=== PATIENT | female | born 1950 | race Caucasian/White ===

== ENCOUNTER 2017-11-09 08:58 | Outpatient (CLI) ==
[2014-05-07 21:16] VITALS: BMI 20.9
== END 2017-11-09 08:59 | disposition home or self-care (01) ==
LOC: LAB 08:58
PROVIDERS: ATTEND Internal Medicine
DX: J44.9 Chronic obstructive pulmonary disease, unspecified (principal); R63.4 Abnormal weight loss; C34.90 Malignant neoplasm of unspecified part of unspecified bronchus or lung
CPT/HCPCS: 36415; 80053; 80061; 82306; 82607; 83036; 84439; 84443; 85025

== ENCOUNTER 2017-11-30 06:44 | Outpatient (CLI) ==
[2014-05-07 21:16] VITALS: BMI 20.9
[2017-11-30] MEDS ORDERED: ATROPINE SULFATE PFS ONE (07:19)
[2017-11-30] MEDS ORDERED: DOBUTAMINE 250 ML IV ONE (07:19)
--- NOTE | 2017-11-30 09:50 | NM ---
Cardiac Stress Test HISTORY: Shortness of breath. Coronary artery disease. Elevated cholesterol. COMPARISON: None of this type. TECHNIQUE: Resting: The patient was injected with 3.9 mCi of thallium 201 chloride intravenously after which a "resting" SPECT study of the heart was performed. Stress: The patient was stressed using a Too protocol and at the appropriate time injected with 27 mCi of 99m technetium Sestamibi (Cardiolite) after which a "stress" SPECT study of the heart was per formed. Gated images of the heart were also obtained to assess wall motion and calculate ejection fra ction. For details of the stress protocol employed, reference is made to the separate report of the performing physician. FINDINGS: The stress perfusion images demonstrate decreased activity in the left ventricular apex wh ich improves at rest suggesting ischemia. The resting perfusion images demonstrate no evidence of si gnificant redistribution/ischemia elsewhere. The left ventricular ejection fraction (LVEF) is 80 %. IMPRESSION: 1. Left ventricular myocardial perfusion demonstrates findings suggesting ischemia the left ventricu lar apex. 2. The left ventricular ejection fraction (LVEF) is 80 %.
--- NOTE | 2017-12-03 09:50 | ECHOSTRESS ---
Date of Exam: 11/30/17 Ordering Physician: DR. SIMONE TEIXEIRA Reason for Echo: SOB, COPD, DOBUTAMINE STRESS --NO ISCHEMIA M-Mode Normal Adult Results LV Dimensions Normal Adult Results AoV Opening excursions >1.6 LVEDD-base- 3.5-5.8 Ao root dimensions 2.0-3.7 LVESD-base- 3.1-4.6 L. Atrium dimensions 1.9-3.8 Post. Wall thickness 0.8-1.1 IV septum (thickness) 0.7-1.2 Post. Wall excursion 0.72-1.3 Septal motion Systolic motion R. Ventricular cavity 1.5-2.0 LVEF 60% Paradoxical septal wall motion 2-D: NORMAL LEFT VENTRICULAR CONTRACTILITY--RESTING AND WITH DOBUTAMINE INFUSION M-MODE: MV: AV: TV: PV: CHAMBER SIZE: WALL MOTION: NORMAL LEFT VENTRICULAR CONTRACTILITY--RESTING AND WITH DOBUTAMINE INFUSION PERICARDIUM: INTERPRETATION: 1. NORMAL LEFT VENTRICULAR CONTRACTILITY--RESTING AND WITH DOBUTAMINE INFUSION MTDD
--- NOTE | 2017-12-03 10:16 | DOBSTECHST ---
Ordering Physician: DR. SIMONE TEIXEIRA Date of Test: 11/30/17 Reason for Examination: SOB, CAD, COPD Smoking History: Height: 59" Weight: 102 LBS Current Medications: CEPHALEXIN, LIPITOR, PREDNISONE, SYMBICORT Target Heart Rate: 128/151 S-T Segment Stage Time HR BPM BP mmhg Rhythm +/- Elevation Depression Comments/ Symptoms Control Sitting 85 130/92 SR X NONE Dobutamine 250mg/D5W 5cmg/KG/mn 10cmg/KG/mn 3:00 116 170/100 SR X NONE 15cmg/KG/mn 1:42 139 172/86 SR X NONE 20cmg/KG/mn 25cmg/KG/mn 30cmg/KG/mn 35cmg/KG/mn 40cmg/KG/mn Time: 3:00 HR B/P Time: 7:00 HR B/P Time: HR B/P Recovery 120 168/90 Recovery 92 158/96 Recovery Total Time: 4:42 98% OXYGEN SATURATION WITH DOBUTAMINE INFUSION Interpretation: 1. NO EVIDENCE OF ISCHEMIA BY ST-T WAVE 2. NO CHEST PAIN OR DISCOMFORT 3. NORMAL LEFT VENTRICULAR CONTRACTILITY--RESTING AND WITH DOBUTAMINE INFUSION SESTAMIBI TO FOLLOW \\ MTDD
== END 2017-11-30 06:45 | disposition home or self-care (01) ==
LOC: CAR 06:44
PROVIDERS: ATTEND Internal Medicine
DX: R06.02 Shortness of breath (principal); I25.10 Atherosclerotic heart disease of native coronary artery without angina pectoris

== ENCOUNTER 2017-12-04 09:11 | Outpatient (CLI) ==
[2014-05-07 21:16] VITALS: BMI 20.9
--- NOTE | 2017-12-04 10:02 | US ---
EXAM: Ultrasound of the soft tissue neck. History: Neck swelling and tenderness. Technique: Multiple sonographic images through the soft tissue neck were obtained. Color duplex Dop pler was used to interrogate vascular flow. Findings: No masses, cysts or fluid collections identified. Impression: No sonographic abnormalities
== END 2017-12-04 09:12 | disposition home or self-care (01) ==
LOC: RAD 09:11
PROVIDERS: ATTEND Internal Medicine
DX: S10.90XA Unspecified superficial injury of unspecified part of neck, initial encounter (principal)

== ENCOUNTER 2017-12-07 06:11 | Outpatient (CLI) ==
[2014-05-07 21:16] VITALS: BMI 20.9
--- NOTE | 2017-12-09 09:08 | ECHO2D ---
Date of Exam: 12/07/17 Ordering Physician: DR. SIMONE TEIXEIRA Room #: OP Reason for Echo: SOB, CAD, COPD M-Mode Normal Adult Results LV Dimensions Normal Adult Results AoV Opening excursions >1.6 >1.6 LVEDD-base- 3.5-5.8 3.6 Ao root dimensions 2.0-3.7 3.2 LVESD-base- 3.1-4.6 L. Atrium dimensions 1.9-3.8 3.5 Post. Wall thickness 0.8-1.1 1.0 IV septum (thickness) 0.7-1.2 0.9 Post. Wall excursion 0.72-1.3 NORMAL Septal motion NORMAL Systolic motion R. Ventricular cavity 1.5-2.0 NORMAL LVEF 60% 64% Paradoxical septal wall motion NORMAL 2-D : 2-D M Mode Echocardiogram was performed using apical four chamber and left parasternal long and short axis views. Mitral, tricuspid and aortic valves appear to be normal. Contractility of the left ventricle seems to be normal, so is the cavity size. Left atrial cavity size and aortic root appear to be normal. There is no pericardial effusion. There is no thrombus noted in the left ventricular or left aortic cavity. No mitral valve prolapse noted. M-MODE: MV: NORMAL AV: NORMAL TV: NORMAL PV: CHAMBER SIZE: NORMAL WALL MOTION: NORMAL PERICARDIUM: NORMAL INTERPRETATION: 1. NORMAL 2 "D" "M" MODE ECHO MTDD
== END 2017-12-07 06:12 | disposition home or self-care (01) ==
LOC: CAR 06:11
PROVIDERS: ATTEND Internal Medicine
DX: R06.02 Shortness of breath (principal); I25.10 Atherosclerotic heart disease of native coronary artery without angina pectoris
CPT/HCPCS: 93005; 93010

== ENCOUNTER 2018-01-02 12:12 | Outpatient (CLI) ==
[2014-05-07 21:16] VITALS: BMI 20.9
== END 2018-01-02 12:13 | disposition home or self-care (01) ==
LOC: LAB 12:12
PROVIDERS: ATTEND Internal Medicine Cardiovascular Disease
DX: R06.02 Shortness of breath (principal); Z01.812 Encounter for preprocedural laboratory examination
CPT/HCPCS: 36415; 80048; 85025

== ENCOUNTER 2018-02-02 22:40 | Observation (INO) ==
[2018-02-02] MEDS ORDERED: ZOSYN 3.375 GM 3.375 GM in SODIUM CHLORIDE 50 ML IV STA (23:16)
--- NOTE | 2018-02-02 23:29 | ED.PDOC ---
General ED Provider: Dr. JAKOB MANCILLA Chief Complaint: Bite Stated Complaint: Patient states she noticed a redness, pain and swelling on the right upper chest. Thinks she may have been bit by a spider but not sure. Rates the pain as moderate to severe and worse with even light touching. Time Seen by Physician: 23:00 Mode of Arrival: Walk-In Information Source: Patient Exam Limitations: No limitations Primary Care Provider: SIMONE TEIXEIRA Nursing and Triage Documentation Reviewed and Agree: Yes Does patient meet sepsis criteria?: No System Inflammatory Response Syndrome: Not Applicable Sepsis Protocol: For patient's 13 years and over: Temp is 96.8 and below OR 101 and greater Pulse >90 BPM Resp >20/minute Acutely Altered Mental Status Are patient's symptoms suggestive of a new infection, such as: -Pneumonia -Skin, Soft Tissue -Endocarditis -UTI -Bone, Joint Infection -Implantable Device -Acute Abdominal Infection -Wound Infection -Meningitis -Blood Stream Catheter Infection -Unknown Skin Complaint Exam - Skin/Soft Tissue Complaint/Exam Onset/Duration: 1 day Symptoms Are: Still present Timing: Constant Initial Severity: Moderate Current Severity: Severe Location: Right upepr chest Character: Reports: Redness, Swelling, Raised, Painful Aggravating: Reports: Touch Alleviating: Reports: None Associated Signs and Symptoms: Reports: Tenderness, Red streaks Related History: Reports: Similar episode, Insect bite/sting. Denies: Recent trauma Recent Exposure to Others w/Similar Symptoms: No Skin Findings: Present: Erythema (Measuring 9 x 5 cm with a small dark blister area at the center measuring 1 x 0.5 cm), Lymphangitic streaking Joint Tenderness Present: No Differential Diagnoses: Abscess, Cellulitis, Infection, Lymphangitis, MRSA Review of Systems - Review Of Systems Constitutional: Denies: Sweats Eyes: Reports: No symptoms Respiratory: Reports: No symptoms Cardiac: Reports: No symptoms GI: Reports: No symptoms : Reports: No symptoms Musculoskeletal: Reports: Muscle pain (right pectoralis muscle ) Skin: Reports: Lesions, Rash Neurological: Reports: Anxiety Endocrine: Reports: No symptoms Hematologic/Lymphatic: Reports: No symptoms All Other Systems: Reviewed and Negative Past Medical History - Past Medical History Previously Healthy: Yes Endocrine: Reports: Dyslipidemia Cardiovascular: Reports: None Respiratory: Reports: COPD Hematological: Reports: None Gastrointestinal: Reports: None Genitourinary: Reports: None Neuro/Psych: Reports: None Musculoskeletal: Reports: Arthritis Cancer: Reports: Colon Last Menstrual Period: hyst - Surgical History General Surgical History: Reports: Hysterectomy, Tonsillectomy, Other (Right lung resection parital for cancer. ) - Family History Family History: Reports: Unknown - Social History Smoking Status: Current every day smoker Hx Substance Use: No Alcohol Screening: Occasionally - Immunizations Tetanus Shot up to Date: No (unsure) Physical Exam - Physical Exam Appearance: Ill-appearing, Thin Ill-appearing: Moderate Pain Distress: Severe Neck: Supple Respiratory: Airway patent, Breath sounds clear, Breath sounds equal, Respirations nonlabored Cardiovascular: RRR, Pulses normal, No rub, No murmur GI/: Soft, Nontender Musculoskeletal: Normal strength, ROM intact, No edema, No calf tenderness Skin: Warm, Dry Neurological: Sensation intact, Alert, Oriented Psychiatric: Anxious Re-Evaluation - Re-Evaluation Time of Re-Evaluation: 01:10 Status: Improved (pain better after Morphine and Toradol. ) Physician Notification - Case Discussed Physician Notified: Dr Teixeira Time of Notification: 00:30 (Ok to admit. Have Dr Barahona called in the morning for a consult. Place on Zosyn and vancomycin ) Critical Care Note - Critical Care Note Total Time (mins): 35 Course - Course Hematology/Chemistry: 02/02/18 23:32 02/02/18 23:32 Orders, Labs, Meds: Lab Review 02/02/18 02/02/18 02/02/18 23:32 23:32 23:32 WBC 5.50 RBC 4.51 Hgb 13.0 Hct 39.6 MCV 87.8 MCH 28.8 MCHC 32.8 RDW Coeff of Felipe 13.6 Plt Count 169 Immature Gran % (Auto) 0.2 Neut % (Auto) 58.4 Lymph % (Auto) 31.1 [place] % (Auto) 9.3 Eos % (Auto) 0.5 Baso % (Auto) 0.5 Immature Gran # (Auto) 0.0 Neut # (Auto) 3.2 Lymph # (Auto) 1.7 [place] # (Auto) 0.5 Eos # (Auto) 0.0 Baso # (Auto) 0.0 PT 9.9 INR 0.99 Sodium 139.6 Potassium 3.79 Chloride 107.5 H Carbon Dioxide 25.1 Anion Gap 10.79 BUN 12.8 Creatinine 1.09 Estimated GFR (MDRD) 50.00 BUN/Creatinine Ratio 11.74 Glucose 107.9 H Lactic Acid Calcium 9.33 Total Bilirubin 0.60 AST 24.4 ALT 15.0 Alkaline Phosphatase 94.5 Total Protein 7.13 Albumin 4.10 Globulin 3.03 Albumin/Globulin Ratio 1.35 Procalcitonin 02/02/18 02/02/18 23:32 23:32 WBC RBC Hgb Hct MCV MCH MCHC RDW Coeff of Felipe Plt Count Immature Gran % (Auto) Neut % (Auto) Lymph % (Auto) [place] % (Auto) Eos % (Auto) Baso % (Auto) Immature Gran # (Auto) Neut # (Auto) Lymph # (Auto) [place] # (Auto) Eos # (Auto) Baso # (Auto) PT INR Sodium Potassium Chloride Carbon Dioxide Anion Gap BUN Creatinine Estimated GFR (MDRD) BUN/Creatinine Ratio Glucose Lactic Acid 0.92 Calcium Total Bilirubin AST ALT Alkaline Phosphatase Total Protein Albumin Globulin Albumin/Globulin Ratio Procalcitonin < 0.05 Orders Category Date Time Status ED APPLY O2 .ONCE EMERGENCY 02/02/18 23:15 Active ED LEGISLATIVE AIDE APPLIED .ONCE EMERGENCY 02/02/18 23:15 Active ED VITAL SIGNS Q1HR EMERGENCY 02/02/18 23:15 Active BLOOD CULTURE (ED ONLY) Stat LAB 02/02/18 23:32 Received CBC W/ AUTO DIFF Stat LAB 02/02/18 23:32 Completed COMPREHENSIVE METABOLIC PANEL Stat LAB 02/02/18 23:32 Completed LACTIC ACID Stat LAB 02/02/18 23:32 Completed PROCALCITONIN Stat LAB 02/02/18 23:32 Completed PT WITH INR Stat LAB 02/02/18 23:32 Completed Ketorolac Tromethamine [Toradol] MEDS 02/03/18 00:06 Discontinued 30 mg IVP ONCE STA Morphine Sulfate [Morphine 4 mg/ml Syringe] MEDS 02/02/18 23:41 Discontinued 4 mg .ROUTE .STK-MED ONE Morphine Sulfate [Morphine 4 mg/ml Vial] MEDS 02/02/18 23:37 Discontinued 4 mg IVP ONCE STA Ondansetron HCl/Pf [Zofran 4 mg/2 ml] MEDS 02/02/18 23:37 Discontinued 4 mg IVP ONCE STA Piperacillin Sodium/Tazobactam [Zosyn 3.375 gm] 3.375 MEDS 02/02/18 23:16 Discontinued gm 0.9 % Sodium Chloride [Sodium Chloride] 50 ml IV ONCE Medications Generic Name Dose Route Start Last Admin Trade Name Sophia PRN Reason Stop Dose Admin Acetaminophen 650 mg 02/03/18 01:08 Tylenol PO Q4H PRN Fever > 102 Albuterol Sulfate 1 vial 02/03/18 09:00 Albuterol 0.083% Neb NEB QID [facility] Aspirin 81 mg 02/03/18 09:00 Aspirin Ec PO DAILY [facility] Atorvastatin Calcium 10 mg 02/03/18 09:00 Lipitor PO DAILY [facility] Budesonide/Formoterol Fumarate 2 puff 02/03/18 09:00 Symbicort 160-4.5 Mcg Inhaler IH BID [facility] Enoxaparin Sodium 40 mg 02/03/18 09:00 Lovenox SUBCUT DAILY [facility] Sodium Chloride 1,000 mls @ 75 mls/hr 02/03/18 01:30 Sodium Chloride IV .[id number] [facility] Vancomycin HCl 1 gm/ Sodium 250 mls @ 125 mls/hr 02/03/18 01:30 Chloride IV Q12HR [facility] Piperacillin Sod/Tazobactam 50 mls @ 50 mls/hr 02/03/18 06:00 Sod 3.375 gm/ Sodium Chloride IV Q6HR [facility] Methylprednisolone Sodium Succinate 125 mg 02/03/18 09:00 Solu-Medrol 125 Mg IVP Q12HR [facility] Ondansetron HCl 4 mg 02/03/18 01:03 Zofran 4 Mg/2 Ml IVP Q6H PRN Nausea / Vomiting Sodium Chloride 1 syr 02/03/18 01:02 Saline Flush IVF PRN PRN To flush IV Discontinued Medications Generic Name Dose Route Start Last Admin Trade Name Sophia PRN Reason Stop Dose Admin Piperacillin Sod/Tazobactam 50 mls @ 50 mls/hr 02/02/18 23:16 02/02/18 23:29 Sod 3.375 gm/ Sodium Chloride IV 02/03/18 00:15 50 mls/hr ONCE STA Administration Ketorolac Tromethamine 30 mg 02/03/18 00:06 02/03/18 00:12 Toradol IVP 02/03/18 00:07 30 mg ONCE STA Administration Morphine Sulfate 4 mg 02/02/18 23:37 02/02/18 23:47 Morphine 4 Mg/Ml Vial IVP 02/02/18 23:38 4 mg ONCE STA Administration Ondansetron HCl 4 mg 02/02/18 23:37 02/02/18 23:43 Zofran 4 Mg/2 Ml IVP 02/02/18 23:38 4 mg ONCE STA Administration Vital Signs: Temp Pulse Resp BP Pulse Ox 02/02/18 23:51 99 F 80 18 138/80 97 02/02/18 22:43 99 F 82 20 147/84 H 96 Departure - Departure Time of Disposition: 01:11 Disposition: ADMITTED INPATIENT Discharge Problem: Abscess or cellulitis of chest wall Condition: Fair Pt referred to PMD for follow-up: No (admited ) IPMP verified?: No Allergies/Adverse Reactions: Allergies No Known Allergies Allergy (Verified 02/02/18 22:52) Home Medications: Ambulatory Orders Albuterol Sulfate 0.083% Neb [Albuterol 0.083% Neb] 1 vial NEB QID 05/08/14 Aspirin [Aspirin EC] 81 mg PO DAILY 02/02/18 Atorvastatin Calcium [Lipitor] 10 mg PO DAILY 02/02/18
[2018-02-02] MEDS ORDERED: ZOFRAN 4 MG/2 ML IVP STA (23:37)
[2018-02-02] MEDS ORDERED: MORPHINE 4 MG/ML VIAL IVP STA (23:37)
[2018-02-02] MEDS ORDERED: MORPHINE 4 MG/ML SYRINGE ONE (23:41)
[2018-02-03] MEDS ORDERED: TORADOL IVP STA (00:06)
[2018-02-03] MEDS ORDERED: ZOFRAN 4 MG/2 ML IVP PRN (01:03)
[2018-02-03] MEDS ORDERED: TYLENOL PO PRN (01:08)
[2018-02-03] MEDS ORDERED: MORPHINE 2 MG/ML SYRINGE IVP PRN (01:08)
[2018-02-03] MEDS ORDERED: PERCOCET 5-325 PO PRN (01:08)
[2018-02-03 01:30] VITALS: BMI 21.3
[2018-02-03] MEDS ORDERED: VANCOMYCIN 1 GM in SODIUM CHLORIDE 250 ML IV SCH (01:30)
[2018-02-03] MEDS: SODIUM CHLORIDE 1,000 ML IV SCH ×2 (02:00→18:06)
[2018-02-03] MEDS ORDERED: ZOSYN 3.375 GM 3.375 GM in SODIUM CHLORIDE 50 ML IV SCH (06:00)
[2018-02-03] MEDS ORDERED: DIFLUCAN PO STA (08:15)
[2018-02-03] MEDS: SYMBICORT 160-4.5 MCG INHALER IH SCH ×2 (08:58→20:34)
[2018-02-03] MEDS: LIPITOR PO SCH (08:59)
[2018-02-03] MEDS: LOTRISONE 45 GM TP SCH ×2 (09:00→20:35)
[2018-02-03] MEDS: ASPIRIN EC PO SCH (09:00)
[2018-02-03] MEDS: LOVENOX SUBCUT SCH (09:01)
[2018-02-03] MEDS: SOLU-MEDROL 125 MG IVP SCH ×2 (10:58→21:05)
[2018-02-03] MEDS ORDERED: ZOSYN 2.25 GM 2.25 GM in SODIUM CHLORIDE 50 ML IV SCH (12:00)
[2018-02-03] MEDS: ALBUTEROL 0.083% NEB NEB SCH ×2 (16:26→20:05)
[2018-02-03] MEDS ORDERED: MAXIPIME 2 GM in SODIUM CHLORIDE 100 ML IV SCH (21:00)
[2018-02-03] MEDS ORDERED: VANCOMYCIN 750 MG in SODIUM CHLORIDE 250 ML IV SCH (21:00)
[2018-02-03] MEDS ORDERED: MAXIPIME IV ONE (23:38)
[2018-02-04] MEDS: ALBUTEROL 0.083% NEB NEB SCH ×2 (04:58→10:16)
[2018-02-04] MEDS: LIPITOR PO SCH (08:55)
[2018-02-04] MEDS: ASPIRIN EC PO SCH (08:55)
[2018-02-04] MEDS: LOVENOX SUBCUT SCH (08:56)
[2018-02-04] MEDS: SOLU-MEDROL 125 MG IVP SCH (08:58)
[2018-02-04] MEDS: SYMBICORT 160-4.5 MCG INHALER IH SCH (08:59)
[2018-02-04] MEDS: LOTRISONE 45 GM TP SCH (09:03)
--- NOTE | 2018-02-04 10:16 | CM.DICTOOL ---
ADMISSION: 02/03/18 00:40 DISCHARGE: 02/04/18 DATE OF SERVICE: 02/04/18 FINAL DIAGNOSIS CELLULITIS, RIGHT UPPER CHEST BRONCHOGENIC CARCINOMA RIGHT UPPER LUNG COPD (CURRENT HEAVY SMOKER) CKD, STAGE 3 HYPERTENSION DYSLIPIDEMIA ARTHRITIS PARTIAL RIGHT PNEUMONECTOMY R/T LUNG CANCER TONSILLECTOMY TOTAL ABDOMINAL HYSTERECTOMY LAST ECHO AT [facility], 12/07 17 LVEF 64% NORMAL FINDINGS DOBUTAMIN STRESS/SESTAMIBI, 12/07/17 AT [facility] ISCHEMIC AT THE LEFT VENTRICULAR APEX LVEF 80% LAST PFT AT [facility], 12/04/13 MILD COPD UPPER AIRWAY OBSTRUCTIVE DISEASE LAST VITALS Temp Pulse Resp BP Pulse Ox 97.5 F L 83 16 179/92 H 98 02/04/18 06:00 02/04/18 06:00 02/04/18 06:00 02/04/18 06:00 02/04/18 06:00 TAKE THESE MEDICATIONS AT HOME Albuterol Sulfate (Albuterol 0.083% Neb) 1 vial NEB RTQID [facility] Last Admin: 02/04/18 04:58 Dose: 1 vial Aspirin (Aspirin Ec) 81 mg PO DAILYWM [facility] Last Admin: 02/04/18 08:55 Dose: 81 mg Atorvastatin Calcium (Lipitor) 10 mg PO DAILY [facility] Last Admin: 02/04/18 08:55 Dose: 10 mg Budesonide/Formoterol Fumarate (Symbicort 160-4.5 Mcg Inhaler) 2 puff IH BID [facility] Last Admin: 02/04/18 08:59 Dose: 2 puff Clindamycin 150 mg PO TID x 7 DAYS Clotrimazole (Lotrisone 45 Gm) 1 applic TP BID [facility] Last Admin: 02/04/18 09:03 Dose: 1 applic Doxycycline Hyclate 100 mg PO BID x 7 DAYS Prednisone 10 mg, PO BID with food x 3 DAYS ALLERGIES No Known Allergies Allergy (Verified 02/02/18 22:52) NEW PRESCRIPTIONS: Clindamycin HCl 150 mg PO TID #21 capsule 02/04/18 Clotrimazole/Betamethasone Dip [Lotrisone 45 gm] 1 applic TP BID #1 applic 02/04 Doxycycline Hyclate 100 mg PO BID #14 capsule 02/04/18 Prednisone 10 mg PO BIDWM #6 tablet 02/04/18 SMOKING: EXTENSIVE SMOKING CESSATION EDUCATION/INFORMATION HAS BEEN PROVIDED FOR THIS PATIENT. SHE HAS A GOOD UNDERSTANDING OF THE ADDED RISK TO HER CARDIOPULMONARY HEALTH AND IS ALSO MADE AWARE OF THE BENEFITS OF COMPLETE CESSTION. DESPITE THIS INFORMATION PROVIDED, THE PATIENT IS ADAMANT THAT SHE WILL CONTINUE TO SMOKE. WE WILL CONTINUE TO PROVIDE ENCOURAGEMENT FOR COMPLETE SMOKING CESSATION. DISEASE SPECIFIC EDUCATION: CELLULITIS HOME MEDICATIONS NEW PRESCRIPTIONS FIELD ASSESSOR USE OF STEROIDS AND POSSIBLE ADVERSE EFFECTS FOLLOW UP LAB REVIEW: 02/04/18 04:33 02/04/18 04:33 02/04/18 04:53: Hemoglobin A1c 5.46 02/04/18 04:33: Sodium 140.2, Potassium 3.84, Chloride 111.7 H, Carbon Dioxide 25.2, Anion Gap 7.14, BUN 16.6, Creatinine 1.05, Estimated GFR (MDRD) 52.00, BUN /Creatinine Ratio 15.80, Glucose 219.1 H D, Calcium 8.87, Total Bilirubin 0.24, AST 16.9, ALT 15.5, Alkaline Phosphatase 63.3, Total Protein 6.21 L, Albumin 3.43 L, Globulin 2.78, Albumin/Globulin Ratio 1.23 02/04/18 04:33: WBC 5.70, RBC 3.84 L, Hgb 11.2 L, Hct 33.8 L, MCV 88.0, MCH 29.2 , MCHC 33.1, RDW Coeff of Felipe 13.4, Plt Count 139 L, Immature Gran % (Auto) 0.7 , Neut % (Auto) 77.0, Lymph % (Auto) 18.6, [place] % (Auto) 3.5, Eos % (Auto) 0.0, Baso % (Auto) 0.2, Immature Gran # (Auto) 0.0, Neut # (Auto) 4.4, Lymph # (Auto ) 1.1, [place] # (Auto) 0.2 L, Eos # (Auto) 0.0, Baso # (Auto) 0.0 PLAN: DISCHARGE HOME TODAY, 02/04/[address] TEIXEIRA ON 02/07/18 AT 11 A.M. RESUME YOUR HOME MEDICATIONS PER LIST PROVIDED BY THE NURSING STAFF NEW PRESCRIPTIONS DOXYCYCLINE 100 MG, TAKE ONE TABLET BY MOUTH TWICE DAILY FOR 7 DAYS CLINDAMYCIN 150 MG, TAKE ONE TABLET BY MOUTH THREE TIMES DAILY FOR 7 DAYS PREDNISONE 10 MG, TAKE ONE TABLET BY MOUTH TWICE DAILY WITH FOOD FOR THREE DAYS LOTRISONE CREAM, APPLY BENEATH BREASTS TWICE DAILY ACTIVITY GET PLENTY OF REST. GRADUALLY INCREASE YOUR ACTIVITY LEVEL ACCORDING TO YOUR TOLERATION DIET HEALTHY HEART SUMMARY THE PATIENT IS ALERT AND ORIENTED X3. SHE CURRENTLY RESIDES AT HOME WITH HER SPOUSE. SHE HAS BEEN INDEPENDENT WITH [employer] AND HAS NOT REQUIRED ANY DME, HOME HEALTH OR HOMEMAKING SERVICES. SHE DESIRES TO RETURN HOME AT DISCHARGE. MS. DURBIN HAS AN AREA OF REDNESS APPROXIMATELY 10 CM X 10 CM TO HER RIGHT CLAVICLE. IN THE CENTER IS A VERY SMALL ROUND AREA WITH A DARK SCABBING. THERE IS NO DRAINAGE OR SWELLING, JUST THE REDNESS. THE AREA IS NOT MALODOROUS. OTHERWISE, SHE HAS NO DECUBITUS ULCERS OR OTHER OPEN AREAS NOTED. CURRENT CODE STATUS FULL CODE NAKUL COLBY APRN SIMONE TEIXEIRA M.D.
[2018-02-04 10:31] VITALS: BP 154/85; TEMP 97.2
--- NOTE | 2018-02-04 15:40 | PN ---
DATE OF SERVICE: 02/04/18 SUBJECTIVE: Ms. Arreola was hospitalized with a spider bite on the right upper chest. The redness is a lot better. She denies of any pain or soreness. She complained of inframammary rash. REVIEW OF SYSTEMS: CONSTITUTIONAL: No night sweats. No fatigue, malaise, lethargy. No fever or chills. HEENT: Eyes: No visual changes. No eye pain. No eye discharge. ENT: No runny nose. No epistaxis. No sinus pain. No sore throat. No odynophagia. No congestion. RESPIRATORY: No cough, no congestion. No hemoptysis. No shortness of breath. CARDIOVASCULAR: No angina symptoms. No CHF symptoms. No atypical chest pain for CAD. No palpitations. No orthopnea. GASTROINTESTINAL: No abdominal pain. No nausea or vomiting. No diarrhea or constipation. No hematemesis. No hematochezia. GENITOURINARY: No urgency. No frequency. No dysuria. No hematuria. No obstructive symptoms. No discharge. No pain. No significant abnormal bleeding. MUSCULOSKELETAL: No musculoskeletal pain; no joint swelling. NEUROLOGICAL: No headache. No neck pain. No syncope. No seizures. No dizziness. PSYCHIATRIC: Not anxious. No depression. No suicidal thoughts. No homicidal thoughts. SKIN: The patient has right upper chest area mild soreness, superficial. ENDOCRINE: No unexplained weight loss. No weight gain. HEMATOLOGIC/LYMPHATIC: No anemia. No purpura. No petechiae. No prolonged or excessive bleeding. No palpable lymph nodes. PHYSICAL EXAMINATION: GENERAL: The patient is in bed in no distress. HEENT: Head normocephalic, atraumatic. Eyes: Extraocular muscles are intact. Pupils are equal, round and reactive to light and accommodation. Ears: No lesions. Nose appeared normal. Throat: No exudate or erythema. NECK: Supple. No JVD, no carotid bruit. No lymphadenopathy or thyromegaly. LUNGS: Clear to auscultation. Percussion note normal. Chest symmetrical. HEART: S1, S2, no S3. No murmurs. No cyanosis or clubbing. No ascites. Pulses: Dorsalis pedis and posterior tibial pulses +1 to +2 both sides. ABDOMEN: Soft. Nontender. Bowel sounds active. No CVA tenderness. No mass felt. EXTREMITIES: No edema. Full range of motion of all extremities, equal. NEUROLOGIC: No focal deficit. Cranial nerves II through XII are grossly intact. No headache, no double vision or headache. SKIN: Insect bite seen on the right upper chest area. The redness has practically faded. Inframammary rash likely from fungal infection. LYMPHATIC: No palpable lymph nodes/no lymphedema. MUSCULOSKELETAL: Normal joints with no swelling. Muscle tone is normal. ASSESSMENT: 1. CELLULITIS. PLAN: 1. Will continue Zosyn, Vancomycin. 2. Will use Lotrisone cream and Diflucan for inframammary fungal infection. CONDITION: Stable. TIME SPENT: More than 30 minutes. Plan and coordination of the patient's care discussed in the presence of nurse. GERSON
[2018-02-04] MEDS ORDERED: MAXIPIME 2 GM in SODIUM CHLORIDE 100 ML IV SCH (21:00)
--- NOTE | 2018-02-05 13:17 | SSS ---
DATE OF SERVICE: 02/04/18 (ADMITTED 02/03/18) REASON FOR HOSPITALIZATION: Insect bite. HISTORY OF PRESENT ILLNESS: 67-year-old white female was brought early in the morning with possibility of spider bite on right upper chest. The patient had pain, moderate to severe, even light touching. The area was red and inflamed. Duration of bite unknown but maybe 24 hours according to the daughter. Dr. Roya Chahal's note reviewed. The patient did not have any coronary angiogram done. He has decided to follow her and not to do coronary angiogram.She was referred for angiogram. REVIEW OF SYSTEMS: CONSTITUTIONAL: No night sweats. No fatigue, weakness, malaise, lethargy. No fever or chills. HEENT: Eyes: No visual changes. No eye pain. No eye discharge. ENT: No runny nose. No epistaxis. No sinus pain. No sore throat. No odynophagia. No ear pain. No congestion. RESPIRATORY: No cough, no congestion. No hemoptysis. No shortness of breath other than usual shortness of breath that she has from her chronic lung disease. CARDIOVASCULAR: No angina symptoms. No CHF symptoms. No atypical chest pain for CAD. No palpitations. No orthopnea. No PND. GASTROINTESTINAL: No abdominal pain. No nausea or vomiting. No diarrhea or constipation. No hematemesis. No hematochezia. GENITOURINARY: No dysuria. No hematuria. No obstructive symptoms. No discharge. No pain. No significant abnormal bleeding. MUSCULOSKELETAL: No musculoskeletal pain. No joint swelling. NEUROLOGICAL: Awake, alert, oriented to time, place and person. No headache. No neck pain. No syncope. No seizures. No dizziness. PSYCHIATRIC: Not anxious. No depression. No suicidal thoughts. No homicidal thoughts. SKIN: Rash with red inflamed area which is tender to touch, right upper chest. No lesions. No wounds. ENDOCRINE: No unexplained weight loss. No weight gain. HEMATOLOGIC/LYMPHATIC: No anemia. No purpura. No petechiae. No prolonged or excessive bleeding. No palpable lymph nodes. PAST MEDICAL/SURGICAL HISTORY: Dyslipidemia B12 deficiency Left lung nodule followed by pulmonary physician in [place] Right lung cancer status post lobectomy 2016 COPD with heavy smoker Chronic bronchitis Dyslipidemia Hypertension PERSONAL/FAMILY HISTORY/SOCIAL HISTORY: The patient is , lives by herself. She is a heavy smoker. She drinks occasionally. PHYSICAL EXAMINATION: GENERAL: The patient is oriented to time, place and person. VITAL SIGNS: Temperature 97.5, pulse 80, respiratory rate 16, BP 180/90, pulse ox 98%. HEENT: Head normocephalic, atraumatic. Eyes: Extraocular muscles are intact. Pupils are equal, round and reactive to light and accommodation. Ears: No lesions. Nose appeared normal. Throat: No exudate or erythema. NECK: Supple. No JVD, no carotid bruit. No lymphadenopathy or thyromegaly. LUNGS: Decreased breath sounds but clear to auscultation. Percussion note normal. Chest symmetrical. HEART: S1, S2, no S3. No murmurs. No cyanosis or clubbing. No ascites. Pulses: Dorsalis pedis and posterior tibial pulses +1 to +2 both sides. ABDOMEN: Soft. Nontender. Bowel sounds active. No CVA tenderness. No mass felt. EXTREMITIES: No pedal edema. Full range of motion of all extremities, equal. NEUROLOGIC: No focal deficit. Cranial nerves II through XII are grossly intact. No headache, no double vision or headache. SKIN: Warm and dry. Intact. Turgor - normal. Left-sided upper chest has a right jean pierre with redness approximately 2.5" surrounding central area. She has inframammary rash from fungal infection. LYMPHATIC: No palpable lymph nodes/no lymphedema. MUSCULOSKELETAL: Normal joints with no swelling. Muscle tone is normal. Old/present records reviewed Office records reviewed. ALLERGIES: NKDA MEDICATIONS: Symbicort Tramadol Lipitor Coreg Nitroglycerin p.r.n. Cozaar LABS/EKG'S/X-RAY/ECHO/ABG: Hemoglobin 11.2, hematocrit 38, WBC 5,000, normal differential. Creatinine 1, BUN 16, potassium 3.8 PROGRESS NOTES: See EMR. DIAGNOSES: 1. INSECT BITE LIKELY SPIDER BITE WITH CELLULITIS 2. INFRAMAMMARY SKIN CONDITION FROM FUNGAL INFECTION 3. HYPERTENSION 4. DYSLIPIDEMIA 5. HEAVY SMOKING 6. HISTORY OF CA OF THE LUNG WITH LOBECTOMY, RIGHT LUNG FOLLOWED BY PULMONARY PHYSICIAN 7. NORMAL STRESS TEST FOLLOWED BY DRAPERY SEAMSTRESS, DOMINGO LYNN 8. CHRONIC BRONCHITIS FROM SMOKING, COUNSELING FOR SMOKING DONE PLAN: 1. Advised to continue her medication as prescribed before discharge. I manually took the blood pressure which was 150/82. 2. Advised DASH diet and keep the blood pressure between 135/85. 3. Continue the rest of the medication as before. Added Doxycycline 100 p.o. b.i.d. for 7 days, Clindamycin 150 mg t.i.d. for 5 days, Lotrisone cream for inframammary area. 4. Instructed to come back on for followup. 5. A1C to be done before discharge. 6. Prednisone also given 10 mg twice a day for three days. HOSPITAL COURSE: 67-year-old hospitalized with insect bite likely spider, treated with steroids, antibiotics. Initially Zosyn with Vancomycin later on switched to third generation Cephalosporin IV. The patient's condition improved remarkably within 24 hours. Her redness had practically subsided. She had central jean pierre that was very superficial, no drainage. Her inframammary rash also better. She is up and about, normal appetite. She has continued to smoke. Her sugar was 219, A1C to be done, likely was for hyperglycemia, steroid therapy. Condition at time of discharge: Stable. TIME SPENT: More than 70 minutes. MTDD
--- NOTE | 2018-02-05 13:20 | PN ---
CODING FOR BILLING 02/03/18 LEVEL 5 02/04/18 DISCHARGE MTDD
== END 2018-02-04 10:55 | disposition home or self-care (01) ==
LOC: ED 22:40 → MEDSURG B 02-03 00:40 → INTOOBSV 02-03 00:40
PROVIDERS: ADMIT Internal Medicine; ATTEND Internal Medicine
DX: L53.9 Erythematous condition, unspecified (principal); L03.313 Cellulitis of chest wall; B49 Unspecified mycosis; F41.9 Anxiety disorder, unspecified; I10 Essential (primary) hypertension; E78.5 Hyperlipidemia, unspecified
CPT/HCPCS: 36415; 80053; 83036; 83605; 84145; 85025; 85610; 87040; 94640; 96365; 96375; 99284; 99285

== ENCOUNTER 2018-03-23 15:46 | Inpatient (IN) ==
[2018-03-23] MEDS ORDERED: DUONEB NEB STA (16:11)
[2018-03-23] MEDS ORDERED: SOLU-MEDROL 125 MG IVP STA (16:29)
--- NOTE | 2018-03-23 17:00 | ED.PDOC ---
General ED Provider: Dr. JAKOB MANCILLA Chief Complaint: Fever Stated Complaint: Body aches, Dizziness feels as thought it is her kidneys. she also has some shortness of breath with some cough. Time Seen by Physician: 16:00 Mode of Arrival: Walk-In Information Source: Patient Exam Limitations: No limitations Primary Care Provider: SIMONE TEIXEIRA Nursing and Triage Documentation Reviewed and Agree: Yes Does patient meet sepsis criteria?: No System Inflammatory Response Syndrome: Not Applicable Sepsis Protocol: For patient's 13 years and over: Temp is 96.8 and below OR 101 and greater Pulse >90 BPM Resp >20/minute Acutely Altered Mental Status Are patient's symptoms suggestive of a new infection, such as: -Pneumonia -Skin, Soft Tissue -Endocarditis -UTI -Bone, Joint Infection -Implantable Device -Acute Abdominal Infection -Wound Infection -Meningitis -Blood Stream Catheter Infection -Unknown Respiratory Complaint Exam - Respiratory Complaint/Exam Onset/Duration: 4 days Symptoms Are: Still present Timing: Constant Initial Severity: Moderate Current Severity: Severe Location: Chest Character: Reports: Non-productive cough Aggravating: Reports: URI, Weather Alleviating: Reports: Bronchodilators Associated Signs and Symptoms: Reports: Dyspnea, Wheezing. Denies: Fever, Chills, Chest pain, Pleuritic chest pain, Hemoptysis, Dizziness, Calf pain, Edema, Vomiting Related Surgical History: Reports: None Cardiac Risk Factors: Reports: Smoking Pseudomonas Risk Factors: Reports: None Tuberculosis Risk Factors: Reports: None Status Asthmaticus Risk Factors: Reports: None Home Oxygen Use: Yes (2 liters ) Recent Stress Test: No Recent Echo/LV Function: No Current Antibiotic Use: No Respiratory Distress: Moderate Inadequate Respiratory Effort: No Dysphagia Present: Yes Stridor Present: No JVD Present: No Accessory Muscle Use: No Diminished Breath Sounds: Yes Prolonged Respiration: Expiratory phase Sinus Tenderness: None Grunting Respirations: No Kussmaul Respirations: No Differential Diagnoses: COPD Exacerbation, Bronchitis Review of Systems - Review Of Systems Constitutional: Reports: Weakness Eyes: Reports: No symptoms Ears, Nose, Mouth, Throat: Reports: No symptoms Respiratory: Reports: Cough, Short of air, Wheezing Cardiac: Reports: Lightheadedness GI: Reports: No symptoms : Reports: Incontinence Musculoskeletal: Reports: No symptoms Skin: Reports: No symptoms Neurological: Reports: No symptoms Endocrine: Reports: No symptoms Hematologic/Lymphatic: Reports: No symptoms All Other Systems: Reviewed and Negative Past Medical History - Past Medical History Previously Healthy: Yes Endocrine: Reports: Dyslipidemia Cardiovascular: Reports: None Respiratory: Reports: COPD Hematological: Reports: None Gastrointestinal: Reports: None Genitourinary: Reports: None Neuro/Psych: Reports: None Musculoskeletal: Reports: Arthritis Cancer: Reports: Lung, Colon Last Menstrual Period: NA - Surgical History General Surgical History: Reports: Hysterectomy, Tonsillectomy, Other (Right lung resection parital for cancer. ) - Family History Family History: Reports: Unknown - Social History Smoking Status: Current every day smoker Hx Substance Use: No Alcohol Screening: None - Immunizations Tetanus Shot up to Date: No Physical Exam - Physical Exam Appearance: Ill-appearing, Thin Ill-appearing: Moderate Eyes: KAREN (on the right, Blind on the left eye ), EOMI, Conjunctiva clear Neck: Supple Respiratory: Airway patent, Breath sounds diminished, Wheezes Cardiovascular: RRR, Pulses normal, No rub, No murmur GI/: Soft, Nontender, No masses, Bowel sounds normal, No Organomegaly Musculoskeletal: Normal strength, ROM intact, No edema, No calf tenderness Skin: Warm, Dry, Normal color Neurological: Sensation intact, Motor intact, Reflexes intact, Cranial nerves intact, Alert, Oriented Psychiatric: Anxious Interpretation - Radiology Interpretation Radiology Interpretation By: ED Physician Radiology Results: Negative Exam Interpreted: CXR (COPD changes ) Critical Care Note - Critical Care Note Total Time (mins): 45 Course - Course Hematology/Chemistry: 03/23/18 16:20 03/23/18 16:20 Orders, Labs, Meds: Lab Review 03/23/18 03/23/18 03/23/18 16:05 16:11 16:20 WBC 10.90 H RBC 3.87 L Hgb 11.2 L Hct 33.6 L MCV 86.8 MCH 28.9 MCHC 33.3 RDW Coeff of Felipe 13.7 Plt Count 182 Immature Gran % (Auto) 0.6 Neut % (Auto) 71.4 Lymph % (Auto) 13.8 Miner % (Auto) 13.9 H Eos % (Auto) 0.1 Baso % (Auto) 0.2 Immature Gran # (Auto) 0.1 Neut # (Auto) 7.8 H Lymph # (Auto) 1.5 Miner # (Auto) 1.5 Eos # (Auto) 0.0 Baso # (Auto) 0.0 Puncture Site Rr O2 Saturation 100.0 ABG pH 7.574 H* ABG pCO2 26.3 L ABG pO2 151.0 H ABG HCO3 24.3 ABG Total CO2 25 ABG Base Excess 2 Mat Test + FiO2 % 21.0 Sodium Potassium Chloride Carbon Dioxide Anion Gap BUN Creatinine Estimated GFR (MDRD) BUN/Creatinine Ratio Glucose Lactic Acid Calcium Total Bilirubin AST ALT Alkaline Phosphatase Total Creatine Kinase Total Protein Albumin Globulin Albumin/Globulin Ratio Procalcitonin Urine Color Urine Clarity Urine pH Ur Specific Tingley Urine Protein Urine Glucose (UA) Urine Ketones Urine Blood Urine Nitrite Urine Bilirubin Urine Urobilinogen Ur Leukocyte Esterase Urine Microscopic RBC Urine Microscopic WBC Ur Squamous Epith Cells Urine Bacteria Urine Mucus Influ A Molecular Assay Negative by naat Influ B Molecular Assay Negative by naat 03/23/18 03/23/18 03/23/18 16:20 16:20 16:20 WBC RBC Hgb Hct MCV MCH MCHC RDW Coeff of Felipe Plt Count Immature Gran % (Auto) Neut % (Auto) Lymph % (Auto) Miner % (Auto) Eos % (Auto) Baso % (Auto) Immature Gran # (Auto) Neut # (Auto) Lymph # (Auto) Miner # (Auto) Eos # (Auto) Baso # (Auto) Puncture Site O2 Saturation ABG pH ABG pCO2 ABG pO2 ABG HCO3 ABG Total CO2 ABG Base Excess Mat Test FiO2 % Sodium 133.7 L Potassium 3.87 Chloride 101.6 Carbon Dioxide 24.8 Anion Gap 11.17 BUN 26.6 H Creatinine 1.44 H Estimated GFR (MDRD) 36.00 BUN/Creatinine Ratio 18.47 Glucose 133.5 H Lactic Acid 1.39 Calcium 8.91 Total Bilirubin 1.06 AST 23.0 ALT 17.8 Alkaline Phosphatase 85.1 Total Creatine Kinase < 20.0 L Total Protein 6.86 Albumin 3.95 Globulin 2.91 Albumin/Globulin Ratio 1.35 Procalcitonin 0.97 Urine Color Urine Clarity Urine pH Ur Specific Tingley Urine Protein Urine Glucose (UA) Urine Ketones Urine Blood Urine Nitrite Urine Bilirubin Urine Urobilinogen Ur Leukocyte Esterase Urine Microscopic RBC Urine Microscopic WBC Ur Squamous Epith Cells Urine Bacteria Urine Mucus Influ A Molecular Assay Influ B Molecular Assay 03/23/18 17:17 WBC RBC Hgb Hct MCV MCH MCHC RDW Coeff of Felipe Plt Count Immature Gran % (Auto) Neut % (Auto) Lymph % (Auto) Miner % (Auto) Eos % (Auto) Baso % (Auto) Immature Gran # (Auto) Neut # (Auto) Lymph # (Auto) Miner # (Auto) Eos # (Auto) Baso # (Auto) Puncture Site O2 Saturation ABG pH ABG pCO2 ABG pO2 ABG HCO3 ABG Total CO2 ABG Base Excess Mat Test FiO2 % Sodium Potassium Chloride Carbon Dioxide Anion Gap BUN Creatinine Estimated GFR (MDRD) BUN/Creatinine Ratio Glucose Lactic Acid Calcium Total Bilirubin AST ALT Alkaline Phosphatase Total Creatine Kinase Total Protein Albumin Globulin Albumin/Globulin Ratio Procalcitonin Urine Color Yellow Urine Clarity Cloudy Urine pH 5.5 Ur Specific Tingley 1.015 Urine Protein 2+ Urine Glucose (UA) Negative Urine Ketones Negative Urine Blood 2+ Urine Nitrite Negative Urine Bilirubin Negative Urine Urobilinogen 0.2 Ur Leukocyte Esterase 1+ Urine Microscopic RBC 10-20 Urine Microscopic WBC 50-100 Ur Squamous Epith Cells Not present Urine Bacteria 4+ Urine Mucus 3+ Influ A Molecular Assay Influ B Molecular Assay Orders Category Date Time Status ABG DRAW REQUEST Stat CARDIO 03/23/18 16:11 Completed EKG-(ED ONLY) Stat CARDIO 03/23/18 16:11 Completed NEBULIZER TREATMENT Routine CARDIO 03/23/18 17:41 Active NEBULIZER TREATMENT Stat CARDIO 03/23/18 16:11 Completed ACTIVITY .Early Mobilization for VTE Prevention CARE 03/23/18 17:37 Active INTAKE & OUTPUT Q8HR CARE 03/23/18 17:36 Active VITAL SIGNS Q4HR CARE 03/23/18 17:36 Active REGULAR DIET DIETARY 03/23/18 Dinner Ordered ED IV/MEDIPORT/POWERPORT .ONCE EMERGENCY 03/23/18 16:00 Active ABG Stat LAB 03/23/18 16:11 Completed BASIC METABOLIC PANEL DAILY@0600 LAB 03/24/18 06:00 Ordered BASIC METABOLIC PANEL DAILY@0600 LAB 03/25/18 06:00 Ordered BLOOD CULTURE (ED ONLY) Stat LAB 03/23/18 16:20 Received CBC W/ AUTO DIFF DAILY@0600 LAB 03/24/18 06:00 Ordered CBC W/ AUTO DIFF DAILY@0600 LAB 03/25/18 06:00 Ordered CBC W/ AUTO DIFF Stat LAB 03/23/18 16:20 Completed COMPREHENSIVE METABOLIC PANEL Stat LAB 03/23/18 16:20 Completed CREATINE KINASE Stat LAB 03/23/18 16:20 Completed FLU A/B MOLECULAR Stat LAB 03/23/18 16:05 Completed LACTIC ACID Stat LAB 03/23/18 16:20 Completed PROCALCITONIN Stat LAB 03/23/18 16:20 Completed RAPID STREP SCREEN [MOLECULAR GROUP A STREP] Stat LAB 03/23/18 16:05 Completed URINALYSIS C & S IF INDICATED Stat LAB 03/23/18 17:17 Completed URINE CULTURE Stat LAB 03/23/18 17:17 Received 0.9 % Sodium Chloride [Saline Flush] MEDS 03/23/18 16:01 Ordered 1 syr IVF PRN PRN Acetaminophen [Tylenol] MEDS 03/23/18 17:36 Ordered 650 mg PO Q4H PRN Aspirin [Aspirin EC] MEDS 03/24/18 09:00 Ordered 81 mg PO DAILY Atorvastatin Calcium [Lipitor] MEDS 03/24/18 09:00 Ordered 20 mg PO DAILY Azithromycin [Zithromax] MEDS 03/24/18 17:40 Ordered 250 mg PO DAILY Azithromycin [Zithromax] MEDS 03/23/18 17:35 Discontinued 500 mg PO ONCE STA Budesonide/Formoterol Fumarate [Symbicort 160-4.5 Mcg MEDS 03/23/18 21:00 Ordered Inhaler] 2 puff IH BID Carvedilol [Coreg] MEDS 03/23/18 21:00 Ordered 6.25 mg PO BID Ceftriaxone Sodium [Rocephin] 1 gm MEDS 03/24/18 09:00 Ordered 0.9 % Sodium Chloride [Sodium Chloride] 50 ml IV DAILY Ceftriaxone Sodium [Rocephin] 1 gm MEDS 03/23/18 17:35 Discontinued 0.9 % Sodium Chloride [Sodium Chloride] 50 ml IV ONCE Enoxaparin Sodium [Lovenox] MEDS 03/24/18 09:00 Ordered 30 mg SUBCUT DAILY Ipratropium/Albuterol Neb [Duoneb] MEDS 03/23/18 16:11 Discontinued 1 vial NEB ONCE STA Ipratropium/Albuterol Neb [Duoneb] MEDS 03/23/18 20:00 Ordered 1 vial NEB RTQID Losartan Potassium [Cozaar] MEDS 03/24/18 09:00 Ordered 100 mg PO DAILY Methylprednisolone Sod Succ/Pf [Solu-Medrol 125 mg] MEDS 03/23/18 16:29 Discontinued 125 mg IVP ONCE STA Methylprednisolone Sod Succ/Pf [Solu-Medrol 125 mg] MEDS 03/23/18 21:00 Ordered 125 mg IVP Q8HR Ondansetron HCl/Pf [Zofran 4 mg/2 ml] MEDS 03/23/18 17:36 Ordered 4 mg IVP Q6H PRN Ringers Lactated Solution [Lactated Ringers] 1,000 ml MEDS 03/23/18 17:03 Discontinued IV BOLUS RESUSCITATION STATUS Routine OTHERS 03/23/18 17:36 Ordered CHEST, 2 VIEWS PA & LAT Stat RADS 03/23/18 17:03 Taken Medications Generic Name Dose Route Start Last Admin Trade Name Freq PRN Reason Stop Dose Admin Acetaminophen 650 mg 03/23/18 17:36 03/23/18 21:00 Tylenol PO 650 mg Q4H PRN Administration Fever > 102 Albuterol/Ipratropium 1 vial 03/23/18 20:00 03/23/18 21:16 Duoneb NEB 1 vial RTQID ANDREAS Administration Aspirin 81 mg 03/24/18 09:00 Aspirin Ec PO DAILY [facility] Atorvastatin Calcium 20 mg 03/24/18 09:00 Lipitor PO DAILY [facility] Azithromycin 250 mg 03/24/18 17:40 Zithromax PO 03/27/18 09:01 DAILY [facility] Budesonide/Formoterol Fumarate 2 puff 03/23/18 21:00 03/23/18 20:33 Symbicort 160-4.5 Mcg Inhaler IH 2 puff BID ANDREAS Administration Carvedilol 6.25 mg 03/23/18 21:00 03/23/18 20:32 Coreg PO 6.25 mg BID ANDRAES Administration Enoxaparin Sodium 30 mg 03/24/18 09:00 Lovenox SUBCUT DAILY [facility] Ceftriaxone Sodium 1 gm/ 50 mls @ 75 mls/hr 03/24/18 09:00 Sodium Chloride IV DAILY ANDREAS Dextrose/Sodium Chloride 1,000 mls @ 83 mls/hr 03/23/18 21:00 03/23/18 20:33 Dextrose 5%-1/2ns Iv Solution IV 83 mls/hr .Q12H3M ANDREAS Administration Losartan Potassium 100 mg 03/24/18 09:00 Cozaar PO DAILY ANDREAS Methylprednisolone Sodium Succinate 125 mg 03/23/18 21:00 03/23/18 20:32 Solu-Medrol 125 Mg IVP 125 mg Q8HR ANDREAS Administration Ondansetron HCl 4 mg 03/23/18 17:36 Zofran 4 Mg/2 Ml IVP Q6H PRN Nausea / Vomiting Sodium Chloride 1 syr 03/23/18 16:01 Saline Flush IVF PRN PRN To flush IV Discontinued Medications Generic Name Dose Route Start Last Admin Trade Name Freq PRN Reason Stop Dose Admin Albuterol/Ipratropium 1 vial 03/23/18 16:11 03/23/18 16:42 Duoneb NEB 03/23/18 16:12 1 vial ONCE STA Administration Azithromycin 500 mg 03/23/18 17:35 03/23/18 17:51 Zithromax PO 03/23/18 17:36 500 mg ONCE STA Administration Lactated Ringer's 1,000 mls @ 1,000 mls/hr 03/23/18 17:03 03/23/18 17:24 Lactated Ringers IV 03/23/18 18:02 1,000 mls/hr BOLUS STA Administration Ceftriaxone Sodium 1 gm/ 50 mls @ 75 mls/hr 03/23/18 17:35 03/23/18 17:49 Sodium Chloride IV 03/23/18 18:14 75 mls/hr ONCE STA Administration Methylprednisolone Sodium Succinate 125 mg 03/23/18 16:29 03/23/18 16:41 Solu-Medrol 125 Mg IVP 03/23/18 16:30 125 mg ONCE STA Administration Vital Signs: Temp Pulse Resp BP Pulse Ox 03/23/18 15:47 98.8 F 96 H 22 116/65 96 Departure - Departure Time of Disposition: 17:47 Disposition: ADMITTED INPATIENT Discharge Problem: MAITE (acute kidney injury), COPD exacerbation Urinary tract infection Qualifiers: Urinary tract infection type: acute cystitis Hematuria presence: with hematuria Qualified Code(s): N30.01 - Acute cystitis with hematuria Condition: Stable Pt referred to PMD for follow-up: Yes IPMP verified?: No Allergies/Adverse Reactions: Allergies No Known Allergies Allergy (Verified 02/02/18 22:52) Home Medications: Ambulatory Orders Albuterol Sulfate 0.083% Neb [Albuterol 0.083% Neb] 1 vial NEB QID 05/08/14 Aspirin [Aspirin EC] 81 mg PO DAILY 02/02/18 Atorvastatin Calcium [Lipitor] 20 mg PO BEDTIME 02/02/18 Carvedilol 6.25 mg PO BID 03/23/18 Losartan Potassium [Cozaar] 100 mg PO DAILY 03/23/18
[2018-03-23] MEDS ORDERED: LACTATED RINGERS 1,000 ML IV STA (17:03)
[2018-03-23] MEDS ORDERED: ROCEPHIN 1 GM in SODIUM CHLORIDE 50 ML IV STA (17:35)
[2018-03-23] MEDS ORDERED: ZITHROMAX PO STA (17:35)
[2018-03-23] MEDS ORDERED: TYLENOL PO PRN (17:36)
[2018-03-23] MEDS ORDERED: ZOFRAN 4 MG/2 ML IVP PRN (17:36)
[2018-03-23] MEDS ORDERED: ROCEPHIN ONE (17:44)
[2018-03-23] MEDS ORDERED: SODIUM CHLORIDE 1,000 ML IV SCH (18:00)
[2018-03-23 18:16] VITALS: BMI 22.6
[2018-03-23] MEDS: SOLU-MEDROL 125 MG IVP SCH (20:32)
[2018-03-23] MEDS: SYMBICORT 160-4.5 MCG INHALER IH SCH (20:33)
[2018-03-23] MEDS: DEXTROSE 5%-1/2NS IV SOLUTION 1,000 ML IV SCH (20:33)
[2018-03-23] MEDS ORDERED: COREG PO SCH (21:00)
[2018-03-23] MEDS: DUONEB NEB SCH (21:16)
[2018-03-24] MEDS: DUONEB NEB SCH ×4 (05:00→19:45)
[2018-03-24] MEDS: SOLU-MEDROL 125 MG IVP SCH ×3 (05:04→20:43)
--- NOTE | 2018-03-24 07:32 | DI ---
EXAM: Chest two views HISTORY: Cough, shortness of breath COMPARISON: 06/21/2017 TECHNIQUE: Two views of the chest were performed FINDINGS: The lungs are clear. Lungs are hyperinflated. Surgical changes in the right hilar region. There is no pleural effusion or pneumothorax. The heart is normal in size. The mediastinal contour is normal. There are no acute abnormalities of the bones. IMPRESSION: 1. No acute cardiopulmonary process. 2. Chronic obstructive pulmonary disease.
[2018-03-24] MEDS: SYMBICORT 160-4.5 MCG INHALER IH SCH ×2 (08:18→20:43)
[2018-03-24] MEDS: COREG PO SCH ×2 (08:18→17:01)
[2018-03-24] MEDS: ROCEPHIN 1 GM in SODIUM CHLORIDE 50 ML IV SCH (08:19)
[2018-03-24] MEDS: COZAAR PO SCH (08:19)
[2018-03-24] MEDS: LIPITOR PO SCH (08:19)
[2018-03-24] MEDS: ASPIRIN EC PO SCH (08:19)
[2018-03-24] MEDS: LOVENOX SUBCUT SCH (08:20)
[2018-03-24] MEDS: DEXTROSE 5%-1/2NS IV SOLUTION 1,000 ML IV SCH ×2 (08:30→22:03)
[2018-03-24] MEDS ORDERED: LIPITOR PO SCH (09:00)
[2018-03-24] MEDS: HUMULIN R SUBCUT PRN ×2 (12:55→17:01)
[2018-03-24] MEDS: ZITHROMAX PO SCH (17:01)
[2018-03-25] MEDS: DUONEB NEB SCH ×4 (04:46→19:55)
[2018-03-25] MEDS: SOLU-MEDROL 125 MG IVP SCH ×3 (05:26→20:57)
[2018-03-25] MEDS: HUMULIN R SUBCUT PRN ×3 (06:03→20:57)
[2018-03-25] MEDS: ROCEPHIN 1 GM in SODIUM CHLORIDE 50 ML IV SCH (08:47)
[2018-03-25] MEDS: LOVENOX SUBCUT SCH (08:48)
[2018-03-25] MEDS: SYMBICORT 160-4.5 MCG INHALER IH SCH ×2 (08:48→20:57)
[2018-03-25] MEDS: LIPITOR PO SCH (08:50)
[2018-03-25] MEDS: ZITHROMAX PO SCH (08:50)
[2018-03-25] MEDS: ASPIRIN EC PO SCH (08:50)
[2018-03-25] MEDS: COZAAR PO SCH (08:51)
[2018-03-25] MEDS: COREG PO SCH ×2 (08:51→17:33)
[2018-03-25] MEDS: K-DUR PO SCH ×2 (08:51→17:33)
--- NOTE | 2018-03-25 09:21 | PCM.PROG ---
Attending Provider: ATTENDING PROVIDER: Dr. SIMONE TEIXEIRA This patient is seen with Brandi Nolasco, Nurse Practitioner. DATE OF SERVICE: 03/25/18 SUBJECTIVE: This 67 year old WHITE/ F was hospitalized 03/23/18. The patient is lying in bed, resting comfortably. She is coughing. She has some dysuria. REVIEW OF SYSTEMS: CONSTITUTIONAL: No night sweats. No fatigue, malaise, lethargy. No fever or chills. HEENT: Eyes: No visual changes. No eye pain. No eye discharge. ENT: No runny nose. No epistaxis. No sinus pain. No odynophagia. No congestion. RESPIRATORY: No cough, no congestion. No hemoptysis. No shortness of breath. CARDIOVASCULAR: No angina symptoms. No CHF symptoms. No atypical chest pain for CAD. No palpitations. No orthopnea.. GASTROINTESTINAL: Positive for nausea. No abdominal pain. No vomiting. No diarrhea or constipation. No hematemesis. No hematochezia. GENITOURINARY: No urgency. No frequency. No dysuria. No hematuria. No obstructive symptoms. No discharge. No pain. No significant abnormal bleeding. MUSCULOSKELETAL: No musculoskeletal pain; no joint swelling. NEUROLOGICAL: Awake, alert, oriented to time, place and person. No headache. No neck pain. No syncope. No seizures. No dizziness. PSYCHIATRIC: Not anxious. No depression. No suicidal thoughts. No homicidal thoughts. SKIN: No rash. No lesions. No wounds. ENDOCRINE: No unexplained weight loss. No weight gain. HEMATOLOGIC/LYMPHATIC: No anemia. No purpura. No petechiae. No prolonged or excessive bleeding. No palpable lymph nodes. PHYSICAL EXAMINATION: GENERAL: The patient is awake, alert and oriented, lying in bed in no distress. VITAL SIGNS: Temperature 98.5 F, Pulse 78, Respiratory Rate 16, BP 145/81, Pulse Ox 98% HEENT: Head normocephalic, atraumatic. Eyes: Extraocular muscles are intact. Pupils are equal, round and reactive to light and accommodation. Ears: No lesions. Nose appeared normal. Throat: No exudate or erythema. NECK: Supple. No JVD, no carotid bruit. No lymphadenopathy or thyromegaly. LUNGS: Diminished breath sounds with bilateral rhonchi. Clear to auscultation. Percussion note normal. Chest symmetrical. HEART: S1, S2, no S3. No murmurs. No cyanosis or clubbing. No ascites. Pulses: Dorsalis pedis and posterior tibial pulses +1 to +2 both sides. ABDOMEN: Soft. Non-tender. Bowel sounds active. No CVA tenderness. No mass felt. EXTREMITIES: No edema. Full range of motion of all extremities, equal. NEUROLOGIC: No focal deficit. Cranial nerves II through XII are grossly intact. No headache, no double vision or headache. SKIN: Not dry. Intact. Turgor-normal. LYMPHATIC: No palpable lymph nodes/no lymphedema. MUSCULOSKELETAL: Normal joints with no swelling. Muscle tone is normal. LAB REVIEW: 03/25/18 04:35 03/25/18 04:35 03/25/18 04:35: Sodium 138.6, Potassium 3.03 L, Chloride 108.6 H, Carbon Dioxide 23.1, Anion Gap 9.93, BUN 20.0 H, Creatinine 1.14, Estimated GFR (MDRD) 47.00, BUN/Creatinine Ratio 17.54, Glucose 196.1 H D, Calcium 8.98, Total Bilirubin 0.15 L, AST 25.3, ALT 23.9, Alkaline Phosphatase 68.9, Total Protein 6.05 L, Albumin 3.32 L, Globulin 2.73, Albumin/Globulin Ratio 1.21 03/25/18 04:35: Hemoglobin A1c 5.74 03/25/18 04:35: WBC 13.01 H D, RBC 3.59 L, Hgb 10.4 L, Hct 31.0 L, MCV 86.4, MCH 29.0, MCHC 33.5, RDW Coeff of Felipe 13.2, Plt Count 211, Neutrophils % (Manual ) 88.0 H, Lymphocytes % (Manual) 11.0, Monocytes % (Manual) 1.0, Anisocytosis Not present ASSESSMENT: 1. UTI culture gram negative rods, culture pending. 2. Acute COPD exacerbation. 3. Dehydration improving. 4. Heavy smoker. 5. Coronary artery disease. 6. Hypokalemia. PLAN: 1. Potassium 40 mEq b.i.d. 2. Continue nebs and IV antibiotics. Plan and coordination of the patient's care discussed in the presence of Research Scientist and nurse. CONDITION: Stable SCRIBED BY: PRADEEP MCDONALD Superintendent Recreation scribed while in presence of service performed by Dr. Teixeira/Brandi Nolasco APRN on 03/25/18 ([id number])
[2018-03-25] MEDS: DEXTROSE 5%-1/2NS IV SOLUTION 1,000 ML IV SCH (10:40)
[2018-03-25] MEDS: XANAX PO SCH (20:57)
[2018-03-26] MEDS: SOLU-MEDROL 125 MG IVP SCH (04:31)
[2018-03-26] MEDS: DUONEB NEB SCH ×4 (05:00→20:05)
[2018-03-26] MEDS: HUMULIN R SUBCUT PRN ×3 (05:57→20:34)
[2018-03-26] MEDS ORDERED: PREDNISONE PO SCH (08:30)
[2018-03-26] MEDS: COREG PO SCH ×3 (08:47→16:54)
[2018-03-26] MEDS ORDERED: COREG PO SCH ×2 (09:00→17:30)
[2018-03-26] MEDS: K-DUR PO SCH ×2 (09:02→16:54)
[2018-03-26] MEDS: COZAAR PO SCH (09:02)
[2018-03-26] MEDS: LIPITOR PO SCH (09:02)
[2018-03-26] MEDS: XANAX PO SCH ×3 (09:03→20:33)
[2018-03-26] MEDS: ZITHROMAX PO SCH (09:03)
[2018-03-26] MEDS: ASPIRIN EC PO SCH (09:03)
[2018-03-26] MEDS: HYDROCHLOROTHIAZIDE PO SCH (09:03)
[2018-03-26] MEDS: LOVENOX SUBCUT SCH (09:05)
[2018-03-26] MEDS: SYMBICORT 160-4.5 MCG INHALER IH SCH (09:07)
[2018-03-26] MEDS: ROCEPHIN 1 GM in SODIUM CHLORIDE 50 ML IV SCH (09:08)
--- NOTE | 2018-03-26 09:39 | PN ---
DATE OF SERVICE: 03/23/18 SUBJECTIVE: The patient was seen and examined today in the room 117. The patient is a white female hospitalized with dehydration, cough, congestion, flu-type of symptoms. The patient's rapid Flu A and B were negative. The patient is a heavy smoker. She continues to smoke. PHYSICAL EXAMINATION: GENERAL: The patient is oriented to time, place and person. HEENT: Head normocephalic, atraumatic. Eyes: Extraocular muscles are intact. Pupils are equal, round and reactive to light and accommodation. Ears: No lesions. Nose appeared normal. Throat: No exudate or erythema. NECK: Supple. No JVD, no carotid bruit. No lymphadenopathy or thyromegaly. LUNGS: Decreased breath sounds but clear to auscultation. Percussion note normal. Chest symmetrical. HEART: S1, S2, no S3. No murmurs. No cyanosis or clubbing. No ascites. Pulses: Dorsalis pedis and posterior tibial pulses +1 to +2 both sides. ABDOMEN: Soft. Nontender. Bowel sounds active. No CVA tenderness. No mass felt. EXTREMITIES: No edema. Full range of motion of all extremities, equal. NEUROLOGIC: No focal deficit. Cranial nerves II through XII are grossly intact. No headache, no double vision or headache. SKIN: Warm and dry. Intact. Turgor - normal. LYMPHATIC: No palpable lymph nodes/no lymphedema. MUSCULOSKELETAL: Normal joints with no swelling. Muscle tone is normal. LABS: ABGs acceptable. Hyperventilation, borderline oxygen saturation. ASSESSMENT: 1. ACUTE BRONCHITIS 2. EXACERBATION OF COPD 3. DEHYDRATION WITH EARLY RENAL AZOTEMIA PLAN: 1. Give IV fluids 2. IV antibiotics 3. Steroids 4. Nebs treatment 5. Counseling for smoking done The patient's daughter is in the room. Explained all the medical conditions. CONDITION: Stable. TIME SPENT: More than 30 minutes. Plan and coordination of the patient's care discussed in the presence of nurse. GERSON
--- NOTE | 2018-03-26 09:44 | PN ---
DATE OF SERVICE: 03/24/18 SUBJECTIVE: 67-year-old white female hospitalized with acute bronchitis, severe dehydration with renal azotemia. The patient's condition has improved. Skin turgor is a lot better. She is feeling a lot better. Appetite is improving, coughing much less. REVIEW OF SYSTEMS: CONSTITUTIONAL: No night sweats. No fatigue, malaise, lethargy. No fever or chills. HEENT: Eyes: No visual changes. No eye pain. No eye discharge. ENT: No runny nose. No epistaxis. No sinus pain. No sore throat. No odynophagia. No congestion. RESPIRATORY: Less cough and congestion. No hemoptysis. No shortness of breath. CARDIOVASCULAR: No angina symptoms. No CHF symptoms. No atypical chest pain for CAD. No palpitations. No orthopnea. GASTROINTESTINAL: Appetite improving. No abdominal pain. No nausea or vomiting. No diarrhea or constipation. No hematemesis. No hematochezia. GENITOURINARY: No urgency. No frequency. No dysuria. No hematuria. No obstructive symptoms. No discharge. No pain. No significant abnormal bleeding. MUSCULOSKELETAL: No musculoskeletal pain; no joint swelling. NEUROLOGICAL: No headache. No neck pain. No syncope. No seizures. No dizziness. PSYCHIATRIC: Not anxious. No depression. No suicidal thoughts. No homicidal thoughts. SKIN: No rash. No lesions. No wounds. ENDOCRINE: No unexplained weight loss. No weight gain. HEMATOLOGIC/LYMPHATIC: No anemia. No purpura. No petechiae. No prolonged or excessive bleeding. No palpable lymph nodes. PHYSICAL EXAMINATION: VITAL SIGNS: Temperature 97.4, pulse 65, respiratory rate 16, BP 160/86. Pulse ox 96% HEENT: Head normocephalic, atraumatic. Eyes: Extraocular muscles are intact. Pupils are equal, round and reactive to light and accommodation. Ears: No lesions. Nose appeared normal. Throat: No exudate or erythema. NECK: Supple. No JVD, no carotid bruit. No lymphadenopathy or thyromegaly. LUNGS: Decreased breath sounds but clear to auscultation. Percussion note normal. Chest symmetrical. HEART: S1, S2, no S3. No murmurs. No cyanosis or clubbing. No ascites. Pulses: Dorsalis pedis and posterior tibial pulses +1 to +2 both sides. ABDOMEN: Soft. Nontender. Bowel sounds active. No CVA tenderness. No mass felt. EXTREMITIES: No edema. Full range of motion of all extremities, equal. NEUROLOGIC: No focal deficit. Cranial nerves II through XII are grossly intact. No headache, no double vision or headache. SKIN: Warm and dry. Intact. Turgor - better. LYMPHATIC: No palpable lymph nodes/no lymphedema. MUSCULOSKELETAL: Normal joints with no swelling. Muscle tone is normal. ASSESSMENT: 1. ACUTE BRONCHITIS RESOLVING 2. RENAL AZOTEMIA RESOLVING 3. HYPERGLYCEMIA LIKELY FROM STEROID USE PLAN: 1. Give sliding scale. 2. Continue IV antibiotics. 3. Continue neb treatments. 4. Counseling for smoking done. TIME SPENT: More than 30 minutes. Plan and coordination of the patient's care discussed in the presence of nurse. GERSON
--- NOTE | 2018-03-26 11:21 | HP ---
DATE OF SERVICE: 03/23/18 HISTORY OF PRESENT ILLNESS: This 67-year-old white female who presented to the emergency room with fever, bodyaches and dizziness. She has had some coughing although she is a heavy smoker and complains of dysuria. PAST MEDICAL HISTORY: Severe COPD Right lung cancer with partial resection Dyslipidemia Generalized osteoarthritis Hypoxemia at night Hypertension Chronic bronchitis History of pleuritic pain B12 deficiency PAST SURGICAL HISTORY: Status post right lobectomy in 2016 for cancer Hysterectomy Tonsillectomy She refuses repeat colonoscopy REVIEW OF SYSTEMS: CONSTITUTIONAL: Fever at home. Weakness. No night sweats. No malaise, lethargy. HEENT: Eyes: No visual changes. No eye pain. No eye discharge. ENT: No runny nose. No epistaxis. No sinus pain. No sore throat. No odynophagia. No ear pain. No congestion. RESPIRATORY: Cough, shortness of breath. No hemoptysis. CARDIOVASCULAR: No angina symptoms. No CHF symptoms. No atypical chest pain for CAD. No palpitations. No PND. No orthopnea. GASTROINTESTINAL: No abdominal pain. No nausea or vomiting. No diarrhea or constipation. No hematemesis. No hematochezia. GENITOURINARY: Positive for dysuria. No urgency. No frequency. No hematuria. No obstructive symptoms. No discharge. No pain. No significant abnormal bleeding. MUSCULOSKELETAL: No musculoskeletal pain. No joint swelling. No arthritis. NEUROLOGICAL: No headache. No neck pain. No syncope. No seizures. No dizziness. PSYCHIATRIC: Not anxious. No depression. No suicidal thoughts. No homicidal thoughts. SKIN: No rash. No lesions. No wounds. ENDOCRINE: No unexplained weight loss. No weight gain. HEMATOLOGIC/LYMPHATIC: No anemia. No purpura. No petechiae. No prolonged or excessive bleeding. No palpable lymph nodes. PERSONAL/FAMILY/SOCIAL HISTORY: The patient is a current heavy smoker, denies any alcohol or ilicit drug use. MEDICATIONS: (HOME) Albuterol neb q.i.d. Atorvastatin 20 mg p.o. bedtime Aspirin 81 mg p.o. daily Losartan 100 mg p.o. daily Carvedilol 6.25 mg p.o. b.i.d. ALLERGIES: NKDA PHYSICAL EXAMINATION: VITAL SIGNS: Temperature 98.8, heart rate 96, respiratory rate 22, BP 116/65, pulse ox 96% on room air. HEENT: Head normocephalic, atraumatic. Eyes: Extraocular muscles are intact. Pupils are equal, round and reactive to light and accommodation. Ears: No lesions. Nose appeared normal. Throat: No exudate or erythema. NECK: Supple. No JVD, no carotid bruit. No lymphadenopathy or thyromegaly. LUNGS: Severely diminished with bilateral inspiratory and expiratory wheezing and rhonchi. Percussion note normal. Chest symmetrical. HEART: S1, S2, no S3. No murmurs. No cyanosis or clubbing. No ascites. Pulses: Dorsalis pedis and posterior tibial pulses +1 to +2 bilaterally. ABDOMEN: Soft. Nontender. Bowel sounds active. No CVA tenderness. No mass felt. EXTREMITIES: No edema. Full range of motion of all extremities, equal. NEUROLOGIC: Alert and oriented times three. No focal deficit. Cranial nerves II through XII are grossly intact. No headache, no double vision or headache. SKIN: Not dry. Intact. Turgor - normal. LYMPHATIC: No palpable lymph nodes/no lymphedema. MUSCULOSKELETAL: Normal joints with no swelling. Muscle tone is normal. LABS/X-RAYS/RELEVANT DATA: Chest x-ray shows no acute cardiopulmonary process. COPD. Urine shows 2+ protein, 2+ blood, 1+ leuks, 4+ bacteria and is cloudy. ABGs on room air: pH 7.574, pc02 26.3, p02 151, base excess of 2, bicarb 24.3, TC02 25, 02 sat 100. Sodium 133, potassium 3.8, BUN 26.6, creatinine 1.44. Glucose 133, AST 23, ALT 17, total protein 6.86, alkaline phosphatase 85, white count 10.9, red blood cells 3.87, hemoglobin 11.2, hematocrit 33.6, platelets 182. Rapid flu A and B are both negative. Strep is negative. ASSESSMENT: 1. Urinary tract infection 2. Acute COPD exacerbation 3. Heavy smoker 4. Dehydration with elevated kidney function 5. Acute kidney injury 6. History of right lung cancer 7. Hypertension 8. Dyslipidemia 9. Heavy smoker 10. B12 deficiency PLAN: 1. We will admit her. 2. Routine telemetry orders. 3. CBC, CMP daily. 4. Rocephin 1 gm IV daily. 5. Zithromax 500 mg p.o. daily times three days. 6. 02 at 1 to 2L as needed. 7. Regular diet. 8. Continue on home medications. 9. Xopenex neb treatments q.6hr scheduled. 10. Solu-Cortef 125 mg IV q.8hr. 11. Continue Symbicort inhaler. 12. IV fluids at 83 cc/hr. 13. D5 1/2 NS. 14. Will follow closely. TIME SPENT: More than 70 minutes. MTDD
[2018-03-26] MEDS: PREDNISONE PO SCH (12:32)
--- NOTE | 2018-03-26 13:29 | PCM.PROG ---
Attending Provider: ATTENDING PROVIDER: Dr. SIMONE TEIXEIRA DATE OF SERVICE: 03/26/18 SUBJECTIVE: This 67 year old WHITE/ F was hospitalized 03/23/18 with acute bronchitis. The patient's condition is improved. She is still coughing and goes outside to smoke. Counseling for smoking done. REVIEW OF SYSTEMS: CONSTITUTIONAL: No night sweats. No fatigue, malaise, lethargy. No fever or chills. HEENT: Eyes: No visual changes. No eye pain. No eye discharge. ENT: No runny nose. No epistaxis. No sinus pain. No odynophagia. No congestion. RESPIRATORY: Cough and congestion. No hemoptysis. No shortness of breath. CARDIOVASCULAR: No angina symptoms. No CHF symptoms. No atypical chest pain for CAD. No palpitations. No orthopnea.. GASTROINTESTINAL: No abdominal pain. No nausea or vomiting. No diarrhea or constipation. No hematemesis. No hematochezia. GENITOURINARY: No urgency. No frequency. No dysuria. No hematuria. No obstructive symptoms. No discharge. No pain. No significant abnormal bleeding. MUSCULOSKELETAL: No musculoskeletal pain; no joint swelling. NEUROLOGICAL: Awake, alert, oriented to time, place and person. No headache. No neck pain. No syncope. No seizures. No dizziness. PSYCHIATRIC: Not anxious. No depression. No suicidal thoughts. No homicidal thoughts. SKIN: No rash. No lesions. No wounds. ENDOCRINE: No unexplained weight loss. No weight gain. HEMATOLOGIC/LYMPHATIC: No anemia. No purpura. No petechiae. No prolonged or excessive bleeding. No palpable lymph nodes. PHYSICAL EXAMINATION: GENERAL: The patient is awake, alert and oriented, lying in bed in no distress. VITAL SIGNS: Temperature 97.8 F, Pulse 81, Respiratory Rate 20, BP 150/94, Pulse Ox 97% HEENT: Head normocephalic, atraumatic. Eyes: Extraocular muscles are intact. Pupils are equal, round and reactive to light and accommodation. Ears: No lesions. Nose appeared normal. Throat: No exudate or erythema. NECK: Supple. No JVD, no carotid bruit. No lymphadenopathy or thyromegaly. LUNGS: Decreased breath sounds. Clear to auscultation. Percussion note normal. Chest symmetrical. HEART: S1, S2, no S3. No murmurs. No cyanosis or clubbing. No ascites. Pulses: Dorsalis pedis and posterior tibial pulses +1 to +2 both sides. ABDOMEN: Soft. Non-tender. Bowel sounds active. No CVA tenderness. No mass felt. EXTREMITIES: No edema. Full range of motion of all extremities, equal. NEUROLOGIC: No focal deficit. Cranial nerves II through XII are grossly intact. No headache, no double vision or headache. SKIN: Warm and dry. Intact. Turgor-normal. LYMPHATIC: No palpable lymph nodes/no lymphedema. MUSCULOSKELETAL: Normal joints with no swelling. Muscle tone is normal. LAB REVIEW: 03/26/18 04:30 03/26/18 04:30 03/26/18 04:30: Sodium 139.4, Potassium 4.39, Chloride 112.3 H, Carbon Dioxide 23.9, Anion Gap 7.59, BUN 20.5 H, Creatinine 1.14, Estimated GFR (MDRD) 47.00, BUN/Creatinine Ratio 17.98, Glucose 172.4 H, Calcium 8.96, Total Bilirubin 0.13 L, AST 28.2, ALT 30.1, Alkaline Phosphatase 66.9, Total Protein 5.76 L, Albumin 3.07 L, Globulin 2.69, Albumin/Globulin Ratio 1.14 03/26/18 04:30: WBC 9.59, RBC 3.46 L, Hgb 9.9 L, Hct 30.3 L, MCV 87.6, MCH 28.6 , MCHC 32.7, RDW Coeff of Felipe 13.6, Plt Count 237, Neutrophils % (Manual) 89.0 H , Lymphocytes % (Manual) 9.0 L, Monocytes % (Manual) 1.0, Reactive Lymphocytes 1.0, Anisocytosis Not present ASSESSMENT: 1. ACUTE BRONCHITIS 2. SEVERE CHRONIC LUNG DISEASE WITH SMOKING 3. HYPERTENSION 4. DYSLIPIDEMIA 5. HISTORY OF CANCER OF THE LUNG, STRONGLY ADVISED TO QUIT SMOKING 6. GENERALIZED ANXIETY DISORDER, XANAX STARTED PLAN: 1. Nebs treatment. 2. Increase Coreg to 12.5 mg p.o. b.i.d. 3. Discontinue Solu-Medrol. 4. Prednisone 20 mg p.o. daily. 5. Continue Xanax. 6. D/C telemetry. 7. PFT. 8. BNP. 9. Losartan/Hydrochlorothiazide 12.5 mg. Plan and coordination of the patient's care discussed in the presence of Spinning Machine Operator and nurse. EDUCATION: Counseling for smoking done. Side effects of Xanax discussed with the patient. CONDITION: Stable SCRIBED BY: PRADEEP MCDONALD Vp Compliance scribed while in presence of service performed by Dr. SIMONE TEIXEIRA on 03/26/18 ([id number])
[2018-03-27] MEDS: SYMBICORT 160-4.5 MCG INHALER IH SCH ×2 (02:31→09:22)
[2018-03-27] MEDS: DUONEB NEB SCH (04:55)
[2018-03-27] MEDS ORDERED: COREG PO SCH (08:30)
[2018-03-27] MEDS: ROCEPHIN 1 GM in SODIUM CHLORIDE 50 ML IV SCH (09:17)
[2018-03-27] MEDS: LIPITOR PO SCH (09:19)
[2018-03-27] MEDS: PREDNISONE PO SCH (09:19)
[2018-03-27] MEDS: XANAX PO SCH (09:19)
[2018-03-27] MEDS: ASPIRIN EC PO SCH (09:19)
[2018-03-27] MEDS: K-DUR PO SCH (09:20)
[2018-03-27] MEDS: COZAAR PO SCH (09:21)
[2018-03-27] MEDS: ZITHROMAX PO SCH (09:21)
[2018-03-27] MEDS: HYDROCHLOROTHIAZIDE PO SCH (09:21)
[2018-03-27] MEDS: LOVENOX SUBCUT SCH (09:23)
--- NOTE | 2018-03-27 09:53 | PCM.PROG ---
Attending Provider: ATTENDING PROVIDER: Dr. SIMONE TEIXEIRA This patient is seen with Brandi Nolasco, Nurse Practitioner. DATE OF SERVICE: 03/27/18 SUBJECTIVE: This 67 year old WHITE/ F was hospitalized 03/23/18. The patient is lying in bed resting comfortably. She has been up, walking outside to smoke. No fever this morning. REVIEW OF SYSTEMS: CONSTITUTIONAL: No night sweats. No fatigue, malaise, lethargy. No fever or chills. HEENT: Eyes: No visual changes. No eye pain. No eye discharge. ENT: No runny nose. No epistaxis. No sinus pain. No odynophagia. No congestion. RESPIRATORY: Cough. No congestion. No hemoptysis. No shortness of breath. CARDIOVASCULAR: No angina symptoms. No CHF symptoms. No atypical chest pain for CAD. No palpitations. No orthopnea.. GASTROINTESTINAL: No abdominal pain. No nausea or vomiting. No diarrhea or constipation. No hematemesis. No hematochezia. GENITOURINARY: No urgency. No frequency. No dysuria. No hematuria. No obstructive symptoms. No discharge. No pain. No significant abnormal bleeding. MUSCULOSKELETAL: No musculoskeletal pain; no joint swelling. NEUROLOGICAL: Awake, alert, oriented to time, place and person. No headache. No neck pain. No syncope. No seizures. No dizziness. PSYCHIATRIC: Not anxious. No depression. No suicidal thoughts. No homicidal thoughts. SKIN: No rash. No lesions. No wounds. ENDOCRINE: No unexplained weight loss. No weight gain. HEMATOLOGIC/LYMPHATIC: No anemia. No purpura. No petechiae. No prolonged or excessive bleeding. No palpable lymph nodes. PHYSICAL EXAMINATION: GENERAL: The patient is awake, alert and oriented, lying in bed in no distress. VITAL SIGNS: Temperature 97.5 F, Pulse 78, Respiratory Rate 16, BP 163/94, Pulse Ox 98% HEENT: Head normocephalic, atraumatic. Eyes: Extraocular muscles are intact. Pupils are equal, round and reactive to light and accommodation. Ears: No lesions. Nose appeared normal. Throat: No exudate or erythema. NECK: Supple. No JVD, no carotid bruit. No lymphadenopathy or thyromegaly. LUNGS: Diminished breath sounds. Clear to auscultation. Percussion note normal. Chest symmetrical. HEART: S1, S2, no S3. No murmurs. No cyanosis or clubbing. No ascites. Pulses: Dorsalis pedis and posterior tibial pulses +1 to +2 both sides. ABDOMEN: Soft. Non-tender. Bowel sounds active. No CVA tenderness. No mass felt. EXTREMITIES: No edema. Full range of motion of all extremities, equal. NEUROLOGIC: No focal deficit. Cranial nerves II through XII are grossly intact. No headache, no double vision or headache. SKIN: Not dry. Intact. Turgor-normal. LYMPHATIC: No palpable lymph nodes/no lymphedema. MUSCULOSKELETAL: Normal joints with no swelling. Muscle tone is normal. LAB REVIEW: 03/27/18 04:30 03/27/18 04:30 03/27/18 04:30: Sodium 138.1, Potassium 4.55, Chloride 109.0 H, Carbon Dioxide 24.4, Anion Gap 9.25, BUN 31.3 H, Creatinine 1.29, Estimated GFR (MDRD) 41.00, BUN/Creatinine Ratio 24.26, Glucose 127.0 H, Calcium 9.22, Total Bilirubin 0.18 L, AST 50.8 H, ALT 49.3 H, Alkaline Phosphatase 74.0, Total Protein 5.87 L, Albumin 3.24 L, Globulin 2.63, Albumin/Globulin Ratio 1.23 03/27/18 04:30: WBC 10.71 H, RBC 3.53 L, Hgb 10.2 L, Hct 31.0 L, MCV 87.8, MCH 28.9, MCHC 32.9, RDW Coeff of Felipe 13.7, Plt Count 263, Immature Gran % (Auto) 3.7, Neut % (Auto) 70.7, Lymph % (Auto) 17.9, [place] % (Auto) 7.5, Eos % (Auto) 0.0, Baso % (Auto) 0.2, Immature Gran # (Auto) 0.4, Neut # (Auto) 7.6 H, Lymph # (Auto) 1.9, Ritchie # (Auto) 0.8, Eos # (Auto) 0.0, Baso # (Auto) 0.0 03/26/18 04:30: NT-Pro-B Natriuret Pep 4310.000 H ASSESSMENT: 1. ACUTE BRONCHITIS 2. SEVERE CHRONIC LUNG DISEASE WITH SMOKING 3. HYPERTENSION 4. DYSLIPIDEMIA 5. HISTORY OF CANCER OF THE LUNG, STRONGLY ADVISED TO QUIT SMOKING 6. GENERALIZED ANXIETY DISORDER, XANAX IS HELPING PLAN: 1. Increase Coreg to 25 mg b.i.d. 2. Information given to patient regarding smoking cessation. 3. Will continue Xanax 0.25 mg t.i.d. p.r.n. 4. Prednisone 20 mg daily times 5 days. 5. Levaquin 250 mg daily times 7 days[address] Teixeira/Brandi Nolasco APRN next week. 7. Will discharge home today. Plan and coordination of the patient's care discussed in the presence of First Officer and nurse. CONDITION: Stable SCRIBED BY: PRADEEP MCDONALD, Farmworker Dairy scribed while in presence of service performed by Dr. Teixeira/Brandi Nolasco APRN on 03/27/18 ([id number])
[2018-03-27] MEDS: COREG PO SCH (10:22)
--- NOTE | 2018-03-27 11:29 | CM.DICTOOL ---
ADMISSION: 03/23/18 17:40 DISCHARGE: 03/27/18 DATE OF SERVICE: 03/27/18 FINAL DIAGNOSIS SEVERE COPD WITH EXACERBATION (CONTINUED SMOKING AGAINST MEDICAL ADVICE) ACUTE BRONCHITIS, IMPROVED DEHYDRATION, RESOLVED UTI, KLEBSIELLA PNEUMONIAE ORGANISM, TREATED HYPOKALEMIA, RESOLVED HYPERTENSION GENERALIZED ANXIETY BRONCHOGENIC CARCINOMA RIGHT UPPER LUNG CKD, STAGE 3 DYSLIPIDEMIA ARTHRITIS PARTIAL RIGHT PNEUMONECTOMY R/T LUNG CANCER TONSILLECTOMY TOTAL ABDOMINAL HYSTERECTOMY CURRENT HEAVY EVERYDAY SMOKER LAST ECHO AT [facility], 12/07/17 LVEF 64% NORMAL FINDINGS DOBUTAMINE STRESS/SESTAMIBI, 12/07/17 AT [facility] ISCHEMIC AT THE LEFT VENTRICULAR APEX LVEF 80% LAST PFT AT [facility], 03/26/18 MILD COPD LAST VITALS Temp Pulse Resp BP Pulse Ox 97.5 F L 78 16 163/94 H 98 03/27/18 05:58 03/27/18 05:58 03/27/18 05:58 03/27/18 05:58 03/27/18 05:58 TAKE THESE MEDICATIONS AT HOME Albuterol Sulfate 0.083% 1 vial NEB RTQID Last Admin: 03/27/18 04:55 Dose: 1 vial Alprazolam (Xanax) 0.25 mg PO TID PRN Last Admin: 03/27/18 09:19 Dose: 0.25 mg Aspirin (Aspirin Ec) 81 mg PO DAILYWM [facility] Last Admin: 03/27/18 09:19 Dose: 81 mg Atorvastatin Calcium (Lipitor) 20 mg PO DAILY [facility] Last Admin: 03/27/18 09:19 Dose: 20 mg Budesonide/Formoterol Fumarate (Symbicort 160-4.5 Mcg Inhaler) 2 puff IH BID [facility] Last Admin: 03/27/18 09:22 Dose: 2 puff Carvedilol (Coreg) 25 mg PO BIDWM [facility] Last Admin: 03/27/18 09:20 Dose: 25 mg Levaquin 250 mg PO DAILY for 7 days only Losartan/Hydrochlorothiazide (Hyzaar) 100-12.5 mg PO DAILY [facility] Last Admin: 03/27/18 09:21 Dose: 100-12.5mg Prednisone (Prednisone) 20 mg PO DAILYWM [facility] FOR 5 DAYS Last Admin: 03/27/18 09:19 Dose: 20 mg ALLERGIES No Known Allergies Allergy (Verified 02/02/18 22:52) NEW PRESCRIPTIONS: Alprazolam [Xanax] 0.25 mg PO TID PRN #30 tablet 03/27/18 Carvedilol [Coreg] 25 mg PO BIDWM #60 tablet 03/27/18 Levofloxacin [Levaquin] 250 mg PO DAILY #7 tablet 03/27/18 Losartan/Hydrochlorothiazide [Hyzaar 100-12.5 Tablet] 1 each PO DAILY #30 tablet 03/27/18 Prednisone 20 mg PO DAILYWM 5 Days #5 tablet 03/27/18 SMOKING: THE PATIENT IS A CURRENT EVERYDAY HEAVY SMOKER. SHE HAS RECEIVED SMOKING CESSATION INFORMATION/TEACHING AND ENCOURAGEMENT FOR COMPLETE CESSATION. HOWEVER, SHE HAS NOT VERBALIZED ANY PLANS FOR SMOKING CESSATION OR EVEN CUTTING DOWN THE FREQUENCY OF TOBACCO USE. WE WILL CONTINUE TO PROVIDE REINFORCEMENT TEACHING AND REMIND HER OF THE ADDED RISK SMOKING POSES TO HER CARDIOPULMONARY HEALTH THROUGH HER OFFICE VISITS. DISEASE SPECIFIC EDUCATION: COPD DEHYDRATION UTI, KELBSIELLA PNEUMONIAE HOME MEDICATION CHANGES NEW PRESCRIPTIONS FOLLOW UP LAB REVIEW: 03/27/18 04:30 03/27/18 04:30 03/27/18 06:00: NT-Pro-B Natriuret Pep 3600.000 H 03/27/18 04:30: Sodium 138.1, Potassium 4.55, Chloride 109.0 H, Carbon Dioxide 24.4, Anion Gap 9.25, BUN 31.3 H, Creatinine 1.29, Estimated GFR (MDRD) 41.00, BUN/Creatinine Ratio 24.26, Glucose 127.0 H, Calcium 9.22, Total Bilirubin 0.18 L, AST 50.8 H, ALT 49.3 H, Alkaline Phosphatase 74.0, Total Protein 5.87 L, Albumin 3.24 L, Globulin 2.63, Albumin/Globulin Ratio 1.23 03/27/18 04:30: WBC 10.71 H, RBC 3.53 L, Hgb 10.2 L, Hct 31.0 L, MCV 87.8, MCH 28.9, MCHC 32.9, RDW Coeff of Felipe 13.7, Plt Count 263, Immature Gran % (Auto) 3.7, Neut % (Auto) 70.7, Lymph % (Auto) 17.9, [place] % (Auto) 7.5, Eos % (Auto) 0.0, Baso % (Auto) 0.2, Immature Gran # (Auto) 0.4, Neut # (Auto) 7.6 H, Lymph # (Auto) 1.9, [place] # (Auto) 0.8, Eos # (Auto) 0.0, Baso # (Auto) 0.0 PLAN: DISCHARGE HOME TODAY, 03/27/[address] TEIXEIRA IN HIS OFFICE ON 04/04/18 AT 12 P.M. RESUME YOUR HOME MEDICATIONS PER LIST PROVIDED BY THE NURSING STAFF DO NOT RESUME YOUR LOSARTAN POTASSIUM (COZAAR) PLEASE NOTE THE INCREASE IN YOUR CARVEDILOL (COREG) DOSING TO 25 MG TWICE DAILY NEW PRESCRIPTIONS LOSARTAN/HCTZ (HYZAAR) 100-12.5 MG, TAKE ONE TABLET BY MOUTH DAILY XANAX 0.25 MG, TAKE ONE TABLET BY MOUTH THREE TIMES DAILY NEEDED (PRN) FOR ANXIETY COREG 25 MG, TAKE ONE TABLET BY MOUTH TWICE DAILY (THIS IS AN INCREASE IN YOUR USUAL DOSE) LEVAQUIN 250 MG, TAKE ONE TABLET BY MOUTH DAILY FOR 7 DAYS PREDNSIONE 20 MG, TAKE ONE TABLET BY MOUTH WITH FOOD DAILY FOR 5 DAYS ACTIVITY GET PLENTY OF REST AT HOME. GRADUALLY INCREASE YOUR ACTIVITY LEVEL ACCORDING TO YOUR TOLERATION STOP SMOKING DIET HEALTHY HEART SUMMARY THE PATIENT IS ALERT AND ORIENTED X3. SHE CURRENTLY RESIDES AT HOME WITH HER EX -. HE IS SUPPORTIVE OF HER NEEDS NECESSARY AND PROVIDES TRANSPORTATION FOR HER. SHE HAS OTHERWISE BEEN INDEPENDENT WITH [facility] AT HOME. SHE HAS A NEBULIZER AND A C-PAP FOR USE AT HOME. SHE HAS GIVEN CONSENT FOR REFERRAL TO [facility] TO OBTAIN HOMEMAKING ASSISTANCE. SHE DESIRES TO RETURN HOME AT DISCHARGE. MS. DURBIN IS CLINICALLY IMPROVED AT DISCHARGE. SHE HAS BEEN ABLE TO BE UP AND ABOUT IN THE HALLWAYS WITHOUT SIGNIFICANT SHORTNESS OF BREATH OR FATIGUE. HER HYDRATION AND NUTRITIONAL STATUS HAVE IMPROVED EVIDENCED BY LAB VALUES. SHE IS AWARE AND AGREEABLE FOR TODAY'S DISCHARGE. WE WILL FOLLOW HER THROUGH THE OFFICE SCHEDULED. CURRENT CODE STATUS FULL CODE NAKUL COLBY APRN SIMONE TEIXEIRA M.D.
[2018-03-27 12:00] VITALS: BP 162/93; TEMP 97.8
[2018-03-27] MEDS: HUMULIN R SUBCUT PRN (12:14)
--- NOTE | 2018-03-29 13:36 | DS ---
DATE OF SERVICE: 03/27/18 FINAL DIAGNOSIS: 1. SEVERE COPD WITH EXACERBATION (CONTINUED SMOKING AGAINST MEDICAL ADVICE) 2. ACUTE BRONCHITIS, IMPROVED 3. DEHYDRATION, RESOLVED 4. UTI, KLEBSIELLA PNEUMONIAE ORGANISM, TREATED 5. HYPOKALEMIA, RESOLVED 6. HYPERTENSION 7. GENERALIZED ANXIETY 8. BRONCHOGENIC CARCINOMA RIGHT UPPER LUNG 9. CKD, STAGE 3 10. DYSLIPIDEMIA 11. ARTHRITIS 12. PARTIAL RIGHT PNEUMONECTOMY R/T LUNG CANCER 13. TONSILLECTOMY 14. TOTAL ABDOMINAL HYSTERECTOMY 15. CURRENT HEAVY EVERYDAY SMOKER DISCHARGE INSTRUCTIONS: Followup appointment with Dr. Wade in his office 04/04/18 at 12 p.m. MEDICATIONS AT DISCHARGE: Albuterol Sulfate 0.083% 1 vial NEB RTQID Last Admin: 03/27/18 04:55 Dose: 1 vial Alprazolam (Xanax) 0.25 mg PO TID PRN Last Admin: 03/27/18 09:19 Dose: 0.25 mg Aspirin (Aspirin Ec) 81 mg PO DAILYWM [facility] Last Admin: 03/27/18 09:19 Dose: 81 mg Atorvastatin Calcium (Lipitor) 20 mg PO DAILY [facility] Last Admin: 03/27/18 09:19 Dose: 20 mg Budesonide/Formoterol Fumarate (Symbicort 160-4.5 Mcg Inhaler) 2 puff IH BID [facility] Last Admin: 03/27/18 09:22 Dose: 2 puff Carvedilol (Coreg) 25 mg PO BIDWM [facility] Last Admin: 03/27/18 09:20 Dose: 25 mg Levaquin 250 mg PO DAILY for 7 days only Losartan/Hydrochlorothiazide (Hyzaar) 100-12.5 mg PO DAILY [facility] Last Admin: 03/27/18 09:21 Dose: 100-12.5mg Prednisone (Prednisone) 20 mg PO DAILYWM [facility] FOR 5 DAYS Last Admin: 03/27/18 09:19 Dose: 20 mg NEW PRESCRIPTIONS: Alprazolam 0.25 mg PO TID PRN #30 tablet 03/27/18 Carvedilol 25 mg PO BIDWM #60 tablet 03/27/18 Levofloxacin 250 mg PO DAILY #7 tablet 03/27/18 Losartan/Hydrochlorothiazide 1 each PO DAILY #30 tablet 03/27/18 Prednisone 20 mg PO DAILYWM 5 Days #5 tablet 03/27/18 DO NOT RESUME YOUR LOSARTAN POTASSIUM (COZAAR) PLEASE NOTE THE INCREASE IN YOUR CARVEDILOL (COREG) DOSING TO 25 MG TWICE DAILY DIET INSTRUCTIONS: HEALTHY HEART ACTIVITY: GET PLENTY OF REST AT HOME. GRADUALLY INCREASE YOUR ACTIVITY LEVEL ACCORDING TO YOUR TOLERATION. SMOKING: THE PATIENT IS A CURRENT EVERYDAY HEAVY SMOKER. SHE HAS RECEIVED SMOKING CESSATION INFORMATION/TEACHING AND ENCOURAGEMENT FOR COMPLETE CESSATION. HOWEVER, SHE HAS NOT VERBALIZED ANY PLANS FOR SMOKING CESSATION OR EVEN CUTTING DOWN THE FREQUENCY OF TOBACCO USE. WE WILL CONTINUE TO PROVIDE REINFORCEMENT TEACHING AND REMIND HER OF THE ADDED RISK SMOKING POSES TO HER CARDIOPULMONARY HEALTH THROUGH HER OFFICE VISITS. DISEASE SPECIFIC EDUCATION: COPD DEHYDRATION UTI, KLEBSIELLA PNEUMONIAE HOME MEDICATION CHANGES NEW PRESCRIPTIONS FOLLOW UP HOSPITAL COURSE: This 67-year-old white female who is a heavy smoker with history of lung cancer who is admitted with acute COPD exacerbation, dehydration and urinary tract infection. Initial UA showed 4+ bacteria. Culture grew Klebsiella. She initially had hypokalemia which has resolved. She was admitted. Kidney function was elevated due to dehydration, placed on IV fluids 75 cc/hr NS. Initially started on Rocephin 1 gm IV daily along with Zithromax 500 mg p.o. daily for three days. Initially she had low grade fever on admission and after 36 hours this resolved. Her blood pressure did become elevated once her dehydration had resolved and she started going outside to smoke against medical advice. We increased Coreg to 12.5 mg b.i.d. yesterday then this morning was increased to 25 mg b.i.d. Her BNP was elevated on admission although this was improved and had decreased today when we checked it. There is not believed to be any cardiac component. Dysuria had resolved. She had a stress Sestamibi in November with stent placement this past summer and stable. According to the urine culture, will send her home on Levaquin 250 mg p.o. daily for the next 7 days along with Prednisone 10 mg daily for the next 5 days. Again she will be on Coreg 25 mg b.i.d. Information has been given regarding smoking cessation. She is advised strongly to quit smoking. She has a nebulizer at home which she is instructed to use at least three times a day. She has been eating well for the past 36 hours, up and about walking. Again, she has been going out on her own to smoke. She is instructed to continue following up with Dr. Larson which is her lung doctor and we will continue to followup with her. We will see her next week with repeat CBC and CMP in the office. TIME SPENT: More than 60 minutes. GERSON
--- NOTE | 2018-04-01 11:20 | PN ---
DATE OF SERVICE: 03/27/18 SUBJECTIVE: The patient was seen and examined with the nurse practitioner. She is up and about going out to smoke. Counseling for smoking done. PHYSICAL EXAMINATION: HEENT: Head normocephalic, atraumatic. Eyes: Extraocular muscles are intact. Pupils are equal, round and reactive to light and accommodation. Ears: No lesions. Nose appeared normal. Throat: No exudate or erythema. NECK: Supple. No JVD, no carotid bruit. No lymphadenopathy or thyromegaly. LUNGS: Clear to auscultation. Percussion note normal. Chest symmetrical. HEART: S1, S2, no S3. No murmurs. No cyanosis or clubbing. No ascites. Pulses: Dorsalis pedis and posterior tibial pulses +1 to +2 both sides. ABDOMEN: Soft. Nontender. Bowel sounds active. No CVA tenderness. No mass felt. EXTREMITIES: No edema. Full range of motion of all extremities, equal. NEUROLOGIC: No focal deficit. Cranial nerves II through XII are grossly intact. No headache, no double vision or headache. SKIN: Not dry. Intact. Turgor - normal. LYMPHATIC: No palpable lymph nodes/no lymphedema. MUSCULOSKELETAL: Normal joints with no swelling. Muscle tone is normal. The patient's BNP likely up because from kidney failure and respiratory failure on admission. The patient had negative cardiac workup. He is on Lipitor and hypertension is still not well controlled. Will increase the Coreg to 25 mg b.i.d. Advised to cut down on salt intake. Advised to quit smoking. Counseling for smoking done. CONDITION: Stable. The patient will be discharged home. TIME SPENT: More than 30 minutes. Plan and coordination of the patient's care discussed in the presence of nurse. GERSON
--- NOTE | 2018-04-01 11:22 | PN ---
CODING FOR BILLIN03/23/18 ADMISSION DAY - LEVEL 5 03/24/18 INTERMEDIATE 03/25/18 INTERMEDIATE 03/26/18 INTERMEDIATE 03/27/18 DISCHARGE MTDD
== END 2018-03-27 13:45 | disposition home or self-care (01) | DRG 191 ==
LOC: ED 15:46 → MEDSURG B 17:40
PROVIDERS: ADMIT Internal Medicine; ATTEND Internal Medicine
DX: J44.1 Chronic obstructive pulmonary disease with (acute) exacerbation (principal); N30.01 Acute cystitis with hematuria; N39.0 Urinary tract infection, site not specified; N18.3 Chronic kidney disease, stage 3 (moderate); R79.89 Other specified abnormal findings of blood chemistry; R73.9 Hyperglycemia, unspecified; R52 Pain, unspecified; R42 Dizziness and giddiness; R06.02 Shortness of breath; R06.00 Dyspnea, unspecified; R06.2 Wheezing; R53.1 Weakness; J20.9 Acute bronchitis, unspecified; E86.0 Dehydration; E87.6 Hypokalemia; E53.8 Deficiency of other specified B group vitamins; E78.5 Hyperlipidemia, unspecified; I10 Essential (primary) hypertension; B96.1 Klebsiella pneumoniae [K. pneumoniae] as the cause of diseases classified elsewhere; F41.1 Generalized anxiety disorder; M19.90 Unspecified osteoarthritis, unspecified site
CPT/HCPCS: 36415; 80048; 80053; 81001; 82550; 82803; 82962; 83036; 83605; 83880; 84145; 85007; 85025; 87040; 87086; 87186; 87502; 87651; 93005; 93010; 94640; 99284; 99285

== ENCOUNTER 2018-08-05 13:56 | Outpatient (CLI) | END 2018-08-05 13:57 | disposition home or self-care (01) | LOC: LAB 13:56 | PROVIDERS: ATTEND Internal Medicine | DX: E78.5 Hyperlipidemia, unspecified (principal); I10 Essential (primary) hypertension; R94.5 Abnormal results of liver function studies; J44.9 Chronic obstructive pulmonary disease, unspecified; F17.210 Nicotine dependence, cigarettes, uncomplicated | CPT/HCPCS: 36415; 80053; 80061; 83036; 84443; 85025 ==

== ENCOUNTER 2019-05-22 17:48 | Inpatient (IN) ==
[2019-05-22] MEDS ORDERED: SODIUM CHLORIDE 1,000 ML IV STA (18:17)
[2019-05-22] MEDS ORDERED: ZOFRAN 4 MG/2 ML IVP STA (18:17)
--- NOTE | 2019-05-22 18:17 | ED.PDOC ---
General ED Provider: Dr. ALBERTO GAITAN Chief Complaint: Nausea/Vomiting Stated Complaint: Cough, congestion, for past several days. Experiencing nausea &vomiting with associated loose diarrhea stools. States last BM prior to coming to ER Time Seen by Physician: 18:15 Mode of Arrival: Walk-In Information Source: Patient Exam Limitations: No limitations Primary Care Provider: SIMONE BLACKWOOD Referred to ED by: Other Nursing and Triage Documentation Reviewed and Agree: Yes Does patient meet sepsis criteria?: No If yes, has appropriate treatment been initiated?: No System Inflammatory Response Syndrome: Pulse >90 BPM Sepsis Protocol: For patient's 13 years and over: Temp is 96.8 and below OR 101 and greater Pulse >90 BPM Resp >20/minute Acutely Altered Mental Status Are patient's symptoms suggestive of a new infection, such as: -Pneumonia -Skin, Soft Tissue -Endocarditis -UTI -Bone, Joint Infection -Implantable Device -Acute Abdominal Infection -Wound Infection -Meningitis -Blood Stream Catheter Infection -Unknown Respiratory Complaint Exam Respiratory Complaint/Exam Onset/Duration: 4-5 days Symptoms Are: Still present Timing: Constant Initial Severity: Moderate Current Severity: Mild Location: Throat and Chest Character: Reports Productive cough Aggravating: Reports Deep breaths Alleviating: Reports Bronchodilators, OTC Meds and Upright position Associated Signs and Symptoms: Reports Dyspnea and Sinus discomfort; Denies Rapid breathing, Fever, Chills, Chest pain, Pleuritic chest pain, Wheezing, Hemoptysis, Dizziness, Calf pain, Calf swelling, Edema, URI, Nasal congestion, Hoarseness, Vomiting, Sore throat, Weight loss, Decreased oral intake, Increased thirst, Increased appetite and Increased urination History of Healthcare-Acquired Pneumonia: No Related Surgical History: Reports Pacemaker Pulmonary Embolism Risk Factors: None Cardiac Risk Factors: Reports None Pseudomonas Risk Factors: Reports None Tuberculosis Risk Factors: Reports None Status Asthmaticus Risk Factors: Reports None Home Oxygen Use: No Home Peak Flow: Recent personal best Recent Stress Test: No Recent Echo/LV Function: No Current Antibiotic Use: No Current Asthma Medication Use: No Respiratory Distress: Mild Inadequate Respiratory Effort: No Dysphagia Present: Yes Stridor Present: No JVD Present: No Accessory Muscle Use: No Retractions: Not Present Diminished Breath Sounds: No Sinus Tenderness: Frontal Grunting Respirations: No Differential Diagnoses: URI and Influenza Review of Systems Review Of Systems Constitutional: Reports No symptoms and Weakness Eyes: Reports No symptoms Ears, Nose, Mouth, Throat: Reports No symptoms, Mouth pain and Throat pain Respiratory: Reports No symptoms, Cough, Short of air and Wheezing Cardiac: Reports No symptoms GI: Reports No symptoms : Reports No symptoms Musculoskeletal: Reports No symptoms Skin: Reports No symptoms Neurological: Reports No symptoms Endocrine: Reports No symptoms Hematologic/Lymphatic: Reports No symptoms All Other Systems: Reviewed and Negative [facility] Medical History (Updated 05/22/19 @ 19:29 by ALBERTO GAITAN DO) Chronic obstructive pulmonary disease Dyslipidemia Gastroesophageal reflux disease Osteoarthritis Family History (Updated 12/10/13 @ 11:07 by TATIANA ROSARIO LPN) Mother No problems noted. Father No problems noted. Other COPD (chronic obstructive pulmonary disease) Cancer Female Reproductive History Menstrual Hx Hysterectomy: Yes Hx Tubal Ligation: No Physical Exam Physical Exam Appearance: Ill-appearing and Thin Ill-appearing: Moderate Pain Distress: Mild Eyes: KAREN, EOMI and Conjunctiva clear ENT: Ears normal, Nose normal and Oropharynx normal Neck: Supple Respiratory: Airway patent, Breath sounds diminished, Respirations nonlabored, Rhonchi and Wheezes Cardiovascular: RRR, Pulses normal, No rub and No murmur GI/: Soft, Nontender, No masses, Bowel sounds normal, No Organomegaly and Tender Musculoskeletal: Normal strength, ROM intact, No edema and No calf tenderness Skin: Warm, Dry and Normal color Neurological: Sensation intact, Motor intact, Reflexes intact, Cranial nerves intact, Alert and Oriented Psychiatric: Affect appropriate and Mood appropriate Interpretation Radiology Interpretation Radiology Interpretation By: Radiologist Exam Interpreted: CXR and CT Scan Xray Comments: Chest-atypical pneumonia; Abdom-cholelithiasis EKG Interpretation Time of EKG #1: 18:56 Rate: Normal Rhythm: Sinus Ectopy: None Interpretation: septal infarct- non acute Physician Notification Case Discussed Physician Notified: dr blackwood -admit Time of Notification: 19:00 Critical Care Note Critical Care Note Total Time (mins): 60 Comments: Evaluated patient , order testing and interpretd data, initiated definitve therapuy, consulted dr blackwood and arranged admission Course Course Hematology/Chemistry: 05/22/19 18:19 05/22/19 18:43 Orders, Labs, Meds: Lab Review 05/22/19 05/22/19 05/22/19 18:19 18:43 18:43 WBC 11.52 H RBC 4.52 Hgb 13.3 Hct 41.0 MCV 90.7 MCH 29.4 MCHC 32.4 RDW Coeff of Felipe 13.5 Plt Count 155 Immature Gran % (Auto) 0.5 Neut % (Auto) 77.6 Lymph % (Auto) 11.5 Wagoner % (Auto) 10.2 H Eos % (Auto) 0.0 Baso % (Auto) 0.2 Immature Gran # (Auto) 0.1 Neut # (Auto) 8.9 H Lymph # (Auto) 1.3 Wagoner # (Auto) 1.2 Eos # (Auto) 0.0 Baso # (Auto) 0.0 Puncture Site O2 Saturation ABG pH ABG pCO2 ABG pO2 ABG HCO3 ABG Total CO2 ABG Base Excess Mat Test FiO2 % Sodium Potassium Chloride Carbon Dioxide Anion Gap BUN Creatinine Estimated GFR (MDRD) BUN/Creatinine Ratio Glucose Lactic Acid 2.58 H Calcium Magnesium Total Bilirubin AST ALT Alkaline Phosphatase Total Protein Albumin Globulin Albumin/Globulin Ratio Amylase Lipase Procalcitonin 0.38 Urine Color Urine Clarity Urine pH Ur Specific Renick Urine Protein Urine Glucose (UA) Urine Ketones Urine Blood Urine Nitrite Urine Bilirubin Urine Urobilinogen Ur Leukocyte Esterase Urine Microscopic RBC Urine Microscopic WBC Ur Squamous Epith Cells Urine Opiates Screen Ur Oxycodone Screen Urine Methadone Screen Ur Propoxyphene Screen Ur Barbiturates Screen U Tricyclic Antidepress Ur Phencyclidine Scrn Ur Amphetamine Screen U Methamphetamines Scrn U Benzodiazepines Scrn Urine Cocaine Screen U Cannabinoids Screen Influ A Molecular Assay Influ B Molecular Assay 05/22/19 05/22/19 05/22/19 18:43 18:43 18:43 WBC RBC Hgb Hct MCV MCH MCHC RDW Coeff of Felipe Plt Count Immature Gran % (Auto) Neut % (Auto) Lymph % (Auto) Wagoner % (Auto) Eos % (Auto) Baso % (Auto) Immature Gran # (Auto) Neut # (Auto) Lymph # (Auto) Wagoner # (Auto) Eos # (Auto) Baso # (Auto) Puncture Site O2 Saturation ABG pH ABG pCO2 ABG pO2 ABG HCO3 ABG Total CO2 ABG Base Excess Mat Test FiO2 % Sodium 136.1 Potassium 4.23 Chloride 102.5 Carbon Dioxide 20.5 L Anion Gap 17.33 BUN 30.3 H Creatinine 1.11 Estimated GFR (MDRD) 49.00 BUN/Creatinine Ratio 27.29 Glucose 102.5 Lactic Acid Calcium 9.06 Magnesium 2.26 Total Bilirubin 0.53 AST 28.6 ALT 17.1 Alkaline Phosphatase 66.6 Total Protein 7.49 Albumin 4.53 Globulin 2.96 Albumin/Globulin Ratio 1.53 Amylase 68.1 Lipase 56.9 Procalcitonin Urine Color Yellow Urine Clarity Clear Urine pH 5.5 Ur Specific Renick >=1.030 Urine Protein Trace Urine Glucose (UA) Negative Urine Ketones 2+ Urine Blood 2+ Urine Nitrite Negative Urine Bilirubin 1+ Urine Urobilinogen 0.2 Ur Leukocyte Esterase Negative Urine Microscopic RBC 0-2 Urine Microscopic WBC 2-5 Ur Squamous Epith Cells 0-2 Urine Opiates Screen Negative Ur Oxycodone Screen Negative Urine Methadone Screen Negative Ur Propoxyphene Screen Negative Ur Barbiturates Screen Negative U Tricyclic Antidepress Negative Ur Phencyclidine Scrn Negative Ur Amphetamine Screen Negative U Methamphetamines Scrn Negative U Benzodiazepines Scrn Negative Urine Cocaine Screen Negative U Cannabinoids Screen Negative Influ A Molecular Assay Negative by naat Influ B Molecular Assay Negative by naat 05/22/19 19:09 WBC RBC Hgb Hct MCV MCH MCHC RDW Coeff of Felipe Plt Count Immature Gran % (Auto) Neut % (Auto) Lymph % (Auto) Wagoner % (Auto) Eos % (Auto) Baso % (Auto) Immature Gran # (Auto) Neut # (Auto) Lymph # (Auto) Wagoner # (Auto) Eos # (Auto) Baso # (Auto) Puncture Site Rr O2 Saturation 95.0 ABG pH 7.372 ABG pCO2 30.2 L ABG pO2 76.0 L ABG HCO3 17.5 L ABG Total CO2 18 L ABG Base Excess -8 L Mat Test + FiO2 % 21.0 Sodium Potassium Chloride Carbon Dioxide Anion Gap BUN Creatinine Estimated GFR (MDRD) BUN/Creatinine Ratio Glucose Lactic Acid Calcium Magnesium Total Bilirubin AST ALT Alkaline Phosphatase Total Protein Albumin Globulin Albumin/Globulin Ratio Amylase Lipase Procalcitonin Urine Color Urine Clarity Urine pH Ur Specific Renick Urine Protein Urine Glucose (UA) Urine Ketones Urine Blood Urine Nitrite Urine Bilirubin Urine Urobilinogen Ur Leukocyte Esterase Urine Microscopic RBC Urine Microscopic WBC Ur Squamous Epith Cells Urine Opiates Screen Ur Oxycodone Screen Urine Methadone Screen Ur Propoxyphene Screen Ur Barbiturates Screen U Tricyclic Antidepress Ur Phencyclidine Scrn Ur Amphetamine Screen U Methamphetamines Scrn U Benzodiazepines Scrn Urine Cocaine Screen U Cannabinoids Screen Influ A Molecular Assay Influ B Molecular Assay Orders Category Date Time Status ABG DRAW REQUEST Stat CARDIO 05/22/19 18:52 Completed EKG-(ED ONLY) Stat CARDIO 05/22/19 18:47 Completed NEBULIZER TREATMENT Routine CARDIO 05/22/19 19:22 Ordered NEBULIZER TREATMENT Stat CARDIO 05/22/19 18:47 Completed OXYGEN Routine CARDIO 05/22/19 19:21 Ordered ACTIVITY .BR with BRP CARE 05/22/19 19:21 Active BLOOD GLUCOSE MONITORING 0630,1100,1700,2100 CARE 05/22/19 19:22 Active INTAKE & OUTPUT Q8HR CARE 05/22/19 19:21 Active VITAL SIGNS Q8HR CARE 05/22/19 19:21 Active NOTHING BY MOUTH DIETARY 05/22/19 Dinner Ordered ABG Stat LAB 05/22/19 19:09 Completed AMYLASE Stat LAB 05/22/19 18:43 Completed CBC W/ AUTO DIFF DAILY@0600 LAB 05/23/19 06:00 Ordered CBC W/ AUTO DIFF DAILY@0600 LAB 05/24/19 06:00 Ordered CBC W/ AUTO DIFF Stat LAB 05/22/19 18:19 Completed COMPREHENSIVE METABOLIC PANEL DAILY@0600 LAB 05/23/19 06:00 Ordered COMPREHENSIVE METABOLIC PANEL DAILY@0600 LAB 05/24/19 06:00 Ordered COMPREHENSIVE METABOLIC PANEL Stat LAB 05/22/19 18:43 Completed FLU A & B MOLECULAR [FLU A/B MOLECULAR] Stat LAB 05/22/19 18:43 Completed LACTIC ACID Stat LAB 05/22/19 18:43 Completed LIPASE Stat LAB 05/22/19 18:43 Completed MAGNESIUM Stat LAB 05/22/19 18:43 Completed PROCALCITONIN Stat LAB 05/22/19 18:43 Completed PT WITH INR DAILY@0600 LAB 05/23/19 06:00 Ordered PT WITH INR DAILY@0600 LAB 05/24/19 06:00 Ordered RAPID STREP SCREEN [MOLECULAR GROUP A STREP] Stat LAB 05/22/19 18:43 Completed UA [URINALYSIS C & S IF INDICATED] Stat LAB 05/22/19 18:43 Completed URINE DRUG SCREEN (RAPID FOR ED) [DRUG SCREEN, URINE, LAB 05/22/19 18:43 Completed RAPID] Stat Acetaminophen [Tylenol] MEDS 05/22/19 19:21 Ordered 650 mg PO Q4H PRN Azithromycin [Zithromax] MEDS 05/23/19 09:00 Ordered 250 mg PO DAILY Azithromycin [Zithromax] MEDS 05/22/19 19:14 Discontinued 500 mg PO ONCE STA Ceftriaxone/D5w 1 gm Premix [Rocephin 1 gm/50 ml D5w] MEDS 05/22/19 19:30 Orde red 1 gm in 50 ml IV DAILY Ipratropium/Albuterol Neb [Duoneb] MEDS 05/22/19 18:47 Discontinued 3 ml NEB ONCE STA Ipratropium/Albuterol Neb [Duoneb] MEDS 05/22/19 20:00 Ordered 3 ml NEB RTQID Methylprednisolone Sod Succ/Pf [Solu-Medrol 125 mg] MEDS 05/22/19 19:30 Ordered 125 mg IVP Q8HR Ondansetron HCl/Pf [Zofran 4 mg/2 ml] MEDS 05/22/19 18:17 Discontinued 4 mg IVP ONCE STA Sodium Chloride 0.9% [Sodium Chloride] 1,000 ml MEDS 05/22/19 18:17 Discontinued IV BOLUS RESUSCITATION STATUS Routine OTHERS 05/22/19 19:[address] ABDOMEN/PELVIS WO CONTRAST Stat RADS 05/22/19 18:[address] CHEST W/O CONTRAST Stat RADS 05/22/19 18:22 Completed Medications Generic Name Dose Route Start Last Admin Trade Name Freq PRN Reason Stop Dose Admin Acetaminophen 650 mg 05/22/19 19:21 Tylenol PO Q4H PRN Fever >101 Albuterol/Ipratropium 3 ml 05/22/19 20:00 Duoneb NEB RTQID ANDREAS Azithromycin 250 mg 05/23/19 09:00 Zithromax PO 05/26/19 09:01 DAILY ANDREAS CEFTRIAXONE/D5W 1 GM PREMIX 1 gm in 50 mls @ 75 mls/hr 05/22/19 19:30 Rocephin 1 Gm/50 Ml D5w IV 05/25/19 19:29 DAILY ANDREAS Methylprednisolone Sodium Succinate 125 mg 05/22/19 19:30 Solu-Medrol 125 Mg IVP Q8HR ANDREAS Discontinued Medications Generic Name Dose Route Start Last Admin Trade Name Freq PRN Reason Stop Dose Admin Albuterol/Ipratropium 3 ml 05/22/19 18:47 05/22/19 19:15 Duoneb NEB 05/22/19 18:48 3 ml ONCE STA Administration Azithromycin 500 mg 05/22/19 19:14 Zithromax PO 05/22/19 19:15 ONCE STA Sodium Chloride 1,000 mls @ 1,000 mls/hr 05/22/19 18:17 05/22/19 18:50 Sodium Chloride IV 05/22/19 19:16 1,000 mls/hr BOLUS STA Administration Ondansetron HCl 4 mg 05/22/19 18:17 05/22/19 18:50 Zofran 4 Mg/2 Ml IVP 05/22/19 18:18 4 mg ONCE STA Administration Vital Signs: Temp Pulse Resp BP Pulse Ox 05/22/19 17:48 99.6 F 107 H 20 119/71 92 L Discharge Plan Discharge Patient Disposition: ADMITTED INPATIENT Discharge Problem: COPD exacerbation, Dehydration, Nausea, Pneumonia ED Provider: ABLERTO GAITAN
[2019-05-22] MEDS ORDERED: DUONEB NEB STA (18:47)
--- NOTE | 2019-05-22 19:07 | CT ---
EXAM: CT of the abdomen pelvis without contrast History: Abdominal pain and nausea. Comparison: CT abdomen pelvis 11/28/2013 Technique: Multiplanar CT images through the abdomen pelvis were obtained without the administration of IV contrast Findings: Lung bases are free of consolidation. No acute osseous abnormalities. Cholelithiasis. Atherosclerotic vascular calcifications. No focal liver or splenic lesions. No per ipancreatic inflammation. Adrenal glands are unremarkable. Left renal cortical scarring. Bilateral nephrolithiasis measuring up to 4 mm on the right and 6 mm on the left. No hydronephrosis. No harper l obstruction. No free air and no ascites. Bladder is not well distended. Status post hysterectomy . No perirectal inflammation. Impression: 1. No acute intra-abdominal or pelvic process. 2. Cholelithiasis. 3. Nonobstructing bilateral nephrolithiasis. 4. Left renal cortical scarring. 5. Atherosclerotic vascular disease
--- NOTE | 2019-05-22 19:07 | CT ---
Exam: CT of the chest without intravenous contrast. Comparison: 08/22/2018. Reason for exam: Dyspnea with coughing. FINDINGS: No pneumothorax or pleural effusion. There are patchy ground-glass opacities in the right upper and right mid lung with a pleural based ground-glass nodule on axial image number 44 measuring up to 6 mm. Emphysematous disease is seen throughout the lung parenchyma. The heart is not enlarged. The aorta measures within normal limits for size. Image interpretation is limited by the lack of intravenous contrast. Atherosclerotic disease is seen within the aorta and distal arterial vasculature. There are renal cortical and vascular calcifications. Stones are seen in the dependent portion the gallbladder. Mild degenerative disease in the thoracic spine. Impression: 1. Imaging findings are most consistent with viral etiology/atypical infection. Follow-up imaging i s recommended. 2. Cholelithiasis without evidence of cholecystitis
[2019-05-22] MEDS ORDERED: ZITHROMAX PO STA (19:14)
[2019-05-22] MEDS: DUONEB NEB SCH (21:06)
[2019-05-22] MEDS ORDERED: ZOFRAN 4 MG/2 ML IVP PRN (21:24)
[2019-05-22] MEDS: ROCEPHIN 1 GM/50 ML D5W 1 GM/50 ML BAG IV SCH (21:32)
[2019-05-22] MEDS: TYLENOL PO PRN (21:41)
[2019-05-22] MEDS: SOLU-MEDROL 125 MG IVP SCH (21:41)
[2019-05-23] MEDS: DUONEB NEB SCH ×4 (04:33→20:17)
[2019-05-23] MEDS: SOLU-MEDROL 125 MG IVP SCH ×3 (06:05→21:46)
[2019-05-23 06:23] LABS: HEMATOCRIT 38.6 % (37.0-47.0)
[2019-05-23] MEDS: DEXTROSE 5%-1/2NS IV SOLUTION 1,000 ML IV SCH (08:25)
[2019-05-23] MEDS: SYMBICORT 160-4.5 MCG INHALER IH SCH ×2 (08:32→21:47)
[2019-05-23] MEDS: ZITHROMAX PO SCH (08:33)
[2019-05-23] MEDS: LIPITOR PO SCH (08:33)
[2019-05-23] MEDS: COZAAR PO SCH (08:33)
[2019-05-23] MEDS: ROCEPHIN 1 GM/50 ML D5W 1 GM/50 ML BAG IV SCH (21:47)
[2019-05-24] MEDS: DEXTROSE 5%-1/2NS IV SOLUTION 1,000 ML IV SCH (02:51)
[2019-05-24] MEDS: DUONEB NEB SCH ×4 (04:25→19:33)
[2019-05-24] MEDS: SOLU-MEDROL 125 MG IVP SCH ×3 (04:48→20:38)
[2019-05-24 07:25] LABS: HEMATOCRIT 33.2 % (37.0-47.0)
[2019-05-24] MEDS: COZAAR PO SCH (08:46)
[2019-05-24] MEDS: ZITHROMAX PO SCH (08:46)
[2019-05-24] MEDS: LIPITOR PO SCH (08:46)
[2019-05-24] MEDS: SYMBICORT 160-4.5 MCG INHALER IH SCH ×2 (08:46→20:39)
[2019-05-24] MEDS ORDERED: D5%-1/2NS-KCL 40 MEQ/L IV SOL 1,000 ML IV SCH (09:00)
[2019-05-24] MEDS: K-DUR PO SCH ×5 (10:17→20:39)
[2019-05-24] MEDS: XANAX PO PRN ×2 (11:57→20:50)
[2019-05-24] MEDS: PHENERGAN WITH CODEINE 6.25/10 MG/5 ML PO PRN ×2 (11:57→20:50)
[2019-05-24] MEDS: NICODERM 21 MG TD SCH (11:58)
[2019-05-24] MEDS: ROCEPHIN 1 GM/50 ML D5W 1 GM/50 ML BAG IV SCH (20:38)
[2019-05-25] MEDS: SOLU-MEDROL 125 MG IVP SCH ×3 (04:27→20:10)
[2019-05-25] MEDS: DUONEB NEB SCH ×4 (04:43→19:45)
[2019-05-25] MEDS: TYLENOL PO PRN (04:46)
[2019-05-25 05:20] LABS: HEMATOCRIT 37.1 % (37.0-47.0)
[2019-05-25] MEDS: SYMBICORT 160-4.5 MCG INHALER IH SCH ×3 (08:15→20:16)
[2019-05-25] MEDS: ZITHROMAX PO SCH (08:16)
[2019-05-25] MEDS: COZAAR PO SCH (08:16)
[2019-05-25] MEDS: LIPITOR PO SCH (08:16)
[2019-05-25] MEDS: K-DUR PO SCH ×4 (08:16→20:10)
[2019-05-25] MEDS: NICODERM 21 MG TD SCH (08:17)
[2019-05-25] MEDS ORDERED: TORADOL IVP STA (10:13)
[2019-05-25] MEDS: XANAX PO PRN (20:09)
[2019-05-25] MEDS: ROCEPHIN 1 GM/50 ML D5W 1 GM/50 ML BAG IV SCH (20:11)
[2019-05-25] MEDS: PHENERGAN WITH CODEINE 6.25/10 MG/5 ML PO PRN (20:21)
[2019-05-26] MEDS: DUONEB NEB SCH ×4 (04:28→19:40)
[2019-05-26 04:41] LABS: HEMATOCRIT 34.3 % (37.0-47.0)
[2019-05-26] MEDS: SOLU-MEDROL 125 MG IVP SCH ×2 (04:57→14:02)
--- NOTE | 2019-05-26 07:57 | HP ---
DATE OF SERVICE: 05/22/19 HISTORY OF PRESENT ILLNESS: 68-year-old white female who presented to the Emergency Room with nausea and vomiting. She has had cough and congestion for the past several days. 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 Haro Chronic Kidney Disease, Stage 3 Dyslipidemia Polyarthritis Noncompliant with medications, lifestyle, followup PAST SURGICAL HISTORY: Partial right pneumonectomy related to lung cancer Tonsillectomy Complete hysterectomy REVIEW OF SYSTEMS: CONSTITUTIONAL: No night sweats. No fatigue, malaise, lethargy. No fever or chills. HEENT: Eyes: No visual changes. No eye pain. No eye discharge. ENT: No runny nose. No epistaxis. No sinus pain. No sore throat. No odynophagia. No ear pain. No congestion. RESPIRATORY: Positive for cough, congestion and shortness of breath. No hemoptysis. CARDIOVASCULAR: No angina symptoms. No CHF symptoms. No atypical chest pain for CAD. No palpitations. No PND. No orthopnea. GASTROINTESTINAL: Positive for nausea. No abdominal pain. No vomiting. No diarrhea or constipation. No hematemesis. No hematochezia. GENITOURINARY: No urgency. No frequency. No dysuria. No hematuria. No obstructive symptoms. No discharge. No pain. No significant abnormal bleeding. MUSCULOSKELETAL: No musculoskeletal pain. No joint swelling. No arthritis. NEUROLOGICAL: No headache. No neck pain. No syncope. No seizures. No dizziness. PSYCHIATRIC: Not anxious. No depression. No suicidal thoughts. No homicidal thoughts. SKIN: No rash. No lesions. No wounds. ENDOCRINE: No unexplained weight loss. No weight gain. HEMATOLOGIC/LYMPHATIC: No anemia. No purpura. No petechiae. No prolonged or excessive bleeding. No palpable lymph nodes. PERSONAL/FAMILY/SOCIAL HISTORY: She lives with the boyfriend. She is a current heavy everyday smoker. Denies any alcohol or ilicit drug use. Again, very noncompliant with medication, lifestyle and followup. MEDICATIONS: (HOME) Albuterol Sulfate one vial neb q.i.d. Budesonide-Formoterol (Symbicort) two puff INH b.i.d. Losartan 50 mg p.o. daily ALLERGIES: NKDA PHYSICAL EXAMINATION: VITAL SIGNS: Temperature 99.6, heart rate 107, respirations 20, BP 119/71, pulse ox 92%. HEENT: Head normocephalic, atraumatic. Eyes: Extraocular muscles are intact. Pupils are equal, round and reactive to light and accommodation. Ears: No lesions. Nose appeared normal. Throat: No exudate or erythema. NECK: Supple. No JVD, no carotid bruit. No lymphadenopathy or thyromegaly. LUNGS: Diminished breath sounds bilaterally with inspiratory and expiratory faint wheezing. Percussion note normal. Chest symmetrical. HEART: S1, S2, no S3. No murmur. No cyanosis or clubbing. No ascites. Pulses: Dorsalis pedis and posterior tibial pulses +1 to +2 bilaterally. ABDOMEN: Soft. Nontender. Bowel sounds active. No CVA tenderness. No mass felt. EXTREMITIES: No leg edema. Full range of motion of all extremities, equal. NEUROLOGIC: Alert and oriented. No focal deficit. Cranial nerves II through XII are grossly intact. No headache, no double vision or headache. SKIN: Not dry. Intact. Turgor - normal. LYMPHATIC: No palpable lymph nodes/no lymphedema. MUSCULOSKELETAL: Normal joints with no swelling. Muscle tone is normal. LABS/IMAGING: White count 11.52, hemoglobin 13.3, hematocrit 41, platelets 155. Sodium 136, potassium 4.2, BUN 30, creatinine 1.1, glucose 102. Lactic acid 2.58. BUN 30, creatinine 1.11, amylase 68, lipase 56, urine 2+ blood, 2+ ketones, 1+ bili. Urine drug screen is normal. Influenza A and B are normal. ABG on room air 02 sat 95, pH 7.372, pc02 30, p02 76, bicarb 17.5, total c02 18. CT of the abdomen is normal. CT of the chest shows atypical infection. ASSESSMENT: 1. ATYPICAL PNEUMONIA 2. UNDERLYING SEVERE COPD 3. HEAVY SMOKER 4. HISTORY OF LUNG CANCER 5. DEHYDRATION 6. HISTORY OF CORONARY ARTERY DISEASE 7. THE PATIENT HAS SEVERE ATHEROSCLEROTIC DISEASE SEEN PER CT WITHIN THE [place] AND VASCULATURE PLAN: 1. We will admit. 2. Routine telemetry orders. 3. CBC, CMP daily. 4. Rocephin 1 gm IV daily. 5. Zithromax 500 mg p.o. daily times three days. 6. Start Duonebs q.6hr ANDREAS. 7. Solu-Cortef 125 mg IV q.8hr. 8. Normal Saline IV at 75 cc/hr. 9. Oxygen at 1 to 2L via nasal cannula p.r.n. 10. Regular diet. 11. Tylenol for fever greater than 100.4. 12. Nicotine patch if needed. 13. Will monitor Accu-Cheks due to steroid use. 14. Will follow closely. TIME SPENT: More than 70 minutes. MTDD
--- NOTE | 2019-05-26 08:02 | PN ---
DATE OF SERVICE: 05/23/19 SUBJECTIVE: The patient was seen and examined with the nurse practitioner. The patient's condition was stable. She was hospitalized with acute gastroenteritis, cough and congestion. She is being treated with IV fluids, IV antibiotics, steroids. The patient is noncompliant. She has been sick for 7 days. She doesn't come even for regular followups. She has history of CA of the lung. PHYSICAL EXAMINATION: HEENT: Head normocephalic, atraumatic. Eyes: Extraocular muscles are intact. Pupils are equal, round and reactive to light and accommodation. Ears: No lesions. Nose appeared normal. Throat: No exudate or erythema. NECK: Supple. No JVD, no carotid bruit. No lymphadenopathy or thyromegaly. LUNGS: Decreased breath sounds with good air entry. Clear to auscultation. Percussion note normal. Chest symmetrical. HEART: S1, S2, no S3. No murmurs. No cyanosis or clubbing. No ascites. Pulses: Dorsalis pedis and posterior tibial pulses +1 to +2 bilaterally. ABDOMEN: Soft. Nontender. Bowel sounds active. No CVA tenderness. No mass felt. EXTREMITIES: No pedal edema. Full range of motion of all extremities, equal. NEUROLOGIC: No focal deficit. Cranial nerves II through XII are grossly intact. No headache, no double vision or headache. SKIN: Not dry. Intact. Turgor - Poor. LYMPHATIC: No palpable lymph nodes/no lymphedema. MUSCULOSKELETAL: Normal joints with no swelling. Muscle tone is normal. ASSESSMENT: 1. Acute gastroenteritis. 2. Acute bronchitis. 3. Severe chronic lung disease. 4. CA of the lung. 5. Hypertension. 6. Dyslipidemia. PLAN: 1. Continue IV antibiotics, steroids, nebs. TIME SPENT: More than 30 minutes. Plan and coordination of the patient's care discussed in the presence of nurse. GERSON
--- NOTE | 2019-05-26 08:47 | DI ---
EXAM: Thoracic spine three views HISTORY: Back pain FINDINGS: Bones appear demineralized. There is diffuse mild degenerative disc/endplate disease. No fracture, spondylolisthesis or significant loss of vertebral body height. IMPRESSION: 1. Diffuse mild degenerative disc disease. No fracture or acute radiographic finding.
--- NOTE | 2019-05-26 08:49 | DI ---
EXAM: Lumbar spine five view, including oblique view HISTORY: Low back pain COMPARISON: None TECHNIQUE: Five views lumbar spine were performed, including oblique views FINDINGS: Vertebral bodies normal height. No fracture. No subluxation. Mild multilevel interverte bral disc space narrowing. Multilevel marginal osteophyte formation. Multilevel facet arthrosis. A therosclerotic vascular calcification. IMPRESSION: 1. No fracture or subluxation. 2. Chronic discogenic degenerative disease and facet arthrosis.
[2019-05-26] MEDS: COZAAR PO SCH (09:27)
[2019-05-26] MEDS: K-DUR PO SCH ×3 (09:27→17:29)
[2019-05-26] MEDS: LIPITOR PO SCH (09:27)
[2019-05-26] MEDS: SYMBICORT 160-4.5 MCG INHALER IH SCH ×2 (09:27→20:36)
[2019-05-26] MEDS: XANAX PO PRN ×2 (09:27→14:02)
[2019-05-26] MEDS: ZITHROMAX PO SCH (09:27)
[2019-05-26] MEDS: NICODERM 21 MG TD SCH (09:41)
--- NOTE | 2019-05-26 12:01 | ECHO2D ---
Date of Exam: 05/25/19 Ordering Physician: DR. SIMONE TEIXEIRA Room #: [id number] Reason for Echo: SOB, CAD, COPD M-Mode Normal Adult Results LV Dimensions Normal Adult Results AoV Opening excursions >1.6 >1.6 LVEDD-base- 3.5-5.8 3.1 Ao root dimensions 2.0-3.7 3.1 LVESD-base- 3.1-4.6 L. Atrium dimensions 1.9-3.8 3.0 Post. Wall thickness 0.8-1.1 0.9 IV septum (thickness) 0.7-1.2 0.9 Post. Wall excursion 0.72-1.3 NORMAL Septal motion NORMAL Systolic motion R. Ventricular cavity 1.5-2.0 3.5 LVEF 60% 62% Paradoxical septal wall motion NORMAL 2-D : 2-D M Mode Echocardiogram was performed using apical four chamber and left parasternal long and short axis views. Mitral, tricuspid and aortic valves appear to be normal. Contractility of the left ventricle seems to be normal, so is the cavity size. Left atrial cavity size and aortic root appear to be normal. There is no pericardial effusion. There is no thrombus noted in the left ventricle or left atrial cavity. No mitral valve prolapse noted. ENLARGED RIGHT VENTRICLE CAVITY M-MODE: MV: NORMAL AV: NORMAL TV: NORMAL PV: CHAMBER SIZE: ENLARGED RIGHT VENTRICLE CAVITY WALL MOTION: NORMAL PERICARDIUM: NORMAL INTERPRETATION: 1. ENLARGED RIGHT VENTRICLE CAVITY 2. NORMAL VALVES 3. NORMAL LEFT VENTRICLE CAVITY MTDD
--- NOTE | 2019-05-26 12:36 | US ---
EXAM: ULTRASOUND CAROTID DUPLEX, BILATERAL HISTORY: Shortness of breath, weakness FINDINGS: Howe-scale ultrasound, color Doppler and spectral analysis was performed. Velocities are in meters per second. By howe scale and color Doppler imaging, there were regions of heterogeneous plaque formation identi fied within the carotid bulbs and internal carotid arteries. These regions of plaque appeared to rem ain less than 50% vessel diameter. RIGHT: External carotid artery peak systolic velocity: 2.0/0.3 Common carotid artery peak systolic velocity/end diastolic velocity: 0.85/0.27 Internal carotid artery peak systolic velocity: 0.84 ICA/CCA peak systolic velocity ratio: 1.0 ICA end diastolic velocity: 0.23 LEFT: External carotid artery peak systolic velocity: 1.0/0.21 Common carotid artery peak systolic velocity/end diastolic velocity: 0.77/0.22 Internal carotid artery peak systolic velocity: 0.78 ICA/CCA peak systolic velocity ratio: 1.0 ICA end diastolic velocity: 0.3 The right and left vertebral arteries were antegrade. IMPRESSION: 1. By howe scale and color Doppler imaging, there were regions of heterogeneous plaque formation nisha ntified within the carotid bulbs and internal carotid arteries. These regions of plaque appeared to remain less than 50% vessel diameter. 2. Internal carotid artery peak systolic velocities and ICA/CCA peak systolic velocity ratios indica te no hemodynamically significant stenosis bilaterally. There was increased velocity within the righ t external carotid artery suggesting degree of stenosis. 3. Both vertebral arteries were antegrade.
[2019-05-26] MEDS: PHENERGAN WITH CODEINE 6.25/10 MG/5 ML PO PRN (14:02)
--- NOTE | 2019-05-26 14:22 | DI ---
EXAM: Chest two views HISTORY: Shortness of air, cough COMPARISON: CT chest 05/22/2019 TECHNIQUE: Two views of the chest were performed FINDINGS: Minimal right basilar haziness. Lungs are hyperinflated. Postsurgical changes in the rig ht perihilar region. There is no pleural effusion or pneumothorax. The heart is normal in size. Th e mediastinal contour is normal. There are no acute abnormalities of the bones. IMPRESSION: 1. Minimal right basilar haziness may correlate with the ground-glass opacities seen on CT chest may be infectious/inflammatory. 2. Hyperinflated lungs may suggest chronic obstructive pulmonary disease
[2019-05-26] MEDS: ROCEPHIN 1 GM/50 ML D5W 1 GM/50 ML BAG IV SCH (20:35)
[2019-05-26] MEDS ORDERED: CARDIZEM PO SCH (21:00)
[2019-05-26] MEDS: TYLENOL PO PRN (22:09)
[2019-05-27] MEDS: DUONEB NEB SCH ×3 (04:28→14:14)
[2019-05-27 05:20] LABS: HEMATOCRIT 34.3 % (37.0-47.0)
[2019-05-27] MEDS ORDERED: XANAX PO PRN (07:17)
[2019-05-27] MEDS ORDERED: CITRATE OF MAGNESIA PO STA (07:48)
[2019-05-27] MEDS ORDERED: PREDNISONE PO SCH (08:00)
[2019-05-27] MEDS ORDERED: CARDIZEM PO SCH ×3 (09:00)
--- NOTE | 2019-05-27 09:07 | PN ---
DATE OF SERVICE: 05/24/19 SUBJECTIVE: The patient was hospitalized with pneumonia. She clinically has improved. She is coughing much less. Hydration status has improved. PHYSICAL EXAMINATION: HEENT: Head normocephalic, atraumatic. Eyes: Extraocular muscles are intact. Pupils are equal, round and reactive to light and accommodation. Ears: No lesions. Nose appeared normal. Throat: No exudate or erythema. NECK: Supple. No JVD, no carotid bruit. No lymphadenopathy or thyromegaly. LUNGS: Decreased breath sounds but clear to auscultation. Percussion note normal. Chest symmetrical. HEART: S1, S2, no S3. No murmurs. No cyanosis or clubbing. No ascites. Pulses: Dorsalis pedis and posterior tibial pulses +1 to +2 bilaterally. ABDOMEN: Soft. Nontender. Bowel sounds active. No CVA tenderness. No mass felt. EXTREMITIES: No edema. Full range of motion of all extremities, equal. NEUROLOGIC: No focal deficit. Cranial nerves II through XII are grossly intact. No headache, no double vision or headache. SKIN: Not dry. Intact. Turgor - normal. LYMPHATIC: No palpable lymph nodes/no lymphedema. MUSCULOSKELETAL: Normal joints with no swelling. Muscle tone is normal. ASSESSMENT/PLAN: 1. Pneumonia clinically resolving. Oral intake is a lot better. Will discontinue IV fluids. 2. The patient did not have any cardiac arrhythmias. Cardiovascular status stable with no evidence of CHF. 3. The patient had a lot of problems with nursing staff and hospital administration because the patient wants to go out and smoke. She wants to sign out for a half an hour. The daughter also wants the patient not to go out and smoke but the patient is using foul language and said she would sign out eventually. She was about to but then changed her mind. She doesn't want a nicotine patch. She wants something for her nerves. Will give her Xanax 0.5 t.i.d. 4. Will discontinue telemetry. 5. Discontinue IV fluids. 6. The patient is noncompliant of followup. 7. The patient declined all the medications in the morning and was extremely unhappy as she couldn't go out to smoke. She will take it now but overall the patient is noncompliant of medications, followup and recommendations. 8. Counseling for smoking was also done. PROGNOSIS: Poor considering her underlying other problems. TOTAL TIME SPENT TODAY: 60 minutes. Plan and coordination of the patient's care discussed in the presence of nurse. GERSON
[2019-05-27] MEDS: SYMBICORT 160-4.5 MCG INHALER IH SCH (09:36)
[2019-05-27] MEDS: LIPITOR PO SCH (09:36)
[2019-05-27] MEDS: COZAAR PO SCH (09:37)
[2019-05-27] MEDS: NICODERM 21 MG TD SCH (09:44)
--- NOTE | 2019-05-27 10:38 | PN ---
DATE OF SERVICE: 05/25/19 SUBJECTIVE: The patient was seen and examined today. Her pneumonia clinically seems to be resolving. She is doing well. She wants to stay. She is calm. She is on Xanax 0.5mg and we will reduce it to 0.25mg. REVIEW OF SYSTEMS: CONSTITUTIONAL: No night sweats. No fatigue, malaise, lethargy. No fever or chills. HEENT: Eyes: No visual changes. No eye pain. No eye discharge. ENT: No runny nose. No epistaxis. No sinus pain. No sore throat. No odynophagia. No congestion. RESPIRATORY: No cough, no congestion. No hemoptysis. No shortness of breath. CARDIOVASCULAR: No angina symptoms. No CHF symptoms. No atypical chest pain for CAD. No palpitations. No PND. No orthopnea. GASTROINTESTINAL: No abdominal pain. No nausea or vomiting. No diarrhea or constipation. No hematemesis. No hematochezia. GENITOURINARY: No urgency. No frequency. No dysuria. No hematuria. No obstructive symptoms. No discharge. No pain. No significant abnormal bleeding. MUSCULOSKELETAL: No musculoskeletal pain; no joint swelling. NEUROLOGICAL: No headache. No neck pain. No syncope. No seizures. No dizziness. PSYCHIATRIC: Not anxious. No depression. No suicidal thoughts. No homicidal thoughts. SKIN: No rash. No lesions. No wounds. ENDOCRINE: No unexplained weight loss. No weight gain. HEMATOLOGIC/LYMPHATIC: No anemia. No purpura. No petechiae. No prolonged or excessive bleeding. No palpable lymph nodes. PHYSICAL EXAMINATION: VITAL SIGNS: Temperature 98.4, pulse 90, respiratory rate 20, blood pressure 116/97 and pulse ox 94%. HEENT: Head normocephalic, atraumatic. Eyes: Extraocular muscles are intact. Pupils are equal, round and reactive to light and accommodation. Ears: No lesions. Nose appeared normal. Throat: No exudate or erythema. NECK: Supple. No JVD, no carotid bruit. No lymphadenopathy or thyromegaly. LUNGS: Decreased breath sounds but clear to auscultation. Percussion note normal. Chest symmetrical. HEART: S1, S2, no S3. No murmurs. No cyanosis or clubbing. No ascites. Pulses: Dorsalis pedis and posterior tibial pulses +1 to +2 bilaterally. ABDOMEN: Soft. Nontender. Bowel sounds active. No CVA tenderness. No mass felt. EXTREMITIES: No edema. Full range of motion of all extremities, equal. NEUROLOGIC: No focal deficit. Cranial nerves II through XII are grossly intact. No headache, no double vision or headache. SKIN: Not dry. Intact. Turgor - normal. LYMPHATIC: No palpable lymph nodes/no lymphedema. MUSCULOSKELETAL: Normal joints with no swelling. Muscle tone is normal. LABS: Hemoglobin 11.9, hematocrit 37, WBC 20,000, normal differential. Creatinine 0.9, BUN 18, potassium 4.4. The patient's echo showed RV cavity enlargement otherwise normal valves, normal LV contractility. ASSESSMENT: 1. Acute pneumonitis/bronchitis seems to be resolving. PLAN: 1. Counseling for smoking done. 2. Xanax to be decreased to 0.5 t.i.d. 3. Echo showed normal LV contractility. 4. PFT done today, report is pending. 5. We will put her on Cardizem 60mg BID to control her heart rate and blood pressure. TIME SPENT: More than 30 minutes. Plan and coordination of the patient's care discussed in the presence of nurse. GERSON
--- NOTE | 2019-05-27 11:34 | PN ---
DATE OF SERVICE: 05/26/2019 SUBJECTIVE: 68 year old white female hospitalized with pneumonia. The patient's condition is improving. The patient is cooperative and now she wants to stay as long as she has to. We will do chest x-ray, Carotid scan today. REVIEW OF SYSTEMS: CONSTITUTIONAL: No night sweats. No fatigue, malaise, lethargy. No fever or chills. HEENT: Eyes: No visual changes. No eye pain. No eye discharge. ENT: No runny nose. No epistaxis. No sinus pain. No sore throat. No odynophagia. No congestion. RESPIRATORY: Mild cough, no congestion. No hemoptysis. No shortness of breath. CARDIOVASCULAR: No angina symptoms. No CHF symptoms. No atypical chest pain for CAD. No palpitations. No PND. No orthopnea. GASTROINTESTINAL: No abdominal pain. No nausea or vomiting. No diarrhea or constipation. No hematemesis. No hematochezia. GENITOURINARY: No urgency. No frequency. No dysuria. No hematuria. No obstructive symptoms. No discharge. No pain. No significant abnormal bleeding. MUSCULOSKELETAL: No musculoskeletal pain; no joint swelling. NEUROLOGICAL: No headache. No neck pain. No syncope. No seizures. No dizziness. PSYCHIATRIC: Not anxious. No depression. No suicidal thoughts. No homicidal thoughts. SKIN: No rash. No lesions. No wounds. ENDOCRINE: No unexplained weight loss. No weight gain. HEMATOLOGIC/LYMPHATIC: No anemia. No purpura. No petechiae. No prolonged or excessive bleeding. No palpable lymph nodes. PHYSICAL EXAMINATION: VITAL SIGNS: Temperature 98, pulse 80, respiratory rate 14, blood pressure 135/75 and pulse ox 94% on room air. HEENT: Head normocephalic, atraumatic. Eyes: Extraocular muscles are intact. Pupils are equal, round and reactive to light and accommodation. Ears: No lesions. Nose appeared normal. Throat: No exudate or erythema. NECK: Supple. No JVD, no carotid bruit. No lymphadenopathy or thyromegaly. LUNGS: Decreased breath sounds but clear to auscultation. Percussion note normal. Chest symmetrical. HEART: S1, S2, no S3. No murmurs. No cyanosis or clubbing. No ascites. Pulses: Dorsalis pedis and posterior tibial pulses +1 to +2 bilaterally. ABDOMEN: Soft. Nontender. Bowel sounds active. No CVA tenderness. No mass felt. EXTREMITIES: No edema. Full range of motion of all extremities, equal. NEUROLOGIC: No focal deficit. Cranial nerves II through XII are grossly intact. No headache, no double vision or headache. SKIN: Not dry. Intact. Turgor - normal. LYMPHATIC: No palpable lymph nodes/no lymphedema. MUSCULOSKELETAL: Normal joints with no swelling. Muscle tone is normal. ASSESSMENT: 1. Pneumonia clinically seems to be resolving 2. The patient's blood pressure is under control PLAN: 1. Continue the same treatment 2. Counseling for smoking done 3. The patient very likely will be discharged tomorrow. 4. Pulmonary rehab advised. 5. The patient strongly [place] the [place] and chronic lung disease. TIME SPENT: More than 30 minutes. ADDENDUM: PFT was done on her today and showed FEV1 60% of predicted which is 1L, FVC is 85% of predicted which is 1.9L. The patient's potassium has been discontinued as of now. She has been started on Cardizem 60 mg twice a day because of hypertension and because the patient's pulse rate is faster. Will continue on Xanax. Potassium supplements will be discontinued. She had hypokalemia on admission which seems to have resolved. Counseling for smoking is done. Plan and coordination of the patient's care discussed in the presence of nurse. GERSON
--- NOTE | 2019-05-27 13:57 | CM.DICTOOL ---
ADMISSION: 05/22/19 19:35 DISCHARGE: MAY 27, 2019 DATE OF SERVICE: 05/27/19 FINAL DIAGNOSIS PNEUMONIA ( CLINICALLY SEEMS TO BE RESOLVING) HTN DEHYDRATION, RESOLVED SMOKING HYPOKALEMIA HX: SEVERE COPD WITH EXACERBATION (CONTINUED SMOKING AGAINST MEDICAL ADVICE) CHRONIC BRONCHITIS DEHYDRATION UTI, KLEBSIELLA PNEUMONIAE ORGANISM, TREATED HYPERTENSION GENERALIZED ANXIETY BRONCHOGENIC CARCINOMA RIGHT UPPER LUNG CKD, STAGE 3 DYSLIPIDEMIA GENERALIZED OSTEOARTHRITIS PYELONEPHRITIS, LEFT SIDE WITH BLOOD CULTURE POSITIVE FOR E. COLI. HISTORY PNEUMONIA. CONTINUED NICOTINE USE,HEAVY SMOKER OSTEOARTHRITIS. GERD PAST MEDICAL HISTORY: SEVERE COPD HYPOXEMIA AT NIGHT PLEURITIC PAIN B 12 DEFICIENCY SURGICAL HX: PARTIAL RIGHT PNEUMONECTOMY R/T LUNG CANCER TONSILLECTOMY TOTAL ABDOMINAL HYSTERECTOMY LAST VITALS Temp Pulse Resp BP Pulse Ox 97.7 F 100 H 20 142/85 H 94 L 05/27/19 04:56 05/27/19 04:56 05/27/19 04:56 05/27/19 04:56 05/27/19 10:00 TAKE THESE MEDICATIONS AT HOME Atorvastatin Calcium (Lipitor) 20 mg PO DAILY [facility] Last Admin: 05/27/19 09:36 Dose: 20 mg Documented by: Budesonide/Formoterol Fumarate (Symbicort 160-4.5 Mcg Inhaler) 2 puff IH BID [facility] Last Admin: 05/27/19 09:36 Dose: 2 puff Documented by: Diltiazem HCl (Cardizem) 60 mg PO Q12HR [facility] ( NEW) Last Admin: 05/27/19 09:44 Dose: 60 mg Documented by: Losartan Potassium (Cozaar) 50 mg PO DAILY [facility] Last Admin: 05/27/19 09:37 Dose: 50 mg Documented by: Promethazine HCl/Codeine (Phenergan With Codeine 6.25/10 Mg/5 Ml) 10 ml PO T.I.D. PRN X 5 DAYS ( NEW ) PRN Reason: Cough Last Admin: 05/26/19 14:02 Dose: 10 ml PREDNISONE 10 MG PO DAILY X 5 DAYS ( NEW) ATIVAN 0.5 MG PO BID PRN FOR ANXIETY ( NEW) KEFLEX 500 MG PO T.I.D. X 5 DAYS (NEW) ALBUTERAL SULFATE NEBS I VIAL QID ( HOME MED WAS NOT GIVEN DURING HOSPITAL STAY) ALLERGIES No Known Allergies Allergy (Uncoded 04/29/13 11:15) INHALER Adverse Reaction (Uncoded 05/22/19 17:52) DISCONTINUED MEDICATIONS NONE NEW PRESCRIPTIONS: 1). PROMETHAZINE HCL/ CODIENE 6.25MG- 10MG / 5 ML, TAKE 10 ML PO T.I.D. PRN FOR COUGH X 5 DAYS 2). PREDNISONE 10 MG PO DAILY X 5 DAYS 3). ATIVAN 0.5 MG PO BID PRN FOR ANXIETY 4). KEFLEX 500 MG PO T.I.D. X 5 DAYS 5). CARDIZEM 60 MG BID PO SMOKING: SMOKING CESSATION DISEASE SPECIFIC EDUCATION: PNEUMONIA HYPERTENSION SMOKING CESSATION LAB REVIEW: 05/27/19 04:53 05/27/19 04:53 05/27/19 04:53: Hemoglobin A1c 5.77 05/27/19 04:53: Sodium 137.2, Potassium 4.67, Chloride 104.8, Carbon Dioxide 25.7, Anion Gap 11.37, BUN 20.3 H, Creatinine 0.94, Estimated GFR (MDRD) 59.00, BUN/Creatinine Ratio 21.59, Glucose 161.6 H, Calcium 9.11, Total Bilirubin 0.31, AST 34.7, ALT 24.9, Alkaline Phosphatase 70.0, Total Protein 6.24 L, Albumin 3.36 L, Globulin 2.88, Albumin/Globulin Ratio 1.16 05/27/19 04:53: WBC 10.77 H, RBC 3.83 L, Hgb 11.2 L, Hct 34.3 L, MCV 89.6, MCH 29.2, MCHC 32.7, RDW Coeff of Felipe 14.3, Plt Count 156, Neutrophils % (Manual) 77.0 H, Lymphocytes % (Manual) 10.0, Monocytes % (Manual) 5.0, Myelocytes % 4.0 H, Reactive Lymphocytes 4.0, Anisocytosis Not present PLAN: DISCHARGE HOME TODAY ACTIVITY : FREQUENT REST PERIODS. NO STRENIOUS ACTIVITY STOP SMOKING DIET: REGULAR DIET F/U WITH LUNG SPECIALIST SCHEDULED F/U WITH DR. TEIXEIRA/ NAKUL COLBY APRN IN THE OFFICE ON JUNE 02, 2019 @ 100 PM CODE STATUS : FULL CODE MRS. DURBIN REMAINS ALERT AND ORIENTED X 4. SLIGHTLY FORGETFUL AT TIMES. SHE IS FATIGUED AND TIRES EVEN MORE WHEN UP FOR LONG. NON-PRODUCTIVE COUGH WITH DIMINISHED BREATH SOUNDS. SLIGHT EXERTIONAL DYSPNEA, HOWEVER IS MCC. MRS. DURBIN HAS REFUSED OFFER OF NICOTINE PATCH THEN AGREED TO USE AFTER STAFF MEMBERS REINFORCED SMOKING POLICY. INITIALLY WAS TAKING SELF OUTSIDE TO SMOKE WITH ASSISTANCE WITH FAMILY, AFTER INFORMED ABOUT SMOKING POLICY. MRS DURBIN IS REFUSING THE NICOTINE PATCHONCE AGAIN SO SHE CAN SMOKE WHEN SHE IS DISCHARGED, SHE STATED. SHE STATES [employer] AND HAS VERBALIZED HOW MUCH SHE DOES NOT LIKE THE HOSPITAL FOOD. FAMILY BRINGS FOOD ITEMS IN AND AT TIMES SHE WILL NOT EAT THAT EITHER. NO REPORTS OF CHEST PAIN AFTER A 2.79 POTASSIUM LEVEL ON 05/24/[address] TEIXEIRA THEN STARTED ON 20 MEQ QID AND ALSO IN IV FLUIDS. IV FLUIDS WHERE DISCONTINUED. POTASSIUM 4.95 THE FOLLOWING DAY. THIS AM WAS 4.67. A1C PERFORMED TODAY 5.77. HAD REPORTED DIFFICULTY SWALLOWING. AWARE AND PERFORMED A CAROTID. NO FURTHER REPORTS OF DIFFICULTY SWALLOWING. MRS. DURBIN STATED SHE WAS READY TO GO HOME. SHE STATED SHE DID NOT NEED ANY EQUIPMENT. NO BM SINCE 05/22/2019, NO ABD PAIN. SHE REFUSED MAG CITRATE AND DID NOT WANT ANYTHIN G ELSE. MRS. DURBIN STATES SHE IS GOING HOME WITH HER , SHE POINTS TO THE MAN SITTING IN THE CHAIR NEXT TO HER BED. MD NAKUL DELCID APRN
[2019-05-27 15:25] VITALS: BP 113/69; TEMP 98.1
--- NOTE | 2019-05-29 09:46 | PN ---
DATE OF SERVICE: 05/27/2019 DISCHARGE NOTE SUBJECTIVE: The patient is up and about feeling well, less anxiety. She has not smoked for a couple days. She is wearing the patch. She will buy the patch when she goes home over the counter. Explained about Prednisone and it's side effects including avascular necrosis of the femoral bone. REVIEW OF SYSTEMS: CONSTITUTIONAL: No night sweats. No fatigue, malaise, lethargy. No fever or chills. HEENT: Eyes: No visual changes. No eye pain. No eye discharge. ENT: No runny nose. No epistaxis. No sinus pain. No sore throat. No odynophagia. No congestion. RESPIRATORY: No cough, no congestion. No hemoptysis. No shortness of breath. CARDIOVASCULAR: No angina symptoms. No CHF symptoms. No atypical chest pain for CAD. No palpitations. No PND. No orthopnea. GASTROINTESTINAL: No abdominal pain. No nausea or vomiting. No diarrhea or constipation. No hematemesis. No hematochezia. Appetite has improved. Oral intake has improved. GENITOURINARY: No urgency. No frequency. No dysuria. No hematuria. No obstructive symptoms. No discharge. No pain. No significant abnormal bleeding. MUSCULOSKELETAL: No musculoskeletal pain; no joint swelling. NEUROLOGICAL: No headache. No neck pain. No syncope. No seizures. No dizziness. PSYCHIATRIC: Not anxious. No depression. No suicidal thoughts. No homicidal thoughts. SKIN: No rash. No lesions. No wounds. ENDOCRINE: No unexplained weight loss. No weight gain. HEMATOLOGIC/LYMPHATIC: No anemia. No purpura. No petechiae. No prolonged or excessive bleeding. No palpable lymph nodes. PHYSICAL EXAMINATION: HEENT: Head normocephalic, atraumatic. Eyes: Extraocular muscles are intact. Pupils are equal, round and reactive to light and accommodation. Ears: No lesions. Nose appeared normal. Throat: No exudate or erythema. NECK: Supple. No JVD, no carotid bruit. No lymphadenopathy or thyromegaly. LUNGS:Decreased breath sounds with good air entry with mild expiratory wheeze. Percussion note normal. Chest symmetrical. HEART: S1, S2, no S3. No murmurs. No cyanosis or clubbing. No ascites. Pulses: Dorsalis pedis and posterior tibial pulses +1 to +2 bilaterally. ABDOMEN: Soft. Nontender. Bowel sounds active. No CVA tenderness. No mass felt. EXTREMITIES: No edema. Full range of motion of all extremities, equal. NEUROLOGIC: No focal deficit. Cranial nerves II through XII are grossly intact. No headache, no double vision or headache. SKIN: Not dry. Intact. Turgor - normal. LYMPHATIC: No palpable lymph nodes/no lymphedema. MUSCULOSKELETAL: Normal joints with no swelling. Muscle tone is normal. PLAN: 1. She is going to be discharge on Keflex and steroids along with Cardizem 60mg BID and Ativan 0.5mg BID. 2. The patient has along of family problems. She has been taking care of three or four people at home and unable to keep up with her poor health. She has declined all capacities PROGNOSIS: Poor unless she changes her lifestyle and condition at home. TIME SPENT: More than 30 minutes. Plan and coordination of the patient's care discussed in the presence of nurse. GERSON
--- NOTE | 2019-05-29 10:55 | DS ---
DATE OF SERVICE: 05/27/2019 FINAL DIAGNOSIS: 1. PNEUMONIA ( CLINICALLY SEEMS TO BE RESOLVING) 2. HYPERTENSION 3. DEHYDRATION, RESOLVED 4. SMOKING 5. HYPOKALEMIA 6. HISTORY OF SEVERE COPD WITH EXACERBATION (CONTINUED SMOKING AGAINST MEDICAL ADVICE) 7. CHRONIC BRONCHITIS 8. DEHYDRATION 9. UTI, KLEBSIELLA PNEUMONIAE ORGANISM, TREATED 10.HYPERTENSION 11.GENERALIZED ANXIETY 12.BRONCHOGENIC CARCINOMA RIGHT UPPER LUNG 13.CHRONIC KIDNEY DISEASE, STAGE 3 14.DYSLIPIDEMIA 15.GENERALIZED OSTEOARTHRITIS 16.PYELONEPHRITIS, LEFT SIDE WITH BLOOD CULTURE POSITIVE FOR E. COLI. 17.HISTORY PNEUMONIA. 18.CONTINUED NICOTINE USE,HEAVY SMOKER 19.OSTEOARTHRITIS. 20.GERD 21.PAST MEDICAL HISTORY: 22.SEVERE COPD 23.HYPOXEMIA AT NIGHT 24.PLEURITIC PAIN 25.B 12 DEFICIENCY 26.PARTIAL RIGHT PNEUMONECTOMY R/T LUNG CANCER 27.TONSILLECTOMY 28.TOTAL ABDOMINAL HYSTERECTOMY LAST VITALS: Temp Pulse Resp BP Pulse Ox 97.7 F 100 H 20 142/85 H 94 L 05/27/19 04:56 05/27/19 04:56 05/27/19 04:56 05/27/19 04:56 05/27/19 10:00 DISCHARGE INSTRUCTIONS: DISCHARGE HOME TODAY. FOLLOWUP WITH LUNG SPECIALIST SCHEDULED. FOLLOWUP WITH DR. TEIXEIRA/ NAKUL COLBY APRN IN THE OFFICE ON JUNE 02, 2019 @ 100 PM. CODE STATUS : FULL CODE. TAKE THESE MEDICATIONS AT HOME: Atorvastatin Calcium (Lipitor) 20 mg PO DAILY [facility] Last Admin: 05/27/19 09:36 Dose: 20 mg Documented by: Budesonide/Formoterol Fumarate (Symbicort 160-4.5 Mcg Inhaler) 2 puff IH BID [facility] Last Admin: 05/27/19 09:36 Dose: 2 puff Documented by: Diltiazem HCl (Cardizem) 60 mg PO Q12HR [facility] ( NEW) Last Admin: 05/27/19 09:44 Dose: 60 mg Documented by: Losartan Potassium (Cozaar) 50 mg PO DAILY [facility] Last Admin: 05/27/19 09:37 Dose: 50 mg Documented by: Promethazine HCl/Codeine (Phenergan With Codeine 6.25/10 Mg/5 Ml) 10 ml PO T.I.D. PRN X 5 DAYS ( NEW ) PRN Reason: Cough Last Admin: 05/26/19 14:02 Dose: 10 ml PREDNISONE 10 MG PO DAILY X 5 DAYS ( NEW) ATIVAN 0.5 MG PO BID PRN FOR ANXIETY ( NEW) KEFLEX 500 MG PO T.I.D. X 5 DAYS (NEW) ALBUTEROL SULFATE NEBS I VIAL QID ( HOME MED WAS NOT GIVEN DURING HOSPITAL STAY) ALLERGIES: No Known Allergies Allergy (Uncoded 04/29/13 11:15) INHALER Adverse Reaction (Uncoded 05/22/19 17:52) DISCONTINUED MEDICATIONS: NONE NEW PRESCRIPTIONS: 1). PROMETHAZINE HCL/ CODEINE 6.25MG- 10MG / 5 ML, TAKE 10 ML PO T.I.D. PRN FOR COUGH X 5 DAYS 2). PREDNISONE 10 MG PO DAILY X 5 DAYS 3). ATIVAN 0.5 MG PO BID PRN FOR ANXIETY 4). KEFLEX 500 MG PO T.I.D. X 5 DAYS 5). CARDIZEM 60 MG BID PO SMOKING: SMOKING CESSATION DISEASE SPECIFIC EDUCATION: PNEUMONIA HYPERTENSION SMOKING CESSATION LAB REVIEW: 05/27/19 04:53 05/27/19 04:53 05/27/19 04:53: Hemoglobin A1c 5.77 05/27/19 04:53: Sodium 137.2, Potassium 4.67, Chloride 104.8, Carbon Dioxide 25.7, Anion Gap 11.37, BUN 20.3 H, Creatinine 0.94, Estimated GFR (MDRD) 59.00, BUN/Creatinine Ratio 21.59, Glucose 161.6 H, Calcium 9.11, Total Bilirubin 0.31, AST 34.7, ALT 24.9, Alkaline Phosphatase 70.0, Total Protein 6.24 L, Albumin 3.36 L, Globulin 2.88, Albumin/Globulin Ratio 1.16 05/27/19 04:53: WBC 10.77 H, RBC 3.83 L, Hgb 11.2 L, Hct 34.3 L, MCV 89.6, MCH 29.2, MCHC 32.7, RDW Coeff of Felipe 14.3, Plt Count 156, Neutrophils % (Manual) 77.0 H, Lymphocytes % (Manual) 10.0, Monocytes % (Manual) 5.0, Myelocytes % 4.0 H, Reactive Lymphocytes 4.0, Anisocytosis Not present ACTIVITY : FREQUENT REST PERIODS. NO STRENUOUS ACTIVITY STOP SMOKING DIET: REGULAR DIET HOSPITAL COURSE: The patient was hospitalized with cough and congestion and shortness of breath. The patient is a smoker is C of the lung. The patient was treated with IV antibiotics Rocephin and Zithromax. The patient also gave NEB treatments, IV steroids and was somewhat tachycardic from her lung problems and hypertensive so she was put on Cardizem 60mg twice a day along with her Cozaar. The patient at the time of discharge was up and about feeling better. The patient in the middle of the hospital stay was wild and wanted to sign out, using fowl language. She continued to sneak out and smoke. The patient later on for the past 2 days had calmed down. The Xanax seems to be working. She is going to be on Ativan 0.5mg twice a day for anxiety. She was advised to continue NEBS. She was put on Cardizem 60mg BID. The dose maybe increased as an outpatient. The patient is going to be on Keflex and Prednisone. She is advised to continue followup with Pulmonary MD. Advised to quit smoking. Her prognosis is extremely poor considering her lifestyle and stress of her nutrition. She is underweight BMI is less than 20. PROGNOSIS: Poor TIME SPENT: More than 60 minutes. MTDD
--- NOTE | 2019-05-29 10:56 | PN ---
05/22/2019: Level 5 05/23/2019: Intermediate 05/24/2019: Intermediate 05/25/2019: Intermediate 05/26/2019: Intermediate 05/27/2019: D as in discharge MTDD
== END 2019-05-27 15:20 | disposition home or self-care (01) | DRG 204 ==
LOC: ED 17:48 → MEDSURG B 19:35
PROVIDERS: ADMIT Internal Medicine; ATTEND Internal Medicine
DX: K21.9 Gastro-esophageal reflux disease without esophagitis; E78.5 Hyperlipidemia, unspecified; J44.1 Chronic obstructive pulmonary disease with (acute) exacerbation; E87.6 Hypokalemia; B96.1 Klebsiella pneumoniae [K. pneumoniae] as the cause of diseases classified elsewhere; N39.0 Urinary tract infection, site not specified; I10 Essential (primary) hypertension; I25.10 Atherosclerotic heart disease of native coronary artery without angina pectoris; E86.0 Dehydration; E53.8 Deficiency of other specified B group vitamins; N18.3 Chronic kidney disease, stage 3 (moderate); R05 Cough; J18.9 Pneumonia, unspecified organism; F41.1 Generalized anxiety disorder; K52.9 Noninfective gastroenteritis and colitis, unspecified; M19.90 Unspecified osteoarthritis, unspecified site; R19.7 Diarrhea, unspecified

== ENCOUNTER 2019-06-02 11:56 | Inpatient (IN) ==
[2019-06-02] MEDS ORDERED: SODIUM CHLORIDE 1,000 ML IV STA (12:13)
[2019-06-02 12:31] LABS: HEMATOCRIT 33.7 % (37.0-47.0)
[2019-06-02] MEDS ORDERED: DUONEB NEB STA ×2 (12:42→13:01)
[2019-06-02] MEDS ORDERED: DUONEB NEB ONE (12:49)
--- NOTE | 2019-06-02 13:40 | CT ---
EXAM: CT BRAIN HISTORY: Diffuse hand pain TECHNIQUE: CT brain without intravenous contrast. 5-mm axial sections with Reformations. COMPARISON: 12/19/2012 FINDINGS: Brain was unremarkable without evidence of hemorrhage or large vessel distribution recent ischemic i nfarction. There is no suggestion of acute hydrocephalus or subdural fluid collection. No mass or m ass effect. Cranium has no acute finding. Mastoid processes are aerated. The visualized paranasal sinuses are clear. IMPRESSION: No acute intracranial process.
--- NOTE | 2019-06-02 13:49 | CT ---
EXAM: CT chest without contrast HISTORY: Cough, shortness of breath COMPARISON: 05/22/2019 TECHNIQUE: Multiple axial images of the chest were obtained without contrast. Images were reformatte d in the sagittal and coronal planes. FINDINGS: Normal thyroid and thoracic inlet. Normal heart size. Trace pericardial effusion/thickening. Gwendolyn l diameter aorta. Coronary artery and aortic atherosclerotic calcifications. No enlarged axillary l ymph nodes. Within limits of noncontrast exam. No enlarged mediastinal or hilar lymph nodes. Calci fied right hilar/mediastinal lymph node. Increased right upper lobe peribronchial thickening with mi ld peribronchial ground-glass. Patchy consolidative and ground-glass opacities throughout the right lower lobe. Superimposed interstitial prominence. New nodular consolidation in the right middle lob e base measuring 1.4 x 0.6 cm (axial 38). Stable pleural-based 0.6 cm nodule (axial 46) in the right middle lobe base. Stable 0.4 cm pleural-based left lower lobe nodule (axial 50). No pneumothorax o r pleural effusion. Stable emphysema. No acute findings within the visualized upper abdomen. Small calcified gallstones. Nonobstructive bi lateral nephrolithiasis. No acute osseous abnormality. IMPRESSION: 1. Patchy right lower lobe pneumonia. Findings may represent atypical process. Patchy ground-glass and nodular consolidation in the peripheral right lung middle lobe is is felt to be related. 2. Increased peribronchial thickening in the right upper lobe with mild ground-glass opacities, sugg estive of bronchopneumonia. 3. Stable pulmonary micronodules as above. 6-month follow-up CT recommended. 4. Cholelithiasis. 5. Nonobstructive bilateral nephrolithiasis. 6. Atherosclerosis.
[2019-06-02] MEDS ORDERED: ATIVAN PO PRN (17:42)
[2019-06-02] MEDS ORDERED: DUONEB NEB PRN (17:43)
[2019-06-02] MEDS ORDERED: ROCEPHIN 1 GM/50 ML D5W 1 GM/50 ML BAG IV STA (17:49)
--- NOTE | 2019-06-02 17:57 | ED.PDOC ---
General ED Provider: Dr. MAUREEN WINSLOW Chief Complaint: Weakness Stated Complaint: weakness cough Time Seen by Physician: 12:00 Mode of Arrival: Walk-In Information Source: Patient and Family Exam Limitations: No limitations Primary Care Provider: SIMONE TEIXEIRA Nursing and Triage Documentation Reviewed and Agree: Yes Does patient meet sepsis criteria?: No If yes, has appropriate treatment been initiated?: No System Inflammatory Response Syndrome: Not Applicable Sepsis Protocol: For patient's 13 years and over: Temp is 96.8 and below OR 101 and greater Pulse >90 BPM Resp >20/minute Acutely Altered Mental Status Are patient's symptoms suggestive of a new infection, such as: -Pneumonia -Skin, Soft Tissue -Endocarditis -UTI -Bone, Joint Infection -Implantable Device -Acute Abdominal Infection -Wound Infection -Meningitis -Blood Stream Catheter Infection -Unknown Respiratory Complaint Exam Respiratory Complaint/Exam Symptoms Are: Still present Timing: Intermittent Initial Severity: Mild Current Severity: Mild Location: Nose, Throat and Chest Character: Reports Non-productive cough Aggravating: Reports None and URI Associated Signs and Symptoms: Reports Chills and URI; Denies Rapid breathing, Dyspnea, Fever, Chest pain, Pleuritic chest pain, Wheezing, Hemoptysis, Dizziness, Calf pain, Calf swelling, Edema, Nasal congestion, Hoarseness, Sinus discomfort, Vomiting, Sore throat, Weight loss, Decreased oral intake, Increased thirst, Increased appetite and Increased urination Related History: Reports Similar episode Related Surgical History: Reports None Pulmonary Embolism Risk Factors: Bedrest Cardiac Risk Factors: Reports Elevated lipids and Hypertension Pseudomonas Risk Factors: Reports None Tuberculosis Risk Factors: Reports None Status Asthmaticus Risk Factors: Reports None Home Oxygen Use: No Recent Stress Test: No Recent Echo/LV Function: No Current Antibiotic Use: No Current Asthma Medication Use: Yes Respiratory Distress: None Inadequate Respiratory Effort: No Dysphagia Present: No Stridor Present: No JVD Present: No Accessory Muscle Use: No Retractions: Not Present Diminished Breath Sounds: Yes Sinus Tenderness: None Grunting Respirations: No Kussmaul Respirations: No Differential Diagnoses: CHF, Pulmonary Edema, COPD Exacerbation, Pneumonia, URI, Influenza and Lower Resp. Infection Review of Systems Review Of Systems Constitutional: Reports Chills, Malaise and Weakness Eyes: Reports No symptoms Ears, Nose, Mouth, Throat: Reports No symptoms Respiratory: Reports Cough Cardiac: Reports No symptoms GI: Reports No symptoms : Reports No symptoms Musculoskeletal: Reports No symptoms Skin: Reports No symptoms Neurological: Reports No symptoms Endocrine: Reports No symptoms Hematologic/Lymphatic: Reports No symptoms All Other Systems: Reviewed and Negative [facility] Social History Smoking and tobacco status: Current every day smoker Tobacco type: cigarettes Tobacco: How many years used: 60 Quit status: not considering quitting Alcohol intake: never Female Reproductive History Menstrual Hx Hysterectomy: No Hx Tubal Ligation: No Physical Exam Physical Exam Appearance: Well-appearing, No pain distress and Well-nourished Ill-appearing: Mild Pain Distress: Mild Eyes: KAREN, EOMI and Conjunctiva clear ENT: Ears normal, Nose normal and Oropharynx normal Neck: Supple Respiratory: Rhonchi and Wheezes Cardiovascular: RRR, Pulses normal, No rub and No murmur GI/: Soft, Nontender, No masses, Bowel sounds normal and No Organomegaly Musculoskeletal: Normal strength, ROM intact, No edema and No calf tenderness Skin: Warm, Dry and Normal color Neurological: Sensation intact, Motor intact, Reflexes intact, Cranial nerves intact, Alert and Oriented Psychiatric: Affect appropriate and Mood appropriate Interpretation Radiology Interpretation Radiology Interpretation By: Radiologist Radiology Results: Positive (pneumonia) 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 Rhythm: Sinus Ectopy: None EKG Interpretation Rate: Normal Rhythm: Sinus Interpretation: [id number] Re-Evaluation Re-Evaluation Time of Re-Evaluation: 15:00 Status: Improved Vital Signs Stable: Yes Pain Level: 0 Appearance: NAD Lungs: Clear Skin: Warm and Dry Neuro: Alert and Oriented X3 CV: RRR Re-Evaluation Time of Re-Evaluation: 17:56 Status: Improved Vital Signs Stable: Yes Pain Level: 0 Appearance: NAD Skin: Warm and Dry Neuro: Alert and Oriented X3 CV: RRR Critical Care Note Critical Care Note Total Time (mins): 0 Course Course Hematology/Chemistry: 06/02/19 12:25 06/02/19 12:25 Orders, Labs, Meds: Lab Review 06/02/19 06/02/19 06/02/19 12:25 12:25 12:25 WBC 9.83 RBC 3.76 L Hgb 10.9 L Hct 33.7 L MCV 89.6 MCH 29.0 MCHC 32.3 RDW Coeff of Felipe 14.0 Plt Count 222 Immature Gran % (Auto) 0.9 Neut % (Auto) 77.4 H Lymph % (Auto) 13.4 [place] % (Auto) 8.1 Eos % (Auto) 0.1 Baso % (Auto) 0.1 Immature Gran # (Auto) 0.1 Neut # (Auto) 7.6 H Lymph # (Auto) 1.3 [place] # (Auto) 0.8 Eos # (Auto) 0.0 Baso # (Auto) 0.0 PT 10.0 INR 1.02 APTT 21.8 L Puncture Site O2 Saturation ABG pH ABG pCO2 ABG pO2 ABG HCO3 ABG Total CO2 ABG Base Excess Mat Test O2 Delivery Device FiO2 % Sodium 137.9 Potassium 3.15 L Chloride 103.5 Carbon Dioxide 28.2 Anion Gap 9.35 BUN 16.8 Creatinine 0.85 Estimated GFR (MDRD) 66.00 BUN/Creatinine Ratio 19.76 Glucose 104.3 Lactic Acid Calcium 8.67 Total Bilirubin 0.70 AST 30.8 ALT 29.5 Alkaline Phosphatase 81.3 Total Creatine Kinase 36.0 Troponin I < 0.012 Total Protein 6.61 Albumin 3.45 L Globulin 3.16 Albumin/Globulin Ratio 1.09 Procalcitonin TSH 1.280 Free T4 Influ A Molecular Assay Influ B Molecular Assay 06/02/19 06/02/19 06/02/19 12:25 12:25 12:25 WBC RBC Hgb Hct MCV MCH MCHC RDW Coeff of Felipe Plt Count Immature Gran % (Auto) Neut % (Auto) Lymph % (Auto) [place] % (Auto) Eos % (Auto) Baso % (Auto) Immature Gran # (Auto) Neut # (Auto) Lymph # (Auto) [place] # (Auto) Eos # (Auto) Baso # (Auto) PT INR APTT Puncture Site O2 Saturation ABG pH ABG pCO2 ABG pO2 ABG HCO3 ABG Total CO2 ABG Base Excess Mat Test O2 Delivery Device FiO2 % Sodium Potassium Chloride Carbon Dioxide Anion Gap BUN Creatinine Estimated GFR (MDRD) BUN/Creatinine Ratio Glucose Lactic Acid 1.38 Calcium Total Bilirubin AST ALT Alkaline Phosphatase Total Creatine Kinase Troponin I Total Protein Albumin Globulin Albumin/Globulin Ratio Procalcitonin < 0.05 TSH Free T4 1.98 Influ A Molecular Assay Influ B Molecular Assay 06/02/19 06/02/19 12:25 12:38 WBC RBC Hgb Hct MCV MCH MCHC RDW Coeff of Felipe Plt Count Immature Gran % (Auto) Neut % (Auto) Lymph % (Auto) [place] % (Auto) Eos % (Auto) Baso % (Auto) Immature Gran # (Auto) Neut # (Auto) Lymph # (Auto) [place] # (Auto) Eos # (Auto) Baso # (Auto) PT INR APTT Puncture Site R rad O2 Saturation 98.0 ABG pH 7.517 H* ABG pCO2 28.7 L ABG pO2 85.0 ABG HCO3 23.3 ABG Total CO2 24 ABG Base Excess 0 Mat Test + O2 Delivery Device Ra FiO2 % 21.0 Sodium Potassium Chloride Carbon Dioxide Anion Gap BUN Creatinine Estimated GFR (MDRD) BUN/Creatinine Ratio Glucose Lactic Acid Calcium Total Bilirubin AST ALT Alkaline Phosphatase Total Creatine Kinase Troponin I Total Protein Albumin Globulin Albumin/Globulin Ratio Procalcitonin TSH Free T4 Influ A Molecular Assay Negative by naat Influ B Molecular Assay Negative by naat Orders Category Date Time Status ABG DRAW REQUEST Routine CARDIO 06/02/19 12:37 Completed ABG DRAW REQUEST Stat CARDIO 06/02/19 12:11 Completed EKG-(ED ONLY) Stat CARDIO 06/02/19 12:12 Completed NEBULIZER TREATMENT Stat CARDIO 06/02/19 13:01 Completed ED IV/MEDIPORT/POWERPORT .ONCE EMERGENCY 06/02/19 12:13 Active ABG Routine LAB 06/02/19 12:38 Completed CBC W/ AUTO DIFF Stat LAB 06/02/19 12:25 Completed COMPREHENSIVE METABOLIC PANEL Stat LAB 06/02/19 12:25 Completed CREATINE KINASE Stat LAB 06/02/19 12:25 Completed FLU A/B MOLECULAR Stat LAB 06/02/19 12:25 Completed FREE T4 (FREE THYROXINE) Stat LAB 06/02/19 12:25 Completed LACTIC ACID Stat LAB 06/02/19 12:25 Completed PARTIAL THROMBOPLASTIN TIME Stat LAB 06/02/19 12:25 Completed PROCALCITONIN Stat LAB 06/02/19 12:25 Completed PT WITH INR Stat LAB 06/02/19 12:25 Completed THYROID STIMULATING HORMONE Stat LAB 06/02/19 12:25 Completed TROPONIN I Stat LAB 06/02/19 12:25 Completed URINALYSIS C & S IF INDICATED Stat LAB 06/02/19 12:12 Uncollected 0.9 % Sodium Chloride [Saline Flush] MEDS 06/02/19 12:13 Active 1 syr IVF PRN PRN Ipratropium/Albuterol Neb [Duoneb] MEDS 06/02/19 12:49 Discontinued 3 ml NEB .STK-MED ONE Ipratropium/Albuterol Neb [Duoneb] MEDS 06/02/19 13:01 Discontinued 3 ml NEB ONCE STA Sodium Chloride 0.9% [Sodium Chloride] 1,000 ml MEDS 06/02/19 12:13 Active IV 125 mls/hr CT CHEST W/O CONTRAST Stat RADS 06/02/19 12:[address] HEAD W/O CONTRAST Stat RADS 06/02/19 12:12 Completed Medications Generic Name Dose Route Start Last Admin Trade Name Freq PRN Reason Stop Dose Admin Sodium Chloride 1,000 mls @ 125 mls/hr 06/02/19 12:13 06/02/19 12:57 Sodium Chloride IV 06/02/19 20:12 125 mls/hr .Q8H STA Administration Sodium Chloride 1 syr 06/02/19 12:13 06/02/19 12:57 Saline Flush IVF 1 syr PRN PRN Administration To flush IV Discontinued Medications Generic Name Dose Route Start Last Admin Trade Name Freq PRN Reason Stop Dose Admin Albuterol/Ipratropium 3 ml 06/02/19 13:01 06/02/19 13:03 Duoneb NEB 06/02/19 13:02 3 ml ONCE STA Administration Vital Signs: Temp Pulse Resp BP Pulse Ox 06/02/19 11:57 98.4 F 87 22 108/64 95 Discharge Plan Discharge Patient Disposition: ADMITTED INPATIENT Discharge Problem: Pneumonia ED Provider: MAUREEN WINSLOW Condition: Good
--- NOTE | 2019-06-02 18:26 | DI ---
EXAM: Two views of the chest. History: Cough. Comparison: Chest radiograph 05/26/2019, chest CT 06/02/2019 Findings: Heart size is normal. Chronic obstructive pulmonary disease. No change in the right lowe r lobe consolidation and small right pleural effusion. No pneumothorax. No acute osseous abnormalit ies. Impression: No change in the right lower lobe pneumonia and small right pleural effusion. Chronic o bstructive pulmonary disease. Follow-up is recommended to assure resolution.
[2019-06-02 19:29] VITALS: BMI 20.1
[2019-06-02] MEDS: CARDIZEM PO SCH (20:38)
[2019-06-02] MEDS: LIPITOR PO SCH (20:38)
[2019-06-02] MEDS: SOLU-MEDROL 40 MG IVP SCH (20:38)
[2019-06-02] MEDS ORDERED: ZITHROMAX 500 MG in SODIUM CHLORIDE 250 ML IV SCH (21:00)
[2019-06-02] MEDS: DUONEB NEB SCH (23:15)
[2019-06-03] MEDS: SODIUM CHLORIDE 1,000 ML IV SCH ×2 (01:26→17:58)
[2019-06-03] MEDS: DUONEB NEB SCH ×4 (04:50→22:58)
[2019-06-03 05:55] LABS: HEMATOCRIT 30.9 % (37.0-47.0)
[2019-06-03] MEDS: SOLU-MEDROL 40 MG IVP SCH (05:57)
[2019-06-03] MEDS: COZAAR PO SCH (08:28)
[2019-06-03] MEDS: ROCEPHIN 1 GM/50 ML D5W 1 GM/50 ML BAG IV SCH (08:28)
[2019-06-03] MEDS: CARDIZEM PO SCH ×2 (08:29→20:26)
--- NOTE | 2019-06-03 08:58 | PCM.PROG ---
Attending Provider: ATTENDING PROVIDER: Dr. SIMONE TEIXEIRA This patient is seen with Brandi Nolasco, Nurse Practitioner. DATE OF SERVICE: 06/03/19 SUBJECTIVE: This 68 year old /WHITE F was hospitalized 06/02/19. The patient is sitting in bed resting comfortably. Shortness of breath improved. CT scan of chest shows persistent pneumonia. REVIEW OF SYSTEMS: CONSTITUTIONAL: No night sweats. No fatigue, malaise, lethargy. No fever or chills. HEENT: Eyes: No visual changes. No eye pain. No eye discharge. ENT: No runny nose. No epistaxis. No sinus pain. No odynophagia. No congestion. RESPIRATORY: Cough and congestion. No hemoptysis. No shortness of breath. CARDIOVASCULAR: No angina symptoms. No CHF symptoms. No atypical chest pain for CAD. No palpitations. No orthopnea.. GASTROINTESTINAL: No abdominal pain. No nausea or vomiting. No diarrhea or constipation. No hematemesis. No hematochezia. GENITOURINARY: No urgency. No frequency. No dysuria. No hematuria. No obs tructive symptoms. No discharge. No pain. No significant abnormal bleeding. MUSCULOSKELETAL: No musculoskeletal pain; no joint swelling. NEUROLOGICAL: Awake, alert, oriented to time, place and person. No headache. No neck pain. No syncope. No seizures. No dizziness. PSYCHIATRIC: Not anxious. No depression. No suicidal thoughts. No homicidal thoughts. SKIN: No rash. No lesions. No wounds. ENDOCRINE: No unexplained weight loss. No weight gain. HEMATOLOGIC/LYMPHATIC: No anemia. No purpura. No petechiae. No prolonged or excessive bleeding. No palpable lymph nodes. PHYSICAL EXAMINATION: GENERAL: The patient is awake, alert and oriented, lying/sitting in bed in no distress. VITAL SIGNS: Temperature 97.5 F, Pulse 98, Respiratory Rate 20, BP 144/79, Pulse Ox 98% HEENT: Head normocephalic, atraumatic. Eyes: Extraocular muscles are intact. Pupils are equal, round and reactive to light and accommodation. Ears: No lesions. Nose appeared normal. Throat: No exudate or erythema. NECK: Supple. No JVD, no carotid bruit. No lymphadenopathy or thyromegaly. LUNGS: Diminished breath sounds with expiratory wheezing. Percussion note normal. Chest symmetrical. HEART: S1, S2, no S3. No murmurs. No cyanosis or clubbing. No ascites. Pulses: Dorsalis pedis and posterior tibial pulses +1 to +2 both sides. ABDOMEN: Soft. Non-tender. Bowel sounds active. No CVA tenderness. No mass felt. EXTREMITIES: No edema. Full range of motion of all extremities, equal. NEUROLOGIC: No focal deficit. Cranial nerves II through XII are grossly intact. No headache, no double vision or headache. SKIN: Not dry. Intact. Turgor-normal. LYMPHATIC: No palpable lymph nodes/no lymphedema. MUSCULOSKELETAL: Normal joints with no swelling. Muscle tone is normal. LAB REVIEW: 06/03/19 05:24 06/03/19 05:24 06/03/19 05:24: Sodium 140.7, Potassium 3.64, Chloride 110.6 H, Carbon Dioxide 23.3, Anion Gap 10.44, BUN 18.0 H, Creatinine 0.81, Estimated GFR (MDRD) 70.00, BUN/Creatinine Ratio 22.22, Glucose 190.6 H D, Calcium 8.18 L, Total Bilirubin 0.35, AST 20.7, ALT 24.5, Alkaline Phosphatase 66.2, Total Protein 5.73 L, [place] min 2.98 L, Globulin 2.75, Albumin/Globulin Ratio 1.08 06/03/19 05:24: WBC 6.05, RBC 3.45 L, Hgb 10.0 L, Hct 30.9 L, MCV 89.6, MCH 29.0, MCHC 32.4, RDW Coeff of Felipe 13.9, Plt Count 211, Neutrophils % (Manual) 97.0 H, Lymphocytes % (Manual) 3.0 L, Anisocytosis Not present 06/03/19 00:10: Urine Color Yellow, Urine Clarity Clear, Urine pH 7.0, Ur Specific [place] 1.020, Urine Protein Negative, Urine Glucose (UA) Negative, Urine Ketones Negative, Urine Blood Negative, Urine Nitrite Negative, Urine Bilirubin Negative, Urine Urobilinogen 1.0, Ur Leukocyte Esterase Negative 06/03/19 00:00: Total Creatine Kinase 27.6 L, Troponin I < 0.012 06/02/19 12:38: Puncture Site R rad, O2 Saturation 98.0, ABG pH 7.517 H*, ABG pCO2 28.7 L, ABG pO2 85.0, ABG HCO3 23.3, ABG Total CO2 24, ABG Base Excess 0, Mat Test +, O2 Delivery Device Ra, FiO2 % 21.0 06/02/19 12:25: Influ A Molecular Assay Negative by naat, Influ B Molecular Assay Negative by naat 06/02/19 12:25: Free T4 1.98 06/02/19 12:25: Lactic Acid 1.38 06/02/19 12:25: Procalcitonin < 0.05 06/02/19 12:25: Sodium 137.9, Potassium 3.15 L, Chloride 103.5, Carbon Dioxide 28.2, Anion Gap 9.35, BUN 16.8, Creatinine 0.85, Estimated GFR (MDRD) 66.00, BUN/Creatinine Ratio 19.76, Glucose 104.3, Calcium 8.67, Total Bilirubin 0.70, AST 30.8, ALT 29.5, Alkaline Phosphatase 81.3, Total Creatine Kinase 36.0, Troponin I < 0.012, Total Protein 6.61, Albumin 3.45 L, Globulin 3.16, Albumin/Globulin Ratio 1.09, TSH 1.280 06/02/19 12:25: PT 10.0, INR 1.02, APTT 21.8 L 06/02/19 12:25: WBC 9.83, RBC 3.76 L, Hgb 10.9 L, Hct 33.7 L, MCV 89.6, MCH 29.0, MCHC 32.3, RDW Coeff of Felipe 14.0, Plt Count 222, Immature Gran % (Auto) 0.9, Neut % (Auto) 77.4 H, Lymph % (Auto) 13.4, [place] % (Auto) 8.1, Eos % (Auto) 0.1, Baso % (Auto) 0.1, Immature Gran # (Auto) 0.1, Neut # (Auto) 7.6 H, Lymph # (Auto) 1.3, [place] # (Auto) 0.8, Eos # (Auto) 0.0, Baso # (Auto) 0.0 ASSESSMENT: Please see below. 1. Right lower lobe pneumonia. 2. Severe COPD. 3. Noncompliance with medications, lifestyle and followup. 4. Smoker. 5. History of lung CA. PLAN: 1. Continue IV steroids and antibiotics. 2. Add Pulmicort nebulizer 0.5 mg b.i.d. 3. Stop fluids after this bag. Plan and coordination of the patient's care discussed in the presence of Ragman and nurse. CONDITION: Stable SCRIBED BY: PRADEEP MCDONALD [employer] Software Developer scribed while in presence of service performed by Dr. Teixeira/Brandi Nolasco APRN on 06/03/19 ([id number])
[2019-06-03] MEDS: PREDNISONE PO SCH ×2 (13:14→17:10)
--- NOTE | 2019-06-03 13:46 | PN ---
DATE OF SERVICE: 06/02/19 SUBJECTIVE: The patient was hospitalized through the emergency room. CT scan of the chest showed bilateral pneumonia, patchy infiltrate. Atypical pneumonia and possibility of bronchopneumonia. The patient was seen and examined in the office. At that time she looked pale, sleepy, extremely weak. The patient with atypical pneumonia, recurrent, was not able to transfer the patient because [facility] and [facility] [place] are full. The patient has history of CA of the lung. She wasn't in any distress. Her blood gases looked excellent with p02 of more than 80 with oxygen saturation of 97% on room air. Respiratory rate 15 with normal blood pressure. Pulse was 78/min. The patient was mostly sleepy because she had taken Ativan this morning. According to the daughter, the patient hasn't been taking her medication as prescribed after she was discharged. At home the patient's condition is very difficult because of 4 to 5 people she has to take care of. With all that she has continued to smoke heavy. PHYSICAL EXAMINATION: HEENT: Head normocephalic, atraumatic. Eyes: Extraocular muscles are intact. Pupils are equal, round and reactive to light and accommodation. Ears: No lesions. Nose appeared normal. Throat: No exudate or erythema. NECK: Supple. No JVD, no carotid bruit. No lymphadenopathy or thyromegaly. LUNGS: Decreased breath sounds, good air entry. Clear to auscultation. Percussion note normal. Chest symmetrical. HEART: S1, S2, no S3. No murmurs. No cyanosis or clubbing. No ascites. Pulses: Dorsalis pedis and posterior tibial pulses +1 to +2 bilaterally. ABDOMEN: Soft. Nontender. Bowel sounds active. No CVA tenderness. No mass felt. EXTREMITIES: No edema. Full range of motion of all extremities, equal. NEUROLOGIC: No focal deficit. Cranial nerves II through XII are grossly intact. No headache, no double vision or headache. SKIN: Looks dry. Intact. Turgor - normal. LYMPHATIC: No palpable lymph nodes/no lymphedema. MUSCULOSKELETAL: Normal joints with no swelling. Muscle tone is normal. ASSESSMENT: 1. Bilateral pneumonia. 2. Severe chronic lung disease. 3. CA of the lung. 4. Hypertension. 5. Blood pressure was on the lower side likely from dehydration. Systolic was close to 110 in the office. She was afebrile. PLAN: 1. Continue all the medications. 2. Give double antibiotics, steroids, nebs. 3. Again encourage the patient not to smoke, counseling done. CONDITION: Stable. PROGNOSIS: Guarded. TIME SPENT: More than 30 minutes. Plan and coordination of the patient's care discussed in the presence of nurse. GERSON
--- NOTE | 2019-06-03 14:39 | HP ---
DATE OF SERVICE: 06/02/19 HISTORY OF PRESENT ILLNESS: 68-year-old female who was recently hospitalized with pneumonia presents to the Emergency Room with weakness, drowsiness, worsening cough and fatigue. PAST MEDICAL HISTORY: COPD Heavy smoker Dyslipidemia B12 deficiency Left lung nodule followed by Dr. Barton History of right lung cancer status post lobectomy Chronic bronchitis Hypertension Noncompliance with diet, medications, followup Most recently had bronchopneumonia UTI positive for Klebsiella PAST SURGICAL HISTORY: Partial right pneumonectomy 2016 Tonsillectomy Total hysterectomy REVIEW OF SYSTEMS: CONSTITUTIONAL: Positive for weakness. No night sweats. No fatigue, malaise, lethargy. No fever or chills. HEENT: Eyes: No visual changes. No eye pain. No eye discharge. ENT: No runny nose. No epistaxis. No sinus pain. No sore throat. No odynophagia. No ear pain. No congestion. RESPIRATORY: Positive for cough. No hemoptysis. No shortness of breath. CARDIOVASCULAR: No angina symptoms. No CHF symptoms. No atypical chest pain for CAD. No palpitations. No PND. No orthopnea. GASTROINTESTINAL: No abdominal pain. No nausea or vomiting. No diarrhea or constipation. No hematemesis. No hematochezia. GENITOURINARY: No urgency. No frequency. No dysuria. No hematuria. No obstructive symptoms. No discharge. No pain. No significant abnormal bleeding. MUSCULOSKELETAL: No musculoskeletal pain. No joint swelling. No arthritis. NEUROLOGICAL: Positive for drowsiness. No headache. No neck pain. No syncope. No seizures. No dizziness. PSYCHIATRIC: Not anxious. No depression. No suicidal thoughts. No homicidal thoughts. SKIN: No rash. No lesions. No wounds. ENDOCRINE: No unexplained weight loss. No weight gain. HEMATOLOGIC/LYMPHATIC: No anemia. No purpura. No petechiae. No prolonged or excessive bleeding. No palpable lymph nodes. PERSONAL/FAMILY/SOCIAL HISTORY: She is a heavy smoker. She is not . Denies any alcohol or ilicit drug use. MEDICATIONS: (HOME) Albuterol Sulfate 2.5 mg /3 mL one vial neb q.i.d. Budesonide-Formoterol (Symbicort) two puff INH b.i.d. Atorvastatin 20 mg p.o. daily Losartan 50 mg p.o. daily Diltiazem 60 mg p.o. b.i.d. Lorazepam 0.5 mg p.o. b.i.d. p.r.n. ALLERGIES: INHALER PHYSICAL EXAMINATION: GENERAL: She is drowsy but alert. Oriented to person, place and time. VITAL SIGNS: Temperature 98.4, heart rate 87, respirations 22, blood pressure 108/64, pulse ox 95%. HEENT: Head normocephalic, atraumatic. Eyes: Extraocular muscles are intact. Pupils are equal, round and reactive to light and accommodation. Ears: No lesions. Nose appeared normal. Throat: No exudate or erythema. NECK: Supple. No JVD, no carotid bruit. No lymphadenopathy or thyromegaly. LUNGS: Diminished breath sounds bilaterally. Significantly diminished more so on the right than the left. Percussion note normal. Chest symmetrical. HEART: S1, S2, no S3. No murmur. No cyanosis or clubbing. No ascites. Pulses: Dorsalis pedis and posterior tibial pulses +1 to +2 bilaterally. ABDOMEN: Soft. Nontender. Bowel sounds active. No CVA tenderness. No mass felt. EXTREMITIES: No leg edema. Full range of motion of all extremities, equal. NEUROLOGIC: No focal deficit. Cranial nerves II through XII are grossly intact. No headache, no double vision or headache. SKIN: Not dry. Intact. Turgor - normal. LYMPHATIC: No palpable lymph nodes/no lymphedema. MUSCULOSKELETAL: Normal joints with no swelling. Muscle tone is normal. LABS/ABG/IMAGING: White count 9.8, hemoglobin 10.9, hematocrit 33.7, platelets 222. Sodium 137, potassium 3.1, BUN 16, creatinine 0.85, glucose 104. ABG on room air 02 sat 98, pH 7.517, pc02 28.7, p02 85, bicarb 23.3, total c02 24. CT of the chest shows patchy right lower lobe pneumonia consistent with atypical process, patchy ground glass and nodular consolidation in the right lung, middle lobe, increased peribronchial thickening suggestive of bronchopneumonia. ASSESSMENT: 1. RIGHT LOBAR PNEUMONIA 2. BRONCHOPNEUMONIA 3. UNDERLYING COPD 4. HEAVY SMOKER 5. HYPOKALEMIA 6. HISTORY OF LUNG CANCER STATUS POST LOBECTOMY 7. GENERALIZED WEAKNESS 8. NONCOMPLIANCE DIET, LIFESTYLE, MEDICATIONS, FOLLOWUP PLAN: 1. We will admit. 2. Routine telemetry orders. 3. CBC, CMP daily. 4. Start Rocephin 1 gm IV daily along with Doxycycline 100 mg IV q.12hr. 5. Duonebs q.6hr germaine. 6. Pulmicort nebs 0.5 mg b.i.d. germaine. 7. Normal Saline at 75 cc/hr IV. 8. Regular diet. 9. Oxygen at 1 to 2L as needed. 10. Nicotine patch should patient wish. 11. Information provided regarding smoking cessation. 12. Will follow closely. TIME SPENT: More than 70 minutes. MTDD
[2019-06-03] MEDS: PULMICORT 0.5 MG/2 ML NEB SCH (16:55)
[2019-06-03] MEDS: LIPITOR PO SCH (17:10)
[2019-06-03] MEDS: DOXY-100 100 MG in SODIUM CHLORIDE 100 ML IV SCH (20:26)
[2019-06-04] MEDS: DUONEB NEB SCH ×4 (04:39→23:48)
[2019-06-04] MEDS: PULMICORT 0.5 MG/2 ML NEB SCH ×2 (04:39→17:07)
[2019-06-04 05:11] LABS: HEMATOCRIT 29.1 % (37.0-47.0)
--- NOTE | 2019-06-04 08:47 | PCM.PROG ---
Attending Provider: ATTENDING PROVIDER: Dr. SIMONE TEIXEIRA DATE OF SERVICE: 06/04/19 SUBJECTIVE: This 68 year old /WHITE F was hospitalized 06/02/19. The patient is hospitalized with pneumonia. The patient's condition has improved remarkably. Her albumin and protein are improved. Appetite has improved. The patient looks better. REVIEW OF SYSTEMS: CONSTITUTIONAL: No night sweats. No fatigue, malaise, lethargy. No fever or chills. HEENT: Eyes: No visual changes. No eye pain. No eye discharge. ENT: No runny nose. No epistaxis. No sinus pain. No odynophagia. No congestion. RESPIRATORY: No cough, no congestion. No hemoptysis. No shortness of breath. CARDIOVASCULAR: No angina symptoms. No CHF symptoms. No atypical chest pain for CAD. No palpitations. No orthopnea.. GASTROINTESTINAL: No abdominal pain. No nausea or vomiting. No diarrhea or constipation. No hematemesis. No hematochezia. GENITOURINARY: No urgency. No frequency. No dysuria. No hematuria. No obstruc tive symptoms. No discharge. No pain. No significant abnormal bleeding. MUSCULOSKELETAL: No musculoskeletal pain; no joint swelling. NEUROLOGICAL: Awake, alert, oriented to time, place and person. No headache. No neck pain. No syncope. No seizures. No dizziness. PSYCHIATRIC: Not anxious. No depression. No suicidal thoughts. No homicidal thoughts. SKIN: No rash. No lesions. No wounds. ENDOCRINE: No unexplained weight loss. No weight gain. HEMATOLOGIC/LYMPHATIC: No anemia. No purpura. No petechiae. No prolonged or excessive bleeding. No palpable lymph nodes. PHYSICAL EXAMINATION: GENERAL: The patient is awake, alert and oriented, lying/sitting in bed in no distress. VITAL SIGNS: Temperature 97.7 F, Pulse 93, Respiratory Rate 18, BP 135/75, Pulse Ox 96% HEENT: Head normocephalic, atraumatic. Eyes: Extraocular muscles are intact. Pupils are equal, round and reactive to light and accommodation. Ears: No lesions. Nose appeared normal. Throat: No exudate or erythema. NECK: Supple. No JVD, no carotid bruit. No lymphadenopathy or thyromegaly. LUNGS: Decreased breath sounds with good air entry. Clear to auscultation. Percussion note normal. Chest symmetrical. HEART: S1, S2, no S3. No murmurs. No cyanosis or clubbing. No ascites. Pulses: Dorsalis pedis and posterior tibial pulses +1 to +2 both sides. ABDOMEN: Soft. Non-tender. Bowel sounds active. No CVA tenderness. No mass felt. EXTREMITIES: No edema. Full range of motion of all extremities, equal. NEUROLOGIC: No focal deficit. Cranial nerves II through XII are grossly intact. No headache, no double vision or headache. SKIN: Warm and dry. Intact. Turgor-better. LYMPHATIC: No palpable lymph nodes/no lymphedema. MUSCULOSKELETAL: Normal joints with no swelling. Muscle tone is normal. LAB REVIEW: 06/04/19 04:38 06/04/19 04:38 06/04/19 04:38: Sodium 142.1, Potassium 3.05 L, Chloride 112.6 H, Carbon Dioxide 23.6, Anion Gap 8.95, BUN 24.8 H, Creatinine 0.85, Estimated GFR (MDRD) 66.00, B UN/Creatinine Ratio 29.17, Glucose 207.4 H, Calcium 9.20, Total Bilirubin 0.28, AST 20.2, ALT 26.3, Alkaline Phosphatase 69.4, Total Protein 5.81 L, Albumin 3.09 L, Globulin 2.72, Albumin/Globulin Ratio 1.13 06/04/19 04:38: WBC 10.14, RBC 3.25 L, Hgb 9.4 L, Hct 29.1 L, MCV 89.5, MCH 28.9, MCHC 32.3, RDW Coeff of Felipe 14.0, Plt Count 234, Neutrophils % (Manual) 89.0 H, Lymphocytes % (Manual) 5.0 L, Monocytes % (Manual) 6.0, Anisocytosis Not present 06/03/19 12:10: Urine Opiates Screen Positive, Ur Oxycodone Screen Negative, Urine Methadone Screen Negative, Ur Propoxyphene Screen Negative, Ur Barbiturates Screen Negative, U Tricyclic Antidepress Negative, Ur Phencyclidine Scrn Negative, Ur Amphetamine Screen Negative, U Methamphetamines Scrn Negative, U Benzodiazepines Scrn Positive, Urine Cocaine Screen Negative, U Cannabinoids Screen Negative 06/03/19 07:45: Total Creatine Kinase < 20.0 L, Troponin I < 0.012 ASSESSMENT: Please see below. 1. Pneumonia clinically seems to be under control. 2. Dehydration resolved. 3. Chronic anemia. 4. Hyperglycemia from steroids. 5. Hypokalemia noted. PLAN: 1. Give K-Dur 20 mEq four times a day. 2. Continue antibiotics, steroids and nebs. 3. Counseling for smoking done. Plan and coordination of the patient's care discussed in the presence of Sieve Maker and nurse. CONDITION: Stable SCRIBED BY: PRADEEP MCDONALD Pediatrics Physician scribed while in presence of service performed by Dr. SIMONE TEIXEIRA on 06/04/19 (1902)
[2019-06-04] MEDS: ROCEPHIN 1 GM/50 ML D5W 1 GM/50 ML BAG IV SCH (09:04)
[2019-06-04] MEDS: CARDIZEM PO SCH ×2 (09:06→20:03)
[2019-06-04] MEDS: COZAAR PO SCH (09:06)
[2019-06-04] MEDS: K-DUR PO SCH ×4 (09:07→20:03)
[2019-06-04] MEDS: PREDNISONE PO SCH ×2 (09:07→17:18)
[2019-06-04] MEDS: DOXY-100 100 MG in SODIUM CHLORIDE 100 ML IV SCH ×2 (10:07→20:03)
--- NOTE | 2019-06-04 12:55 | PN ---
DATE OF SERVICE: 06/03/2019 SUBJECTIVE: The patient is remarkably better. She is alert. Hydration status is improved. She is talkative. REVIEW OF SYSTEMS: CONSTITUTIONAL: No night sweats. No fatigue, malaise, lethargy. No fever or chills. HEENT: Eyes: No visual changes. No eye pain. No eye discharge. ENT: No runny nose. No epistaxis. No sinus pain. No sore throat. No odynophagia. No congestion. RESPIRATORY: No cough, no congestion. No hemoptysis. No shortness of breath. CARDIOVASCULAR: No angina symptoms. No CHF symptoms. No atypical chest pain for CAD. No palpitations. No PND. No orthopnea. GASTROINTESTINAL: No abdominal pain. No nausea or vomiting. No diarrhea or constipation. No hematemesis. No hematochezia. GENITOURINARY: No urgency. No frequency. No dysuria. No hematuria. No obstructive symptoms. No discharge. No pain. No significant abnormal bleeding. MUSCULOSKELETAL: No musculoskeletal pain; no joint swelling. NEUROLOGICAL: No headache. No neck pain. No syncope. No seizures. No dizziness. PSYCHIATRIC: Not anxious. No depression. No suicidal thoughts. No homicidal thoughts. SKIN: No rash. No lesions. No wounds. ENDOCRINE: No unexplained weight loss. No weight gain. HEMATOLOGIC/LYMPHATIC: No anemia. No purpura. No petechiae. No prolonged or excessive bleeding. No palpable lymph nodes. PHYSICAL EXAMINATION: HEENT: Head normocephalic, atraumatic. Eyes: Extraocular muscles are intact. Pupils are equal, round and reactive to light and accommodation. Ears: No lesions. Nose appeared normal. Throat: No exudate or erythema. NECK: Supple. No JVD, no carotid bruit. No lymphadenopathy or thyromegaly. LUNGS: Clear to auscultation. Percussion note normal. Chest symmetrical. HEART: S1, S2, no S3. No murmurs. No cyanosis or clubbing. No ascites. Pulses: Dorsalis pedis and posterior tibial pulses +1 to +2 bilaterally. ABDOMEN: Soft. Nontender. Bowel sounds active. No CVA tenderness. No mass felt. EXTREMITIES: No edema. Full range of motion of all extremities, equal. NEUROLOGIC: No focal deficit. Cranial nerves II through XII are grossly intact. No headache, no double vision or headache. SKIN: Not dry. Intact. Turgor - normal. LYMPHATIC: No palpable lymph nodes/no lymphedema. MUSCULOSKELETAL: Normal joints with no swelling. Muscle tone is normal. ASSESSMENT: 1. Pneumonia bilateral with bronchial pneumonia seems to have improved remarkably with hydration status is a lot better. 3. TIME SPENT: More than 30 minutes. Plan and coordination of the patient's care discussed in the presence of nurse. GERSON
[2019-06-04] MEDS: LIPITOR PO SCH (17:18)
[2019-06-05] MEDS: DUONEB NEB SCH ×2 (04:38→11:06)
[2019-06-05] MEDS: PULMICORT 0.5 MG/2 ML NEB SCH (04:38)
[2019-06-05 05:28] LABS: HEMATOCRIT 34.1 % (37.0-47.0)
[2019-06-05 05:43] VITALS: BP 153/86; TEMP 97.8
--- NOTE | 2019-06-05 08:33 | DI ---
EXAM: Two views of the chest. HISTORY: Pneumonia COMPARISON: 06/02/2019 TECHNIQUE: PA and lateral views of the chest. FINDINGS/IMPRESSION: No significant interval change. Stable cardiomediastinal silhouette. Minimally improved right lower lobe consolidation with probable small pleural effusion. Remaining lungs are clear. No pneumothorax . Emphysema/chronic obstructive pulmonary disease changes. There are no acute abnormalities of the bones.
--- NOTE | 2019-06-05 08:51 | PCM.PROG ---
Attending Provider: ATTENDING PROVIDER: Dr. SIMONE TEIXEIRA This patient is seen with Brandi Nolasco, Nurse Practitioner. DATE OF SERVICE: 06/05/19 SUBJECTIVE: This 68 year old /WHITE F was hospitalized 06/02/19. The patient is resting comfortably in bed. Cough is improved. The patient is much more alert, is up and about. She is afebrile. She has been eating well. REVIEW OF SYSTEMS: CONSTITUTIONAL: No night sweats. No fatigue, malaise, lethargy. No fever or chills. HEENT: Eyes: No visual changes. No eye pain. No eye discharge. ENT: No runny nose. No epistaxis. No sinus pain. No odynophagia. No congestion. RESPIRATORY: Positive for cough. No hemoptysis. No shortness of breath. CARDIOVASCULAR: No angina symptoms. No CHF symptoms. No atypical chest pain for CAD. No palpitations. No orthopnea.. GASTROINTESTINAL: No abdominal pain. No nausea or vomiting. No diarrhea or constipation. No hematemesis. No hematochezia. GENITOURINARY: No urgency. No frequency. No dysuria. No hematuria. No obstructive symptoms. No discharge. No pain. No significant abnormal bleeding. MUSCULOSKELETAL: No musculoskeletal pain; no joint swelling. NEUROLOGICAL: Awake, alert, oriented to time, place and person. No headache. No neck pain. No syncope. No seizures. No dizziness. PSYCHIATRIC: Not anxious. No depression. No suicidal thoughts. No homicidal thoughts. SKIN: No rash. No lesions. No wounds. ENDOCRINE: No unexplained weight loss. No weight gain. HEMATOLOGIC/LYMPHATIC: No anemia. No purpura. No petechiae. No prolonged or excessive bleeding. No palpable lymph nodes. PHYSICAL EXAMINATION: GENERAL: The patient is awake, alert and oriented, lying/sitting in bed in no distress. VITAL SIGNS: Temperature 97.8 F, Pulse 101, Respiratory Rate 16, BP 153/86, Pulse Ox 98% HEENT: Head normocephalic, atraumatic. Eyes: Extraocular muscles are intact. Pupils are equal, round and reactive to light and accommodation. Ears: No lesions. Nose appeared normal. Throat: No exudate or erythema. NECK: Supple. No JVD, no carotid bruit. No lymphadenopathy or thyromegaly. LUNGS: Diminished breath sounds. Clear to auscultation. Percussion note normal. Chest symmetrical. HEART: S1, S2, no S3. No murmurs. No cyanosis or clubbing. No ascites. Pulses: Dorsalis pedis and posterior tibial pulses +1 to +2 both sides. ABDOMEN: Soft. Non-tender. Bowel sounds active. No CVA tenderness. No mass felt. EXTREMITIES: No edema. Full range of motion of all extremities, equal. NEUROLOGIC: No focal deficit. Cranial nerves II through XII are grossly intact. No headache, no double vision or headache. SKIN: Not dry. Intact. Turgor-normal. LYMPHATIC: No palpable lymph nodes/no lymphedema. MUSCULOSKELETAL: Normal joints with no swelling. Muscle tone is normal. LAB REVIEW: 06/05/19 04:55 06/05/19 04:55 06/05/19 04:55: Sodium 142.9, Potassium 3.73, Chloride 111.7 H, Carbon Dioxide 25.2, Anion Gap 9.73, BUN 25.9 H, Creatinine 0.76, Estimated GFR (MDRD) 75.00, BUN/Creatinine Ratio 34.07, Glucose 141.0 H, Calcium 9.33, Total Bilirubin 0.35, AST 26.6, ALT 28.0, Alkaline Phosphatase 72.5, Total Protein 6.40, Albumin 3.44 L, Globulin 2.96, Albumin/Globulin Ratio 1.16 06/05/19 04:55: WBC 10.71 H, RBC 3.72 L, Hgb 10.6 L, Hct 34.1 L, MCV 91.7, MCH 28.5, MCHC 31.1 L, RDW Coeff of Felipe 14.5, Plt Count 289, Immature Gran % (Auto) 1.0, Neut % (Auto) 80.3 H, Lymph % (Auto) 12.6, [place] % (Auto) 5.9, Eos % (Auto) 0.0, Baso % (Auto) 0.2, Immature Gran # (Auto) 0.1, Neut # (Auto) 8.6 H, Lymph # (Auto) 1.4, [place] # (Auto) 0.6, Eos # (Auto) 0.0, Baso # (Auto) 0.0 ASSESSMENT: Please see below. 1. Pneumonia clinically seems to be under control. 2. Dehydration resolved. 3. Chronic anemia. 4. Hyperglycemia from steroids. 5. Hypokalemia noted. PLAN: 1. Anticipate discharge home. 2. Repeat chest x-ray this morning. 3. Duoneb treatment t.i.d. 4. Will likely be discharged on Doxycycline 100 mg b.i.d. for 7 days depending on chest x-ray. Plan and coordination of the patient's care discussed in the presence of Data Technical Lead and nurse. CONDITION: Stable SCRIBED BY: Candy LOZANO scribed while in presence of service performed by Dr. Teixeira/Brandi Nolasco APRN on 06/05/19 (0800)
[2019-06-05] MEDS: DOXY-100 100 MG in SODIUM CHLORIDE 100 ML IV SCH (08:58)
[2019-06-05] MEDS: CARDIZEM PO SCH (09:01)
[2019-06-05] MEDS: PREDNISONE PO SCH (09:01)
[2019-06-05] MEDS: COZAAR PO SCH (09:01)
[2019-06-05] MEDS: K-DUR PO SCH ×2 (09:02→12:03)
[2019-06-05] MEDS: ROCEPHIN 1 GM/50 ML D5W 1 GM/50 ML BAG IV SCH (10:55)
--- NOTE | 2019-06-05 12:22 | CM.DICTOOL ---
ADMISSION: 06/02/19 17:20 DISCHARGE: JUNE 05, 2019 DATE OF SERVICE: 06/05/19 FINAL DIAGNOSIS RIGHT LOWER LOBE PNEUMONIA - UNDER CONTROL DEHYDRATION- RESOLVED CHRONIC ANEMIA HYPERGLYCEMIA FROM STERIODS HYPOKALEMIA - NOTED SEVERE COPD - IMPROVED NON-COMPLIANCE WITH MEDICATIONS,LIFESTYLE AND FOLLOW-UP SMOKER HX: SEVERE COPD WITH EXACERBATION (CONTINUED SMOKING AGAINST MEDICAL ADVICE) CHRONIC BRONCHITIS PNEUMONIA DEHYDRATION UTI, KLEBSIELLA PNEUMONIAE ORGANISM, TREATED HYPOKALEMIA HYPERTENSION GENERALIZED ANXIETY BRONCHOGENIC CARCINOMA RIGHT UPPER LUNG CKD, STAGE 3 DYSLIPIDEMIA GENERALIZED OSTEOARTHRITIS PYELONEPHRITIS, LEFT SIDE WITH BLOOD CULTURE POSITIVE FOR E. COLI. CONTINUED NICOTINE USE,HEAVY SMOKER GERD HYPOXEMIA AT NIGHT PLEURITIC PAIN B 12 DEFICIENCY SURGICAL HX: PARTIAL RIGHT PNEUMONECTOMY R/T LUNG CANCER TONSILLECTOMY TOTAL ABDOMINAL HYSTERECTOMY LAST VITALS Temp Pulse Resp BP Pulse Ox 97.8 F 101 H 16 153/86 H 98 06/05/19 05:29 06/05/19 05:29 06/05/19 05:29 06/05/19 05:29 06/05/19 05:29 TAKE THESE MEDICATIONS AT HOME Albuterol/Ipratropium (Duoneb) 3 ml NEB T.I.D. [facility] ( NEW) Last Admin: 06/05/19 04:38 Dose: 3 ml Documented by: Atorvastatin Calcium (Lipitor) 20 mg PO QPM [facility] Last Admin: 06/04/19 17:18 Dose: 20 mg Documented by: Budesonide (Pulmicort 0.5 Mg/2 Ml) 0.5 mg NEB @ BEDTIME [facility] (NEW) Last Admin: 06/05/19 04:38 Dose: 0.5 mg Documented by: Diltiazem HCl (Cardizem) 60 mg PO BID [facility] Last Admin: 06/05/19 09:01 Dose: 60 mg Documented by: Losartan Potassium (Cozaar) 50 mg PO DAILY [facility] Last Admin: 06/05/19 09:01 Dose: 50 mg Documented by: Potassium Chloride (K-Dur) 20 meq PO QID [facility] ( REFUSED) Last Admin: 06/05/19 09:02 Dose: Not Given Prednisone (Prednisone) 10 mg PO DAILY [facility] X 5 MORE DAYS (NEW) Last Admin: 06/05/19 09:01 Dose: 10 mg Documented by: DOXYCYCLINE 100 MG PO BID X 10 DAYS (NEW) ALLERGIES INHALER Adverse Reaction (Uncoded 06/02/19 12:30) DISCONTINUED MEDICATIONS: 1). ALBUTEROL NEBULIZERS 2). ATIVAN 3). SYMBICORT METERED DOSE INHALER NEW PRESCRIPTIONS: 1). DOXYCYCLINE 100 MG PO BID X 10 DAYS 2). PREDNISONE 10 MG PO DAILY X 5 DAYS 3). DUONEB NEBULIZER 1 VIAL T.I.D. 4). PULMICORT NEBULIZER 0.5 MG INHALATION @ BEDTIME 5). POTASSIUM 20 MEQ PO Q.I.D. ( REFUSED) SMOKING: SMOKING CESSATION INSTRUCTED DISEASE SPECIFIC EDUCATION: PNEUMONIA COPD HYPOKALEMIA SMOKING CESSATION DEHYDRATION ANEMIA LAB REVIEW: 06/05/19 04:55 06/05/19 04:55 06/05/19 04:55: Sodium 142.9, Potassium 3.73, Chloride 111.7 H, Carbon Dioxide 25.2, Anion Gap 9.73, BUN 25.9 H, Creatinine 0.76, Estimated GFR (MDRD) 75.00, BUN/Creatinine Ratio 34.07, Glucose 141.0 H, Calcium 9.33, Total Bilirubin 0.35, AST 26.6, ALT 28.0, Alkaline Phosphatase 72.5, Total Protein 6.40, Albumin 3.44 L, Globulin 2.96, Albumin/Globulin Ratio 1.16 06/05/19 04:55: WBC 10.71 H, RBC 3.72 L, Hgb 10.6 L, Hct 34.1 L, MCV 91.7, MCH 28.5, MCHC 31.1 L, RDW Coeff of Felipe 14.5, Plt Count 289, Immature Gran % (Auto) 1.0, Neut % (Auto) 80.3 H, Lymph % (Auto) 12.6, [place] % (Auto) 5.9, Eos % (Auto) 0.0, Baso % (Auto) 0.2, Immature Gran # (Auto) 0.1, Neut # (Auto) 8.6 H, Lymph # (Auto) 1.4, [place] # (Auto) 0.6, Eos # (Auto) 0.0, Baso # (Auto) 0.0 PLAN: DISCHARGE HOME TODAY ACTIVITY: UP TOLERATED, NO STRENUOUS ACTIVITY, FREQUENT REST PERIODS, CHANGE POSITIONS SLOWLY PRESENT SELF TO EMERGENCY ROOM IF ANY PROBLEMS BREATHING OR CONCERNS DIET: REGULAR WITH BOOST SUPPLIMENT THREE TIMES DAILY FOLLOW UP WITH DR. TEIXEIRA/ NAKUL COLBY APRN IN THE OFFICE ON MONDAY JUNE 10, 2019 @ 1015 AM FOLLOW UP, DR. VALENTIN MARTIN, FLOOR REFINISHER IN [place], CALL WITH AN APPOINTMENT IF THEY DO NOT CONTACT YOU @ [phone] CODE STATUS: FULL CODE MRS DURBIN IS ALERT AND ORIENTED X 4 AND TALKATIVE. UP TO BR WITH NO DISTRESS AND NO REPORTS OF DYSPNEA. COUGH IS NOT PERSISTENT AND HAS OCCASIONAL CLEAR SPUTUM. LUNGS ARE DIMINISHED WITH FAINT CRACKLES TO RT LOWER LOBE. CONTINUES TO REFUSE THE NICOTINE PATCH. REFUSES TO TAKE K DUR, STATES HARD TO SWALLOW THE PILLS. NO OTHER REPORTS OF DIFFICULTY SWALLOWING. DID GO OUT AND SMOKE X 1 THIS AM AND WAS INSTRUCTED ON HOSPITAL NO SMOKING POLICY. STATES SHE IS GOING TO SMOKE AND IS NOT GOING TO QUIT, DON'T WANT TO. INSTRUCTED ON THE HEALTH AND SAFETY RISK OF SMOKING. ATTEMPTED TO TEACH ON MEASURES TO QUIT SMOKING AND SHE DID NOT WANT ANY INFORMATION. REFUSED ANY TYPE OF HOMEHEALTH OR ASSISTANCE WITH HOME STRUCTURE REPAIRS. INSTRUCTED ON ROM TO LOWER EXTREMITIES SHE CAN DO IN BED TO IMPROVE HER STRENGTH, SHE VERBALIZED UNDERSTANDING. SHE IS UP INDEPENDENTLY AND WHAT SHE CAN'T DO AT HOME, FAMILY ASSIST. SKIN WARM AND DRY AND NO PRESSURE ULCERS OR LESIONS. HAS SLIGHT FUNGAL BUILDUP TO TOES AND TOENAILS. DOES NOT REQUIRE OXYGEN .PULSE OX SATURATIONS TRENDED 95 - 98 % ON ROOM AIR. [facility] HAS SUPPLIED HER WITH TUBING AND SUPPLIES FOR HER HOME NEBULIZER. NO OTHER DME REQUIRED. SHE IS CONTINENT OF BOWEL AND BLADDER. LAST BM 06/03/2019. MD NAKUL DELCID APRN
--- NOTE | 2019-06-06 10:03 | DS ---
DATE OF SERVICE: 06/05/2019 FINAL DIAGNOSIS: 1. RIGHT LOWER LOBE PNEUMONIA - UNDER CONTROL 2. DEHYDRATION- RESOLVED 3. CHRONIC ANEMIA 4. HYPERGLYCEMIA FROM STEROIDS 5. HYPOKALEMIA - NOTED 6. SEVERE COPD - IMPROVED 7. NON-COMPLIANCE WITH MEDICATIONS,LIFESTYLE AND FOLLOW-UP 8. SMOKER 9. HISTORY OF SEVERE COPD WITH EXACERBATION (CONTINUED SMOKING AGAINST MEDICAL ADVICE) 10.CHRONIC BRONCHITIS 11.PNEUMONIA 12.DEHYDRATION 13.UTI, KLEBSIELLA PNEUMONIAE ORGANISM, TREATED 14.HYPOKALEMIA 15.HYPERTENSION 16.GENERALIZED ANXIETY 17.BRONCHOGENIC CARCINOMA RIGHT UPPER LUNG 18.CHRONIC KIDNEY DISEASE, STAGE 3 19.DYSLIPIDEMIA 20.GENERALIZED OSTEOARTHRITIS 21.PYELONEPHRITIS, LEFT SIDE WITH BLOOD CULTURE POSITIVE FOR E. COLI. 22.CONTINUED NICOTINE USE,HEAVY SMOKER 23.GERD 24.HYPOXEMIA AT NIGHT 25.PLEURITIC PAIN 26.B 12 DEFICIENCY 27.PARTIAL RIGHT PNEUMONECTOMY R/T LUNG CANCER 28.TONSILLECTOMY 29.TOTAL ABDOMINAL HYSTERECTOMY LAST VITALS: Temp Pulse Resp BP Pulse Ox 97.8 F 101 H 16 153/86 H 98 06/05/19 05:29 06/05/19 05:29 06/05/19 05:29 06/05/19 05:29 06/05/19 05:29 DISCHARGE INSTRUCTION: DISCHARGE HOME TODAY. FOLLOW UP WITH DR. TEIXEIRA/ NAKUL COLBY APRN IN THE OFFICE ON MONDAY JUNE 10, 2019 @ 1015 AM. FOLLOW UP, DR. VALENTIN MARTIN, FINANCIAL AID COORDINATOR IN [place], CALL WITH AN APPOINTMENT IF THEY DO NOT CONTACT YOU @ [phone]. CODE STATUS: FULL CODE. TAKE THESE MEDICATIONS AT HOME: Albuterol/Ipratropium (Duoneb) 3 ml NEB T.I.D. [facility] ( NEW) Last Admin: 06/05/19 04:38 Dose: 3 ml Documented by: Atorvastatin Calcium (Lipitor) 20 mg PO QPM [facility] Last Admin: 06/04/19 17:18 Dose: 20 mg Documented by: Budesonide (Pulmicort 0.5 Mg/2 Ml) 0.5 mg NEB @ BEDTIME [facility] (NEW) Last Admin: 06/05/19 04:38 Dose: 0.5 mg Documented by: Diltiazem HCl (Cardizem) 60 mg PO BID [facility] Last Admin: 06/05/19 09:01 Dose: 60 mg Documented by: Losartan Potassium (Cozaar) 50 mg PO DAILY [facility] Last Admin: 06/05/19 09:01 Dose: 50 mg Documented by: Potassium Chloride (K-Dur) 20 meq PO QID [facility] ( REFUSED) Last Admin: 06/05/19 09:02 Dose: Not Given Prednisone (Prednisone) 10 mg PO DAILY [facility] X 5 MORE DAYS (NEW) Last Admin: 06/05/19 09:01 Dose: 10 mg Documented by: DOXYCYCLINE 100 MG PO BID X 10 DAYS (NEW) ALLERGIES: INHALER Adverse Reaction (Uncoded 06/02/19 12:30) DISCONTINUED MEDICATIONS: 1). ALBUTEROL NEBULIZERS 2). ATIVAN 3). SYMBICORT METERED DOSE INHALER NEW PRESCRIPTIONS: 1). DOXYCYCLINE 100 MG PO BID X 10 DAYS 2). PREDNISONE 10 MG PO DAILY X 5 DAYS 3). DUONEB NEBULIZER 1 VIAL T.I.D. 4). PULMICORT NEBULIZER 0.5 MG INHALATION @ BEDTIME 5). POTASSIUM 20 MEQ PO Q.I.D. ( REFUSED) SMOKING: SMOKING CESSATION INSTRUCTED DISEASE SPECIFIC EDUCATION: PNEUMONIA COPD HYPOKALEMIA SMOKING CESSATION DEHYDRATION ANEMIA LAB REVIEW: 06/05/19 04:55 06/05/19 04:55 06/05/19 04:55: Sodium 142.9, Potassium 3.73, Chloride 111.7 H, Carbon Dioxide 25.2, Anion Gap 9.73, BUN 25.9 H, Creatinine 0.76, Estimated GFR (MDRD) 75.00, BUN/Creatinine Ratio 34.07, Glucose 141.0 H, Calcium 9.33, Total Bilirubin 0.35, AST 26.6, ALT 28.0, Alkaline Phosphatase 72.5, Total Protein 6.40, Albumin 3.44 L, Globulin 2.96, Albumin/Globulin Ratio 1.16 06/05/19 04:55: WBC 10.71 H, RBC 3.72 L, Hgb 10.6 L, Hct 34.1 L, MCV 91.7, MCH 28.5, MCHC 31.1 L, RDW Coeff of Felipe 14.5, Plt Count 289, Immature Gran % (Auto) 1.0, Neut % (Auto) 80.3 H, Lymph % (Auto) 12.6, [place] % (Auto) 5.9, Eos % (Auto) 0.0, Baso % (Auto) 0.2, Immature Gran # (Auto) 0.1, Neut # (Auto) 8.6 H, Lymph # (Auto) 1.4, [place] # (Auto) 0.6, Eos # (Auto) 0.0, Baso # (Auto) 0.0 ACTIVITY: UP TOLERATED, NO STRENUOUS ACTIVITY, FREQUENT REST PERIODS, CHANGE POSITIONS SLOWLY PRESENT SELF TO EMERGENCY ROOM IF ANY PROBLEMS BREATHING OR CONCERNS DIET: REGULAR WITH BOOST SUPPLEMENT THREE TIMES DAILY HOSPITAL COURSE: This is a white female who was recently hospitalized with right lobular pneumonia as well as bronchial pneumonia. She presented back to the emergency room with increasing cough, worsening fatigue and shortness of breath. CT of the chest showed persistent right lobular pneumonia along with bronchial pneumonia. She has a long history of noncompliance with medications, diet, lifestyle and followup. She was drowsy and short of breath. She was admitted and placed on Rocephin IV along with Doxycycline IV, low dose of steroids. She has severe underlining COPD, she continues to be a heavy smoker and also with a history of lung cancer and partial pneumonectomy. Again continues to smoke. We placed her on DUO NEBS Q 6 hours scheduled along with Pulmicort 0.5mg NEB BID. She was on oxygen at 1-2 liters initially. After the first 24 hours her fatigue and drowsiness improved. Urine drug screen was positive for benzodiazepines for which she has a prescription, it is unclear whether she was taking her medication correctly. This was discontinued on admission. She has a nebulizer machine at home. She was given a prescription for DUO NEBS to do TID scheduled at home along with Pulmicort 0.5 nebulizer treatment to do in the evening. She is going to be sent home on Doxycycline 100mg PO BID for the next 7 days. She is instructed to quit smoking. The past 36 hours she has been going outside to smoke here. She refused a nicotine patch. We discontinue IV steroids two days prior to discharge. She tolerated this well. We put her on oral Prednisone. She has done well. She has been eating good, not short of breath. She has not been requiring oxygen. She has been instructed to followup with her indian nanny in [place]. Again advised to quit smoking. Eat well. We will discharge her in stable condition with Doxycycline, Prednisone and nebulizers. We will followup with her in the office next week. TIME SPENT: More than 60 minutes. GERSON
--- NOTE | 2019-06-09 10:21 | PN ---
DATE OF SERVICE: 06/05/2019 SUBJECTIVE: The patient was seen and examined with the Nurse Practitioner. The patient has been remarkably better. She is up and about. REVIEW OF SYSTEMS: CONSTITUTIONAL: No night sweats. No fatigue, malaise, lethargy. No fever or chills. HEENT: Eyes: No visual changes. No eye pain. No eye discharge. ENT: No runny nose. No epistaxis. No sinus pain. No sore throat. No odynophagia. No congestion. RESPIRATORY: No cough, no congestion. No hemoptysis. No shortness of breath. CARDIOVASCULAR: No angina symptoms. No CHF symptoms. No atypical chest pain for CAD. No palpitations. No PND. No orthopnea. GASTROINTESTINAL: No abdominal pain. No nausea or vomiting. No diarrhea or constipation. No hematemesis. No hematochezia. GENITOURINARY: No urgency. No frequency. No dysuria. No hematuria. No obstructive symptoms. No discharge. No pain. No significant abnormal bleeding. MUSCULOSKELETAL: No musculoskeletal pain; no joint swelling. NEUROLOGICAL: No headache. No neck pain. No syncope. No seizures. No dizziness. PSYCHIATRIC: Not anxious. No depression. No suicidal thoughts. No homicidal thoughts. SKIN: No rash. No lesions. No wounds. ENDOCRINE: No unexplained weight loss. No weight gain. HEMATOLOGIC/LYMPHATIC: No anemia. No purpura. No petechiae. No prolonged or excessive bleeding. No palpable lymph nodes. PHYSICAL EXAMINATION: HEENT: Head normocephalic, atraumatic. Eyes: Extraocular muscles are intact. Pupils are equal, round and reactive to light and accommodation. Ears: No lesions. Nose appeared normal. Throat: No exudate or erythema. NECK: Supple. No JVD, no carotid bruit. No lymphadenopathy or thyromegaly. LUNGS:Decreased breath sounds but good air entry. Clear to auscultation. Percussion note normal. Chest symmetrical. HEART: S1, S2, no S3. No murmurs. No cyanosis or clubbing. No ascites. Pulses: Dorsalis pedis and posterior tibial pulses +1 to +2 bilaterally. ABDOMEN: Soft. Nontender. Bowel sounds active. No CVA tenderness. No mass felt. EXTREMITIES: No edema. Full range of motion of all extremities, equal. NEUROLOGIC: No focal deficit. Cranial nerves II through XII are grossly intact. No headache, no double vision or headache. SKIN: Not dry. Intact. Turgor - normal. LYMPHATIC: No palpable lymph nodes/no lymphedema. MUSCULOSKELETAL: Normal joints with no swelling. Muscle tone is normal. PLAN: 1. The patient is going to be discharged home 2. The patient's counseling done to quit smoking. 3. Advised to eat regularly. 4. Take NEBS treatment 5. Followup with pulmonary MD, Dr. Haro in [place] TIME SPENT: More than 30 minutes. Plan and coordination of the patient's care discussed in the presence of nurse. GERSON
--- NOTE | 2019-06-09 10:23 | PN ---
06/02/2019: Level 5 06/03/2019: Intermediate 06/04/2019: Intermediate 06/05/2019: D as in discharge MTDD
== END 2019-06-05 13:31 | disposition home or self-care (01) | DRG 948 ==
LOC: ED 11:56 → MEDSURG B 17:20
PROVIDERS: ADMIT Internal Medicine; ATTEND Internal Medicine
DX: J44.9 Chronic obstructive pulmonary disease, unspecified; D64.9 Anemia, unspecified; M19.91 Primary osteoarthritis, unspecified site; I10 Essential (primary) hypertension; K21.9 Gastro-esophageal reflux disease without esophagitis; B96.1 Klebsiella pneumoniae [K. pneumoniae] as the cause of diseases classified elsewhere; Z91.19 Patient's noncompliance with other medical treatment and regimen; E87.6 Hypokalemia; J42 Unspecified chronic bronchitis; N18.3 Chronic kidney disease, stage 3 (moderate); E86.0 Dehydration; F41.1 Generalized anxiety disorder; J06.9 Acute upper respiratory infection, unspecified; Z72.0 Tobacco use; E78.5 Hyperlipidemia, unspecified; R05 Cough; R73.9 Hyperglycemia, unspecified; N39.0 Urinary tract infection, site not specified; R53.1 Weakness

== ENCOUNTER 2021-09-13 11:24 | Observation (INO) ==
[2021-09-13 11:41] LABS: BORDETELLA PARAPERTUSSIS (PCR) NOT DETECTED (NOT DETECT); BORDETELLA PERTUSSIS (PCR) NOT DETECTED (NOT DETECT); CHLAMYDIA PNEUMONIAE (PCR) NOT DETECTED (NOT DETECT); CORONAVIRUS 229E (PCR) NOT DETECTED (NOT DETECT); CORONAVIRUS HKU1 (PCR) NOT DETECTED (NOT DETECT); CORONAVIRUS NL63 (PCR) NOT DETECTED (NOT DETECT); HUMAN METAPNEUMOVIRUS (PCR) NOT DETECTED (NOT DETECT); HUMAN RHINOVIRUS/ENTEROV (PCR) NOT DETECTED (NOT DETECT); INFLUENZA B (PCR) NOT DETECTED (NOT DETECT); MYCOPLASMA PNEUMONIAE (PCR) NOT DETECTED (NOT DETECT); PARAINFLUENZA VIRUS 1 (PCR) NOT DETECTED (NOT DETECT); PARAINFLUENZA VIRUS 2 (PCR) NOT DETECTED (NOT DETECT); PARAINFLUENZA VIRUS 3 (PCR) NOT DETECTED (NOT DETECT); PARAINFLUENZA VIRUS 4 (PCR) NOT DETECTED (NOT DETECT); RESPIRATORY SYNCYTIAL V (PCR) NOT DETECTED (NOT DETECT); SARS_COV_2 (PCR) NOT DETECTED (NOT DETECT)
[2021-09-13 12:33] LABS: ADENOVIRUS (PCR) NOT DETECTED (NOT DETECT); CORONAVIRUS OC43 (PCR) DETECTED (NOT DETECT)
[2021-09-13] MEDS ORDERED: TYLENOL PO PRN (14:52)
[2021-09-13] MEDS ORDERED: NITROSTAT SL PRN (14:52)
[2021-09-13] MEDS ORDERED: ATROPINE SULFATE PFS IVP PRN (14:52)
[2021-09-13] MEDS ORDERED: DECADRON IM ONE (14:59)
[2021-09-13] MEDS ORDERED: SODIUM CHLORIDE 1,000 ML IV SCH (15:00)
[2021-09-13 15:15] LABS: ABG O2 HGB 91.7 % (95-100); ABG PH 7.44 (7.35-7.45); BEecf -0.4 (-2.0-3.0); COHb 4.1 (0.5-1.5); HCO3 23.8 (21-28); MetHb 1.4 (0-1.5); TCO2 24.9 (19-24); sO2 94.4 % (94-98); tHb 11.5 g/dl (11.7-17.4)
[2021-09-13 15:20] LABS: BASOPHILS % (AUTO) 0.2 % (0.0-3.0); EOSINOPHILS % (AUTO) 0.1 % (0.0-7.0); HEMATOCRIT 35.8 % (37.0-47.0); HEMOGLOBIN 11.6 g/dl (12.0-16.0); IMMATURE GRANULOCYTE # (AUTO) 0.1 (0.0-1.0); IMMATURE GRANULOCYTE % (AUTO) 0.7 % (0.0-5.0); LYMPHOCYTES # (AUTO) 1.5 K/uL (0.60-3.4); LYMPHOCYTES % (AUTO) 14.8 (10.0-50.0); MEAN CORPUSCULAR HEMOGLOBIN 28.4 pg (27.0-31.0); MEAN CORPUSCULAR HGB CONC 32.4 (31.8-35.4); MEAN CORPUSCULAR VOLUME 87.7 fl (81.0-99.0); MONOCYTES % (AUTO) 9.6 (0-10); NEUTROPHILS # (AUTO) 7.4 K/ul (2.0-6.9); NEUTROPHILS % (AUTO) 74.6 % (42.2-75.2); PLATELET COUNT 223 10^3/uL (140-440); RDW COEFFICIENT OF VARIATION 13.8 % (11.6-14.8); RED BLOOD COUNT 4.08 10^6/ul (4.20-5.40); WHITE BLOOD COUNT 9.91 K/ul (4.6-10.2)
[2021-09-13 15:35] LABS: ALBUMIN 3.96 g/dL (3.5-5.0); ALKALINE PHOSPHATASE 133.8 U/L (53-141); ASPARTATE AMINO TRANSFERASE 33.9 U/L (14-36); BILIRUBIN,TOTAL 0.59 mg/dL (0.2-1.3); BLOOD UREA NITROGEN 23.1 mg/dL (7-17); CALCIUM 9.07 mg/dL (8.4-10.2); CARBON DIOXIDE 23.5 mmol/L (22-30.0); CHLORIDE 103.7 mmol/L (98-107); CHOLESTEROL 125.3 mg/dL (0-200); CREATINE KINASE 38.3 U/L (30-135); CREATININE 0.94 mg/dL (0.60-1.30); GLUCOSE 191.9 mg/dL (74-106); HDL CHOLESTEROL 39.9 mg/dL (35-80); LDL CHOLESTEROL,CALCULATED 60 mmol/L; POTASSIUM 3.29 mmol/L (3.5-5.1); SODIUM 137.9 mmol/L (134.5-145); TOTAL PROTEIN 7.03 g/dL (6.3-8.2); TRIGLYCERIDES 128.5 mg/dL (0-150); VLDL CHOLESTEROL 26 mg/dL (2-30)
[2021-09-13 15:39] VITALS: BMI 17.6
[2021-09-13 15:59] LABS: ALANINE AMINOTRANSFERASE 23.6 U/L (0-35); TROPONIN I < 0.012 ng/ml (0.0000-0.120)
[2021-09-13] MEDS: COZAAR PO SCH (16:08)
[2021-09-13] MEDS: CARDIZEM PO SCH ×2 (16:08→21:07)
--- NOTE | 2021-09-13 16:46 | DI ---
EXAM: Chest one view, frontal view only. HISTORY: Shortness of breath. COMPARISON: 04/05/2020, 10/13/2020. FINDINGS: Heart size normal. Postsurgical changes of the right lung noted. There is new consolidat ion in the right lung base. Left lung clear. No pneumothorax. No acute osseous abnormality. IMPRESSION: Right basilar pneumonia. Follow-up recommended to confirm resolution.
[2021-09-13 16:54] LABS: BILIRUBIN,URINE 1+ (NEGATIVE); CLARITY,URINE Slightly (CLEAR); COLOR,URINE Dark (YELLOW); GLUCOSE, URINE (UA) Negative (NEGATIVE); KETONES,URINE 1+ (NEGATIVE); LEUKOCYTE ESTERASE ,URINE Trace (NEGATIVE); NITRITE,URINE Negative (NEGATIVE); PH,URINE 5.5 (5-9); PROTEIN,URINE 1+ (NEGATIVE); URINE, BLOOD 2+ (NEGATIVE)
[2021-09-13 16:58] LABS: BACTERIA,URINE 2+ (NOT PRESENT); URINE WBC, MICROSCOPIC 20-30 (0-2); YEAST,URINE TRACE (NOT PRESENT)
--- NOTE | 2021-09-13 17:06 | CT ---
EXAM: CT abdomen pelvis with and without contrast HISTORY: Weight loss and shortness of breath COMPARISON: CT abdomen pelvis 05/22/2019 TECHNIQUE: Serial axial images of the abdomen pelvis were performed before and after 100 mL is of Om nipaque IV contrast was administered. These were obtained from the lung bases through the inferior p rama. FINDINGS: The lung bases demonstrate small airways thickening in the lower lobes with consolidation in the right lower lobe and right middle lobe. The liver is unremarkable. The gallbladder is contracted. Adrenal glands are normal. The right kid tasneem is unremarkable. The left kidney demonstrates mild atrophy and cortical defects unchanged from p rior examination suggestive of prior infection or infarct. The spleen is unremarkable. Pancreas is unremarkable. The stomach is mildly distended. Small bowel in the abdomen pelvis is unremarkable. Urinary bladder is distended. Pelvic soft tissue s are unremarkable. There is severe calcific atherosclerotic disease. There is degenerative disease of the spine. IMPRESSION: 1. No acute intra-abdominal or pelvic process. 2. Consolidation in the right lung base suggestive of pneumonia. 3. No significant interval change. All CT scans are performed using dose optimization techniques as appropriate to the performed exam an d include at least one of the following: Automated exposure control, adjustment of the mA and/or kV according t o size, and the use of iterative reconstruction technique.
[2021-09-13] MEDS ORDERED: ZITHROMAX PO SCH (17:30)
[2021-09-13] MEDS ORDERED: ROCEPHIN 1 GM/50 ML D5W 1 GM/50 ML BAG IV SCH (17:30)
[2021-09-13] MEDS: K-DUR PO SCH (18:17)
[2021-09-13] MEDS: DUONEB NEB SCH (20:02)
[2021-09-13] MEDS ORDERED: DUONEB NEB SCH (22:00)
[2021-09-13] MEDS: PHENERGAN WITH CODEINE 6.25/10 MG/5 ML PO PRN (22:08)
[2021-09-13 22:55] LABS: CREATINE KINASE 58.6 U/L (30-135)
[2021-09-13 23:09] LABS: TROPONIN I < 0.012 ng/ml (0.0000-0.120)
[2021-09-14] MEDS: DUONEB NEB SCH ×3 (04:35→20:05)
[2021-09-14] MEDS: PHENERGAN WITH CODEINE 6.25/10 MG/5 ML PO PRN ×2 (04:57→20:42)
[2021-09-14 05:21] LABS: HEMATOCRIT 33.6 % (37.0-47.0); HEMOGLOBIN 10.7 g/dl (12.0-16.0); MEAN CORPUSCULAR HEMOGLOBIN 28.5 pg (27.0-31.0); MEAN CORPUSCULAR HGB CONC 31.8 (31.8-35.4); MEAN CORPUSCULAR VOLUME 89.6 fl (81.0-99.0); PLATELET COUNT 208 10^3/uL (140-440); RDW COEFFICIENT OF VARIATION 13.8 % (11.6-14.8); RED BLOOD COUNT 3.75 10^6/ul (4.20-5.40); WHITE BLOOD COUNT 4.94 K/ul (4.6-10.2)
[2021-09-14 05:32] LABS: ALANINE AMINOTRANSFERASE 19.3 U/L (0-35); ALBUMIN 3.72 g/dL (3.5-5.0); ASPARTATE AMINO TRANSFERASE 35.4 U/L (14-36); BILIRUBIN,TOTAL 0.33 mg/dL (0.2-1.3); BLOOD UREA NITROGEN 24.2 mg/dL (7-17); CALCIUM 9.17 mg/dL (8.4-10.2); CARBON DIOXIDE 25.1 mmol/L (22-30.0); CHLORIDE 107.4 mmol/L (98-107); CREATININE 0.88 mg/dL (0.60-1.30); GLUCOSE 209.7 mg/dL (74-106); POTASSIUM 4.32 mmol/L (3.5-5.1); TOTAL PROTEIN 6.79 g/dL (6.3-8.2)
[2021-09-14 05:37] LABS: ANISOCYTOSIS NOT PRESENT (NOT PRESENT)
[2021-09-14] MEDS: DECADRON IM SCH (08:52)
[2021-09-14] MEDS: SYMBICORT 160-4.5 MCG INHALER IH SCH ×2 (08:52→20:43)
[2021-09-14] MEDS: LIPITOR PO SCH (08:52)
[2021-09-14] MEDS: CARDIZEM PO SCH ×2 (08:52→20:41)
[2021-09-14] MEDS: COZAAR PO SCH (08:52)
[2021-09-14] MEDS: K-DUR PO SCH (08:52)
--- NOTE | 2021-09-14 14:37 | HP ---
DATE OF SERVICE: 09/13/21 REASON FOR HOSPITALIZATION/HISTORY OF PRESENT ILLNESS: The patient has lost 4 pounds since last week. Losing weight not eating or drinking much. She has lost 8 pounds since last visit. PAST MEDICAL HISTORY: Lung cancer PAST SURGICAL HISTORY: Hysterectomy Tonsils Lung surgery REVIEW OF SYSTEMS: CONSTITUTIONAL: No fever, Fatigue. HEENT: No sinus drainage, no sore throat. RESPIRATORY: Cough, no congestion. CARDIOVASCULAR: No atypical chest pain for coronary artery disease. No angina, CHF symptoms, palpitations or shortness of breath. GASTROINTESTINAL: No melena or abdominal pain. No GERD. GENITOURINARY: No hematuria, no prostatism, no polyuria. 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 MUSCULOSKELETAL: No osteoarthritis pain, no joint swelling. ENDOCRINE: No weight loss, no weight gain. SKIN: Not dry, no rash. PSYCHIATRIC: Not anxious, no depression, no suicidal thoughts, no homicidal thoughts. SOCIAL HISTORY: Marital Status: Alcohol Usage: Occasional. Tobacco Usage: No. FAMILY HISTORY: Father age 70 Mother age 70 Brother 1 MEDICATIONS: Lipitor 20mg Albuterol inhaler PRN NEB treatment PRN Cozaar 50mg daily Diltiazem 60mg BID Ativan 0.5mg BID Symbicort 160/4.5mg BID Ultram 50mg PO daily ALLERGIES: No known allergies PHYSICAL EXAMINATION: V/S: Pulse 122, blood pressure 138/84, temperature 98.8, oxygen saturation 95%., BMI 16.9, height 4'9 and weight 78.2. GENERAL APPEARANCE: Oriented times three. HEENT: pale. Dry mucus membranes NECK: No JVP, no bruits. RESPIRATORY: Severely decreased breath sounds. Rhonchi bilateral upper lobe CARDIOVASCULAR: S1, S2, no S3, no murmur. Tachy. No cyanosis, clubbing. No ascites. GI/ABDOMEN: No tenderness. Bowel sounds are active. EXTREMITIES: edema, pulses +1, equal. 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 RECTAL: Colonoscopy refused. /PELVIC: Mammogram refused. ASSESSMENT: 1. Weight loss 2. Sinus tachycardia 3. Shortness of breath 4. Acute bronchitis 5. Chronic anemia 6. History of recurrent pneumonia 7. Carpal tunnel syndrome bilateral 8. Insomnia 9. Dyslipidemia 10.Right cancer of lung -Dr. Haro, status post lobectomy 2016, right 11.End stage COPD 12.Smoker 13.Hypertension 14.History of pleurisy 15.Chronic bronchitis 16.Left lung nodule. PLAN: 1. The patient to be tested in drive thru 2. Routine telemetry orders 3. CBC and CMP now and daily 4. Normal saline IV at 75 cc times [address] abdomen and pevlis with and without 6. ABG on room air 7. U/A with culture 8. Lipids, T4, TSH and A1c 9. Restart Cardizem 60mg PO BID 10.Continue home medications 11.Chest x-ray 12. Regular diet 13.Oxygen 1-2 liters nasal canula 14.1cc Decadron IM times one. TIME SPENT: More than 70 minutes. MTDD
--- NOTE | 2021-09-14 14:48 | US ---
EXAM: Ultrasound bilateral carotid duplex HISTORY: Weakness and dizziness COMPARISON: Carotid Doppler 05/26/2019 TECHNIQUE: Sonographic and color Doppler evaluation of the carotids were performed. FINDINGS: The right carotid is patent in appearance with scattered atherosclerotic plaque visualized. The right ICA peak systolic velocity measures 114 cm/sec which is normal. The ICA / CCA peak systolic velocity ratio is 1.9 and ICA end-diastolic velocity is 20 cm/sec. The left carotid is patent in appearance with mild scattered atherosclerotic plaque visualized. The left ICA peak systolic velocity measures 92 cm/sec which is normal. The left ICA / CCA peak systolic velocity ratio is 0.9 and ICA end-diastolic velocity is 26 cm/sec. Vertebral arteries demonstrate antegrade flow bilaterally. Color Doppler and wave spectral evaluation are unremarkable. IMPRESSION: Bilateral calcific atherosclerotic disease with velocities within normal limits. There is no evidenc e of stenosis.
[2021-09-14] MEDS ORDERED: ROCEPHIN 1 GM/50 ML D5W 1 GM/50 ML BAG IV SCH (21:00)
[2021-09-14] MEDS ORDERED: ZITHROMAX PO SCH (21:00)
[2021-09-15] MEDS: DUONEB NEB SCH (04:50)
[2021-09-15 05:06] VITALS: BP 130/72; TEMP 97.8
[2021-09-15 05:27] LABS: HEMATOCRIT 32.5 % (37.0-47.0); HEMOGLOBIN 10.4 g/dl (12.0-16.0); MEAN CORPUSCULAR HEMOGLOBIN 28.6 pg (27.0-31.0); MEAN CORPUSCULAR VOLUME 89.3 fl (81.0-99.0); PLATELET COUNT 276 10^3/uL (140-440); RDW COEFFICIENT OF VARIATION 14.1 % (11.6-14.8); RED BLOOD COUNT 3.64 10^6/ul (4.20-5.40); WHITE BLOOD COUNT 12.65 K/ul (4.6-10.2)
[2021-09-15 05:43] LABS: ANISOCYTOSIS NOT PRESENT (NOT PRESENT)
[2021-09-15 05:48] LABS: ALANINE AMINOTRANSFERASE 26.6 U/L (0-35); ALBUMIN 3.37 g/dL (3.5-5.0); ASPARTATE AMINO TRANSFERASE 50.4 U/L (14-36); BILIRUBIN,TOTAL 0.23 mg/dL (0.2-1.3); BLOOD UREA NITROGEN 28.9 mg/dL (7-17); CALCIUM 9.64 mg/dL (8.4-10.2); CARBON DIOXIDE 25.3 mmol/L (22-30.0); CHLORIDE 109.1 mmol/L (98-107); CREATININE 0.91 mg/dL (0.60-1.30); GLUCOSE 172.3 mg/dL (74-106); POTASSIUM 4.28 mmol/L (3.5-5.1); SODIUM 142.3 mmol/L (134.5-145); TOTAL PROTEIN 6.2 g/dL (6.3-8.2)
[2021-09-15 08:23] LABS: CHOLESTEROL 109.9 mg/dL (0-200); HDL CHOLESTEROL 41.6 mg/dL (35-80); TRIGLYCERIDES 82.2 mg/dL (0-150)
--- NOTE | 2021-09-15 09:09 | PCM.PROG ---
Attending Provider: ATTENDING PROVIDER: Dr. SIMONE TEIXEIRA This patient is seen with Brandi Nolasco, Nurse Practitioner. DATE OF SERVICE: 09/15/21 SUBJECTIVE: This 70 year old /WHITE F was hospitalized 09/13/21. The patient states she wants to go home today, feeling much better. Eating well. Cough and wheezing is better. Heart rate improved once restarted on medications. She has a long history of noncompliance and heavy smoker. 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 CT of abdomen was normal. REVIEW OF SYSTEMS: CONSTITUTIONAL: No night sweats. No fatigue, malaise, lethargy. No fever or chills. HEENT: Eyes: No visual changes. No eye pain. No eye discharge. ENT: No runny nose. No epistaxis. No sinus pain. No odynophagia. No congestion. RESPIRATORY: Cough, no congestion. No hemoptysis. Shortness of breath. CARDIOVASCULAR: No angina symptoms. No CHF symptoms. No atypical chest pain for CAD. No palpitations. No orthopnea.. GASTROINTESTINAL: No abdominal pain. No nausea or vomiting. No diarrhea or constipation. No hematemesis. No hematochezia. GENITOURINARY: No urgency. No frequency. No dysuria. No hematuria. No obstructive symptoms. No discharge. No pain. No significant abnormal bleeding. MUSCULOSKELETAL: No musculoskeletal pain; no joint swelling. NEUROLOGICAL: Awake, alert, oriented to time, place and person. No headache. No neck pain. No syncope. No seizures. No dizziness. PSYCHIATRIC: Not anxious. No depression. No suicidal thoughts. No homicidal thoughts. SKIN: No rash. No lesions. No wounds. ENDOCRINE: No unexplained weight loss. No weight gain. HEMATOLOGIC/LYMPHATIC: No anemia. No purpura. No petechiae. No prolonged or excessive bleeding. No palpable lymph nodes. PHYSICAL EXAMINATION: GENERAL: The patient is awake, alert and oriented, sitting in bed in no distress. VITAL SIGNS: Temperature 97.8 F, Pulse 92, Respiratory Rate 18, BP 130/72, Pulse Ox 94% HEENT: Head normocephalic, atraumatic. Eyes: Extraocular muscles are intact. Pupils are equal, round and reactive to light and accommodation. Ears: No lesions. Nose appeared normal. Throat: No exudate or erythema. NECK: Supple. No JVD, no carotid bruit. No lymphadenopathy or thyromegaly. LUNGS: Diminished breath sounds. Clear to auscultation. Percussion note normal. Chest symmetrical. HEART: S1, S2, no S3. No murmurs. No cyanosis or clubbing. No ascites. Pulses: Dorsalis pedis and posterior tibial pulses +1 to +2 both sides. ABDOMEN: Soft. Non-tender. Bowel sounds active. No CVA tenderness. No mass felt. EXTREMITIES: No edema. Full range of motion of all extremities, equal. NEUROLOGIC: No focal deficit. Cranial nerves II through XII are grossly intact. No headache. No double vision. SKIN: Not dry. Intact. Turgor-normal. LYMPHATIC: No palpable lymph nodes/no lymphedema. MUSCULOSKELETAL: Normal joints with no swelling. Muscle tone is normal. LAB REVIEW: 09/15/21 05:03 09/15/21 05:03 09/15/21 05:03: Sodium 142.3, Potassium 4.28, Chloride 109.1 H, Carbon Dioxide 25.3, Anion Gap 12.18, BUN 28.9 H, Creatinine 0.91, Estimated GFR (MDRD) 61.00, BUN/Creatinine Ratio 31.75, Glucose 172.3 H, Calcium 9.64, Total Bilirubin 0.23, AST 50.4 H, ALT 26.6, Alkaline Phosphatase 125.0, Total Protein 6.20 L, Albumin 3.37 L, Globulin 2.83, Albumin/Globulin Ratio 1.19 09/15/21 05:03: WBC 12.65 H D, RBC 3.64 L, Hgb 10.4 L, Hct 32.5 L, MCV 89.3, MCH 28.6, MCHC 32.0, RDW Coeff of Felipe 14.1, Plt Count 276 D, Neutrophils % (Manual) 80.0 H, Lymphocytes % (Manual) 11.0, Monocytes % (Manual) 9.0, Anisocytosis Not present ASSESSMENT: Please see below. 1. Acute right pneumonia 2. Severe end stage COPD 3. History of lung cancer 4. Sinus tachycardia 5. Hypertension 6. Weight loss 7. Noncompliance with medication, followup and recommendations. PLAN: 1. Lipid panel 2. T4 TSH 3. Discharge home this afternoon 4. Last dose of Zithromax before discharge 5. Omnicef 300mg BID for 10 days 6. Prednisone 10mg BID for 5 days 7. Continue Cardizem and Losartan 8. Codeine Cough syrup one tsp Q 6 hours 9. 2D echo 10.Followup in the office next week. Plan and coordination of the patient's care discussed in the presence of Patient Registration Representative and nurse. SCRIBED BY: TAMEKA JOHNSON Asphalt Mixer scribed while in presence of service performed by Dr. Teixeira/Brandi Nolasco APRN on 09/15/21 ([id number])
[2021-09-15] MEDS: SYMBICORT 160-4.5 MCG INHALER IH SCH (09:19)
[2021-09-15] MEDS: LIPITOR PO SCH (09:20)
[2021-09-15] MEDS: K-DUR PO SCH (09:20)
[2021-09-15] MEDS: DECADRON IM SCH (09:20)
[2021-09-15] MEDS: COZAAR PO SCH (09:20)
[2021-09-15] MEDS: CARDIZEM PO SCH (09:20)
[2021-09-15] MEDS ORDERED: ZITHROMAX PO SCH (12:00)
--- NOTE | 2021-09-19 10:21 | ECHO2D ---
Date of Exam: 09/15/2021 Ordering Physician: DR. SIMONE TEIXEIRA Room #: [id number] Reason for Echo: COPD, CAD, SOB, TACHYCARDIA M-Mode Normal Adult Results LV Dimensions Normal Adult Results AoV Opening excursions >1.6 >1.6 LVEDD-base- 3.5-5.8 3.8 Ao root dimensions 2.0-3.7 3.1 LVESD-base- 3.1-4.6 L. Atrium dimensions 1.9-3.8 3.3 Post. Wall thickness 0.8-1.1 1.0 IV septum (thickness) 0.7-1.2 0.9 Post. Wall excursion 0.72-1.3 NORMAL Septal motion NORMAL Systolic motion R. Ventricular cavity 1.5-2.0 3.5 LVEF 60% 67% Paradoxical septal wall motion NORMAL 2-D : 2-D M Mode Echocardiogram was performed using apical four chamber and left parasternal long and short axis views. Mitral, tricuspid and aortic valves appear to be normal. Contractility of the left ventricle seems to be normal, so is the cavity size. Left atrial cavity size and aortic root appear to be normal. There is no pericardial effusion. There is no thrombus noted in the left ventricle or left atrial cavity. ENLARGED RIGHT VENTRICLE CAVITY M-MODE: MV: NORMAL AV: NORMAL TV: NORMAL PV: CHAMBER SIZE: ENLARGED RIGHT VENTRICLE CAVITY WALL MOTION: NORMAL PERICARDIUM: NORMAL INTERPRETATION: 1. ENLARGED RIGHT VENTRICLE CAVITY 2. NORMAL VALVES 3. NORMAL LEFT VENTRICLE CONTRACTILITY MTDD
--- NOTE | 2021-09-21 13:44 | PN ---
DATE OF SERVICE: 09/13/21 SUBJECTIVE: 70 year old white female hospitalized with weight loss. The daughter called me on 09/12/21 reporting weight loss and what pulmonary physician at [facility] had recommended that the patient needs to have a workup for weight loss. Advised the daughter to bring the patient in the morning at 10:30 in the office. After being examined by Nurse Practitioner the patient has been hospitalized. She has continued to smoke. Counseling for smoking done. The patient's chest x-ray was reported as unchanged with possibility of atelectasis or pneumonia. Considering the patient's symptoms and not having any cough, fever or chills the patient likely has Atelectasis. She will undergo CT scan of the abdomen and pelvis. In the evening when I checked the patient. The patient was feeling already better. The patient is going to be treated for bronchitis and chronic lung disease. She will be worked up for malignancy. Discussed the case with the daughter. TIME SPENT: More than 30 minutes. Plan and coordination of the patient's care discussed in the presence of nurse. GERSON
--- NOTE | 2021-10-06 10:16 | PN ---
DATE OF SERVICE: 09/14/21 SUBJECTIVE: 70 year old white female hospitalized with weight loss and sinus tachycardia and shortness of breath. The patient's condition seems to have improved. She says that she is feeling a lot better. Coughing much less, no hemoptysis. REVIEW OF SYSTEMS: CONSTITUTIONAL: No night sweats. No fatigue, malaise, lethargy. No fever or chills. HEENT: Eyes: No visual changes. No eye pain. No eye discharge. ENT: No runny nose. No epistaxis. No sinus pain. No sore throat. No odynophagia. No congestion. RESPIRATORY: No cough, no congestion. No hemoptysis. No shortness of breath. CARDIOVASCULAR: No angina symptoms. No CHF symptoms. No atypical chest pain for CAD. No palpitations. No PND. No orthopnea. GASTROINTESTINAL: No abdominal pain. No nausea or vomiting. No diarrhea or constipation. No hematemesis. No hematochezia. Appetite has improved. GENITOURINARY: No urgency. No frequency. No dysuria. No hematuria. No obstructive symptoms. No discharge. No pain. No significant abnormal bleeding. MUSCULOSKELETAL: No musculoskeletal pain; no joint swelling. NEUROLOGICAL: No headache. No neck pain. No syncope. No seizures. No dizziness. PSYCHIATRIC: Not anxious. No depression. No suicidal thoughts. No homicidal thoughts. SKIN: No rash. No lesions. No wounds. ENDOCRINE: No unexplained weight loss. No weight gain. HEMATOLOGIC/LYMPHATIC: No anemia. No purpura. No petechiae. No prolonged or excessive bleeding. No palpable lymph nodes. PHYSICAL EXAMINATION: VITAL SIGNS:Temperature 97.7, pulse 80, respiratory rate 20, blood pressure 120/50 and pulse ox 94% on room air. HEENT: Head normocephalic, atraumatic. Eyes: Extraocular muscles are intact. Pupils are equal, round and reactive to light and accommodation. Ears: No lesions. Nose appeared normal. Throat: No exudate or erythema. NECK: Supple. No JVD, no carotid bruit. No lymphadenopathy or thyromegaly. LUNGS: Decreased breath sounds but clear to auscultation. Percussion note normal. Chest symmetrical. HEART: S1, S2, no S3. No murmurs. No cyanosis or clubbing. No ascites. Pulses: Dorsalis pedis and posterior tibial pulses +1 to +2 bilaterally. ABDOMEN: Soft. Nontender. Bowel sounds active. No CVA tenderness. No mass felt. EXTREMITIES: No edema. Full range of motion of all extremities, equal. NEUROLOGIC: No focal deficit. Cranial nerves II through XII are grossly intact. No headache. No double vision. SKIN: Not dry. Intact. Turgor - normal. LYMPHATIC: No palpable lymph nodes/no lymphedema. MUSCULOSKELETAL: Normal joints with no swelling. Muscle tone is normal. LABS: Hgb 10.7, hct 33, WBC 4,900 normal differential, creatinine 0.8, BUN 24, potassium 4.3. CT scan of the abdomen was unremarkable. Chest x-ray was unchanged from 2019. ASSESSMENT: 1. Acute bronchitis/COPD exacerbation 2. Severe chronic lung disease 3. Weight loss likely from heavy smoking, poor lifestyle PLAN: 1. Advised to continue steroids, NEBS and antibiotics. 2. Advised the patient to quit smoking 3. May do an echocardiogram to evaluate LV function. 4. Blood gasses on room air were acceptable with pO2 70, pCO2 35, pH 7.44 with 94% saturation on room on 09/13/21. TIME SPENT: More than 30 minutes. Plan and coordination of the patient's care discussed in the presence of nurse. GERSON
--- NOTE | 2021-10-06 11:16 | PN ---
DATE OF SERVICE: 09/15/21 SUBJECTIVE: The patient was seen and examined with the Nurse Practitioner. The patient's condition is stable. She is up and about and appetite has improved. She looks a lot better. Echocardiogram revealed normal LV contractility and enlarged RV cavity unchanged from the one that done 2-3 years ago. The patient's problems is she is just heavy smoker and ignored to eat. BMI is 17 strongly advised to build up her body weight. Counseling for smoking done. The patient is discharged home in stable condition. TIME SPENT: More than 30 minutes. Plan and coordination of the patient's care discussed in the presence of nurse. GERSON
--- NOTE | 2021-10-06 11:27 | DS ---
DATE OF SERVICE: 09/15/21 FINAL DIAGNOSIS: 1. Weight loss 2. Malnutrition 3. Dehydration etiology likely gastritis from multiple factors like smoking, non-steroidal inflammatory 4. Acute bronchitis with pneumonitis 5. Severe chronic lung disease with chronic bronchitis 6. Chronic anemia 7. History of C of the lung 8. Hypertension DISCHARGE INSTRUCTIONS: Discharge home. Advised to continue pain medications. Strongly advised to quit smoking. Followup with Dr. Carr pulmonary physician at [place]. Will follow her glucose through her records was given steroids. Hyperglycemia could be secondary to that. Instruction to come back in 5-7 days. MEDICATIONS AT DISCHARGE: Atorvastatin Symbicort ProAir HFA NEW PRESCRIPTIONS: Prednisone 20mg daily for 5 days Losartan 50mg PO daily Cardizem 60mg PO twice a day ACTIVITY: Increase activity as tolerated with frequent rest periods as needed. SMOKING: Counseling for smoking done. LABS: Hgb 10.4, hct 32, WBC 12,000 normal differential, creatinine 0.9, BUN 28, potassium 4.2, SARS negative. Troponin negative. GFR more than 60cc per minute. ABG pO2 70, pCO2 35, PH 7.44, 94% saturation on room air. Glucose 191. HOSPITAL COURSE: 70 year old white female was hospitalized with acute bronchitis, COPD and shortness of breath, sinus tachycardia and hypertension, weight loss of 20 pounds in past 2-3 months. The patient's main problem is heavy smoking and just ignoring to eat with more like gastritis type of symptoms. The patient was treated with IV antibiotics, steroids and NEBS treatments. The patient's condition improved. Her dehydration status improved. She was counseled for smoking. Chest x-ray is more or less negative except for severe emphysema. The patient is being followed by pulmonary physician. She was discharged to be followed as an outpatient. CONDITION: Stable TIME SPENT: More than 60 minutes. MTDD
--- NOTE | 2021-10-06 11:28 | PN ---
09/13/21: Level 5 09/14/21: Intermediate 09/15/21: D as in discharge. MTDD
== END 2021-09-15 13:30 | disposition home or self-care (01) ==
LOC: LAB 11:24 → MEDSURG A 14:28 → INTOOBSV 14:28
PROVIDERS: ADMIT Internal Medicine; ATTEND Internal Medicine
DX: I10 Essential (primary) hypertension; R63.4 Abnormal weight loss; J68.0 Bronchitis and pneumonitis due to chemicals, gases, fumes and vapors; J20.9 Acute bronchitis, unspecified; Z20.822 Contact with and (suspected) exposure to COVID-19; Z79.899 Other long term (current) drug therapy; E86.0 Dehydration; D63.8 Anemia in other chronic diseases classified elsewhere; Z91.19 Patient's noncompliance with other medical treatment and regimen; Z85.118 Personal history of other malignant neoplasm of bronchus and lung; Z51.81 Encounter for therapeutic drug level monitoring; R06.02 Shortness of breath; R00.0 Tachycardia, unspecified; E46 Unspecified protein-calorie malnutrition; Z91.14 Patient's other noncompliance with medication regimen

== ENCOUNTER 2022-11-09 09:12 | Inpatient (IN) ==
[2022-11-09 09:22] VITALS: BMI 15.1
[2022-11-09] MEDS ORDERED: DUONEB NEB ONE (09:50)
[2022-11-09] MEDS: SODIUM CHLORIDE 1,000 ML IV STA ×2 (10:05→12:33)
--- NOTE | 2022-11-09 10:06 | ED.PDOC ---
General ED Provider: Dr. KATY SU MD Chief Complaint: Shortness of Air Stated Complaint: This is a 72 y.o. wf with h/o lung CA s/p right lobectomy and radiation and continues to smoke 1 ppd (x >60 years) with increased SOB, cough, weakness x 1 week. Time Seen by Provider: 11/09/22 09:30 Mode of Arrival: Walk-In Information Source: Patient and Family Exam Limitations: Other (the pt. is a poor historian and the family also do not provide very accurate / detailed information on her past lung cancer or cardiac workup.) Primary Care Provider: SIMONE WADE MD Nursing and Triage Documentation Reviewed and Agree: Yes Does patient meet sepsis criteria?: Yes If yes, has appropriate treatment been initiated?: Yes System Inflammatory Response Syndrome: Pulse >90 BPM and Resp >20/Minute Sepsis Protocol: For patient's 13 years and over: Temp is 96.8 and below OR 101 and greater Pulse >90 BPM Resp >20/minute Acutely Altered Mental Status Are patient's symptoms suggestive of a new infection, such as: -Pneumonia (YES) -Skin, Soft Tissue -Endocarditis -UTI -Bone, Joint Infection -Implantable Device -Acute Abdominal Infection -Wound Infection -Meningitis -Blood Stream Catheter Infection -Unknown Respiratory Complaint Exam Shortness of Air Complaint/Exam Symptoms Are: Still present Timing: Constant Initial Severity: Moderate Current Severity: Moderate Character: Reports Dyspnea at rest Aggravating: Reports None Alleviating: Reports None Associated Signs and Symptoms: Reports Cough; Denies Chest pain with cough, Fever, Chills, Diaphoresis, Nasal congestion, Dizziness, Calf pain, Calf swelling, Edema or Decreased intake Related History: Denies Allergic reaction, Recent trauma or Obesity History of Healthcare-Acquired Pneumonia: No Pulmonary Embolism Risk Factors: Reports Malignancy and Smoking Cardiac Risk Factors: Reports CAD, Smoking and Elevated lipids Pseudomonas Risk Factors: Reports Chronic Lung Disease Tuberculosis Risk Factors: Reports Smoking Home Oxygen Use: No Recent Stress Test: No Recent Echo/LV Function: No Respiratory Distress: None Stridor Present: No Tracheal Deviation: No Subcutaneous Emphysema: No Accessory Muscle Use: No Retractions: Not Present Diminished Breath Sounds: No Prolonged Expiratory Phase: No Unable to Speak Full Sentences: No Fatigue: Yes Leg Swelling: No Lisa's Sign Present: No Grunting Respirations: No Kussmaul Respirations: No Differential Diagnoses: Asthma, CHF, Pulmonary Edema, COPD Exacerbation, PA, Pneumonia, Pneumothorax, Pulmonary Embolism, SARS, Bronchitis, Bronchiolitis, RSV, Bronchospasm, GERD, Laryngospasm, Mycoplasma, Pertussis, URI and Other Quality Indicators for AMI: EKG in 10min. Quality Indicators for Cardiac Chest Pain: EKG in 10min. Quality Indicator For Non-Traumatic Chest Pain/Syncope: EKG Performed Quality Indicators For Pneumonia/CAP: Blood Cultures-SCU admit, SpO2 assessed, Vital signs and Mental status assessed Related Surgical History: Denies CABG, Valve Replacement, Pacemaker, Defibrillator, Dialysis, Renal Failure, Thoracotomy, Pneumothorax or Tracheos jack Review of Systems Review Of Systems Constitutional: Reports Weakness; Denies Chills, Diaphoresis, Fever, Sweats or Loss of appetite Eyes: Reports No symptoms Ears, Nose, Mouth, Throat: Reports No symptoms Respiratory: Reports Cough and Shortness of Breath; Denies Stridor or Wheezing Cardiac: Reports No symptoms GI: Reports No symptoms : Reports No symptoms Musculoskeletal: Reports No symptoms Skin: Reports No symptoms Neurological: Reports No symptoms Endocrine: Reports Unexplained weight loss (family reports that the pt. has an approximate 5 lbs weight loss in the past one week.) Hematologic/Lymphatic: Reports No symptoms All Other Systems: Reviewed and Negative [facility] Medical History Chronic bronchitis J42 - Unspecified chronic bronchitis (ICD-10) History of pleurisy Z87.09 - Personal history of other diseases of the respiratory system (ICD- 10) Recurrent pneumonia J18.9 - Pneumonia, unspecified organism (ICD-10) Family History Mother No problems noted. FATHER No problems noted. Other COPD (chronic obstructive pulmonary disease) Cancer Social History Smoking and tobacco status: Current every day smoker Tobacco type: cigarettes Tobacco: How many years used: 60 Quit status: not considering quitting Alcohol intake: never Substance use type: does not use Special miquel needs: No Agree to transfusion: Yes Adopted: No Caregiver/support person: No Foster care: No Household members: other Housing: house Marital status: D Lives independently: Yes Number of children: 7 service: No senior living: No Current occupational status: retired Do you think of yourself as: straight/heterosexual Current gender identity: female Seatbelt use: always Drives intoxicated or rides with intoxicated otr flatbed driver: No Water heater temperature set < 120 degrees: Yes Working smoke detector in home: Yes Fire extinguisher in home: Yes Carbon monoxide detector in home: Yes Surgical History (Updated 07/11/22 @ 14:00 by DANNIE ROSADO APRN) History of lung surgery Z98.890 - Other specified postprocedural states (ICD-10) S/p bilateral carpal tunnel release Z98.890 - Other specified postprocedural states (ICD-10) Status post hysterectomy Z90.710 - Acquired absence of both cervix and uterus (ICD-10) Status post tonsillectomy Z90.89 - Acquired absence of other organs (ICD-10) Status post tonsillectomy and adenoidectomy Z90.89 - Acquired absence of other organs (ICD-10) Female Reproductive History Menstrual Hx Hysterectomy: No Hx Tubal Ligation: No Physical Exam Physical Exam Appearance: Reports Ill-appearing and Cachectic Ill-appearing: Mild Pain Distress: None Eyes: Reports KAREN, EOMI and Conjunctiva clear ENT: Reports Not Examined Neck: Supple Respiratory: Reports Airway patent, Breath sounds clear, Breath sounds equal and Respirations nonlabored; Denies Crackles, Rhonchi, Wheezes or Retractions Cardiovascular: Reports Pulses normal, No murmur and Tachycardia; Denies Ir regular rhythm GI/: Reports Soft, Nontender and Bowel sounds normal Musculoskeletal: Reports Not Examined Skin: Reports Warm, Dry and Normal color; Denies Pale, Diaphoretic or Cyanotic Neurological: Reports Sensation intact, Motor intact, Alert and Oriented; Denies Focal Deficit Psychiatric: Reports Affect appropriate Physician Notification Case Discussed Physician Notified: Dr. Wade Time of Notification: 13:40 Comments: discussed pt. with Dr. Wade. He wants an ABG and clarify her DNR status, then call back. Physician Notified: Dr. Wade Time of Notification: 14:05 Comments: discussed with pt. he prefers to have hospitalist admit. Endorsed To/Discussed With: Dhruv SANTOYO) Time of Discussion: 14:30 Admit/Transition Orders Entered by ED Provider: Yes Critical Care Note Critical Care Note Total Critical Care Time (mins): 0 Course Course 11/09/22 10:10 11/09/22 10:10 Orders, Labs, Meds: Lab Review 11/09/22 11/09/22 11/09/22 09:52 10:10 10:27 WBC 19.95 H RBC 4.26 Hgb 12.3 Hct 39.4 MCV 92.5 MCH 28.9 MCHC 31.2 L RDW Coeff of Felipe 14.6 Plt Count 380 Immature Gran % (Auto) 0.9 Neut % (Auto) 90.0 H Lymph % (Auto) 3.7 L [place] % (Auto) 5.2 Eos % (Auto) 0.0 Baso % (Auto) 0.2 Neut # (Auto) 18.0 H Lymph # (Auto) 0.7 [place] # (Auto) 1.0 Eos # (Auto) 0.0 Baso # (Auto) 0.0 Immature Gran # (Auto) 0.2 Puncture Site Base Excess O2 Saturation ABG pH ABG pCO2 ABG pO2 ABG HCO3 ABG Total CO2 Mat Test Hemoglobin Oxyhemoglobin Carboxyhemoglobin Total Hemoglobin O2 Delivery Device FiO2 % Sodium 140.3 Potassium 3.47 L Chloride 107.1 H Carbon Dioxide 28.7 Anion Gap 7.97 BUN 14.0 Creatinine 0.78 Estimated GFR (MDRD) 72.00 BUN/Creatinine Ratio 17.94 Glucose 128.7 H Lactic Acid 1.60 Calcium 8.47 Total Bilirubin 0.51 AST 26.2 ALT 21.2 Alkaline Phosphatase 110.9 Troponin I < 0.012 NT-Pro-B Natriuret Pep 1070 H Total Protein 6.67 Albumin 3.59 Globulin 3.08 Albumin/Globulin Ratio 1.16 Procalcitonin 0.08 D-Dimer 3288.07 H Urine Color Urine Clarity Urine pH Ur Specific [place] Urine Protein Urine Glucose (UA) Urine Ketones Urine Blood Urine Nitrite Urine Bilirubin Urine Urobilinogen Ur Leukocyte Esterase Urine Microscopic RBC Urine Microscopic WBC Ur Squamous Epith Cells Calcium Oxalate Crystal Urine Bacteria Urine Mucus Influ A Molecular Assay Negative by naat Influ B Molecular Assay Negative by naat SARS CoV-2 RNA Rapid PAT Negative 11/09/22 11/09/22 11:18 13:46 WBC RBC Hgb Hct MCV MCH MCHC RDW Coeff of Felipe Plt Count Immature Gran % (Auto) Neut % (Auto) Lymph % (Auto) [place] % (Auto) Eos % (Auto) Baso % (Auto) Neut # (Auto) Lymph # (Auto) [place] # (Auto) Eos # (Auto) Baso # (Auto) Immature Gran # (Auto) Puncture Site Rbrch Base Excess -0.7 O2 Saturation 93.1 L ABG pH 7.51 H* ABG pCO2 28.0 L ABG pO2 60.0 L ABG HCO3 22.3 ABG Total CO2 23.2 Mat Test + Hemoglobin 1.1 Oxyhemoglobin 91.9 L Carboxyhemoglobin 2.2 H Total Hemoglobin 11.6 L O2 Delivery Device Ra FiO2 % 21.0 Sodium Potassium Chloride Carbon Dioxide Anion Gap BUN Creatinine Estimated GFR (MDRD) BUN/Creatinine Ratio Glucose Lactic Acid Calcium Total Bilirubin AST ALT Alkaline Phosphatase Troponin I NT-Pro-B Natriuret Pep Total Protein Albumin Globulin Albumin/Globulin Ratio Procalcitonin D-Dimer Urine Color Yellow Urine Clarity Clear Urine pH 7.0 Ur Specific [place] 1.015 Urine Protein Trace H Urine Glucose (UA) Negative Urine Ketones Negative Urine Blood Negative Urine Nitrite Negative Urine Bilirubin Negative Urine Urobilinogen 1.0 H Ur Leukocyte Esterase Trace H Urine Microscopic RBC 0-2 Urine Microscopic WBC 2-5 Ur Squamous Epith Cells 30-50 Calcium Oxalate Crystal 1+ Urine Bacteria Trace Urine Mucus Trace Influ A Molecular Assay Influ B Molecular Assay SARS CoV-2 RNA Rapid PAT Orders Category Date Time Status PLACE PATIENT OBSERVATION .TO MEDSURG (MONITORED BED ADMISSION 11/09/22 14:30 Active ) ABG DRAW REQUEST Stat CARDIO 11/09/22 13:32 Ordered EKG-(ED ONLY) Stat CARDIO 11/09/22 09:50 Completed ACTIVITY .Early Mobilization for VTE Prevention CARE 11/09/22 14:30 Active INTAKE & OUTPUT Q8HR CARE 11/09/22 14:30 Active NPO REMINDER: IMAGING ONCE CARE 11/09/22 11:44 Completed TELEMETRY MONITORING TELE CARE 11/09/22 14:30 Active VITAL SIGNS Q8HR CARE 11/09/22 14:30 Active REGULAR DIET DIETARY 11/09/22 Dinner Ordered REGULAR DIET DIETARY 11/09/22 Dinner Ordered ABG COOX Stat LAB 11/09/22 13:46 Completed BLOOD CULTURE Stat LAB 11/09/22 09:51 Ordered CBC W/ AUTO DIFF DAILY@0600 LAB 11/10/22 06:00 Ordered CBC W/ AUTO DIFF DAILY@0600 LAB 11/11/22 06:00 Ordered CBC W/ AUTO DIFF Stat LAB 11/09/22 10:10 Completed CMP [COMPREHENSIVE METABOLIC PANEL] Stat LAB 11/09/22 10:10 Completed COMPREHENSIVE METABOLIC PANEL DAILY@0600 LAB 11/10/22 06:00 Ordered COMPREHENSIVE METABOLIC PANEL DAILY@0600 LAB 11/11/22 06:00 Ordered COVID [SARS COV-2 RNA RAPID PAT] Stat LAB 11/09/22 10:27 Completed D-DIMER Stat LAB 11/09/22 10:10 Completed FLU A & B MOLECULAR [FLU A/B MOLECULAR] Stat LAB 11/09/22 10:27 Completed LACTIC ACID Stat LAB 11/09/22 09:52 Completed NT-PROBNP Stat LAB 11/09/22 10:10 Completed PROCALCITONIN Stat LAB 11/09/22 10:10 Completed SPUTUM CULTURE Stat LAB 11/09/22 11:46 Uncollected TROPONIN I Stat LAB 11/09/22 10:10 Completed URINALYSIS C & S IF INDICATED Stat LAB 11/09/22 11:18 Completed Acetaminophen [Tylenol] Meds 11/09/22 14:30 Ordered 650 mg PO Q4H PRN Azithromycin Inj [Zithromax] 500 mg Meds 11/09/22 11:44 Discontinued 0.9 % Sodium Chloride [Sodium Chloride] 250 ml IV ONCE Ceftriaxone/D5w 1 gm Premix [Rocephin 1 gm/50 ml D5w] Meds 11/09/22 11:44 Discontinued 1 gm in 50 ml IV ONCE Enoxaparin Sodium [Lovenox] Meds 11/09/22 13:24 Discontinued 40 mg SUBCUT ONCE ONE Ipratropium/Albuterol Neb [Duoneb] Meds 11/09/22 09:50 Discontinued 3 ml NEB ONCE ONE Potassium Chloride [K-Dur] Meds 11/09/22 10:59 Discontinued 40 meq PO ONCE ONE Sodium Chloride 0.9% [Sodium Chloride] 1,000 ml Meds 11/09/22 09:50 Discontinued IV BOLUS CHEST, 2 VIEWS PA & LAT Stat RADS 11/09/22 09:50 Completed CTA CHEST PE PROTOCOL Stat RADS 11/09/22 11:44 Ordered Medications Generic Name Dose Route Start Last Admin Trade Name Freq PRN Reason Stop Dose Admin Acetaminophen 650 mg 11/09/22 14:30 Acetaminophen 325 Mg Tablet PO Q4H PRN Mild Pain Discontinued Medications Generic Name Dose Route Start Last Admin Trade Name Sophia PRN Reason Stop Dose Admin Albuterol/Ipratropium 3 ml 11/09/22 09:50 11/09/22 10:16 Ipratropium/Albuterol Vial.Neb NEB 11/09/22 09:51 3 ml ONCE ONE Administration Enoxaparin Sodium 40 mg 11/09/22 13:24 11/09/22 14:10 Enoxaparin Sodium 40 Mg/0.4 Ml Syr SUBCUT 11/09/22 13:25 40 mg ONCE ONE Administration Sodium Chloride 1,000 mls @ 1,000 mls/hr 11/09/22 09:50 11/09/22 12:33 Sodium Chloride IV 11/09/22 10:49 100 mls/hr BOLUS STA Administration Azithromycin 500 mg/ Sodium 250 mls @ 125 mls/hr 11/09/22 11:44 11/09/22 11:55 Chloride IV 11/09/22 13:43 125 mls/hr ONCE STA Administration CEFTRIAXONE/D5W 1 GM PREMIX 1 gm in 50 mls @ 75 mls/hr 11/09/22 11:44 11/09/22 14:17 Rocephin 1 Gm/50 Ml D5w IV 11/09/22 12:23 75 mls/hr ONCE ONE Administration Potassium Chloride 40 meq 11/09/22 10:59 11/09/22 11:09 Potassium Chloride 20 Meq Tab PO 11/09/22 11:00 40 meq ONCE ONE Administration Vital Signs: Temp Pulse Resp BP Pulse Ox 11/09/22 13:55 98.4 F 108 H 24 H 115/74 94 L 11/09/22 09:16 97.7 F 116 H 24 H 172/80 H 92 L Discharge Plan Discharge Patient Disposition: ADMITTED INPATIENT Discharge Problem: D-dimer, elevated, Pneumonia Prescriptions: No Action atorvastatin 20 mg Tablet 20 mg PO DAILY budesonide-formoterol [Symbicort] 160-4.5 mcg/actuation Hfa Aerosol Inhaler 2 puff INHALATION BID albuterol sulfate 2.5 mg /3 mL (0.083 %) Solution For Nebulization 2.5 mg INHALATION Q4-6H PRN (Reason: wheezing/shortness of air) megestrol 40 mg tablet 40 mg PO BID Qty: 60 5RF acetaminophen-codeine 300-30 mg tablet 1 tab PO BID PRN (Reason: pain) Qty: 45 0RF Did you review [place] [employer] for ALL controlled substances?: Not Applicable ED Provider: KATY SU Condition: Stable Physician Progress Note: This is a 72 y.o. wf that is chronically ill, with a complicated history of lung cancer with likely reoccurance, chronic smoking history (1 ppd x >60 years) currently smoking and a vague h/o CAD. The pt. is further complicated by being a poor historian and lack of historical data. She presents to the ED today with c/o increasing shortness of breath, productive cough, and generalized weakness. I have reviewed her initial vital signs which she meets sepsis criteria based on HR: 116 and RR: 24 I am ordering lab tests, EKG and CXR to explore the possibility of the following DDX (which she is at an elevated risk for almost all of). pneumonia pneumothorax PE CAD COPD exacerbation Dehydration arrhythmia CO poisoning CHF Treatment provided in ED: duoneb breathing treatment IVF NS 1000 ml bolus ordered (IV access was difficult and pt. refused repeated efforts) KCl 40 meq po (K+ level = 3.4). Ceftriaxone 1000 mg IV Azithromycin 500 mg IV WBC: 19.95, cough productive of sputum, c/o shortness of breath and meeting 2 of 4 sepsis criteria - will give IVF NS, duoneb breathing treatment and IV ABX to treat CAP. (Azithromycin 500 mg IV and Ceftriaxone 1000 mg IV). D-dimer: 3,288 (elevated risk for PE: smoker and h/o lung CA). She currently has an insufficient IV to conduct a CTA. I discussed the importance of this and the pt. will consider allowing further attempts to place larger IV later. In the meantime I will order lovenox 1 mg / kg SC and call the hospitalist to admit for treatment of CAP. I discussed all the above with Dr. Wade. He requests we admit through the hospitalist. I spoke with Dhruv SANTOYO) who accepts admissoin.
[2022-11-09 10:17] LABS: BASOPHILS % (AUTO) 0.2 % (0.0-3.0); HEMATOCRIT 39.4 % (37.0-47.0); HEMOGLOBIN 12.3 g/dl (12.0-16.0); IMMATURE GRANULOCYTE # (AUTO) 0.2 (0.0-1.0); IMMATURE GRANULOCYTE % (AUTO) 0.9 % (0.0-5.0); LYMPHOCYTES # (AUTO) 0.7 K/uL (0.60-3.4); LYMPHOCYTES % (AUTO) 3.7 (10.0-50.0); MEAN CORPUSCULAR HEMOGLOBIN 28.9 pg (27.0-31.0); MEAN CORPUSCULAR HGB CONC 31.2 (31.8-35.4); MEAN CORPUSCULAR VOLUME 92.5 fl (81.0-99.0); MONOCYTES % (AUTO) 5.2 (0-10); PLATELET COUNT 380 10^3/uL (140-440); RDW COEFFICIENT OF VARIATION 14.6 % (11.6-14.8); RED BLOOD COUNT 4.26 10^6/ul (4.20-5.40); WHITE BLOOD COUNT 19.95 K/ul (4.6-10.2)
[2022-11-09 10:30] LABS: ALANINE AMINOTRANSFERASE 21.2 U/L (0-35); ALBUMIN 3.59 g/dL (3.5-5.0); ALKALINE PHOSPHATASE 110.9 U/L (53-141); ASPARTATE AMINO TRANSFERASE 26.2 U/L (14-36); BILIRUBIN,TOTAL 0.51 mg/dL (0.2-1.3); CALCIUM 8.47 mg/dL (8.4-10.2); CARBON DIOXIDE 28.7 mmol/L (22-30.0); CHLORIDE 107.1 mmol/L (98-107); CREATININE 0.78 mg/dL (0.60-1.30); GLUCOSE 128.7 mg/dL (74-106); POTASSIUM 3.47 mmol/L (3.5-5.1); SODIUM 140.3 mmol/L (134.5-145); TOTAL PROTEIN 6.67 g/dL (6.3-8.2)
[2022-11-09 10:42] LABS: TROPONIN I < 0.012 ng/ml (0.0000-0.120)
--- NOTE | 2022-11-09 10:56 | DI ---
EXAM: CHEST RADIOGRAPH (2 VIEW) TECHNIQUE: AP and Lateral Chest Radiographs. HISTORY: Shortness of breath COMPARISON: 03/01/[address] chest from 09/11/2022 FINDINGS: Lines, Tubes, Devices: None. Lungs and Pleura: Extensive ground-glass densities and consolidation in the right mid and lower lung . Prominent emphysematous changes in both lungs. Scattered pulmonary nodules are better demonstrated on the previous CT chest examination. Cardiac silhouette: Stable. Bones: No acute abnormality. IMPRESSION: Extensive ground-glass densities and consolidation in the right mid and lower lung concerning for pne umonia / pneumonitis. Previously noted pulmonary nodules are better demonstrated on the previous CT examination. Recommend follow-up CT chest for further characterization of right lung opacities and follow-up for k nown pulmonary nodules.
[2022-11-09] MEDS ORDERED: K-DUR PO ONE (10:59)
[2022-11-09 11:07] LABS: SARS COV-2 RNA RAPID NAAT NEGATIVE (NEGATIVE)
[2022-11-09 11:11] LABS: MOLECULAR FLU A NEGATIVE BY NAAT (NEGATIVE); MOLECULAR FLU B NEGATIVE BY NAAT (NEGATIVE)
[2022-11-09 11:25] LABS: BILIRUBIN,URINE Negative (NEGATIVE); CLARITY,URINE Clear (CLEAR); COLOR,URINE Yellow (YELLOW); GLUCOSE, URINE (UA) Negative (NEGATIVE); KETONES,URINE Negative (NEGATIVE); LEUKOCYTE ESTERASE ,URINE Trace (NEGATIVE); NITRITE,URINE Negative (NEGATIVE); PROTEIN,URINE Trace (NEGATIVE); URINE, BLOOD Negative (NEGATIVE)
[2022-11-09] MEDS ORDERED: ROCEPHIN 1 GM/50 ML D5W 1 GM/50 ML BAG IV ONE (11:44)
[2022-11-09] MEDS ORDERED: ZITHROMAX 500 MG in SODIUM CHLORIDE 250 ML IV STA (11:44)
[2022-11-09 11:57] LABS: URINE RBC, MICROSCOPIC 0-2 (0-2)
[2022-11-09 11:58] LABS: BACTERIA,URINE TRACE (NOT PRESENT); CALCIUM OXALATE CRYSTALS,UR 1+ (NOT PRESENT); MUCUS,URINE TRACE (NOT PRESENT); SQUAMOUS EPITHELIAL CELL,UR 30-50 (0-5)
[2022-11-09] MEDS ORDERED: LOVENOX SUBCUT ONE (13:24)
[2022-11-09 14:09] LABS: ABG O2 HGB 91.9 % (95-100); BEecf -0.7 (-2.0-3.0); COHb 2.2 (0.5-1.5); HCO3 22.3 (21-28); MetHb 1.1 (0-1.5); TCO2 23.2 (19-24); sO2 93.1 % (94-98); tHb 11.6 g/dl (11.7-17.4)
[2022-11-09 14:12] LABS: ABG PH 7.51 (7.35-7.45)
[2022-11-09] MEDS ORDERED: TYLENOL PO PRN ×2 (14:30→16:59)
[2022-11-09] MEDS ORDERED: ALBUTEROL 0.083% NEB NEB PRN ×2 (14:54→16:10)
[2022-11-09] MEDS ORDERED: SOLU-CORTEF 250 MG IVP SCH (15:10)
[2022-11-09] MEDS ORDERED: SOLU-CORTEF 250 MG ONE (15:26)
[2022-11-09] MEDS ORDERED: XANAX PO PRN (16:37)
[2022-11-09] MEDS ORDERED: NITROSTAT SL PRN (16:59)
[2022-11-09] MEDS ORDERED: ATROPINE SULFATE PFS IVP PRN (16:59)
[2022-11-09 17:39] LABS: CREATINE KINASE 22.1 U/L (30-135)
--- NOTE | 2022-11-09 17:44 | CT ---
EXAM: CHEST CT WITHOUT CONTRAST HISTORY: Shortness of breath. TECHNIQUE: CT acquisition of the chest from the thoracic inlet to the upper abdomen without IV contra st administration.2-D coronal and sagittal reformatted images were obtained from the axial source dominick ges. IV Contrast: None. CT Dose Reduction Techniques Performed: Yes. COMPARISON: CT chest dated 09/11/2022 FINDINGS: Lung Parenchyma and Airways: There has been development of right lower lobe pneumonia. There also is patchy air space disease in the right middle lobe. There is a small right pleural effusion. Some o f the nodules seen previously are obscured by the overlying air space disease. The left lower lobe n odule near the oblique fissure medially is stable. There is diffuse centrilobular emphysema. No pne umothorax. Thoracic Inlet, Mediastinum, and [place]: There are calcified mediastinal lymph nodes. No lymphadenopat hy. Heart, Vessels, and Pericardium: The main pulmonary artery is of normal caliber. The thoracic aorta is not dilated. The heart chambers are not enlarged. There is no pericardial effusion or thickening . There are coronary calcifications. Bones and Soft Tissues: Previous right-sided thoracotomy. Chest wall soft tissues are unremarkable. IMPRESSION: 1. There has been development of multifocal right lung pneumonia with a right pleural effusion. 2. The exam is limited in regards to comparison of pulmonary nodules from the patient's malignant ne oplasm. All CT scans are performed using dose optimization techniques as appropriate to the performed exam an d include at least one of the following: Automated exposure control, adjustment of the mA and/or kV according t o size, and the use of iterative reconstruction technique.
[2022-11-09 17:52] LABS: TROPONIN I < 0.012 ng/ml (0.0000-0.120)
[2022-11-09] MEDS ORDERED: DUONEB NEB SCH (18:00)
[2022-11-09] MEDS: SODIUM CHLORIDE 1,000 ML IV SCH (18:30)
[2022-11-09] MEDS: PULMICORT 0.5 MG/2 ML NEB SCH (18:51)
[2022-11-09] MEDS: DUONEB NEB SCH (18:51)
--- NOTE | 2022-11-09 20:05 | CT ---
EXAM: CT ANGIOGRAPHY CHEST (PE PROTOCOL) HISTORY: Shortness of breath, positive D-dimer. Lung cancer. TECHNIQUE: CTA chest with intravenous contrast. PE protocol. Multiplanar images were provided with MIP images and 3-D reconstructions. COMPARISON: 09/11/2022 FINDINGS: No pulmonary arterial thromboembolism identified. The aorta has moderate atherosclerotic disease. Coronary artery calcifications are present. Normal heart size. No pericardial effusion. There is a tiny right pleural effusion. Pulmonary emphysema and scattered scarring. There is right lung base consolidation. Mass-like consolidation in the right perihilar space. These infiltrates a nd consolidations are new since the prior study. A few spiculated nodules are suggested in the right lower lumbar. Follow-up CT is recommended. There is no pneumothorax. Bones appear appropriate for age. IMPRESSION: 1. No pulmonary arterial thromboembolism identified. 2. There is a tiny right pleural effusion. There is right lung base consolidation. Mass-like conso lidation in the right perihilar space. These infiltrates and consolidations which are consistent wit h pneumonia are new since the prior study. A few spiculated nodules are suggested in the right lower lumbar. Follow-up CT is recommended. 3. Atherosclerotic disease. Pulmonary emphysema. - - - - - All CT scans are performed using dose optimization techniques as appropriate to the performed exam an d include at least one of the following: Automated exposure control, adjustment of the mA and/or kV according t o size, and the use of iterative reconstruction technique.
[2022-11-09] MEDS: SOLU-CORTEF 250 MG IVP SCH (20:24)
[2022-11-09] MEDS: MEGACE PO SCH (20:24)
[2022-11-09] MEDS: DOXY-100 100 MG in SODIUM CHLORIDE 100ML 100 ML IV SCH (20:24)
[2022-11-09] MEDS ORDERED: SOLU-MEDROL 125 MG IVP SCH (21:00)
[2022-11-09] MEDS ORDERED: SYMBICORT 160-4.5 MCG INHALER IH SCH (21:00)
[2022-11-10 01:10] LABS: CREATINE KINASE 20.5 U/L (30-135)
[2022-11-10 01:23] LABS: TROPONIN I < 0.012 ng/ml (0.0000-0.120)
[2022-11-10] MEDS: PULMICORT 0.5 MG/2 ML NEB SCH ×2 (04:50→20:59)
[2022-11-10] MEDS: DUONEB NEB SCH ×4 (04:50→20:52)
[2022-11-10 05:13] LABS: BASOPHILS % (AUTO) 0.1 % (0.0-3.0); HEMATOCRIT 33.7 % (37.0-47.0); HEMOGLOBIN 10.8 g/dl (12.0-16.0); IMMATURE GRANULOCYTE # (AUTO) 0.1 (0.0-1.0); IMMATURE GRANULOCYTE % (AUTO) 0.6 % (0.0-5.0); LYMPHOCYTES # (AUTO) 0.7 K/uL (0.60-3.4); LYMPHOCYTES % (AUTO) 3.6 (10.0-50.0); MEAN CORPUSCULAR VOLUME 90.3 fl (81.0-99.0); MONOCYTES # (AUTO) 0.3 K/uL (0.4-2.0); MONOCYTES % (AUTO) 1.4 (0-10); NEUTROPHILS # (AUTO) 18.9 K/ul (2.0-6.9); NEUTROPHILS % (AUTO) 94.3 % (42.2-75.2); PLATELET COUNT 349 10^3/uL (140-440); RDW COEFFICIENT OF VARIATION 14.6 % (11.6-14.8); RED BLOOD COUNT 3.73 10^6/ul (4.20-5.40); WHITE BLOOD COUNT 20.06 K/ul (4.6-10.2)
[2022-11-10 05:25] LABS: ALANINE AMINOTRANSFERASE 18.1 U/L (0-35); ALBUMIN 2.91 g/dL (3.5-5.0); ALKALINE PHOSPHATASE 93.5 U/L (53-141); ASPARTATE AMINO TRANSFERASE 21.9 U/L (14-36); BILIRUBIN,TOTAL 0.27 mg/dL (0.2-1.3); BLOOD UREA NITROGEN 15.9 mg/dL (7-17); CALCIUM 8.29 mg/dL (8.4-10.2); CARBON DIOXIDE 24.8 mmol/L (22-30.0); CHLORIDE 113.2 mmol/L (98-107); CREATININE 0.76 mg/dL (0.60-1.30); GLUCOSE 147.5 mg/dL (74-106); POTASSIUM 4.04 mmol/L (3.5-5.1); SODIUM 140.2 mmol/L (134.5-145); TOTAL PROTEIN 5.7 g/dL (6.3-8.2)
[2022-11-10] MEDS: SOLU-CORTEF 250 MG IVP SCH (05:44)
[2022-11-10] MEDS: LOVENOX SUBCUT SCH ×2 (08:16→21:23)
[2022-11-10] MEDS: K-DUR PO SCH (08:16)
[2022-11-10] MEDS: MEGACE PO SCH ×2 (08:16→21:23)
[2022-11-10] MEDS: LIPITOR PO SCH (08:16)
[2022-11-10] MEDS: ROCEPHIN 1 GM/50 ML D5W 1 GM/50 ML BAG IV SCH (08:16)
[2022-11-10] MEDS ORDERED: ROCEPHIN 1 GM/50 ML D5W 1 GM/50 ML BAG IV SCH (09:00)
[2022-11-10] MEDS ORDERED: ZITHROMAX 500 MG in SODIUM CHLORIDE 250 ML IV SCH (09:00)
[2022-11-10] MEDS: DOXY-100 100 MG in SODIUM CHLORIDE 100ML 100 ML IV SCH ×2 (09:35→21:23)
[2022-11-10] MEDS: SODIUM CHLORIDE 1,000 ML IV SCH (12:08)
[2022-11-10] MEDS: SOLU-CORTEF 100 MG IVP SCH ×2 (12:08→21:22)
[2022-11-10] MEDS: XANAX PO PRN ×2 (12:08→21:33)
[2022-11-10] MEDS ORDERED: SOLU-CORTEF 100 MG IVP SCH (13:00)
[2022-11-10] MEDS: TUSSIONEX PO PRN (19:24)
[2022-11-11] MEDS: DUONEB NEB SCH ×4 (04:53→20:07)
[2022-11-11] MEDS: PULMICORT 0.5 MG/2 ML NEB SCH ×2 (04:59→20:13)
[2022-11-11 05:04] LABS: BASOPHILS % (AUTO) 0.1 % (0.0-3.0); HEMOGLOBIN 9.8 g/dl (12.0-16.0); IMMATURE GRANULOCYTE # (AUTO) 0.1 (0.0-1.0); IMMATURE GRANULOCYTE % (AUTO) 0.7 % (0.0-5.0); LYMPHOCYTES # (AUTO) 0.6 K/uL (0.60-3.4); LYMPHOCYTES % (AUTO) 3.6 (10.0-50.0); MEAN CORPUSCULAR HEMOGLOBIN 28.9 pg (27.0-31.0); MEAN CORPUSCULAR HGB CONC 31.6 (31.8-35.4); MEAN CORPUSCULAR VOLUME 91.4 fl (81.0-99.0); MONOCYTES # (AUTO) 0.5 K/uL (0.4-2.0); MONOCYTES % (AUTO) 2.8 (0-10); NEUTROPHILS # (AUTO) 15.4 K/ul (2.0-6.9); NEUTROPHILS % (AUTO) 92.8 % (42.2-75.2); PLATELET COUNT 391 10^3/uL (140-440); RDW COEFFICIENT OF VARIATION 14.8 % (11.6-14.8); RED BLOOD COUNT 3.39 10^6/ul (4.20-5.40); WHITE BLOOD COUNT 16.61 K/ul (4.6-10.2)
[2022-11-11 05:13] LABS: ALANINE AMINOTRANSFERASE 27.6 U/L (0-35); ALBUMIN 2.82 g/dL (3.5-5.0); ALKALINE PHOSPHATASE 85.9 U/L (53-141); ASPARTATE AMINO TRANSFERASE 36.6 U/L (14-36); BILIRUBIN,TOTAL 0.11 mg/dL (0.2-1.3); BLOOD UREA NITROGEN 18.7 mg/dL (7-17); CALCIUM 8.74 mg/dL (8.4-10.2); CARBON DIOXIDE 24.2 mmol/L (22-30.0); CHLORIDE 115.5 mmol/L (98-107); CREATININE 0.89 mg/dL (0.60-1.30); GLUCOSE 210.6 mg/dL (74-106); POTASSIUM 3.8 mmol/L (3.5-5.1); SODIUM 143.3 mmol/L (134.5-145); TOTAL PROTEIN 5.47 g/dL (6.3-8.2)
[2022-11-11] MEDS: SOLU-CORTEF 100 MG IVP SCH ×2 (05:32→12:34)
[2022-11-11] MEDS: XANAX PO PRN ×2 (05:44→13:48)
[2022-11-11] MEDS: K-DUR PO SCH (08:18)
[2022-11-11] MEDS: MEGACE PO SCH ×2 (08:18→20:36)
[2022-11-11] MEDS: LIPITOR PO SCH (08:19)
[2022-11-11] MEDS: LOVENOX SUBCUT SCH ×2 (08:19→20:36)
[2022-11-11] MEDS: ROCEPHIN 1 GM/50 ML D5W 1 GM/50 ML BAG IV SCH (08:19)
[2022-11-11] MEDS: DOXY-100 100 MG in SODIUM CHLORIDE 100ML 100 ML IV SCH (09:24)
[2022-11-11] MEDS: TUSSIONEX PO PRN (10:18)
[2022-11-11] MEDS: SODIUM CHLORIDE 1,000 ML IV SCH (18:15)
[2022-11-11] MEDS ORDERED: TYLENOL #3 TAB PO PRN (18:18)
[2022-11-11] MEDS: DOXYCYCLINE HYCLATE PO SCH (20:36)
[2022-11-12] MEDS: DUONEB NEB SCH ×4 (04:23→20:35)
[2022-11-12] MEDS: PULMICORT 0.5 MG/2 ML NEB SCH ×2 (04:29→20:41)
[2022-11-12 04:58] LABS: BASOPHILS % (AUTO) 0.1 % (0.0-3.0); HEMATOCRIT 34.6 % (37.0-47.0); HEMOGLOBIN 10.7 g/dl (12.0-16.0); IMMATURE GRANULOCYTE # (AUTO) 0.2 (0.0-1.0); IMMATURE GRANULOCYTE % (AUTO) 0.8 % (0.0-5.0); LYMPHOCYTES # (AUTO) 1.5 K/uL (0.60-3.4); LYMPHOCYTES % (AUTO) 7.7 (10.0-50.0); MEAN CORPUSCULAR HEMOGLOBIN 28.8 pg (27.0-31.0); MEAN CORPUSCULAR HGB CONC 30.9 (31.8-35.4); MEAN CORPUSCULAR VOLUME 93.3 fl (81.0-99.0); MONOCYTES # (AUTO) 0.9 K/uL (0.4-2.0); MONOCYTES % (AUTO) 4.7 (0-10); NEUTROPHILS # (AUTO) 16.6 K/ul (2.0-6.9); NEUTROPHILS % (AUTO) 86.7 % (42.2-75.2); PLATELET COUNT 498 10^3/uL (140-440); RDW COEFFICIENT OF VARIATION 14.8 % (11.6-14.8); RED BLOOD COUNT 3.71 10^6/ul (4.20-5.40); WHITE BLOOD COUNT 19.14 K/ul (4.6-10.2)
[2022-11-12 05:14] LABS: ALANINE AMINOTRANSFERASE 102.7 U/L (0-35); ALBUMIN 2.94 g/dL (3.5-5.0); ALKALINE PHOSPHATASE 97.5 U/L (53-141); ASPARTATE AMINO TRANSFERASE 131.4 U/L (14-36); BILIRUBIN,TOTAL 0.17 mg/dL (0.2-1.3); BLOOD UREA NITROGEN 19.8 mg/dL (7-17); CALCIUM 8.98 mg/dL (8.4-10.2); CARBON DIOXIDE 25.3 mmol/L (22-30.0); CHLORIDE 114.8 mmol/L (98-107); CREATININE 0.76 mg/dL (0.60-1.30); GLUCOSE 122.8 mg/dL (74-106); POTASSIUM 4.53 mmol/L (3.5-5.1); SODIUM 145.4 mmol/L (134.5-145); TOTAL PROTEIN 5.65 g/dL (6.3-8.2)
[2022-11-12 07:03] LABS: ABG PH 7.44 (7.35-7.45)
[2022-11-12 07:04] LABS: BEecf -1.1 (-2.0-3.0); HCO3 23.1 (21-28)
[2022-11-12 07:05] LABS: MetHb 1.4 (0-1.5); TCO2 24.1 (19-24); tHb 9.9 g/dl (11.7-17.4)
[2022-11-12 07:07] LABS: ABG O2 HGB 92.9 % (95-100); sO2 91.9 % (94-98)
[2022-11-12] MEDS: K-DUR PO SCH (09:17)
[2022-11-12] MEDS: DOXYCYCLINE HYCLATE PO SCH ×2 (09:17→20:11)
[2022-11-12] MEDS: OMNICEF PO SCH ×2 (09:17→20:11)
[2022-11-12] MEDS: MEGACE PO SCH ×2 (09:17→20:10)
[2022-11-12] MEDS: LIPITOR PO SCH (09:17)
[2022-11-12] MEDS: LOVENOX SUBCUT SCH ×2 (09:17→20:11)
[2022-11-12] MEDS: PREDNISONE PO SCH (09:17)
[2022-11-12] MEDS: XANAX PO PRN (09:30)
--- NOTE | 2022-11-12 10:35 | HP ---
DATE OF SERVICE: 11/09/22 REASON FOR HOSPITALIZATION: Shortness of air Wheezing Respiratory distress CT of chest showing focal right lung pneumonia with right pleural effusion HISTORY OF PRESENT ILLNESS: 72 year old white female was brought to the emergency room by the family because of cough and congestion and shortness of breath. The patient had respiratory rate of 24 and pulse of 110, in mild respiratory distress. Patient was wheezing audible with stethoscope. Patient had symptoms 2-3 days. She is a heavy smoker and smokes more than one pack per day for the past 60 years. Patient has a history of Ca of the lung with right lobectomy with radiation; she had biopsy done by primary physician in [place], [place], a couple of weeks ago. REVIEW OF SYSTEMS: CONSTITUTIONAL: Weakness and fatigue. HEENT: Eyes: No visual changes. No eye pain. No eye discharge. ENT: No runny nose. No epistaxis. No sinus pain. No sore throat. No odynophagia. No ear pain. No congestion. RESPIRATORY: Shortness of breath, cough with congestion, yellow sputum. No hemoptysis. CARDIOVASCULAR: Shortness of breath on minimal exertion. Sharp chest pains, cough. No PND. No orthopnea. GASTROINTESTINAL: Poor appetite. Eating very little according to the family for the past couple of days. GENITOURINARY: No urgency. No frequency. No dysuria. No hematuria. No obstructive symptoms. No discharge. No pain. No significant abnormal bleeding. MUSCULOSKELETAL: Generalized aches and pains. NEUROLOGICAL: No headache. No neck pain. No syncope. No seizures. No dizziness. PSYCHIATRIC: Not anxious. No depression. No suicidal thoughts. No homicidal thoughts. SKIN: No rash. No lesions. No wounds. ENDOCRINE: No unexplained weight loss. No weight gain. HEMATOLOGIC/LYMPHATIC: No anemia. No purpura. No petechiae. No prolonged or excessive bleeding. No palpable lymph nodes. PERSONAL/FAMILY/SOCIAL HISTORY: Patient lives by herself, . Smokes more than one pack per day. No alcohol abuse. She does try to do all activity of daily living . MEDICAL HISTORY: Pleuritic pain Ca of the lung Recurrent pneumonia Chronic bronchitis Dyslipidemia SURGICAL HISTORY: Status post hysterectomy Bilateral carpal tunnel syndrome Tonsillectomy Endarterectomy MEDICATIONS: Atorvastatin Budesonide Albuterol Megestrol ALLERGIES: INHALERS PHYSICAL EXAMINATION: GENERAL: The patient is in mild distress. Oriented to time, place and person. VITAL SIGNS: Temperature 98.4, pulse 110 permanent, respiratory rate 24, blood pressure 115/74, pulse ox 92% on room air. HEENT: Somewhat pale, skin is dry. NECK: No JVD, no carotid bruit. LUNGS: Bilateral wheeze. HEART: S1, S2, no S3. Tachycardia. No murmur. ABDOMEN: Soft. Bowel sounds active. EXTREMITIES: No pedal edema. Pulses +2. NEUROLOGIC: No focal deficit. Cranial nerves II through XII are grossly intact. No headache, no double vision or headache. LYMPHATIC: No palpable lymph nodes/no lymphedema. MUSCULOSKELETAL: Normal joints with no swelling. Muscle tone is normal. LABS: ABG showed PO2 of 60, PCO2 of 28, PH 7.5 with 93% saturation on room air. It is to be noted that patient is hyperventilating with a PO2 of 67. Patient is in respiratory failure. Troponin was negative. Liver profile is negative. Hemoglobin 12.3, hematocrit 39, WBC 19,000, normal differential, creatinine 0.7, BUN 14. ASSESSMENT: 1. Acute pneumonitis involving lungs with multifocal pneumonia with right pleural effusion 2. History of Ca of the lung, lobectomy and status post radiation 3. Severe chronic lung disease 4. Smoking 5. Depression 6. BMI of 15 7. Dyslipidemia 8. Respiratory failure with PO2 of 60, PCO2 of 28 PLAN: 1. Telemetry, oximetry, serial EKG's, cardiac markers 2. Will monitor oximetry 3. Nebs 4. Rocephin and Doxycycline IV 5. Potassium supplements 6. Solu-Cortef 100 mg Q 8 7. IV fluids Patient is DNR, I discussed with the family and patient about it. Condition: Stable TIME SPENT: More than 75 minutes. MTDD
--- NOTE | 2022-11-12 10:54 | PN ---
DATE OF SERVICE: 11/10/22 SUBJECTIVE: 72 year old white female hospitalized with acute respiratory failure and community acquired pneumonia. Patient's condition has improved. She is feeling better and her breathing has settled down. No audible wheezing. REVIEW OF SYSTEMS: CONSTITUTIONAL: No night sweats. No fatigue, malaise, lethargy. No fever or chills. HEENT: Eyes: No visual changes. No eye pain. No eye discharge. ENT: No runny nose. No epistaxis. No sinus pain. No sore throat. No odynophagia. No congestion. RESPIRATORY: Shortness of breath as usual. CARDIOVASCULAR: . No chest pain. No PND. No orthopnea. GASTROINTESTINAL: Appetite is improving. GENITOURINARY: No urgency. No frequency. No dysuria. No hematuria. No obstructive symptoms. No discharge. No pain. No significant abnormal bleeding. MUSCULOSKELETAL: No musculoskeletal pain; no joint swelling. NEUROLOGICAL: No headache. No neck pain. No syncope. No seizures. No dizziness. PSYCHIATRIC: Not anxious. No depression. No suicidal thoughts. No homicidal thoughts. SKIN: No rash. No lesions. No wounds. ENDOCRINE: No unexplained weight loss. No weight gain. HEMATOLOGIC/LYMPHATIC: No anemia. No purpura. No petechiae. No prolonged or excessive bleeding. No palpable lymph nodes. PHYSICAL EXAMINATION: VITAL SIGNS: Temperature 97, pulse 100, respiratory rate 18, blood pressure 133/70, pulse ox 96% on room air. HEENT: Head normocephalic, atraumatic. Eyes: Extraocular muscles are intact. Pupils are equal, round and reactive to light and accommodation. Ears: No lesions. Nose appeared normal. Throat: No exudate or erythema. NECK: Supple. LUNGS: Decreased breath sounds. Air entry is acceptable. HEART: S1, S2, no S3. ABDOMEN: Soft. EXTREMITIES: No edema. NEUROLOGIC: No focal deficit. Cranial nerves II through XII are grossly intact. No headache. No double vision. SKIN: Not dry. Intact. Turgor - normal. LYMPHATIC: No palpable lymph nodes/no lymphedema. MUSCULOSKELETAL: Normal joints with no swelling. Muscle tone is normal. LABS: Hemoglobin 10.8, hematocrit 30, WBC 20,000, normal differential, creatinine 0.7, BUN 15, potassium 4. ASSESSMENT: 1. Acute pneumonitis, pneumonia, seems to be clinically 2. Respiratory failure seems to be stable with improvement in oxygen saturation 96% on room air 3. Smoking with COPD PLAN: 1. Patient had Ca of the lung for which she is going to follow up with which she is going to see on Sunday. 2. Continue antibiotics and steroids. 3. Xanax because patient is somewhat anxious, could be from steroids; in any case, she is not getting any smoking done right now. Condition: Stable TIME SPENT: More than 35 minutes. Plan and coordination of the patient's care discussed in the presence of nurse. GERSON
[2022-11-12] MEDS: TUSSIONEX PO PRN (13:38)
[2022-11-12] MEDS: COREG PO SCH (23:36)
[2022-11-13] MEDS: DUONEB NEB SCH ×3 (05:07→14:10)
[2022-11-13 05:17] LABS: BASOPHILS % (AUTO) 0.1 % (0.0-3.0); HEMATOCRIT 32.8 % (37.0-47.0); HEMOGLOBIN 10.3 g/dl (12.0-16.0); IMMATURE GRANULOCYTE # (AUTO) 0.1 (0.0-1.0); IMMATURE GRANULOCYTE % (AUTO) 1.3 % (0.0-5.0); LYMPHOCYTES # (AUTO) 1.7 K/uL (0.60-3.4); MEAN CORPUSCULAR HEMOGLOBIN 28.4 pg (27.0-31.0); MEAN CORPUSCULAR HGB CONC 31.4 (31.8-35.4); MEAN CORPUSCULAR VOLUME 90.4 fl (81.0-99.0); MONOCYTES # (AUTO) 0.7 K/uL (0.4-2.0); MONOCYTES % (AUTO) 7.4 (0-10); NEUTROPHILS # (AUTO) 7.4 K/ul (2.0-6.9); NEUTROPHILS % (AUTO) 74.2 % (42.2-75.2); PLATELET COUNT 430 10^3/uL (140-440); RDW COEFFICIENT OF VARIATION 14.6 % (11.6-14.8); RED BLOOD COUNT 3.63 10^6/ul (4.20-5.40); WHITE BLOOD COUNT 9.99 K/ul (4.6-10.2)
[2022-11-13] MEDS: PULMICORT 0.5 MG/2 ML NEB SCH (05:20)
[2022-11-13 05:41] LABS: ALANINE AMINOTRANSFERASE 132.2 U/L (0-35); ALBUMIN 2.74 g/dL (3.5-5.0); ALKALINE PHOSPHATASE 85.6 U/L (53-141); BILIRUBIN,TOTAL 0.24 mg/dL (0.2-1.3); BLOOD UREA NITROGEN 19.6 mg/dL (7-17); CALCIUM 8.68 mg/dL (8.4-10.2); CARBON DIOXIDE 28.7 mmol/L (22-30.0); CHLORIDE 110.4 mmol/L (98-107); CREATININE 0.76 mg/dL (0.60-1.30); GLUCOSE 92.1 mg/dL (74-106); POTASSIUM 4.73 mmol/L (3.5-5.1); SODIUM 138.5 mmol/L (134.5-145); TOTAL PROTEIN 5.23 g/dL (6.3-8.2)
[2022-11-13] MEDS: OMNICEF PO SCH (09:12)
[2022-11-13] MEDS: COREG PO SCH (09:12)
[2022-11-13] MEDS: MEGACE PO SCH (09:12)
[2022-11-13] MEDS: DOXYCYCLINE HYCLATE PO SCH (09:12)
[2022-11-13] MEDS: PREDNISONE PO SCH (09:12)
[2022-11-13] MEDS: K-DUR PO SCH (09:13)
[2022-11-13] MEDS: TUSSIONEX PO PRN (09:16)
--- NOTE | 2022-11-13 10:51 | PCM.PROG ---
Attending Provider: ATTENDING PROVIDER: Dr. SIMONE TEIXEIRA MD This patient is seen with Brandi Nolasco, Nurse Practitioner. DATE OF SERVICE: 11/13/22 SUBJECTIVE: This 72 year old /WHITE F was hospitalized 11/09/22. ABG is stable yesterday on room air. Labs are stable. Liver function trending down. She is requesting to be discharged today. She has an appointment with her well logging operator mud analysis tomorrow. Discharge will depend on blood pressure and heart rate. This mornings heart rate is 78 however blood pressure is 178/91 blood pressure remains elevated. She is due to get Coreg this morning. Which we only started yesterday. REVIEW OF SYSTEMS: CONSTITUTIONAL: No night sweats. No fatigue, malaise, lethargy. No fever or chills. Weakness. HEENT: Eyes: No visual changes. No eye pain. No eye discharge. ENT: No runny nose. No epistaxis. No sinus pain. No odynophagia. No congestion. RESPIRATORY: Cough, no congestion. No hemoptysis. Shortness of breath. CARDIOVASCULAR: No angina symptoms. No CHF symptoms. No atypical chest pain for CAD. No palpitations. No orthopnea.. GASTROINTESTINAL: No abdominal pain. No nausea or vomiting. No diarrhea or constipation. No hematemesis. No hematochezia. GENITOURINARY: No urgency. No frequency. No dysuria. No hematuria. No o bstructive symptoms. No discharge. No pain. No significant abnormal bleeding. MUSCULOSKELETAL: No musculoskeletal pain; no joint swelling. NEUROLOGICAL: Awake, alert, oriented to time, place and person. No headache. No neck pain. No syncope. No seizures. No dizziness. PSYCHIATRIC:Anxious. No depression. No suicidal thoughts. No homicidal thoughts. SKIN: No rash. No lesions. No wounds. ENDOCRINE: No unexplained weight loss. No weight gain. HEMATOLOGIC/LYMPHATIC: No anemia. No purpura. No petechiae. No prolonged or excessive bleeding. No palpable lymph nodes. PHYSICAL EXAMINATION: GENERAL: The patient is awake, alert and oriented, lying in bed in no distress. VITAL SIGNS: Temperature 97.6 F, Pulse 78, Respiratory Rate 18, BP 178/91, Pulse Ox 95% HEENT: Head normocephalic, atraumatic. Eyes: Extraocular muscles are intact. Pupils are equal, round and reactive to light and accommodation. Ears: No lesions. Nose appeared normal. Throat: No exudate or erythema. NECK: Supple. No JVD, no carotid bruit. No lymphadenopathy or thyromegaly. LUNGS: Severely diminished breath sounds. Clear to auscultation. Percussion note normal. Chest symmetrical. HEART: S1, S2, no S3. No murmurs. No cyanosis or clubbing. No ascites. Pulses: Dorsalis pedis and posterior tibial pulses +1 to +2 both sides. ABDOMEN: Soft. Non-tender. Bowel sounds active. No CVA tenderness. No mass felt. EXTREMITIES: No edema. Full range of motion of all extremities, equal. Cachectic. NEUROLOGIC: No focal deficit. Cranial nerves II through XII are grossly intact. No headache. No double vision. SKIN: Not dry. Intact. Turgor-normal. LYMPHATIC: No palpable lymph nodes/no lymphedema. MUSCULOSKELETAL: Normal joints with no swelling. Muscle tone is normal. LAB REVIEW: 11/13/22 04:55 11/13/22 04:55 11/13/22 04:55: WBC 9.99 D, RBC 3.63 L, Hgb 10.3 L, Hct 32.8 L, MCV 90.4, MCH 28.4, MCHC 31.4 L, RDW Coeff of Felipe 14.6, Plt Count 430, Immature Gran % (Auto) 1.3, Neut % (Auto) 74.2, Lymph % (Auto) 17.0, Emery % (Auto) 7.4, Eos % (Auto) 0.0, Baso % (Auto) 0.1, Neut # (Auto) 7.4 H, Lymph # (Auto) 1.7, Emery # (Auto) 0.7, Eos # (Auto) 0.0, Baso # (Auto) 0.0, Immature Gran # (Auto) 0.1, Sodium 138.5, Potassium 4.73, Chloride 110.4 H, Carbon Dioxide 28.7, Anion Gap 4.13, BUN 19.6 H, Creatinine 0.76, Estimated GFR (MDRD) 74.00, BUN/Creatinine Ratio 25.78, Glucose 92.1, Calcium 8.68, Total Bilirubin 0.24, AST 92.0 H D, ALT 132.2 H, Alkaline Phosphatase 85.6, Total Protein 5.23 L, Albumin 2.74 L, Globulin 2.49, Albumin/Globulin Ratio 1.10 ASSESSMENT: 1. Bilateral pneumonia 2. Sinus tachycardia 3. Recurrent lung cancer 4. Acute respiratory failure 5. Hypertension 6. Severe COPD 7. Elevated Liver enzymes. PLAN: 1. Discontinue Lovenox 2. Coreg 3.125mg this morning. Monitor heart and blood pressure, dose may need to be adjusted 3. Will continue Omnicef and Doxycycline 4. Refusing to wear oxygen 5. ABG stable with saturation 91% on room air 6. Discharge will be dependant on Tachycardia and hypertension 7. Continue DUO NEBS Plan and coordination of the patient's care discussed in the presence of Laundry Attendant and nurse. SCRIBED BY: Candy GRAFF scribed while in presence of service performed by Brandi Nolasco APRN on 11/13/22 ([id number])
[2022-11-13] MEDS ORDERED: COREG PO ONE (11:10)
[2022-11-13 14:22] VITALS: BP 170/96; PULSE 80; RESP 15; TEMP 96.9
--- NOTE | 2022-11-13 14:56 | PN ---
DATE OF SERVICE: 11/11/22 SUBJECTIVE: 72 year old white female hospitalized with community acquired pneumonia. Patient is doing a lot better and feeling better. Appetite is improving. The daughter is present in the room. REVIEW OF SYSTEMS: CONSTITUTIONAL: No night sweats. No fatigue, malaise, lethargy. No fever or chills. HEENT: Eyes: No visual changes. No eye pain. No eye discharge. ENT: No runny nose. No epistaxis. No sinus pain. No sore throat. No odynophagia. No congestion. RESPIRATORY: No cough, no congestion. No hemoptysis. No shortness of breath. CARDIOVASCULAR: No chest pain. No palpitations. No PND. No orthopnea. GASTROINTESTINAL: No abdominal pain. No nausea or vomiting. No diarrhea or constipation. No hematemesis. No hematochezia. GENITOURINARY: No urgency. No frequency. No dysuria. No hematuria. No obstructive symptoms. No discharge. No pain. No significant abnormal bleeding. MUSCULOSKELETAL: No musculoskeletal pain; no joint swelling. NEUROLOGICAL: No headache. No neck pain. No syncope. No seizures. No dizziness. PSYCHIATRIC: Not anxious. No depression. No suicidal thoughts. No homicidal thoughts. SKIN: No rash. No lesions. No wounds. ENDOCRINE: No unexplained weight loss. No weight gain. HEMATOLOGIC/LYMPHATIC: No anemia. No purpura. No petechiae. No prolonged or excessive bleeding. No palpable lymph nodes. PHYSICAL EXAMINATION: GENERAL: The patient is in no distress. VITAL SIGNS: Temperature 97, pulse 110, respiratory rate 20, blood pressure 148/70, pulse ox 97%. HEENT: Head normocephalic, atraumatic. Eyes: Extraocular muscles are intact. Pupils are equal, round and reactive to light and accommodation. Ears: No lesions. Nose appeared normal. Throat: No exudate or erythema. NECK: Supple. LUNGS: Decreased breath sounds but clear. HEART: S1, S2, no S3. No murmurs. No cyanosis or clubbing. No ascites. Pulses: Dorsalis pedis and posterior tibial pulses +1 to +2 bilaterally. ABDOMEN: Soft. Bowel sounds active. EXTREMITIES: No edema. Full range of motion of all extremities, equal. NEUROLOGIC: No focal deficit. Cranial nerves II through XII are grossly intact. No headache. No double vision. SKIN: Not dry. Intact. Turgor - normal. LYMPHATIC: No palpable lymph nodes/no lymphedema. MUSCULOSKELETAL: Normal joints with no swelling. Muscle tone is normal. LABS: Hemoglobin 9.8, hematocrit 31, WBC 16,000, normal differential, creatinine 0.8, BUN 18, potassium 3.8. ASSESSMENT: 1. Pneumonia seems to be resolving clinically. 2. Respiratory failure seems to under control. 3. Chronic lung disease, smoking counseling done 4. Ca of the lung 3. Glucose is high from steroids PLAN: Discontinue Ceftriaxone and Doxycycline and will convert it to Omnicef and Doxycycline PO. Patient has appointment with Dr. Haro on the of this month. Condition: Stable, improving TIME SPENT: More than 35 minutes. Plan and coordination of the patient's care discussed in the presence of nurse. GERSON
--- NOTE | 2022-11-13 15:02 | PN ---
DATE OF SERVICE: 11/12/22 SUBJECTIVE: 72 year old white female hospitalized with community acquired pneumonia. Patient's condition has improved. Her appetite has improved. She wants to go home. REVIEW OF SYSTEMS: CONSTITUTIONAL: No night sweats. No fatigue, malaise, lethargy. No fever or chills. HEENT: Eyes: No visual changes. No eye pain. No eye discharge. ENT: No runny nose. No epistaxis. No sinus pain. No sore throat. No odynophagia. No congestion. RESPIRATORY: Mild cough with congestion but that seems to be improving some. CARDIOVASCULAR: No chest pain. No palpitations. No PND. No orthopnea. GASTROINTESTINAL: No abdominal pain. No nausea or vomiting. No diarrhea or constipation. No hematemesis. No hematochezia. GENITOURINARY: No urgency. No frequency. No dysuria. No hematuria. No obstructive symptoms. No discharge. No pain. No significant abnormal bleeding. MUSCULOSKELETAL: No musculoskeletal pain; no joint swelling. NEUROLOGICAL: No headache. No neck pain. No syncope. No seizures. No dizziness. PSYCHIATRIC: Not anxious. No depression. No suicidal thoughts. No homicidal thoughts. SKIN: No rash. No lesions. No wounds. ENDOCRINE: No unexplained weight loss. No weight gain. HEMATOLOGIC/LYMPHATIC: No anemia. No purpura. No petechiae. No prolonged or excessive bleeding. No palpable lymph nodes. PHYSICAL EXAMINATION: GENERAL: The patient is in no distress. VITAL SIGNS: Temperature 97.1, pulse 110, respiratory rate 18, blood pressure 139/76, pulse ox 94%. HEENT: Head normocephalic, atraumatic. Eyes: Extraocular muscles are intact. Pupils are equal, round and reactive to light and accommodation. Ears: No lesions. Nose appeared normal. Throat: No exudate or erythema. NECK: Supple. LUNGS: Decreased breath sounds but clear. HEART: S1, S2, no S3. No murmurs. No cyanosis or clubbing. No ascites. Pulses: Dorsalis pedis and posterior tibial pulses +1 to +2 bilaterally. ABDOMEN: Soft. Bowel sounds active. EXTREMITIES: No edema. Full range of motion of all extremities, equal. NEUROLOGIC: No focal deficit. Cranial nerves II through XII are grossly intact. No headache. No double vision. SKIN: Not dry. Intact. Turgor - normal. LYMPHATIC: No palpable lymph nodes/no lymphedema. MUSCULOSKELETAL: Normal joints with no swelling. Muscle tone is normal. LABS: Hemoglobin 10.7, hematocrit 34, WBC 19,000, normal differential, creatinine 0.7, BUN 19, potassium 4.5. ASSESSMENT: 1. Community acquired pneumonia seems to be resolving 2. Respiratory failure seems to be resolving 3. Ca of the lung, smoking 4. Sinus tachycardia PLAN: 1. Do echo in the morning. 2. Continue all medicines as before. 3. Continue IV, steroids and will put her on Prednisone 20 PO daily. Condition: Stable TIME SPENT: More than 35 minutes. Plan and coordination of the patient's care discussed in the presence of nurse. GERSON
[2022-11-13] MEDS ORDERED: COREG PO SCH ×2 (17:00)
--- NOTE | 2022-11-14 14:49 | ECHO2D ---
Date of Exam: 11/13/2022 Ordering Physician: DR. SIMONE TEIXEIRA Room #: [id number] Reason for Echo: TACHYCARDIA/ COPD, CAD, LUNG CANCER M-Mode Normal Adult Results LV Dimensions Normal Adult Results AoV Opening excursions >1.6 >1.6 LVEDD-base- 3.5-5.8 3.7 Ao root dimensions 2.0-3.7 3.1 LVESD-base- 3.1-4.6 L. Atrium dimensions 1.9-3.8 3.0 Post. Wall thickness 0.8-1.1 0.9 IV septum (thickness) 0.7-1.2 0.9 Post. Wall excursion 0.72-1.3 NORMAL Septal motion NORMAL Systolic motion R. Ventricular cavity 1.5-2.0 3.5 LVEF 60% 58% Paradoxical septal wall motion NORMAL 2-D : 2-D M Mode Echocardiogram was performed using apical four chamber and left parasternal long and short axis views. Mitral, tricuspid and aortic valves appear to be normal. Contractility of the left ventricle seems to be normal, so is the cavity size. Left atrial cavity size and aortic root appear to be normal. There is no pericardial effusion. There is no thrombus noted in the left ventricle or left atrial cavity. ENLARGED RIGHT VENTRICLE CAVITY M-MODE: MV: MAYBE MITRAL VALVE PROLAPSE AV: NORMAL TV: NORMAL PV: NORMAL CHAMBER SIZE: ENLARGED RIGHT VENTRICLE CAVITY WALL MOTION: NORMAL PERICARDIUM: NORMAL INTERPRETATION: 1. ENLARGED RIGHT VENTRICLE CAVITY 2. NORMAL VALVES 3. NORMAL LEFT VENTRICLE SIZE AND LEFT VENTRICLE CONTRACTILITY 4. NO PERICARDIAL EFFUSION MTDD
== END 2022-11-13 14:40 | disposition home or self-care (01) | DRG 193 ==
LOC: ED 09:12 → MEDSURG B 09:12 → OBSVTOIN 14:45 → MEDSURG B 15:39
PROVIDERS: ADMIT Internal Medicine; ATTEND Internal Medicine
DX: Z90.2 Acquired absence of lung [part of]; Z20.822 Contact with and (suspected) exposure to COVID-19; R79.1 Abnormal coagulation profile; J18.9 Pneumonia, unspecified organism; J44.9 Chronic obstructive pulmonary disease, unspecified; F32.A Depression, unspecified; I25.10 Atherosclerotic heart disease of native coronary artery without angina pectoris; R94.31 Abnormal electrocardiogram [ECG] [EKG]; J96.11 Chronic respiratory failure with hypoxia; R00.0 Tachycardia, unspecified; E78.5 Hyperlipidemia, unspecified; Z68.1 Body mass index [BMI] 19.9 or less, adult; F17.210 Nicotine dependence, cigarettes, uncomplicated; E43 Unspecified severe protein-calorie malnutrition; C34.90 Malignant neoplasm of unspecified part of unspecified bronchus or lung; Z85.118 Personal history of other malignant neoplasm of bronchus and lung

== ENCOUNTER 2023-04-05 11:06 | Observation (INO) ==
[2023-04-05] MEDS ORDERED: DUONEB NEB STA (11:29)
--- NOTE | 2023-04-05 11:29 | ED.PDOC ---
General ED Provider: Dr. ELOISA CONTI MD Chief Complaint: Shortness of Air Stated Complaint: Patient presents to ER from home accompanied by her daughter complaining of worsening shortness of breath and chest pain. Patient's daughter reports patient has a remarkable history for lung cancer status post right lower lobectomy. And also new nodule on the left side. Says patient recently underwent radiation of her left lung and they are monitoring that site currently. Patient and patient's daughter confirm DNR CODE STATUS. Patient's daughter is concerned about possible pneumonia given rapid onset of symptoms starting yesterday. Denies fever chills nausea vomiting diarrhea. No other complaints. Time Seen by Provider: 04/05/23 11:27 Information Source: Patient and Family (daughter) Exam Limitations: No limitations Primary Care Provider: RAGHAV WADE MD Nursing and Triage Documentation Reviewed and Agree: Yes Review of Systems Review Of Systems Constitutional: Reports Malaise All Other Systems: Reviewed and Negative [facility] Medical History Tobacco abuse (12/10/13) Z72.0 - Tobacco use (ICD-10) Shingles (01/20/14) B02.9 - Zoster without complications (ICD-10) Lung cancer (08/27/14) C34.90 - Malignant neoplasm of unspecified part of unspecified bronchus or lung (ICD-10) Lesion of lung (12/10/13) R91.1 - Solitary pulmonary nodule (ICD-10) Chronic bronchitis J42 - Unspecified chronic bronchitis (ICD-10) History of pleurisy Z87.09 - Personal history of other diseases of the respiratory system (ICD- 10) Recurrent pneumonia J18.9 - Pneumonia, unspecified organism (ICD-10) Family History Mother No problems noted. FATHER No problems noted. Other COPD (chronic obstructive pulmonary disease) Cancer Social History Smoking and tobacco status: Current every day smoker Tobacco type: cigarettes Tobacco: How many years used: 60 Quit status: not considering quitting Alcohol intake: never Substance use type: does not use Special miquel needs: No Agree to transfusion: Yes Adopted: No Caregiver/support person: No Foster care: No Household members: other Housing: house Marital status: D Lives independently: Yes Number of children: 7 service: No senior care: No Current occupational status: retired Do you think of yourself as: straight/heterosexual Current gender identity: female Seatbelt use: always Drives intoxicated or rides with intoxicated stud driver: No Water heater temperature set < 120 degrees: Yes Working smoke detector in home: Yes Fire extinguisher in home: Yes Carbon monoxide detector in home: Yes Surgical History S/p bilateral carpal tunnel release Z98.890 - Other specified postprocedural states (ICD-10) History of lung surgery RIGHT LOBEctomy/CANCER 2016 NO CHEMO OR RADIATION Z98.890 - Other specified postprocedural states (ICD-10) Status post tonsillectomy Z90.89 - Acquired absence of other organs (ICD-10) Status post hysterectomy Z90.710 - Acquired absence of both cervix and uterus (ICD-10) Status post tonsillectomy and adenoidectomy Z90.89 - Acquired absence of other organs (ICD-10) Female Reproductive History Menstrual Hx Hysterectomy: Yes Hx Tubal Ligation: No Physical Exam Physical Exam Appearance: Reports Ill-appearing and Cachectic Ill-appearing: Moderate Pain Distress: Moderate Eyes: Reports KAREN and EOMI ENT: Reports Ears normal, Nose normal and Oropharynx normal Neck: Supple Respiratory: Reports Airway patent and Crackles Cardiovascular: Reports RRR, Pulses normal and No murmur GI/: Reports Soft and Nontender Musculoskeletal: Reports Limited ROM, Limited strength and Other (Tenderness to palpation of mid-thoracic area.) Skin: Reports Warm and Dry Neurological: Reports Sensation intact and Motor intact Psychiatric: Reports Affect appropriate and Mood appropriate Interpretation EKG Interpretation EKG Interpretation By: ED Physician Time of EKG #1: 11:59 Rate: Normal Rhythm: Sinus Ectopy: None [place]: NL ST Segment: Normal Interpretation: NSR, possible CARISSA, TWI V1-V2 interpreted by me. EKG Comparison: Other (new TWI V1-V2 compared to 01/09/23 ECG.) Radiology Interpretation Radiology Interpretation By: ED Physician Radiology Results: Negative Exam Interpreted: CXR Xray Comments: No acute cardiopulmonary process interpreted by me. Physician Notification Case Discussed Physician Notified: Dr. Raghav Wade Time of Notification: 02:40 Comments: Updated patient's PCP regarding status and current work-up and management for acute, T6 compression fracture. Agreed with admission to hospitalist for further care. Physician Notified: Jeanne Abbott PA-C Time of Notification: 02:45 Comments: Spoke with on-call hospitalist regarding patient status and current work-up and management. 72-year-old female with acute, T6 compression fracture. Received morphine 2 mg IV x2 as well as 4 mg IV x1 in the emergency department. Still complaining of moderate to severe back pain. Agreed with observation admission for further management of intractable back pain. Will consider ordering outpatient referral for kyphoplasty if warranted. Endorsed To/Discussed With: Jeanne bAbott PA-C Time of Discussion: 02:45 Admit/Transition Orders Entered by ED Provider: No Reviewed With: Hospitalist Admit To: Observation Critical Care Note Critical Care Note Total Critical Care Time (mins): 0 Course Course 04/05/23 11:44 04/05/23 11:44 Orders, Labs, Meds: Lab Review 04/05/23 04/05/23 04/05/23 11:40 11:44 14:40 WBC 8.24 RBC 4.11 L Hgb 11.9 L Hct 37.1 MCV 90.3 MCH 29.0 MCHC 32.1 RDW Coeff of Felipe 12.9 Plt Count 234 Immature Gran % (Auto) 0.6 Neut % (Auto) 64.8 Lymph % (Auto) 22.7 [place] % (Auto) 10.8 H Eos % (Auto) 0.7 Baso % (Auto) 0.4 Neut # (Auto) 5.3 Lymph # (Auto) 1.9 [place] # (Auto) 0.9 Eos # (Auto) 0.1 Baso # (Auto) 0.0 Immature Gran # (Auto) 0.1 Puncture Site Lbrach Base Excess 5.7 H O2 Saturation 98.0 ABG pH 7.52 H* ABG pCO2 35.0 ABG pO2 93.0 ABG HCO3 28.6 H ABG Total CO2 29.7 H Mat Test N/a Hemoglobin 1.5 Oxyhemoglobin 94.5 L Carboxyhemoglobin 2.3 H Total Hemoglobin 12.4 FiO2 % 21.0 Sodium 137.3 Potassium 3.85 Chloride 106.9 Carbon Dioxide 24.3 Anion Gap 9.95 BUN 17.0 Creatinine 0.73 Estimated GFR (MDRD) 78.00 BUN/Creatinine Ratio 23.28 Glucose 107.2 H Lactic Acid 0.97 Calcium 8.89 Total Bilirubin 0.59 AST 21.0 ALT 14.5 Alkaline Phosphatase 76.3 Troponin I < 0.012 Total Protein 7.19 Albumin 3.87 Globulin 3.32 Albumin/Globulin Ratio 1.16 Procalcitonin < 0.05 D-Dimer 1289.06 H SARS CoV-2 RNA Rapid PAT Negative Orders Category Date Time Status PLACE PATIENT OBSERVATION .TO MEDSURG (MONITORED BED ADMISSION 04/05/23 14:46 Active ) 3 STEP PULSE OXIMETRY Routine CARDIO 04/06/23 06:00 Stop Req ABG DRAW REQUEST Stat CARDIO 04/05/23 11:31 Completed EKG-(ED ONLY) Stat CARDIO 04/05/23 11:29 Completed INCENTIVE SPIROMETRY Routine CARDIO 04/05/23 15:12 Ordered NEBULIZER TREATMENT Stat CARDIO 04/05/23 11:29 Completed INTAKE & OUTPUT Q8HR CARE 04/05/23 14:46 Active NPO REMINDER: IMAGING ONCE CARE 04/05/23 12:40 Completed NPO REMINDER: IMAGING ONCE CARE 04/05/23 12:45 Completed TELEMETRY MONITORING TELE CARE 04/05/23 14:46 Active VITAL SIGNS Q8HR CARE 04/05/23 14:46 Active CARDIAC DIET DIETARY 04/05/23 Dinner Ordered Scrap Metal Burner [ED WHEEL INSPECTOR APPLIED] .ONCE EMERGENCY 04/05/23 11:29 Active ABG COOX Stat LAB 04/05/23 11:40 Completed BLOOD CULTURE (ED ONLY) Stat LAB 04/05/23 12:52 Received CBC W/ AUTO DIFF DAILY@0600 LAB 04/06/23 06:00 Ordered CBC W/ AUTO DIFF DAILY@0600 LAB 04/07/23 06:00 Ordered CBC W/ AUTO DIFF Stat LAB 04/05/23 11:44 Completed CMP [COMPREHENSIVE METABOLIC PANEL] Stat LAB 04/05/23 11:44 Completed COMPREHENSIVE METABOLIC PANEL DAILY@0600 LAB 04/06/23 06:00 Ordered COMPREHENSIVE METABOLIC PANEL DAILY@0600 LAB 04/07/23 06:00 Ordered COVID [SARS COV-2 RNA RAPID PAT] Stat LAB 04/05/23 14:40 Received D-DIMER Stat LAB 04/05/23 11:44 Completed LACTIC ACID Stat LAB 04/05/23 11:44 Completed PROCALCITONIN Stat LAB 04/05/23 11:44 Completed TROPONIN I Stat LAB 04/05/23 11:44 Completed Aspirin [Aspirin Chewable] Meds 04/05/23 12:09 Discontinued 324 mg PO ONCE STA Hydrocodone Bit/Acetaminophen [[place] 5-325] Meds 04/05/23 14:46 Active 1 tab PO Q6HR PRN Ipratropium/Albuterol Neb [Duoneb] Meds 04/05/23 11:29 Discontinued 3 ml NEB ONCE STA Lidocaine Patch [Lidoderm 5 % Patch] Meds 04/05/23 14:41 Discontinued 1 patch TP ONCE STA Metoprolol Tartrate [Lopressor] Meds 04/05/23 12:30 Discontinued 5 mg IVP ONCE STA Morphine Sulfate [Morphine 2 mg/ml Syringe] Meds 04/05/23 12:10 Discontinued 2 mg IVP ONCE ONE Morphine Sulfate [Morphine 2 mg/ml Syringe] Meds 04/05/23 14:11 Discontinued 2 mg IVP ONCE ONE Morphine Sulfate [Morphine 2 mg/ml Syringe] Meds 04/05/23 14:46 Active 2 mg IVP Q6H PRN Morphine Sulfate [Morphine 4 mg/ml Syringe] Meds 04/05/23 14:40 Discontinued 4 mg IVP ONCE ONE CHEST, 1V AP ONLY Stat RADS 04/05/23 11:31 Completed CTA CHEST PE PROTOCOL Stat RADS 04/05/23 12:45 Completed Medications Generic Name Dose Route Start Last Admin Trade Name Freq PRN Reason Stop Dose Admin Hydrocodone Bitart/Acetaminophen 1 tab 04/05/23 14:46 Hydrocodone Bit/Acetaminophen 5/325 Mg Tablet PO Q6HR PRN MODERATE PAIN Morphine Sulfate 2 mg 04/05/23 14:46 Morphine Sulfate 2 Mg/Ml Syringe IVP Q6H PRN Severe Pain Discontinued Medications Generic Name Dose Route Start Last Admin Trade Name Freq PRN Reason Stop Dose Admin Albuterol/Ipratropium 3 ml 04/05/23 11:29 04/05/23 13:09 Ipratropium/Albuterol Vial.Neb NEB 04/05/23 11:30 3 ml ONCE STA Administration Aspirin 324 mg 04/05/23 12:09 04/05/23 12:14 Aspirin 81 Mg Tab.Chew PO 04/05/23 12:10 324 mg ONCE STA Administration Lidocaine 1 patch 04/05/23 14:41 04/05/23 14:53 Lidocaine 5% Patch TP 04/05/23 14:42 1 patch ONCE STA Administration Metoprolol Tartrate 5 mg 04/05/23 12:30 04/05/23 12:38 Metoprolol Tartrate 5 Mg/5 Ml Vial IVP 04/05/23 12:31 5 mg ONCE STA Administration Morphine Sulfate 2 mg 04/05/23 12:10 04/05/23 12:17 Morphine Sulfate 2 Mg/Ml Syringe IVP 04/05/23 12:11 2 mg ONCE ONE Administration Morphine Sulfate 2 mg 04/05/23 14:11 04/05/23 14:22 Morphine Sulfate 2 Mg/Ml Syringe IVP 04/05/23 14:12 2 mg ONCE ONE Administration Morphine Sulfate 4 mg 04/05/23 14:40 04/05/23 14:53 Morphine Sulfate 4 Mg/Ml Syringe IVP 04/05/23 14:41 4 mg ONCE ONE Administration Vital Signs: Temp Pulse Resp BP Pulse Ox 04/05/23 12:49 194/92 H 04/05/23 11:10 98.8 F 107 H 22 H 183/114 H [address] [place] [address] Report : [id number] Signed Patient: CHAZ DURBIN Acct:[id number] Medical Record: [id number] : 1950 Loc: ED Room/Bed: Age/Sex: 72 / F ADM Status: REG ER Date of Service: 04/05/23 Ordering Physician: ELOISA CONTI MD Procedure(s): CTA CHEST PE PROTOCOL Report Number(s): [id number] Accession Number(s): [id number] cc: RAGHAV WADE MD; ELOISA CONTI MD EXAM: CHEST CTA WITH CONTRAST (PULMONARY ARTERY) HISTORY: Chest pain. Elevated D-dimer. TECHNIQUE: CTA acquisition of the chest from the thoracic inlet to the upper abdomen following IV contrast administration timed to filling of the pulmonary artery. IV Contrast: 100 mL of Omnipaque 350. 3D/MIP/VR images were utilized. CT Dose Reduction Techniques Employed: Yes. COMPARISON: None. FINDINGS: Pulmonary Embolism: - Diagnostic quality: Adequate. - Pulmonary Arteries: No evidence of thromboembolic disease. - Right ventricle/Left ventricle ratio: Normal. Lung Parenchyma and Airways: - No new suspicious mass or consolidation. - A 1.0 x 0.7 cm superior segment left lower lobe perihilar nodule is identified, previously measuring 1.4 x 0.6 cm, stable given differences in technique. Severe emphysema is again noted. - A 0.7 x 0.7 cm right middle lobe subpleural nodule is identified, previously measuring 0.5 x 0.5 cm, increased (axial image 182). The adjacent 0.5 x 0.4 cm lateral right lower lobe pleural nodule also appears slightly increased in size from previous exam. Pleural Space: No significant pleural effusion. No pneumothorax. Mediastinum: The heart appears within normal limits. No pericardial effusion. The great vessels are normal. No significant aortic aneurysm. No enlarged lymph nodes. Bones and Soft Tissues: A new T6 compression fracture deformity is identified, with approximately 25% central height loss. Chest wall soft tissues are unremarkable. Upper Abdomen: The scattered bilateral intrarenal calcifications are noted. IMPRESSION: 1. Normal CT pulmonary angiogram without evidence of pulmonary artery embolism. 2. A new T6 compression fracture deformity is identified. This may be amendable to kyphoplasty for symptomatic relief. 3. The left perihilar nodule is grossly unchanged. The right lung nodules have slightly increased in size and conspicuity the, measuring up to 0.7 cm in diameter. Follow-up CT of the chest in 3-6 months is recommended. All CT scans are performed using dose optimization techniques as appropriate to the performed exam and include at least one of the following: Automated exposure control, adjustment of the mA and/or kV according to size, and the use of iterative reconstruction technique. Dictated By: SHYANNE PAIGE MD Signed By: SHYANNE PAIGE MD Dictated Date/Time: 04/05/23 1325 Transcribed Date/Time: 04/05/23 1325 Signed Date/Time: 04/05/23 1338 Discharge Plan Discharge Patient Disposition: PLACED OBSERVATION Discharge Problem: Intractable back pain Nontraumatic compression fracture of T6 vertebra Qualifiers: Encounter type: initial encounter Qualified Code(s): M48.54XA - Collapsed vertebra, not elsewhere classified, thoracic region, initial encounter for fracture Did you review [place] [employer]GER for ALL controlled substances?: Yes ED Provider: ELOISA CONTI Condition: Stable Physician Progress Note: []
[2023-04-05 11:47] LABS: ABG O2 HGB 94.5 % (95-100); BEecf 5.7 (-2.0-3.0); COHb 2.3 (0.5-1.5); HCO3 28.6 (21-28); MetHb 1.5 (0-1.5); TCO2 29.7 (19-24); tHb 12.4 g/dl (11.7-17.4)
[2023-04-05 11:50] LABS: BASOPHILS % (AUTO) 0.4 % (0.0-3.0); EOSINOPHILS # (AUTO) 0.1 K/ul (0.0-0.7); EOSINOPHILS % (AUTO) 0.7 % (0.0-7.0); HEMATOCRIT 37.1 % (37.0-47.0); HEMOGLOBIN 11.9 g/dl (12.0-16.0); IMMATURE GRANULOCYTE # (AUTO) 0.1 (0.0-1.0); IMMATURE GRANULOCYTE % (AUTO) 0.6 % (0.0-5.0); LYMPHOCYTES # (AUTO) 1.9 K/uL (0.60-3.4); LYMPHOCYTES % (AUTO) 22.7 (10.0-50.0); MEAN CORPUSCULAR HGB CONC 32.1 (31.8-35.4); MEAN CORPUSCULAR VOLUME 90.3 fl (81.0-99.0); MONOCYTES # (AUTO) 0.9 K/uL (0.4-2.0); MONOCYTES % (AUTO) 10.8 (0-10); NEUTROPHILS # (AUTO) 5.3 K/ul (2.0-6.9); NEUTROPHILS % (AUTO) 64.8 % (42.2-75.2); PLATELET COUNT 234 10^3/uL (140-440); RDW COEFFICIENT OF VARIATION 12.9 % (11.6-14.8); RED BLOOD COUNT 4.11 10^6/ul (4.20-5.40); WHITE BLOOD COUNT 8.24 K/ul (4.6-10.2)
[2023-04-05 11:50] LABS: ABG PH 7.52 (7.35-7.45)
[2023-04-05 12:03] LABS: ALANINE AMINOTRANSFERASE 14.5 U/L (0-35); ALBUMIN 3.87 g/dL (3.5-5.0); ALKALINE PHOSPHATASE 76.3 U/L (53-141); BILIRUBIN,TOTAL 0.59 mg/dL (0.2-1.3); CALCIUM 8.89 mg/dL (8.4-10.2); CARBON DIOXIDE 24.3 mmol/L (22-30.0); CHLORIDE 106.9 mmol/L (98-107); CREATININE 0.73 mg/dL (0.60-1.30); GLUCOSE 107.2 mg/dL (74-106); POTASSIUM 3.85 mmol/L (3.5-5.1); SODIUM 137.3 mmol/L (134.5-145); TOTAL PROTEIN 7.19 g/dL (6.3-8.2)
[2023-04-05] MEDS ORDERED: ASPIRIN CHEWABLE PO STA (12:09)
[2023-04-05] MEDS ORDERED: MORPHINE 2 MG/ML SYRINGE IVP ONE ×2 (12:10→14:11)
--- NOTE | 2023-04-05 12:26 | DI ---
EXAM: CHEST RADIOGRAPH TECHNIQUE: Single frontal chest radiograph. HISTORY: Shortness of breath. COMPARISON: 01/09/2023. FINDINGS: Hyperinflated lungs. Biapical scarring. Flattened diaphragms The heart size is normal. There is no pleural effusion. There is no pneumothorax. IMPRESSION: No acute radiographic process.
[2023-04-05] MEDS ORDERED: LOPRESSOR IVP STA (12:30)
--- NOTE | 2023-04-05 13:38 | CT ---
EXAM: CHEST CTA WITH CONTRAST (PULMONARY ARTERY) HISTORY: Chest pain. Elevated D-dimer. TECHNIQUE: CTA acquisition of the chest from the thoracic inlet to the upper abdomen following IV con trast administration timed to filling of the pulmonary artery. IV Contrast: 100 mL of Omnipaque 350. 3D/MIP/VR images were utilized. CT Dose Reduction Techniques Employed: Yes. COMPARISON: None. FINDINGS: Pulmonary Embolism: - Diagnostic quality: Adequate. - Pulmonary Arteries: No evidence of thromboembolic disease. - Right ventricle/Left ventricle ratio: Normal. Lung Parenchyma and Airways: - No new suspicious mass or consolidation. - A 1.0 x 0.7 cm superior segment left lower lobe perihilar nodule is identified, previously measurin g 1.4 x 0.6 cm, stable given differences in technique. Severe emphysema is again noted. - A 0.7 x 0.7 cm right middle lobe subpleural nodule is identified, previously measuring 0.5 x 0.5 cm , increased (axial image 182). The adjacent 0.5 x 0.4 cm lateral right lower lobe pleural nodule als o appears slightly increased in size from previous exam. Pleural Space: No significant pleural effusion. No pneumothorax. Mediastinum: The heart appears within normal limits. No pericardial effusion. The great vessels are n ormal. No significant aortic aneurysm. No enlarged lymph nodes. Bones and Soft Tissues: A new T6 compression fracture deformity is identified, with approximately 25% central height loss. Chest wall soft tissues are unremarkable. Upper Abdomen: The scattered bilateral intrarenal calcifications are noted. IMPRESSION: 1. Normal CT pulmonary angiogram without evidence of pulmonary artery embolism. 2. A new T6 compression fracture deformity is identified. This may be amendable to kyphoplasty for symptomatic relief. 3. The left perihilar nodule is grossly unchanged. The right lung nodules have slightly increased i n size and conspicuity the, measuring up to 0.7 cm in diameter. Follow-up CT of the chest in 3-6 mon ths is recommended. All CT scans are performed using dose optimization techniques as appropriate to the performed exam an d include at least one of the following: Automated exposure control, adjustment of the mA and/or kV according t o size, and the use of iterative reconstruction technique.
[2023-04-05] MEDS ORDERED: MORPHINE 4 MG/ML SYRINGE IVP ONE (14:40)
[2023-04-05] MEDS ORDERED: LIDODERM 5 % PATCH TP STA (14:41)
[2023-04-05] MEDS ORDERED: MORPHINE 2 MG/ML SYRINGE IVP PRN (14:46)
[2023-04-05 15:09] LABS: SARS COV-2 RNA RAPID NAAT NEGATIVE (NEGATIVE)
--- NOTE | 2023-04-05 15:11 | PCM ---
Date of Service Date Seen by Provider: 04/05/23 Time Seen by Provider: 15:00 Admit Day/Time Admission Date: 04/05/23 Admission Time: 14:46 Reason for Admission Chief Complaint: INTRACTABLE BACK PAIN Hospital Provider Hospital Provider: Mei Ayala PA-C, [facility] Primary Care Physician Primary Care Physician: SIMONE WADE MD History of Present Illness History of Present Illness: Patient is a 72 year old female from home with pmhx of lung cancer x7 years ago, COPD, hyperlipidemia, hypertension, chronic anemia who presented with cc of chest pain and sob. Patient states her pain was in her upper back and just started today. Denies falling. No sneezing. She does have a cough that is worse than usual. She is frail with bmi of 17. In ER she was found to have an unremarkable initial workup, however d dimer was elevated. CTA showed an acute T6 compression fracture. Also mentioned some nodules that were slightly larger than last scan. Pt was given 3 doses of morphine with minimal relief. Patient will be admitted to [facility] for observation. Patient follows with [facility]. She has an oncology and radiation physician but she's unsure of their names. She has been cancer free since her right sided lobectomy 7 years ago. She underwent radiation but no chemo. She is unsure if these nodules are newer or if her oncologist is aware and monitoring them. Case Discussed With Case Discussed With: Patient's case was discussed with the ER Physicians, Dr. Cole. [facility] Medical History Tobacco abuse (12/10/13) Z72.0 - Tobacco use (ICD-10) Shingles (01/20/14) B02.9 - Zoster without complications (ICD-10) Lung cancer (08/27/14) C34.90 - Malignant neoplasm of unspecified part of unspecified bronchus or lung (ICD-10) Lesion of lung (12/10/13) R91.1 - Solitary pulmonary nodule (ICD-10) Chronic bronchitis J42 - Unspecified chronic bronchitis (ICD-10) History of pleurisy Z87.09 - Personal history of other diseases of the respiratory system (ICD- 10) Recurrent pneumonia J18.9 - Pneumonia, unspecified organism (ICD-10) Surgical History S/p bilateral carpal tunnel release Z98.890 - Other specified postprocedural states (ICD-10) History of lung surgery RIGHT LOBEctomy/CANCER 2016 NO CHEMO OR RADIATION Z98.890 - Other specified postprocedural states (ICD-10) Status post tonsillectomy Z90.89 - Acquired absence of other organs (ICD-10) Status post hysterectomy Z90.710 - Acquired absence of both cervix and uterus (ICD-10) Status post tonsillectomy and adenoidectomy Z90.89 - Acquired absence of other organs (ICD-10) Family History Mother No problems noted. FATHER No problems noted. Other COPD (chronic obstructive pulmonary disease) Cancer Social History Smoking and tobacco status: Current every day smoker Tobacco type: cigarettes Tobacco: How many years used: 60 Quit status: not considering quitting Alcohol intake: never Substance use type: does not use Special miquel needs: No Agree to transfusion: Yes Adopted: No Caregiver/support person: No Foster care: No Household members: other Housing: house Marital status: D Lives independently: Yes Number of children: 7 service: No half-way: No Current occupational status: retired Do you think of yourself as: straight/heterosexual Current gender identity: female Seatbelt use: always Drives intoxicated or rides with intoxicated port cdl a driver: No Water heater temperature set < 120 degrees: Yes Working smoke detector in home: Yes Fire extinguisher in home: Yes Carbon monoxide detector in home: Yes Allergies Allergies Allergy/AdvReac Type Severity Reaction Status Date / Time symbicort AdvReac Uncoded 04/05/23 11:41 Current Medications Home Medications budesonide-formoterol HFA 160 mcg-4.5 mcg/actuation aerosol inhaler (Symbicort) 2 puff inhalation BID 10/05/19 [History Confirmed 04/05/23 Last Taken 09/12/21 14:00] acetaminophen 300 mg-codeine 30 mg tablet 1 tab PO BID PRN pain #45 tabs 02/15/23 [Rx Confirmed 04/05/23 Last Taken Unknown] budesonide 0.5 mg/2 mL suspension for nebulization 0.25 mg inhalation BID 02/15/23 [History Confirmed 04/05/23 Last Taken Unknown] famotidine 20 mg tablet (Pepcid) 20 mg PO BID #60 tabs 02/15/23 [Rx Confirmed 04/05/23 Last Taken Unknown] ondansetron 4 mg disintegrating tablet 4 mg PO Q8H #21 tabs 03/18/23 [Rx Confirmed 04/05/23 Last Taken Unknown] carvedilol 6.25 mg tablet 6.25 mg PO BIDWM 30 days #60 tabs 03/19/23 [Rx Confirmed 04/05/23 Last Taken Unknown] Home Hydrocodone Bitart/Acetaminophen (Hydrocodone Bit/Acetaminophen 5/325 Mg Tablet) 1 tab PO Q6HR PRN PRN Reason: MODERATE PAIN Albuterol/Ipratropium (Ipratropium/Albuterol Vial.Neb) 3 ml NEB RTQ6H ANDREAS Morphine Sulfate (Morphine Sulfate 2 Mg/Ml Syringe) 2 mg IVP Q6H PRN PRN Reason: Severe Pain Discontinued Medications Albuterol/Ipratropium (Ipratropium/Albuterol Vial.Neb) 3 ml NEB ONCE STA Stop: 04/05/23 11:30 Last Admin: 04/05/23 13:09 Dose: 3 ml Aspirin (Aspirin 81 Mg Tab.Chew) 324 mg PO ONCE STA Stop: 04/05/23 12:10 Last Admin: 04/05/23 12:14 Dose: 324 mg Lidocaine (Lidocaine 5% Patch) 1 patch TP ONCE STA Stop: 04/05/23 14:42 Last Admin: 04/05/23 14:53 Dose: 1 patch Metoprolol Tartrate (Metoprolol Tartrate 5 Mg/5 Ml Vial) 5 mg IVP ONCE STA Stop: 04/05/23 12:31 Last Admin: 04/05/23 12:38 Dose: 5 mg Morphine Sulfate (Morphine Sulfate 2 Mg/Ml Syringe) 2 mg IVP ONCE ONE Stop: 04/05/23 12:11 Last Admin: 04/05/23 12:17 Dose: 2 mg Morphine Sulfate (Morphine Sulfate 2 Mg/Ml Syringe) 2 mg IVP ONCE ONE Stop: 04/05/23 14:12 Last Admin: 04/05/23 14:22 Dose: 2 mg Morphine Sulfate (Morphine Sulfate 4 Mg/Ml Syringe) 4 mg IVP ONCE ONE Stop: 04/05/23 14:41 Last Admin: 04/05/23 14:53 Dose: 4 mg Review of Systems Constitutional: Denies Fever or Weakness Head: Reports Normocephalic and Atraumatic Cardiovascular: Denies Chest pain, Chest Pressure or Edema Respiratory: Reports Cough and Shortness of air Gastrointestinal: Denies Nausea, Vomiting, Diarrhea, Abdominal pain or Melena Genitourinary: Denies Dysuria or Frequency Musculoskeletal: Reports Back Pain (+upper back pain ) Dermatologic: Denies Rashes Neurological: Denies Numbness Physical examination Most Recent Vital Signs: Most Recent Vital Signs Temperature 98.8 F 04/05/23 11:10 Temperature Source Infrared 04/05/23 11:10 Pulse Rate 107 H 04/05/23 11:10 Respiratory Rate 22 H 04/05/23 11:10 Blood Pressure 194/92 H 04/05/23 12:49 O2 Sat by Pulse Oximetry 95 04/05/23 11:10 Height 4 ft 9 in 04/05/23 11:10 Weight 80 lb 04/05/23 11:10 Telemetry Heart Rate 75 11/13/22 07:00 Telemetry SPO2 98 11/11/22 19:00 Appearance: Positive No Apparent Distress, Alert and Oriented x3 and Thin Skin: Positive [place], Warm and Good Turgor; Negative Rashes HEENT: Positive Normocephalic and Atraumatic Neck: Positive Supple and Midline Trachea Chest/Lungs: Positive Clear to Auscultation Bilaterally and Other (+diminished lung sounds bilaterally. ) Heart: Positive RRR GI/: Positive Soft, Nontender, Bowel Sounds Normal and No Distention Musculoskeletal: Positive Other (+no specific pain with palpation of cervical/thoracic spine. Lidocaine patch in place of mid back. No signs of trauma. ) Extremities: Positive Intact Peripheral Pulses; Negative Signs of Trauma or Edema Neurological: Positive Cranial Nerves Intact, Alert, Oriented and Other (+generalized weakness ) Psychiatric: Positive Oriented x4, Appropriate Mood and Appropriate Affect Labs This Visit Labs This Visit: Labs This Visit 04/05/23 04/05/23 04/05/23 11:40 11:44 14:40 WBC 8.24 RBC 4.11 L Hgb 11.9 L Hct 37.1 MCV 90.3 MCH 29.0 MCHC 32.1 RDW Coeff of Felipe 12.9 Plt Count 234 Immature Gran % (Auto) 0.6 Neut % (Auto) 64.8 Lymph % (Auto) 22.7 [place] % (Auto) 10.8 H Eos % (Auto) 0.7 Baso % (Auto) 0.4 Neut # (Auto) 5.3 Lymph # (Auto) 1.9 [place] # (Auto) 0.9 Eos # (Auto) 0.1 Baso # (Auto) 0.0 Immature Gran # (Auto) 0.1 Puncture Site Lbrach Base Excess 5.7 H O2 Saturation 98.0 ABG pH 7.52 H* ABG pCO2 35.0 ABG pO2 93.0 ABG HCO3 28.6 H ABG Total CO2 29.7 H Mat Test N/a Hemoglobin 1.5 Oxyhemoglobin 94.5 L Carboxyhemoglobin 2.3 H Total Hemoglobin 12.4 FiO2 % 21.0 Sodium 137.3 Potassium 3.85 Chloride 106.9 Carbon Dioxide 24.3 Anion Gap 9.95 BUN 17.0 Creatinine 0.73 Estimated GFR (MDRD) 78.00 BUN/Creatinine Ratio 23.28 Glucose 107.2 H Lactic Acid 0.97 Calcium 8.89 Total Bilirubin 0.59 AST 21.0 ALT 14.5 Alkaline Phosphatase 76.3 Troponin I < 0.012 Total Protein 7.19 Albumin 3.87 Globulin 3.32 Albumin/Globulin Ratio 1.16 Procalcitonin < 0.05 D-Dimer 1289.06 H SARS CoV-2 RNA Rapid PAT Negative Imaging Imaging: EXAM: CHEST RADIOGRAPH TECHNIQUE: Single frontal chest radiograph. HISTORY: Shortness of breath. COMPARISON: 01/09/2023. FINDINGS: Hyperinflated lungs. Biapical scarring. Flattened diaphragms The heart size is normal. There is no pleural effusion. There is no pneumothorax. IMPRESSION: No acute radiographic process. EXAM: CHEST CTA WITH CONTRAST (PULMONARY ARTERY) HISTORY: Chest pain. Elevated D-dimer. TECHNIQUE: CTA acquisition of the chest from the thoracic inlet to the upper abdomen following IV contrast administration timed to filling of the pulmonary artery. IV Contrast: 100 mL of Omnipaque 350. 3D/MIP/VR images were utilized. CT Dose Reduction Techniques Employed: Yes. COMPARISON: None. FINDINGS: Pulmonary Embolism: - Diagnostic quality: Adequate. - Pulmonary Arteries: No evidence of thromboembolic disease. - Right ventricle/Left ventricle ratio: Normal. Lung Parenchyma and Airways: - No new suspicious mass or consolidation. - A 1.0 x 0.7 cm superior segment left lower lobe perihilar nodule is identifi ed, previously measuring 1.4 x 0.6 cm, stable given differences in technique. Severe emphysema is again noted. - A 0.7 x 0.7 cm right middle lobe subpleural nodule is identified, previously measuring 0.5 x 0.5 cm, increased (axial image 182). The adjacent 0.5 x 0.4 cm lateral right lower lobe pleural nodule also appears slightly increased in size from previous exam. Pleural Space: No significant pleural effusion. No pneumothorax. Mediastinum: The heart appears within normal limits. No pericardial effusion. The great vessels are normal. No significant aortic aneurysm. No enlarged lymph nodes. Bones and Soft Tissues: A new T6 compression fracture deformity is identified, with approximately 25% central height loss. Chest wall soft tissues are unremarkable. Upper Abdomen: The scattered bilateral intrarenal calcifications are noted. IMPRESSION: 1. Normal CT pulmonary angiogram without evidence of pulmonary artery embolism. 2. A new T6 compression fracture deformity is identified. This may be amendable to kyphoplasty for symptomatic relief. 3. The left perihilar nodule is grossly unchanged. The right lung nodules have slightly increased in size and conspicuity the, measuring up to 0.7 cm in diameter. Follow-up CT of the chest in 3-6 months is recommended. Review Statement Review Statement: I have independently reviewed and interpreted the labs/EKGs/imaging that were ordered by the ER provider. I have reviewed all outside records that are available currently in our EMR including imaging/notes/labs from previous visits. Plan Plan: 1. Intractable back pain in setting of acute compression fracture - Failed 3 doses of morphine in ER. [place], morphine, lidocaine patch ordered. Incentive spirometry and duonebs as well. 2. Acute compression fracture of T6 - 25% height loss. No trauma. Consider outpatient referral for kyphoplasty if unable to control pain. 3. Lung nodules - Pt unsure if these are new for her or not. Will get records from [facility] and will make f/u apt with them if needed. 4. Hx of lung cancer s/p lobectomy and radiation - Plan as above 5. COPD - Cont home inhalers 6. Hypertension - Cont home meds 7. GERD - Cont home meds DVT Prophylaxis: Lovenox Time Spent: Greater than 80 minutes spent with patient, 50% of the time spent with this patient was devoted to counseling and coordination of care. [facility] minutes spent discussing advance care planning. DNR limited Smoking Cessation: Pt quit smoking 1 month ago, denies nicotine patch Admit to: Observation Discussed Plan of Care with Dr. Reid Wade. Medications Medication Orders: Medications Ordered Category Date Time Status Hydrocodone Bit/Acetaminophen [[place] 5-325] Meds 04/05/23 14:46 Active 1 tab PO Q6HR PRN Morphine Sulfate [Morphine 2 mg/ml Syringe] Meds 04/05/23 14:46 Active 2 mg IVP Q6H PRN
[2023-04-05 15:55] VITALS: BMI 16.2
[2023-04-05] MEDS: PEPCID PO SCH (16:59)
[2023-04-05] MEDS: COREG PO SCH (16:59)
[2023-04-05] MEDS: ZOFRAN ODT PO SCH ×2 (16:59→20:58)
[2023-04-05] MEDS: DUONEB NEB SCH ×2 (17:31→23:53)
[2023-04-05] MEDS: PULMICORT 0.5 MG/2 ML NEB SCH (17:36)
[2023-04-05] MEDS: NORCO 5-325 PO PRN (19:18)
[2023-04-05] MEDS ORDERED: PULMICORT 0.5 MG/2 ML NEB SCH (21:00)
[2023-04-05] MEDS: SYMBICORT 160-4.5 MCG INHALER IH SCH (21:09)
[2023-04-06] MEDS: DUONEB NEB SCH (04:49)
[2023-04-06] MEDS: PEPCID PO SCH (05:02)
[2023-04-06] MEDS: NORCO 5-325 PO PRN (05:02)
[2023-04-06] MEDS: ZOFRAN ODT PO SCH (05:23)
[2023-04-06 05:28] VITALS: BP 158/88; PULSE 89; RESP 20; TEMP 98.4
[2023-04-06 06:11] LABS: BASOPHILS % (AUTO) 0.3 % (0.0-3.0); EOSINOPHILS # (AUTO) 0.1 K/ul (0.0-0.7); HEMATOCRIT 35.7 % (37.0-47.0); HEMOGLOBIN 11.2 g/dl (12.0-16.0); IMMATURE GRANULOCYTE # (AUTO) 0.1 (0.0-1.0); IMMATURE GRANULOCYTE % (AUTO) 0.7 % (0.0-5.0); LYMPHOCYTES # (AUTO) 1.8 K/uL (0.60-3.4); LYMPHOCYTES % (AUTO) 20.3 (10.0-50.0); MEAN CORPUSCULAR HEMOGLOBIN 29.4 pg (27.0-31.0); MEAN CORPUSCULAR HGB CONC 31.4 (31.8-35.4); MEAN CORPUSCULAR VOLUME 93.7 fl (81.0-99.0); MONOCYTES # (AUTO) 1.1 K/uL (0.4-2.0); MONOCYTES % (AUTO) 12.5 (0-10); NEUTROPHILS # (AUTO) 5.7 K/ul (2.0-6.9); NEUTROPHILS % (AUTO) 65.2 % (42.2-75.2); PLATELET COUNT 243 10^3/uL (140-440); RED BLOOD COUNT 3.81 10^6/ul (4.20-5.40); WHITE BLOOD COUNT 8.69 K/ul (4.6-10.2)
[2023-04-06 06:22] LABS: ALANINE AMINOTRANSFERASE 13.2 U/L (0-35); ALBUMIN 3.7 g/dL (3.5-5.0); ASPARTATE AMINO TRANSFERASE 21.1 U/L (14-36); BILIRUBIN,TOTAL 0.43 mg/dL (0.2-1.3); BLOOD UREA NITROGEN 18.6 mg/dL (7-17); CALCIUM 8.79 mg/dL (8.4-10.2); CARBON DIOXIDE 25.5 mmol/L (22-30.0); CHLORIDE 104.2 mmol/L (98-107); CREATININE 0.89 mg/dL (0.60-1.30); GLUCOSE 120.9 mg/dL (74-106); POTASSIUM 4.04 mmol/L (3.5-5.1); SODIUM 137.6 mmol/L (134.5-145); TOTAL PROTEIN 6.97 g/dL (6.3-8.2)
[2023-04-06] MEDS: PULMICORT 0.5 MG/2 ML NEB SCH (06:35)
[2023-04-06] MEDS: SYMBICORT 160-4.5 MCG INHALER IH SCH (08:45)
[2023-04-06] MEDS: COREG PO SCH (08:45)
[2023-04-06] MEDS ORDERED: LIDODERM 5 % PATCH TP SCH (09:00)
[2023-04-06] MEDS ORDERED: LOVENOX SUBCUT SCH (09:00)
[2023-04-06] MEDS ORDERED: LIDOCAINE OINTMENT 5% TP SCH (09:00)
[2023-04-06] MEDS ORDERED: NORCO 7.5-325 PO ONE (09:10)
--- NOTE | 2023-04-06 09:31 | DCSUM ---
Admission Date Admission Date: 04/05/23 Discharge Date Discharge Date: 04/06/23 Admission Diagnosis Admission Diagnosis: 1. Intractable pain in setting of acute compression fracture of T6 Discharge Diagnosis Discharge Diagnosis: 1. Intractable back pain in setting of acute compression fracture - Improved 2. Acute compression fracture of T6 - 25% height loss 3. Lung nodules 4. Hx of lung cancer s/p lobectomy and radiation 5. COPD 6. Hypertension 7. GERD Hospital Provider Hospital Provider: MEI AYALA PA-C, [facility] Primary Care Physician Primary Care Physician: SIMONE WADE MD Summary of History and Physical Summary of History and Physical: Patient is a 72 year old female from home with pmhx of lung cancer x7 years ago, COPD, hyperlipidemia, hypertension, chronic anemia who presented with cc of chest pain and sob. Patient states her pain was in her upper back and just started today. Denies falling. No sneezing. She does have a cough that is worse than usual. She is frail with bmi of 17. In ER she was found to have an unremarkable initial workup, however d dimer was elevated. CTA showed an acute T6 compression fracture. Also mentioned some nodules that were slightly larger than last scan. Pt was given 3 doses of morphine with minimal relief. Patient will be admitted to [facility] for observation. Patient follows with [facility]. She has an oncology and radiation physician but she's unsure of their names. She has been cancer free since her right sided lobectomy 7 years ago. She underwent radiation but no chemo. She is unsure if these nodules are newer or if her oncologist is aware and monitoring them. Hospital Course Subjective: Patient was able to be managed with PO norco. Will send home with script. Discussed risks and s/e. Advised to treat for constipation. If pain does not improve with oral therapy, consider outpatient referral for kyphoplasty. Patient given copy of CTA chest to take with pulm f/u. Patient has nodules noted slightly larger in size. Since her history of lung cancer attempted to get pinky of Dr. Ordoñez office to speak with a nurse, never did receive a call back. They did fax records showing she had a stage I lung cancer in 2014 s/p right upper lobe lobectomy. No chemo or radiation at that time. 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 PET scan 10/10 showed a new lesion in right posterior lower lobe. She had a bronch in 11/10 FNA did not show any malignant cells. Plan to continue to follow with radiation onc for surveillance. Dr. Martin is seeing patient every 4 months and monitoring with surveillance CT scans. Pt has next apt in May. Appearance: No Apparent Distress, Alert and Other (+thin, frail ) HEENT: MMM CVS: No Murmur Abdomen: Soft, Non-Tender and No Distention Respiratory: No Accessory Muscle Use Extremities: No Edema Vital Signs: Most Recent Vital Signs Temperature 98.4 F 04/06/23 05:27 Temperature Source Oral 04/06/23 05:27 Temperature Source Infrared 04/05/23 11:10 Pulse Rate 89 04/06/23 05:27 Respiratory Rate 20 04/06/23 05:27 Blood Pressure 158/88 H 04/06/23 05:27 Blood Pressure Mean 111 04/06/23 05:27 Blood Pressure Left Arm 162/94 04/05/23 15:47 Blood Pressure Location Right Arm 04/06/23 05:27 Blood Pressure Position Supine 04/06/23 05:27 O2 Sat by Pulse Oximetry 100 04/06/23 05:27 Oxygen Delivery Method Room Air 04/06/23 09:00 Height 4 ft 9 in 04/05/23 15:47 Weight 75 lb 04/05/23 15:47 Telemetry Type Remote Telemetry 04/06/23 07:00 Telemetry Monitoring Continues 04/06/23 07:00 Telemetry Heart Rate 88 04/06/23 07:00 Telemetry SPO2 98 11/11/22 19:00 EKG NC Interval 0.16 04/06/23 07:00 EKG QRS Interval 0.06 04/06/23 07:00 Telemetry Strip Reading NSR 04/06/23 07:00 Imaging: EXAM: CHEST RADIOGRAPH TECHNIQUE: Single frontal chest radiograph. HISTORY: Shortness of breath. COMPARISON: 01/09/2023. FINDINGS: Hyperinflated lungs. Biapical scarring. Flattened diaphragms The heart size is normal. There is no pleural effusion. There is no pneumothorax. IMPRESSION: No acute radiographic process. EXAM: CHEST CTA WITH CONTRAST (PULMONARY ARTERY) HISTORY: Chest pain. Elevated D-dimer. TECHNIQUE: CTA acquisition of the chest from the thoracic inlet to the upper abdomen following IV contrast administration timed to filling of the pulmonary artery. IV Contrast: 100 mL of Omnipaque 350. 3D/MIP/VR images were utilized. CT Dose Reduction Techniques Employed: Yes. COMPARISON: None. FINDINGS: Pulmonary Embolism: - Diagnostic quality: Adequate. - Pulmonary Arteries: No evidence of thromboembolic disease. - Right ventricle/Left ventricle ratio: Normal. Lung Parenchyma and Airways: - No new suspicious mass or consolidation. - A 1.0 x 0.7 cm superior segment left lower lobe perihilar nodule is identified, previously measuring 1.4 x 0.6 cm, stable given differences in technique. Severe emphysema is again noted. - A 0.7 x 0.7 cm right middle lobe subpleural nodule is identified, previously measuring 0.5 x 0.5 cm, increased (axial image 182). The adjacent 0.5 x 0.4 cm lateral right lower lobe pleural nodule also appears slightly increased in size from previous exam. Pleural Space: No significant pleural effusion. No pneumothorax. Mediastinum: The heart appears within normal limits. No pericardial effusion. The great vessels are normal. No significant aortic aneurysm. No enlarged lymph nodes. Bones and Soft Tissues: A new T6 compression fracture deformity is identified, with approximately 25% central height loss. Chest wall soft tissues are unremarkable. Upper Abdomen: The scattered bilateral intrarenal calcifications are noted. IMPRESSION: 1. Normal CT pulmonary angiogram without evidence of pulmonary artery embolism. 2. A new T6 compression fracture deformity is identified. This may be amendable to kyphoplasty for symptomatic relief. 3. The left perihilar nodule is grossly unchanged. The right lung nodules have slightly increased in size and conspicuity the, measuring up to 0.7 cm in diameter. Follow-up CT of the chest in 3-6 months is recommended. Lab Results Last 24 Hours: 04/06/23 04/05/23 04/05/23 06:10 14:40 11:44 WBC 8.69 8.24 RBC 3.81 L 4.11 L Hgb 11.2 L 11.9 L Hct 35.7 L 37.1 MCV 93.7 90.3 MCH 29.4 29.0 MCHC 31.4 L 32.1 RDW Coeff of Felipe 13.0 12.9 Plt Count 243 234 Immature Gran % (Auto) 0.7 0.6 Neut % (Auto) 65.2 64.8 Lymph % (Auto) 20.3 22.7 [place] % (Auto) 12.5 H 10.8 H Eos % (Auto) 1.0 0.7 Baso % (Auto) 0.3 0.4 Neut # (Auto) 5.7 5.3 Lymph # (Auto) 1.8 1.9 [place] # (Auto) 1.1 0.9 Eos # (Auto) 0.1 0.1 Baso # (Auto) 0.0 0.0 Immature Gran # (Auto) 0.1 0.1 Puncture Site Base Excess O2 Saturation ABG pH ABG pCO2 ABG pO2 ABG HCO3 ABG Total CO2 Mat Test Hemoglobin Oxyhemoglobin Carboxyhemoglobin Total Hemoglobin FiO2 % Sodium 137.6 137.3 Potassium 4.04 3.85 Chloride 104.2 106.9 Carbon Dioxide 25.5 24.3 Anion Gap 11.94 9.95 BUN 18.6 H 17.0 Creatinine 0.89 0.73 Estimated GFR (MDRD) 62.00 78.00 BUN/Creatinine Ratio 20.89 23.28 Glucose 120.9 H 107.2 H Lactic Acid 0.97 Calcium 8.79 8.89 Total Bilirubin 0.43 0.59 AST 21.1 21.0 ALT 13.2 14.5 Alkaline Phosphatase 73.0 76.3 Troponin I < 0.012 Total Protein 6.97 7.19 Albumin 3.70 3.87 Globulin 3.27 3.32 Albumin/Globulin Ratio 1.13 1.16 Procalcitonin < 0.05 D-Dimer 1289.06 H SARS CoV-2 RNA Rapid PAT Negative 04/05/23 11:40 WBC RBC Hgb Hct MCV MCH MCHC RDW Coeff of Felipe Plt Count Immature Gran % (Auto) Neut % (Auto) Lymph % (Auto) [place] % (Auto) Eos % (Auto) Baso % (Auto) Neut # (Auto) Lymph # (Auto) [place] # (Auto) Eos # (Auto) Baso # (Auto) Immature Gran # (Auto) Puncture Site Lbrach Base Excess 5.7 H O2 Saturation 98.0 ABG pH 7.52 H* ABG pCO2 35.0 ABG pO2 93.0 ABG HCO3 28.6 H ABG Total CO2 29.7 H Mat Test N/a Hemoglobin 1.5 Oxyhemoglobin 94.5 L Carboxyhemoglobin 2.3 H Total Hemoglobin 12.4 FiO2 % 21.0 Sodium Potassium Chloride Carbon Dioxide Anion Gap BUN Creatinine Estimated GFR (MDRD) BUN/Creatinine Ratio Glucose Lactic Acid Calcium Total Bilirubin AST ALT Alkaline Phosphatase Troponin I Total Protein Albumin Globulin Albumin/Globulin Ratio Procalcitonin D-Dimer SARS CoV-2 RNA Rapid PAT Discharge Instructions Discharge Planning: Discharge Planning > [address] eRid WADE. Discharge Medications: Medications at Discharge (Home Meds & RX) budesonide-formoterol HFA 160 mcg-4.5 mcg/actuation aerosol inhaler (Symbicort) 2 puff inhalation BID 10/05/19 budesonide 0.5 mg/2 mL suspension for nebulization 0.25 mg inhalation BID 02/15/23 famotidine 20 mg tablet (Pepcid) 20 mg PO BID #60 tabs 02/15/23 ondansetron 4 mg disintegrating tablet 4 mg PO Q8H #21 tabs 03/18/23 carvedilol 6.25 mg tablet 6.25 mg PO BIDWM 30 days #60 tabs 03/19/23 hydrocodone 7.5 mg-acetaminophen 325 mg tablet 1 tab PO Q6-8H PRN severe pain (scale score 7-10) #15 tabs 04/06/23 Discharge Plan Discharge Discharge Orders: Discharge Patient (ONCE); Ordered 04/06/23 Ordered By: MEI AYALA Activity Restrictions/Additional Instructions: Please call and schedule an appointment with Dr. Wade's office; they are closed today and so we are unable to schedule one for you. Their phone number is: [phone] DISCHARGE TO HOME Diagnosis: COMPRESSION FRACTURE PHARMACY: [facility] [phone] MAY TRY COLACE AND/OR MIRALAX FOR CONSTIPATION, these are over the counter. If you are taking pain medication regularly you should take 1 of these daily Follow/Up WITH Primary Care Provider, IF CONTINUED PAIN, MAY CONSIDER OUTPATIENT KYPHOPLASTY DIET: HEART HEALTHY ACTIVITY: TOLERATED F/U WITH DR. MARTIN REGARDING LUNG NODULES, TAKE DISC OF CTA WITH YOU INCENTIVE SPIROMETRY TO PREVENT PNEUMONIA, YOU SHOULD USE THIS EVERY HOUR WHILE AWAKE; YOU SHOULD DEEP BREATHE OFTEN TO PREVENT PNEUMONIA STOP TAKING TYLENOL #3 NEW PRESCRIPTION WAS SENT TO [facility] FOR NORCO 7.5MG. BY MOUTH EVERY 6-8 HOURS NEEDED FOR SEVERE PAIN (RATED 7-10 ON PAIN SCALE) CONTINUE YOUR OTHER MEDICATIONS INDICATED ON YOUR NURSING DISCHARGE INSTRUCTIONS Instructions: Hydrocodone/Acetaminophen (By mouth), Heart Healthy Diet (DC), Thoracolumbar Fracture (DC), Back Pain (GEN) Care Plan Goals: Problem: Alteration in Comfort/Pain Goal: Manage pain at a tolerable level Instructions: Monitor character, location and intensity Express expectations of pain relief Pain medication as ordered Position for maximal comfort Pain management prior to activities Patient Disposition: HOME SELF-CARE Prescriptions: New hydrocodone-acetaminophen 7.5-325 mg tablet 1 tab PO Q6-8H PRN (Reason: severe pain (scale score 7-10)) Qty: 15 0RF Continued carvedilol 6.25 mg tablet 6.25 mg PO BIDWM 30 Days Qty: 60 3RF budesonide-formoterol [Symbicort] 160-4.5 mcg/actuation Hfa Aerosol Inhaler 2 puff INHALATION BID ondansetron 4 mg tablet,disintegrating 4 mg PO Q8H Qty: 21 0RF budesonide 0.5 mg/2 mL suspension for nebulization 0.25 mg inhalation BID famotidine [Pepcid] 20 mg tablet 20 mg PO BID Qty: 60 3RF Discontinued acetaminophen-codeine 300-30 mg tablet 1 tab PO BID PRN (Reason: pain) Qty: 45 0RF Did you review [place] MATERIALS MGMT TECH for ALL controlled substances?: Yes Discussed opioids are addictive and Narcan is available by prescription or from pharmacy.: Yes Condition: Stable Referrals: SIMONE WADE MD [Primary Care Provider] - 5-7 Days (Please call and schedule an appointment with dr. Wade's office, we were unable to schedule one for you as they are closed today. )
== END 2023-04-06 11:05 | disposition home or self-care (01) ==
LOC: MEDSURG B 11:06 → ED 11:06 → MEDSURG B 15:34
PROVIDERS: ADMIT Hospitalist; ATTEND Physician Assistant
DX: J44.9 Chronic obstructive pulmonary disease, unspecified; R91.1 Solitary pulmonary nodule; R06.02 Shortness of breath; R07.9 Chest pain, unspecified; K21.9 Gastro-esophageal reflux disease without esophagitis; I10 Essential (primary) hypertension; Z85.118 Personal history of other malignant neoplasm of bronchus and lung; Z20.822 Contact with and (suspected) exposure to COVID-19; M48.54XA Collapsed vertebra, not elsewhere classified, thoracic region, initial encounter for fracture; F17.210 Nicotine dependence, cigarettes, uncomplicated; M54.6 Pain in thoracic spine

== ENCOUNTER 2024-01-29 08:06 | Inpatient (IN) ==
--- NOTE | 2024-01-29 08:27 | ED.PDOC ---
General ED Provider: Dr. MAUREEN MCKENZIE MD Chief Complaint: Weakness Stated Complaint: Patient with history of chronic back pain, history of lung carcinoma, COPD, hypertension, malnutrition, complains of not feeling well today complains of chronic dyspnea and a nonproductive cough. Denies chest pain, diaphoresis, palpitations, fever, chills. Patient states she has not been compliant for medication the past few days. Patient also denies headache, nausea, vomiting, diarrhea, urinary symptoms. Time Seen by Provider: 01/29/24 08:15 Mode of Arrival: Wheelchair Information Source: Patient Exam Limitations: No limitations Primary Care Provider: SIMONE TEIXEIRA MD Nursing and Triage Documentation Reviewed and Agree: Yes What is Opioid Naive?: *Opioid Naive implies the patient is not already taking opioids or not chronically receiving opioids on a daily basis. *PRN dosing is not "usually" associated with tolerance. *Patients are at higher risk of over-sedation and aspiration. What is Opioid Tolerant?: *Opioid Tolerance implies less than the expected response to an opioid. *Acquired tolerance is defined by the patient taking 60mg of oral morphine daily (or equianalgesic dose of another opioid) for 1 week or more. *Often associated with chronic pain. *May take more than usual dose to achieve desired pain control. Review of Systems Review Of Systems Constitutional: Reports Weakness Eyes: Reports No symptoms Ears, Nose, Mouth, Throat: Reports No symptoms Respiratory: Reports Cough and Shortness of Breath Cardiac: Reports No symptoms GI: Reports No symptoms : Reports No symptoms Musculoskeletal: Reports No symptoms Skin: Reports No symptoms Neurological: Reports No symptoms Endocrine: Reports No symptoms Hematologic/Lymphatic: Reports No symptoms All Other Systems: Reviewed and Negative [facility] Medical History Tobacco abuse (12/10/13) Z72.0 - Tobacco use (ICD-10) Shingles (01/20/14) B02.9 - Zoster without complications (ICD-10) Lung cancer (08/27/14) C34.90 - Malignant neoplasm of unspecified part of unspecified bronchus or lung (ICD-10) Lesion of lung (12/10/13) R91.1 - Solitary pulmonary nodule (ICD-10) Chronic bronchitis J42 - Unspecified chronic bronchitis (ICD-10) History of pleurisy Z87.09 - Personal history of other diseases of the respiratory system (ICD- 10) Recurrent pneumonia J18.9 - Pneumonia, unspecified organism (ICD-10) Family History Mother COPD (chronic obstructive pulmonary disease) FATHER Cancer Social History Smoking and tobacco status: Current every day smoker Tobacco type: cigarettes Tobacco: How many years used: 60 Quit status: not considering quitting Alcohol intake: never Substance use type: does not use Special miquel needs: No Agree to transfusion: Yes Adopted: No Caregiver/support person: No Foster care: No Household members: other Housing: house Marital status: D Lives independently: Yes Number of children: 7 service: No senior care: No Current occupational status: retired History of recent travel: No Do you think of yourself as: straight/heterosexual Current gender identity: female Seatbelt use: always Drives intoxicated or rides with intoxicated class c truck driver: No Water heater temperature set < 120 degrees: Yes Working smoke detector in home: Yes Fire extinguisher in home: Yes Carbon monoxide detector in home: Yes Surgical History S/p bilateral carpal tunnel release Z98.890 - Other specified postprocedural states (ICD-10) History of lung surgery RIGHT LOBEctomy/CANCER 2016 NO CHEMO OR RADIATION Z98.890 - Other specified postprocedural states (ICD-10) Status post tonsillectomy Z90.89 - Acquired absence of other organs (ICD-10) Status post hysterectomy Z90.710 - Acquired absence of both cervix and uterus (ICD-10) Status post tonsillectomy and adenoidectomy Z90.89 - Acquired absence of other organs (ICD-10) Female Reproductive History Menstrual Hx Hysterectomy: Yes Hx Tubal Ligation: No Physical Exam Physical Exam Appearance: Reports Thin and Cachectic Ill-appearing: Mild Pain Distress: None Eyes: Reports KAREN, EOMI and Conjunctiva clear ENT: Reports Ears normal, Nose normal and Oropharynx normal Neck: Supple Respiratory: Reports Airway patent, Breath sounds clear, Breath sounds equal and Breath sounds diminished (Diminished breath sounds at the bases without rhonchi, wheezes. There is no tachypnea there is no intercostal retractions there is no stridor noted.) Cardiovascular: Reports RRR, Pulses normal, No rub and No murmur GI/: Reports Soft, Nontender, No masses, Bowel sounds normal and No Organomegaly Musculoskeletal: Reports Normal strength, ROM intact and No edema Skin: Reports Warm, Dry and Normal color Neurological: Reports Sensation intact, Motor intact, Reflexes intact and Cranial nerves intact Psychiatric: Reports Affect appropriate and Mood appropriate Critical Care Note Critical Care Note Total Critical Care Time (mins): 30 Course Course 01/29/24 08:37 01/29/24 08:37 Orders, Labs, Meds: Lab Review 01/29/24 01/29/24 01/29/24 08:37 08:39 08:46 WBC 6.00 RBC 4.24 Hgb 12.0 Hct 39.6 MCV 93.4 MCH 28.3 MCHC 30.3 L RDW Coeff of Felipe 14.8 Plt Count 202 Immature Gran % (Auto) 0.3 Neut % (Auto) 69.2 Lymph % (Auto) 16.5 Divide % (Auto) 11.2 H Eos % (Auto) 2.5 Baso % (Auto) 0.3 Neut # (Auto) 4.2 Lymph # (Auto) 1.0 Divide # (Auto) 0.7 Eos # (Auto) 0.2 Baso # (Auto) 0.0 Immature Gran # (Auto) 0.0 VBG pH 7.39 VBG pCO2 43 VBG pO2 24 L VBG HCO3 26.0 VBG O2 Saturation 41.9 L Sodium 137.4 Potassium 4.17 Chloride 102.7 Carbon Dioxide 27.5 Anion Gap 11.37 BUN 18.7 H Creatinine 0.91 Estimated GFR (MDRD) 60.00 BUN/Creatinine Ratio 20.54 Glucose 94.4 Calcium 8.99 Total Bilirubin 0.54 AST 23.0 ALT 9.6 Alkaline Phosphatase 80.6 Troponin I < 0.012 Total Protein 7.10 Albumin 3.78 Globulin 3.32 Albumin/Globulin Ratio 1.13 D-Dimer 684.22 H Influ A Molecular Assay Negative by naat Influ B Molecular Assay Negative by naat RSV Antigen Negative by naat SARS CoV-2 RNA Rapid PAT Positive H Orders Category Date Time Status EKG-(ED ONLY) Stat CARDIO 01/29/24 08:27 Completed NEBULIZER TREATMENT Stat CARDIO 01/29/24 08:28 Completed NPO REMINDER: IMAGING ONCE CARE 01/29/24 10:35 Completed Machine Bobbin Winder [ED BONDED STRAND OPERATOR APPLIED] .ONCE EMERGENCY 01/29/24 08:27 Active OXYGEN [ED APPLY O2] .ONCE EMERGENCY 01/29/24 09:30 Active BLOOD CULTURE (ED ONLY) Stat LAB 01/29/24 Received CBC W/ AUTO DIFF Stat LAB 01/29/24 08:37 Completed CMP [COMPREHENSIVE METABOLIC PANEL] Stat LAB 01/29/24 08:37 Completed COVID [SARS COV-2 RNA RAPID PAT] Stat LAB 01/29/24 08:46 Completed D-DIMER Stat LAB 01/29/24 08:37 Completed FLU A & B MOLECULAR [FLU A/B MOLECULAR] Stat LAB 01/29/24 08:46 Completed RSV Stat LAB 01/29/24 08:46 Completed TROPONIN I Stat LAB 01/29/24 08:37 Completed URINALYSIS C & S IF INDICATED Stat LAB 01/29/24 08:27 Ordered VENOUS BLOOD GAS Stat LAB 01/29/24 08:39 Completed Ceftriaxone/D5w 1 gm Premix [Rocephin 1 gm/50 ml D5w] Meds 01/29/24 09:29 Discontinued 1 gm in 50 ml IV ONCE Ipratropium/Albuterol Neb [Duoneb] Meds 01/29/24 08:27 Discontinued 3 ml NEB ONCE STA Methylprednisolone Sod Succ/Pf [Solu-Medrol 125 mg] Meds 01/29/24 09:30 Discontinued 125 mg IVP ONCE ONE CHEST, 1V AP ONLY Stat RADS 01/29/24 08:27 Completed CTA CHEST PE PROTOCOL Stat RADS 01/29/24 10:35 Completed Medications Discontinued Medications Generic Name Dose Route Start Last Admin Trade Name Freq PRN Reason Stop Dose Admin Albuterol/Ipratropium 3 ml 01/29/24 08:27 01/29/24 08:48 Ipratropium/Albuterol Vial.Neb NEB 01/29/24 08:28 3 ml ONCE STA Administration CEFTRIAXONE/D5W 1 GM PREMIX 1 gm in 50 mls @ 100 mls/hr 01/29/24 09:29 01/29/24 09:51 Rocephin 1 Gm/50 Ml D5w IV 01/29/24 09:58 100 mls/hr ONCE ONE Administration Methylprednisolone Sodium Succinate 125 mg 01/29/24 09:30 01/29/24 09:51 Methylprednisolone Sod Succ/Pf 125 Mg/2 Ml Vial IVP 01/29/24 09:31 125 mg ONCE ONE Administration Vital Signs: Temp Pulse Resp BP Pulse Ox 01/29/24 08:41 154/111 H 01/29/24 08:07 97.8 F 97 16 161/107 H 96 Discharge Plan Discharge Patient Disposition: PLACED OBSERVATION Discharge Problem: Acute exacerbation of chronic obstructive pulmonary disease, COVID-19 Community acquired pneumonia Qualifiers: Laterality: right Lung location: lower lobe of lung Qualified Code(s): J18.9 - Pneumonia, unspecified organism Prescriptions: No Action carvedilol 12.5 mg tablet 12.5 mg PO 2XD Qty: 60 2RF hydrocodone-acetaminophen 5-325 mg tablet 1 tab PO TID PRN (Reason: pain) Qty: 90 0RF budesonide-formoterol [Symbicort] 160-4.5 mcg/actuation Hfa Aerosol Inhaler 2 puff INHALATION BID metoclopramide HCl 10 mg tablet 10 mg PO ONCE guaifenesin [Mucus Relief ER] 600 mg tablet extended release 12hr 600 mg PO BID albuterol sulfate 90 mcg/actuation HFA aerosol inhaler 2 puff inhalation Q6H PRN (Reason: shortness of breath or wheezing) Did you review [place] [employer] for ALL controlled substances?: Not Applicable ED Provider: MAUREEN MCKENZIE Condition: Stable Physician Progress Note: History obtained from the patient who has a history of COPD, lung carcinoma, hypertension, chronic back pain, malnutrition, complains of not feeling well complains of chronic dyspnea, nonproductive cough. Denies fever, chills, chest pain, diaphoresis, nausea, vomiting, diarrhea, urinary symptoms. Patient given IV fluids with saline 500 mL at 200/hour 0855-EKG interpretation by myself consistent with normal sinus rhythm rate [address] changes laterally. There is no ectopy there is no ischemic changes there is no prolongation of NH QT interval. After 2 sets of blood cultures patient was administered Rocephin 1 g piggyback, Solu-Medrol 120 mg IV Patient given DuoNeb aerosol treatment Laboratory data CBC and CMP are all within. Normal limits the venous arterial blood gas with a CO2 of 43. COVID positive For chest x-ray interpretation radiologist consistent with worsening of the right basilar pneumonia there is bandlike opacity left suprahilar region is stable from prior CT IV contrast of chest interpretation by me radiologist consistent with no evidence of pulm embolism there is opacification of the right middle lobe bronchus and multiple right lower lobe bronchioles Differential diagnosis: 1) community-acquired pneumonia 2) exacerbation COPD 3) COVID bronchitis Discussed with Dr. Richelle Teixeira at 1110 recommendation for admit to hospitalist service for observation Discussed with hospitalist Dhruv Peter at 1224 observation
[2024-01-29] MEDS ORDERED: CATAPRES PO ONE (08:38)
[2024-01-29 08:41] LABS: BASOPHILS % (AUTO) 0.3 % (0.0-3.0); EOSINOPHILS # (AUTO) 0.2 K/ul (0.0-0.7); EOSINOPHILS % (AUTO) 2.5 % (0.0-7.0); HEMATOCRIT 39.6 % (37.0-47.0); IMMATURE GRANULOCYTE % (AUTO) 0.3 % (0.0-5.0); LYMPHOCYTES % (AUTO) 16.5 (10.0-50.0); MEAN CORPUSCULAR HEMOGLOBIN 28.3 pg (27.0-31.0); MEAN CORPUSCULAR HGB CONC 30.3 (31.8-35.4); MEAN CORPUSCULAR VOLUME 93.4 fl (81.0-99.0); MONOCYTES # (AUTO) 0.7 K/uL (0.4-2.0); MONOCYTES % (AUTO) 11.2 (0-10); NEUTROPHILS # (AUTO) 4.2 K/ul (2.0-6.9); NEUTROPHILS % (AUTO) 69.2 % (42.2-75.2); PLATELET COUNT 202 10^3/uL (140-440); RDW COEFFICIENT OF VARIATION 14.8 % (11.6-14.8); RED BLOOD COUNT 4.24 10^6/ul (4.20-5.40)
[2024-01-29 08:46] LABS: VBG OXYGEN SATURATION 41.9 (60-80); VBG PH 7.39 (7.30-7.40)
[2024-01-29] MEDS: DUONEB NEB STA (08:48)
[2024-01-29 08:54] LABS: ALANINE AMINOTRANSFERASE 9.6 U/L (0-35); ALBUMIN 3.78 g/dL (3.5-5.0); ALKALINE PHOSPHATASE 80.6 U/L (53-141); BILIRUBIN,TOTAL 0.54 mg/dL (0.2-1.3); BLOOD UREA NITROGEN 18.7 mg/dL (7-17); CALCIUM 8.99 mg/dL (8.4-10.2); CARBON DIOXIDE 27.5 mmol/L (22-30.0); CHLORIDE 102.7 mmol/L (98-107); CREATININE 0.91 mg/dL (0.60-1.30); GLUCOSE 94.4 mg/dL (74-106); POTASSIUM 4.17 mmol/L (3.5-5.1); SODIUM 137.4 mmol/L (134.5-145)
[2024-01-29 09:06] LABS: TROPONIN I < 0.012 ng/ml (0.0000-0.120)
[2024-01-29 09:08] LABS: RSV MOLECULAR NEGATIVE BY NAAT (NEGATIVE)
[2024-01-29 09:09] LABS: MOLECULAR FLU A NEGATIVE BY NAAT (NEGATIVE); MOLECULAR FLU B NEGATIVE BY NAAT (NEGATIVE)
--- NOTE | 2024-01-29 09:24 | DI ---
EXAM: CHEST ONE VIEW, FRONTAL VIEW ONLY. HISTORY: Cough. COMPARISON: 12/12/2023, 09/03/2023. FINDINGS: Heart size normal. Clips noted in the right perihilar region. Nodular opacities seen at the right lung base which have increased from most recent study. Band-like opacity left suprahilar r egion is stable from prior. No pleural effusion or pneumothorax identified. No acute osseous abnorm ality detected. Stable lower thoracic compression deformity. IMPRESSION: Worsening right basilar pneumonia. Follow-up recommended to confirm resolution.
[2024-01-29] MEDS: ROCEPHIN 1 GM/50 ML D5W 1 GM/50 ML BAG IV ONE (09:51)
[2024-01-29] MEDS: SOLU-MEDROL 125 MG IVP ONE (09:51)
[2024-01-29 10:59] LABS: SARS COV-2 RNA RAPID NAAT POSITIVE (NEGATIVE)
--- NOTE | 2024-01-29 12:01 | CT ---
EXAM: CHEST CTA WITH CONTRAST (PULMONARY ARTERY) HISTORY: Dyspnea, elevated D-dimer TECHNIQUE: CTA acquisition of the chest from the thoracic inlet to the upper abdomen following IV con trast administration timed to filling of the pulmonary artery. Sagittal, coronal, MIP and 3-D reform ats were obtained. CT Dose Reduction Techniques Employed: Yes COMPARISON: 01/29/2024 chest x-ray, 12/12/[address], 01/30/[address] FINDINGS: Lines, Tubes, Devices: None. Pulmonary Embolism: - Diagnostic quality: Adequate. - Central(Main/Lobar/Interlobar): No embolus. - Peripheral (Segmental/Subsegmental): No embolus. - Right ventricle/Left ventricle ratio (normal <0.9): Normal. Lung Parenchyma and Airways: Operative changes of right upper lobectomy are again seen. There is per ibronchial wall thickening and opacification of several right lower lobe bronchioles. The right midd le lobe bronchus is opacified. Severe emphysematous changes are again seen. Right lower lobe patchy nodular consolidation is identified and increased compared to the prior CT. There is a lateral infe rior right lung pulmonary nodule measuring 7 x 7 mm, previously measuring 6 x 6 mm on 12/12/2023. A left lower lobe superior segment irregular density is identified measuring 2.2 x 1.5 cm on axial imag e 32, similar to the prior exam. This finding extends to the left hilum, similar to the prior exam. Left hilar focal soft tissue is identified measuring approximately 1.3 x 2.0 cm on axial image 42. This is not well visualized on the prior noncontrast exam dated 12/12/2023, but is not seen on 2022 CT. Pleural Space: No definite pleural effusion. There is minimal posterior right lung pleural thickenin g. No pneumothorax. Thoracic Inlet, Mediastinum, and [place]: Thyroid gland is normal in appearance. No mediastinal adenopat hy. Left hilar soft tissue density measuring 1.3 x 2.0 cm, new compared to 01/30/2023 CT. Heart, Vessels, and Pericardium: Heart size is normal. There is a small pericardial effusion, similar to 12/12/2023. Bones and Soft Tissues: Severe compression deformity of T6 and T12 again seen with mild retropulsion of T12. Chest wall soft tissues are within normal limits. Upper Abdomen: Atherosclerotic plaque of the aorta and its branches is noted. IMPRESSION: No evidence of pulmonary embolism. Opacification of the right middle lobe bronchus and multiple right lower lobe bronchioles suggesting mucous plugging. Increased right lower lobe patchy consolidation suggesting pneumonia. Recommend follow-up to resolut ion given the nodular appearance. Left lower lobe superior segment density, grossly stable compared to 12/12/2023 but increased compare d to 01/30/2023. This could represent post-treatment change although a neoplastic etiology cannot be excluded. Focal left hilar soft tissue, not as well seen on 12/12/2023 due to lack of IV contrast but new tamiko red to 01/30/2023. This nonspecific but concerning for malignancy. Inferior lateral right lower lobe pulmonary nodule, minimally increased compared to 12/12/2023. A ne oplastic etiology cannot be excluded. Emphysema. Atherosclerosis including coronary arteries. Status post right upper lobectomy. All CT scans are performed using dose optimization techniques as appropriate to the performed exam an d include at least one of the following: Automated exposure control, adjustment of the mA and/or kV according t o size, and the use of iterative reconstruction technique.
[2024-01-29 13:12] VITALS: BMI 11.7
[2024-01-29] MEDS ORDERED: ALBUTEROL 0.083% NEB NEB PRN (13:12)
[2024-01-29] MEDS: NORCO 5-325 PO PRN (14:08)
--- NOTE | 2024-01-29 14:12 | PCM ---
Date of Service Date Seen by Provider: 01/29/24 Time Seen by Provider: 13:50 Admit Day/Time Admission Date: 01/29/24 Reason for Admission Chief Complaint: PNEUMONIA; COPD; COVID Hospital Provider Hospital Provider: DIANDRA LANAZ, [facility] [place] Primary Care Physician: SIMONE TEIXEIRA MD History of Present Illness History of Present Illness: 73 yo female with pmh of COPD, lung cancer, hypertension, and GERD presented to the ER with generalized not feeling well. Patient states she has felt weak and more short of breath than normal over the past 2-3 days. Ex- that she lives with is at home sick as well but unsure what with. Patient was at the hospital for abd/pelv CT due to unexplained weight loss and decided she needed to be seen. She was found to be Covid-19 positive and pneumonia noted to the R lower lobe. PO2 on VBG found to be 24. Requiring 2L of oxygen at this time. Admitted to med/surg observation. Case Discussed With Case Discussed With: Patient's case was discussed with the ER Physicians, Dr. Lewis. [facility] Medical History Tobacco abuse (12/10/13) Z72.0 - Tobacco use (ICD-10) Shingles (01/20/14) B02.9 - Zoster without complications (ICD-10) Lung cancer (08/27/14) C34.90 - Malignant neoplasm of unspecified part of unspecified bronchus or lung (ICD-10) Lesion of lung (12/10/13) R91.1 - Solitary pulmonary nodule (ICD-10) Chronic bronchitis J42 - Unspecified chronic bronchitis (ICD-10) History of pleurisy Z87.09 - Personal history of other diseases of the respiratory system (ICD- 10) Recurrent pneumonia J18.9 - Pneumonia, unspecified organism (ICD-10) Surgical History S/p bilateral carpal tunnel release Z98.890 - Other specified postprocedural states (ICD-10) History of lung surgery RIGHT LOBEctomy/CANCER 2016 NO CHEMO OR RADIATION Z98.890 - Other specified postprocedural states (ICD-10) Status post tonsillectomy Z90.89 - Acquired absence of other organs (ICD-10) Status post hysterectomy Z90.710 - Acquired absence of both cervix and uterus (ICD-10) Status post tonsillectomy and adenoidectomy Z90.89 - Acquired absence of other organs (ICD-10) Family History Mother COPD (chronic obstructive pulmonary disease) FATHER Cancer Social History Smoking and tobacco status: Current every day smoker Tobacco type: cigarettes Tobacco: How many years used: 60 Quit status: not considering quitting Alcohol intake: never Substance use type: does not use Special miquel needs: No Agree to transfusion: Yes Adopted: No Caregiver/support person: No Foster care: No Household members: other Housing: house Marital status: D Lives independently: Yes Number of children: 7 service: No [facility]: No Current occupational status: retired History of recent travel: No Do you think of yourself as: straight/heterosexual Current gender identity: female Seatbelt use: always Drives intoxicated or rides with intoxicated minibus driver: No Water heater temperature set < 120 degrees: Yes Working smoke detector in home: Yes Fire extinguisher in home: Yes Carbon monoxide detector in home: Yes Allergies Allergies Allergy/AdvReac Type Severity Reaction Status Date / Time tiotropium AdvReac Unknown Verified 01/29/24 08:14 [From Spiriva with HandiHaler] Current Medications Home Medications budesonide-formoterol HFA 160 mcg-4.5 mcg/actuation aerosol inhaler (Symbicort) 2 puff inhalation BID 10/05/19 [History Confirmed 01/29/24 Last Taken 01/28/24 17:00 2 puff] carvedilol 12.5 mg tablet 12.5 mg PO 2XD #60 tabs 01/28/24 [Rx Confirmed 01/29/24 Last Taken 01/28/24 17:00 12.5 mg] albuterol sulfate 90 mcg/actuation aerosol inhaler 2 puff inhalation Q6H PRN shortness of breath or wheezing 01/29/24 [History Confirmed 01/29/24 Last Taken 01/28/24 21:00 2 puff] guaifenesin 600 mg tablet, extended release 12 hr (Mucus Relief ER) 600 mg PO BID 01/29/24 [History Confirmed 01/29/24 Last Taken 01/28/24 17:00 600 mg] hydrocodone 5 mg-acetaminophen 325 mg tablet 1 tab PO TID PRN pain #90 tabs 01/29/24 [Rx Confirmed 01/29/24 Last Taken 01/28/24 21:00 1 tab] metoclopramide HCl 10 mg tablet 10 mg PO ONCE 01/29/24 [History Confirmed 01/29/24 Last Taken 01/28/24 17:00 10 mg] Home Acetaminophen (Acetaminophen 325 Mg Tablet) 650 mg PO Q4H PRN PRN Reason: Mild Pain Hydrocodone Bitart/Acetaminophen (Hydrocodone Bit/Acetaminophen 5/325 Mg Tablet) 1 tab PO TID PRN PRN Reason: Pain Last Admin: 01/29/24 14:08 Dose: 1 tab Albuterol Sulfate (Albuterol Sulfate 0.083% Vial.Neb) 2.5 mg NEB RTQ4H PRN PRN Reason: Wheezing Albuterol/Ipratropium (Ipratropium/Albuterol Vial.Neb) 3 ml NEB RTQ4H ANDREAS Last Admin: 01/29/24 14:39 Dose: 3 ml Budesonide/Formoterol Fumarate (Budesonide/Formoterol Fumarate 160/4.5 Mcg Inhaler) 2 puff IH BID [facility] Carvedilol (Carvedilol 12.5 Mg Tablet) 12.5 mg PO BIDWM2 ANDREAS Dexamethasone Sodium Phosphate (Dexamethasone Sod Phos 10 Mg/Ml Inj) 6 mg IVP DAILY [facility] Guaifenesin (Guaifenesin 600 Mg Tablet.Er) 600 mg PO BID ANDREAS CEFTRIAXONE/D5W 1 GM PREMIX (Rocephin 1 Gm/50 Ml D5w) 1 gm in 50 mls @ 75 mls/hr IV DAILY ANDREAS Stop: 02/02/24 08:59 Azithromycin 500 mg/ Sodium (Chloride) 250 mls @ 250 mls/hr IV DAILY [facility] Stop: 02/01/24 13:59 Remdesivir 200 mg/ Sodium (Chloride) 250 mls @ 250 mls/hr IV ONCE ONE Stop: 01/29/24 15:09 Remdesivir 100 mg/ Sodium (Chloride) 100 mls @ 200 mls/hr IV DAILY ANDREAS Stop: 02/02/24 09:29 Megestrol Acetate (Megestrol Acetate 400 Mg/10 Ml Ud Cup) 400 mg PO BID ANDREAS Metoclopramide HCl (Metoclopramide Hcl 10 Mg Tablet) 10 mg PO DAILY ANDREAS Discontinued Medications Albuterol/Ipratropium (Ipratropium/Albuterol Vial.Neb) 3 ml NEB ONCE STA Stop: 01/29/24 08:28 Last Admin: 01/29/24 08:48 Dose: 3 ml CEFTRIAXONE/D5W 1 GM PREMIX (Rocephin 1 Gm/50 Ml D5w) 1 gm in 50 mls @ 100 mls/hr IV ONCE ONE Stop: 01/29/24 09:58 Last Admin: 01/29/24 09:51 Dose: 100 mls/hr Methylprednisolone Sodium Succinate (Methylprednisolone Sod Succ/Pf 125 Mg/2 Ml Vial) 125 mg IVP ONCE ONE Stop: 01/29/24 09:31 Last Admin: 01/29/24 09:51 Dose: 125 mg Opioid Naive vs. Tolerant Does Patient Take Opioids?: Yes Is Patient Opioid Naive?: No What is Opioid Naive?: *Opioid Naive implies the patient is not already taking opioids or not chronically receiving opioids on a daily basis. *PRN dosing is not "usually" associated with tolerance. *Patients are at higher risk of over-sedation and aspiration. Is Patient Opioid Tolerant?: No What is Opioid Tolerant?: *Opioid Tolerance implies less than the expected response to an opioid. *Acquired tolerance is defined by the patient taking 60mg of oral morphine daily (or equianalgesic dose of another opioid) for 1 week or more. *Often associated with chronic pain. *May take more than usual dose to achieve desired pain control. Review of Systems Constitutional: Reports Fatigue and Recent Weight Loss Head: Reports Normocephalic Eyes: Reports No symptoms Ears: Reports No symptoms Nose: Reports No symptoms Mouth: Reports No symptoms Throat: Reports No symptoms Cardiovascular: Reports No symptoms Respiratory: Reports Cough and Shortness of air Gastrointestinal: Reports No symptoms Genitourinary: Reports No Symptoms Musculoskeletal: Reports No symptoms Endocrine: Reports No symptoms Hematology: Reports No symptoms Immunology: Reports No symptoms Neurological: Reports No symptoms Psychiatric: Reports No symptoms Physical examination Most Recent Vital Signs: Most Recent Vital Signs Temperature 97.5 F L 01/29/24 13:00 Temperature Source Oral 01/29/24 13:00 Temperature Source Infrared 01/29/24 08:07 Pulse Rate 84 01/29/24 13:00 Respiratory Rate 18 01/29/24 13:00 Blood Pressure 154/111 H 01/29/24 08:41 Blood Pressure Left Arm 135/107 01/29/24 13:00 Blood Pressure Position Sitting 01/29/24 13:00 O2 Sat by Pulse Oximetry 97 01/29/24 13:00 Oxygen Delivery Method Nasal Cannula 01/29/24 13:00 Oxygen Flow Rate 2 01/29/24 13:00 Height 4 ft 9 in 01/29/24 13:00 Weight 24.494 kg 01/29/24 13:00 Telemetry Type Remote Telemetry 01/29/24 13:00 Telemetry Monitoring Continues 01/29/24 13:00 Telemetry Heart Rate 91 01/29/24 13:00 Telemetry SPO2 98 11/11/22 19:00 EKG SD Interval 0.15 01/29/24 13:00 EKG QRS Interval 0.06 01/29/24 13:00 Telemetry Strip Reading SR 01/29/24 13:00 Appearance: Positive No Apparent Distress, Alert and Oriented x3, Ill-Appearing, Thin and Cachectic Skin: Positive Warm HEENT: Positive Normocephalic and PERRLA Neck: Positive Supple and Midline Trachea Chest/Lungs: Positive Symmetrical With Equal Breath Sounds, Rales and Rhonci Heart: Positive RRR and Pulses Normal GI/: Positive Soft, Nontender, Bowel Sounds Normal and No Distention Musculoskeletal: Positive Not Examined Extremities: Positive Intact Peripheral Pulses, Stable Joints Without Laxity and Good ROM in All Joints Neurological: Positive Sensation Intact, Motor intact, Alert, Oriented and Other (generalized weakness) Labs This Visit Labs This Visit: Labs This Visit 01/29/24 01/29/24 01/29/24 08:37 08:39 08:46 WBC 6.00 RBC 4.24 Hgb 12.0 Hct 39.6 MCV 93.4 MCH 28.3 MCHC 30.3 L RDW Coeff of Felipe 14.8 Plt Count 202 Immature Gran % (Auto) 0.3 Neut % (Auto) 69.2 Lymph % (Auto) 16.5 [place] % (Auto) 11.2 H Eos % (Auto) 2.5 Baso % (Auto) 0.3 Neut # (Auto) 4.2 Lymph # (Auto) 1.0 [place] # (Auto) 0.7 Eos # (Auto) 0.2 Baso # (Auto) 0.0 Immature Gran # (Auto) 0.0 VBG pH 7.39 VBG pCO2 43 VBG pO2 24 L VBG HCO3 26.0 VBG O2 Saturation 41.9 L Sodium 137.4 Potassium 4.17 Chloride 102.7 Carbon Dioxide 27.5 Anion Gap 11.37 BUN 18.7 H Creatinine 0.91 Estimated GFR (MDRD) 60.00 BUN/Creatinine Ratio 20.54 Glucose 94.4 Calcium 8.99 Total Bilirubin 0.54 AST 23.0 ALT 9.6 Alkaline Phosphatase 80.6 Troponin I < 0.012 Total Protein 7.10 Albumin 3.78 Globulin 3.32 Albumin/Globulin Ratio 1.13 D-Dimer 684.22 H Influ A Molecular Assay Negative by naat Influ B Molecular Assay Negative by naat RSV Antigen Negative by naat SARS CoV-2 RNA Rapid PAT Positive H Imaging Imaging: EXAM: CHEST CTA WITH CONTRAST (PULMONARY ARTERY) FINDINGS: Lines, Tubes, Devices: None. Pulmonary Embolism: - Diagnostic quality: Adequate. - Central(Main/Lobar/Interlobar): No embolus. - Peripheral (Segmental/Subsegmental): No embolus. - Right ventricle/Left ventricle ratio (normal <0.9): Normal. Lung Parenchyma and Airways: Operative changes of right upper lobectomy are again seen. There is peribronchial wall thickening and opacification of several right lower lobe bronchioles. The right middle lobe bronchus is opacified. Severe emphysematous changes are again seen. Right lower lobe patchy nodular consolidation is identified and increased compared to the prior CT. There is a lateral inferior right lung pulmonary nodule measuring 7 x 7 mm, previously measuring 6 x 6 mm on 12/12/2023. A left lower lobe superior segment irregular density is identified measuring 2.2 x 1.5 cm on axial image 32, similar to the prior exam. This finding extends to the left hilum, similar to the prior exam. Left hilar focal soft tissue is identified measuring approximately 1.3 x 2.0 cm on axial image 42. This is not well visualized on the prior noncontrast exam dated 12/12/2023, but is not seen on 01/30/2023 CT. Pleural Space: No definite pleural effusion. There is minimal posterior right lung pleural thickening. No pneumothorax. Thoracic Inlet, Mediastinum, and [place]: Thyroid gland is normal in appearance. No mediastinal adenopathy. Left hilar soft tissue density measuring 1.3 x 2.0 cm, new compared to 01/30/2023 CT. Heart, Vessels, and Pericardium: Heart size is normal. There is a small pericardial effusion, similar to 12/12/2023. Bones and Soft Tissues: Severe compression deformity of T6 and T12 again seen with mild retropulsion of T12. Chest wall soft tissues are within normal limits. Upper Abdomen: Atherosclerotic plaque of the aorta and its branches is noted. IMPRESSION: No evidence of pulmonary embolism. Opacification of the right middle lobe bronchus and multiple right lower lobe bronchioles suggesting mucous plugging. Increased right lower lobe patchy consolidation suggesting pneumonia. Recommend follow-up to resolution given the nodular appearance. Left lower lobe superior segment density, grossly stable compared to 12/12/2023 but increased compared to 01/30/2023. This could represent post-treatment change although a neoplastic etiology cannot be excluded. Focal left hilar soft tissue, not as well seen on 12/12/2023 due to lack of IV contrast but new compared to 01/30/2023. This nonspecific but concerning for malignancy. Inferior lateral right lower lobe pulmonary nodule, minimally increased compared to 12/12/2023. A neoplastic etiology cannot be excluded. Emphysema. Atherosclerosis including coronary arteries. Status post right upper lobectomy. EXAM: CHEST ONE VIEW, FRONTAL VIEW ONLY. FINDINGS: Heart size normal. Clips noted in the right perihilar region. Nodular opacities seen at the right lung base which have increased from most recent study. Band-like opacity left suprahilar region is stable from prior. No pleural effusion or pneumothorax identified. No acute osseous abnormality detected. Stable lower thoracic compression deformity. IMPRESSION: Worsening right basilar pneumonia. Follow-up recommended to confirm resolution EXAM: CT ABDOMEN AND PELVIS WITH AND WITHOUT CONTRAST FINDINGS: Visualized portions of the lower chest included in this examination of the abdomen and pelvis suggest emphysema. Mild tree in bud nodularity and peribronchovascular nodular consolidation and ground glass of the right lower lobe and to a lesser extent the right middle lobe, stable. 6 mm subpleural nodule along the right major fissure inferolaterally, stable since March 2023. No visible liver mass. No biliary tree dilatation. The gallbladder is present. Gallstones can not be excluded by CT. The pancreas, spleen, and adrenal glands have a normal appearance. Several nonobstructing stones of both kidneys, again noted. The kidneys enhance symmetrically. Mild to moderate cortical scarring of both kidneys, again noted. No ureteral stones or hydronephrosis. Hystere ctomy, again noted. No visible adnexal mass. Evaluation of the bowel is limited because of a paucity of abdominal fat. No obvious abnormality of the bowel. Resolution of the previously seen large amount of fecal material in the rectum. Interval development of cachexia. No free air or free fluid. No enlarged lymph nodes are identified. Bone window images show diffuse osteopenia. No lytic or sclerotic bone lesions are identified. Stable chronic moderate to severe T11 superior endplate compression fracture. Stable retropulsion, resulting in mild to moderate spinal canal stenosis. IMPRESSION: 1. No evidence of malignancy in the abdomen or pelvis. 2. No acute findings in the abdomen or pelvis. 3. Interval development of cachexia. 4. Bilateral nonobstructing nephrolithiasis, again noted. No ureteral stones or hydronephrosis. 5. Stable infectious bronchiolitis and pneumonia on the right. Consider bacterial, mycobacterial, and fungal etiologies. Also consider aspiration. Review Statement Review Statement: I have independently reviewed and interpreted the labs/EKGs/imaging that were ordered by the ER provider. I have reviewed all outside records that are available currently in our EMR including imaging/notes/labs from previous visits. Plan Plan: 1. Acute Hypoxic Respiratory Failure in setting of COVID-19 Pneumonia - wean oxygen as tolerated, nebs, steroids 2. CAP - likely viral due to covid-19, treating to prevent bacterial progression due to PSI-IV with rocephin and azith, steroids, nebs 3. Covid-19 - remdesivir loading dose and then daily, steroids, nebs 4. COPD - chronic, not on home O2, continue home inhaler 5. Hypertension - chronic, continue home medications 6. Failure to Thrive - start on Megace due to lack of appetite and severe weight loss DVT Prophylaxis: Lovenox Time Spent: Greater than 80 minutes spent with patient, 50% of the time spent with this patient was devoted to counseling and coordination of care. [facility] Plannin minutes spent discussing advance care planning. Smoking Cessation: 3-10 minutes spent discussing smoking cessation. Disposition: Admit to: Med/Surg Observation DNR Discussed Plan of Care with Dr. Audelia Teixeira. Medications Medication Orders: Medications Ordered Category Date Time Status Acetaminophen [Tylenol] Meds 01/29/24 13:12 Active 650 mg PO Q4H PRN Albuterol Sulfate 0.083% Neb [Albuterol 0.083% Neb] Meds 01/29/24 13:12 Active 2.5 mg NEB RTQ4H PRN Azithromycin Inj [Zithromax] 500 mg Meds 01/30/24 14:00 Active 0.9 % Sodium Chloride [Sodium Chloride] 250 ml IV DAILY Budesonide/Formoterol Fumarate [Symbicort 160-4.5 Mcg Meds 01/29/24 21:00 Active Inhaler] 2 puff IH BID Carvedilol [Coreg] Meds 01/29/24 17:00 Active 12.5 mg PO BIDWM2 Ceftriaxone/D5w 1 gm Premix [Rocephin 1 gm/50 ml D5w] Meds 01/30/24 09:00 Active 1 gm in 50 ml IV DAILY Dexamethasone Sod Phosphate [Decadron] Meds 01/30/24 09:00 Active 6 mg IVP DAILY Guaifenesin [Mucinex] Meds 01/29/24 21:00 Active 600 mg PO BID Hydrocodone Bit/Acetaminophen [[place] 5-325] Meds 01/29/24 13:14 Active 1 tab PO TID PRN Ipratropium/Albuterol Neb [Duoneb] Meds 01/29/24 14:00 Active 3 ml NEB RTQ4H Metoclopramide HCl [Reglan] Meds 01/30/24 09:00 Active 10 mg PO DAILY Remdesivir [Veklury] 100 mg Meds 01/30/24 14:00 Ordered 0.9 % Sodium Chloride [Sodium Chloride 100Ml] 100 ml IV DAILY Remdesivir [Veklury] 200 mg Meds 01/29/24 14:10 Ordered 0.9 % Sodium Chloride [Sodium Chloride] 250 ml IV ONCE
[2024-01-29] MEDS: DUONEB NEB SCH (14:39)
[2024-01-29 14:41] LABS: PROTHROMBIN TIME 10.8 SEC (9.3-11.0)
[2024-01-29] MEDS: VEKLURY 200 MG in SODIUM CHLORIDE 250 ML IV ONE (15:11)
[2024-01-29] MEDS: COREG PO SCH (16:15)
[2024-01-29] MEDS: MEGACE PO SCH (20:21)
[2024-01-29] MEDS: MUCINEX PO SCH (20:21)
[2024-01-29] MEDS: SYMBICORT 160-4.5 MCG INHALER IH SCH (20:21)
[2024-01-30] MEDS: TYLENOL PO PRN (02:21)
[2024-01-30 05:25] LABS: EOSINOPHILS % (AUTO) 0.1 % (0.0-7.0); HEMATOCRIT 32.9 % (37.0-47.0); HEMOGLOBIN 10.3 g/dl (12.0-16.0); IMMATURE GRANULOCYTE % (AUTO) 0.5 % (0.0-5.0); LYMPHOCYTES # (AUTO) 0.7 K/uL (0.60-3.4); LYMPHOCYTES % (AUTO) 8.5 (10.0-50.0); MEAN CORPUSCULAR HEMOGLOBIN 28.5 pg (27.0-31.0); MEAN CORPUSCULAR HGB CONC 31.3 (31.8-35.4); MEAN CORPUSCULAR VOLUME 91.1 fl (81.0-99.0); MONOCYTES # (AUTO) 0.6 K/uL (0.4-2.0); MONOCYTES % (AUTO) 7.2 (0-10); NEUTROPHILS % (AUTO) 83.7 % (42.2-75.2); PLATELET COUNT 187 10^3/uL (140-440); RDW COEFFICIENT OF VARIATION 14.7 % (11.6-14.8); RED BLOOD COUNT 3.61 10^6/ul (4.20-5.40); WHITE BLOOD COUNT 8.34 K/ul (4.6-10.2)
[2024-01-30 05:39] LABS: ALANINE AMINOTRANSFERASE 13.5 U/L (0-35); ALBUMIN 3.31 g/dL (3.5-5.0); ALKALINE PHOSPHATASE 72.9 U/L (53-141); ASPARTATE AMINO TRANSFERASE 27.6 U/L (14-36); BILIRUBIN,TOTAL 0.18 mg/dL (0.2-1.3); BLOOD UREA NITROGEN 28.5 mg/dL (7-17); CALCIUM 8.28 mg/dL (8.4-10.2); CARBON DIOXIDE 23.7 mmol/L (22-30.0); CHLORIDE 101.8 mmol/L (98-107); CREATININE 0.88 mg/dL (0.60-1.30); POTASSIUM 3.78 mmol/L (3.5-5.1); SODIUM 133.9 mmol/L (134.5-145); TOTAL PROTEIN 6.3 g/dL (6.3-8.2)
[2024-01-30 05:41] LABS: PROTHROMBIN TIME 11.1 SEC (9.3-11.0)
[2024-01-30] MEDS: ROCEPHIN 1 GM/50 ML D5W 1 GM/50 ML BAG IV SCH (08:44)
[2024-01-30] MEDS: LOVENOX SUBCUT SCH (08:44)
[2024-01-30] MEDS: REGLAN PO SCH (08:45)
[2024-01-30] MEDS: DECADRON IVP SCH (08:45)
[2024-01-30] MEDS: ZITHROMAX 500 MG in SODIUM CHLORIDE 250 ML IV SCH (09:31)
--- NOTE | 2024-01-30 09:53 | PCM.PROG ---
Date/Time Seen Date Seen by Provider: 01/30/24 Time Seen by Provider: 09:00 Provider [facility] Chief Complaint Chief Complaint: PNEUMONIA; COPD; COVID Subjective Subjective: Patient reports "I feel like shit today". Developed diarrhea this am with complaints of LLQ pain. Ate breakfast this am and asked for more food after as well. States breathing is some better and is coughing up sputum now compared to when she first came in. Objective Appearance: Positive No Apparent Distress, Alert and Oriented x3, Thin and Cachectic Chest/Lungs: Positive Symmetrical With Equal Breath Sounds, Rales and Rhonci Heart: Positive RRR and Pulses Normal GI/: Positive Soft, Nontender, Bowel Sounds Normal and No Distention Musculoskeletal: Positive Not Examined Neurological: Positive Sensation Intact, Motor intact, Alert and Oriented Vital Signs Vital Signs: Vital Signs: Last 24 Hours 01/29/24 13:00 01/29/24 13:00 01/29/24 13:00 Temperature 97.5 F L Temperature Source Oral Pulse Rate 84 Pulse Rate [Apical] Respiratory Rate 18 Blood Pressure Blood Pressure Mean Blood Pressure Left Arm 135/107 Blood Pressure Location Blood Pressure Position Sitting O2 Sat by Pulse Oximetry 97 Oxygen Delivery Method Nasal Cannula Nasal Cannula Oxygen Flow Rate 2 Height 4 ft 9 in Weight 24.494 kg Telemetry Type Remote Telemetry Telemetry Monitoring Continues Irregular Telemetry Rate (Approximate) Telemetry Heart Rate 91 EKG NV Interval 0.15 EKG QRS Interval 0.06 Telemetry Strip Reading SR 01/29/24 13:00 01/29/24 14:00 01/29/24 14:00 Temperature Temperature Source Pulse Rate 97 Pulse Rate [Apical] 84 Respiratory Rate 22 H 22 H Blood Pressure Blood Pressure Mean Blood Pressure Left Arm Blood Pressure Location Blood Pressure Position O2 Sat by Pulse Oximetry 96 Oxygen Delivery Method Nasal Cannula Room Air Room Air Oxygen Flow Rate 2 Height Weight Telemetry Type Telemetry Monitoring Irregular Telemetry Rate (Approximate) Telemetry Heart Rate EKG NV Interval EKG QRS Interval Telemetry Strip Reading 01/29/24 14:42 01/29/24 15:00 01/29/24 16:00 Temperature Temperature Source Pulse Rate Pulse Rate [Apical] Respiratory Rate Blood Pressure Blood Pressure Mean Blood Pressure Left Arm Blood Pressure Location Blood Pressure Position O2 Sat by Pulse Oximetry 94 L Oxygen Delivery Method Nasal Cannula Room Air Room Air Oxygen Flow Rate 1 Height Weight Telemetry Type Telemetry Monitoring Irregular Telemetry Rate (Approximate) Telemetry Heart Rate EKG NV Interval EKG QRS Interval Telemetry Strip Reading 01/29/24 17:00 01/29/24 17:38 01/29/24 17:49 Temperature 97.2 F L Temperature Source Oral Pulse Rate 82 Pulse Rate [Apical] Respiratory Rate 17 Blood Pressure 129/74 Blood Pressure Mean 92 Blood Pressure Left Arm Blood Pressure Location Left Arm Blood Pressure Position Sitting O2 Sat by Pulse Oximetry 93 L Oxygen Delivery Method Room Air Room Air Room Air Oxygen Flow Rate Height Weight Telemetry Type Telemetry Monitoring Irregular Telemetry Rate (Approximate) Telemetry Heart Rate EKG NV Interval EKG QRS Interval Telemetry Strip Reading 01/29/24 19:00 01/29/24 19:00 01/29/24 20:00 Temperature Temperature Source Pulse Rate Pulse Rate [Apical] Respiratory Rate Blood Pressure Blood Pressure Mean Blood Pressure Left Arm Blood Pressure Location Blood Pressure Position O2 Sat by Pulse Oximetry Oxygen Delivery Method Room Air Room Air Oxygen Flow Rate Height Weight Telemetry Type Remote Telemetry Telemetry Monitoring Continues Irregular Telemetry Rate (Approximate) Telemetry Heart Rate EKG NV Interval 0.16 EKG QRS Interval 0.06 Telemetry Strip Reading SR 01/29/24 20:00 01/29/24 20:42 01/29/24 21:00 Temperature 97.4 F L Temperature Source Temporal Artery Scan Pulse Rate 72 Pulse Rate [Apical] Respiratory Rate 24 H Blood Pressure 124/72 Blood Pressure Mean 89 Blood Pressure Left Arm Blood Pressure Location Left Arm Blood Pressure Position Sitting O2 Sat by Pulse Oximetry 95 Oxygen Delivery Method Room Air Room Air Room Air Oxygen Flow Rate Height Weight Telemetry Type Telemetry Monitoring Irregular Telemetry Rate (Approximate) Telemetry Heart Rate EKG NV Interval EKG QRS Interval Telemetry Strip Reading 01/29/24 22:00 01/29/24 22:15 01/29/24 23:00 Temperature Temperature Source Pulse Rate Pulse Rate [Apical] Respiratory Rate Blood Pressure Blood Pressure Mean Blood Pressure Left Arm Blood Pressure Location Blood Pressure Position O2 Sat by Pulse Oximetry 96 Oxygen Delivery Method Room Air Room Air Room Air Oxygen Flow Rate Height Weight Telemetry Type Telemetry Monitoring Irregular Telemetry Rate (Approximate) Telemetry Heart Rate EKG NV Interval EKG QRS Interval Telemetry Strip Reading 01/30/24 00:00 01/30/24 01:00 01/30/24 01:00 Temperature Temperature Source Pulse Rate Pulse Rate [Apical] Respiratory Rate Blood Pressure Blood Pressure Mean Blood Pressure Left Arm Blood Pressure Location Blood Pressure Position O2 Sat by Pulse Oximetry Oxygen Delivery Method Room Air Room Air Oxygen Flow Rate Height Weight Telemetry Type Remote Telemetry Telemetry Monitoring Continues Irregular Telemetry Rate (Approximate) 76 Telemetry Heart Rate EKG NV Interval 0.17 EKG QRS Interval 0.07 Telemetry Strip Reading SR 01/30/24 02:00 01/30/24 02:00 01/30/24 03:00 Temperature Temperature Source Pulse Rate 75 Pulse Rate [Apical] Respiratory Rate 22 H Blood Pressure 130/77 Blood Pressure Mean 94 Blood Pressure Left Arm Blood Pressure Location Left Arm Blood Pressure Position Sitting O2 Sat by Pulse Oximetry 95 Oxygen Delivery Method Room Air Room Air Room Air Oxygen Flow Rate Height Weight Telemetry Type Telemetry Monitoring Irregular Telemetry Rate (Approximate) Telemetry Heart Rate EKG NV Interval EKG QRS Interval Telemetry Strip Reading 01/30/24 04:00 01/30/24 05:00 01/30/24 05:45 Temperature Temperature Source Pulse Rate Pulse Rate [Apical] Respiratory Rate Blood Pressure Blood Pressure Mean Blood Pressure Left Arm Blood Pressure Location Blood Pressure Position O2 Sat by Pulse Oximetry 96 Oxygen Delivery Method Room Air Room Air Room Air Oxygen Flow Rate Height Weight Telemetry Type Telemetry Monitoring Irregular Telemetry Rate (Approximate) Telemetry Heart Rate EKG NV Interval EKG QRS Interval Telemetry Strip Reading 01/30/24 05:47 01/30/24 06:00 01/30/24 07:00 Temperature 97.2 F L Temperature Source Temporal Artery Scan Pulse Rate 75 Pulse Rate [Apical] Respiratory Rate 18 Blood Pressure 140/88 Blood Pressure Mean 105 Blood Pressure Left Arm Blood Pressure Location Left Arm Blood Pressure Position Sitting O2 Sat by Pulse Oximetry 99 Oxygen Delivery Method Nebulizer Treatment Room Air Oxygen Flow Rate Height Weight Telemetry Type Remote Telemetry Telemetry Monitoring Continues Irregular Telemetry Rate (Approximate) 70-80 BPM Telemetry Heart Rate EKG NV Interval 0.16 EKG QRS Interval 0.06 Telemetry Strip Reading SR 01/30/24 07:00 01/30/24 08:00 01/30/24 09:00 Temperature Temperature Source Pulse Rate Pulse Rate [Apical] Respiratory Rate Blood Pressure Blood Pressure Mean Blood Pressure Left Arm Blood Pressure Location Blood Pressure Position O2 Sat by Pulse Oximetry Oxygen Delivery Method Room Air Room Air Room Air Oxygen Flow Rate Height Weight Telemetry Type Telemetry Monitoring Irregular Telemetry Rate (Approximate) Telemetry Heart Rate EKG NV Interval EKG QRS Interval Telemetry Strip Reading Lab Results Lab Results: Lab Results: Last 24 Hours 01/30/24 01/29/24 01/29/24 05:11 08:46 08:37 WBC 8.34 RBC 3.61 L Hgb 10.3 L Hct 32.9 L D MCV 91.1 MCH 28.5 MCHC 31.3 L RDW Coeff of Felipe 14.7 Plt Count 187 Immature Gran % (Auto) 0.5 Neut % (Auto) 83.7 H Lymph % (Auto) 8.5 L [place] % (Auto) 7.2 Eos % (Auto) 0.1 Baso % (Auto) 0.0 Neut # (Auto) 7.0 H Lymph # (Auto) 0.7 [place] # (Auto) 0.6 Eos # (Auto) 0.0 Baso # (Auto) 0.0 Immature Gran # (Auto) 0.0 PT 11.1 H 10.8 INR 1.07 1.04 Sodium 133.9 L Potassium 3.78 Chloride 101.8 Carbon Dioxide 23.7 Anion Gap 12.18 BUN 28.5 H Creatinine 0.88 Estimated GFR (MDRD) 63.00 BUN/Creatinine Ratio 32.38 Glucose 218.0 H D Calcium 8.28 L Total Bilirubin 0.18 L AST 27.6 ALT 13.5 Alkaline Phosphatase 72.9 Total Protein 6.30 Albumin 3.31 L Globulin 2.99 Albumin/Globulin Ratio 1.10 D-Dimer 684.22 H SARS CoV-2 RNA Rapid PAT Positive H Additional Comments Additional Comments: I have independently reviewed and interpreted the labs/EKGs/imaging ordered during this hospital stay. I have reviewed outside records that are available in our EMR that pertain to medical stay including imaging/notes/labs from previous visits. Active Medications Active Medications: Medications Generic Name Dose Route Start Last Admin Trade Name Freq PRN Reason Stop Dose Admin Acetaminophen 650 mg 01/29/24 13:12 01/30/24 02:21 Acetaminophen 325 Mg Tablet PO 650 mg Q4H PRN Administration Mild Pain Hydrocodone Bitart/Acetaminophen 1 tab 01/29/24 13:14 01/30/24 05:56 Hydrocodone Bit/Acetaminophen 5/325 Mg Tablet PO 1 tab TID PRN Administration Pain Albuterol Sulfate 2.5 mg 01/29/24 13:12 Albuterol Sulfate 0.083% Vial.Neb NEB RTQ4H PRN Wheezing Albuterol/Ipratropium 3 ml 01/29/24 14:00 01/30/24 05:44 Ipratropium/Albuterol Vial.Neb NEB 3 ml RTQ4H ANDREAS Administration Budesonide/Formoterol Fumarate 2 puff 01/29/24 21:00 01/30/24 08:46 Budesonide/Formoterol Fumarate 160/4.5 Mcg Inhaler IH Not Given BID ANDREAS Carvedilol 12.5 mg 01/29/24 17:00 01/30/24 08:45 Carvedilol 12.5 Mg Tablet PO 12.5 mg BIDWM2 ANDREAS Administration Dexamethasone Sodium Phosphate 6 mg 01/30/24 09:00 01/30/24 08:45 Dexamethasone Sod Phos 10 Mg/Ml Inj IVP 6 mg DAILY ANDREAS Administration Enoxaparin Sodium 30 mg 01/30/24 09:00 01/30/24 08:44 Enoxaparin Sodium 30 Mg/0.3 Ml Syr SUBCUT 30 mg DAILY ANDREAS Administration Guaifenesin 600 mg 01/29/24 21:00 01/30/24 08:45 Guaifenesin 600 Mg Tablet.Er PO 600 mg BID ANDREAS Administration CEFTRIAXONE/D5W 1 GM PREMIX 1 gm in 50 mls @ 75 mls/hr 01/30/24 09:00 01/30/24 08:44 Rocephin 1 Gm/50 Ml D5w IV 02/02/24 08:59 75 mls/hr DAILY ANDREAS Administration Azithromycin 500 mg/ Sodium 250 mls @ 250 mls/hr 01/30/24 08:00 01/30/24 09:31 Chloride IV 02/02/24 07:59 250 mls/hr DAILY ANDREAS Administration Remdesivir 100 mg/ Sodium 100 mls @ 200 mls/hr 01/30/24 12:00 Chloride IV 02/02/24 12:29 1200 ANDREAS Megestrol Acetate 400 mg 01/29/24 21:00 01/30/24 08:45 Megestrol Acetate 400 Mg/10 Ml Ud Cup PO 400 mg BID ANDREAS Administration Metoclopramide HCl 10 mg 01/30/24 09:00 01/30/24 08:45 Metoclopramide Hcl 10 Mg Tablet PO 10 mg DAILY ANDREAS Administration Plan Plan: 1. Acute Hypoxic Respiratory Failure in setting of COVID-19 Pneumonia - wean oxygen as tolerated, nebs, steroids 2. CAP - likely viral due to covid-19, treating to prevent bacterial progression due to PSI-IV with rocephin and azith, steroids, nebs 3. Covid-19 - remdesivir loading dose and then daily, steroids, nebs 4. COPD - chronic, not on home O2, continue home inhaler 5. Hypertension - chronic, continue home medications 6. Failure to Thrive - start on Megace due to lack of appetite and severe weight loss of 30+ lbs over the past 6-8 months DVT Prophylaxis: Lovenox Patient is unable to come in for remdesivir outpatient. Due to comorbidities, patient will need at least 3 days of medication. Admitting to med/surg inpatient due to need for longer than 48 hours of care and risk of further decline. Review Statement Review Statement: I have personally discussed and reviewed the patient's visit/currently labs/imaging/decision making with Dr. Wade, my supervising attending. Greater that 50 minutes spent with patient, 50% of the time spent with this patient was devoted to counseling and coordination of care.
[2024-01-30] MEDS ORDERED: IMODIUM PO PRN (10:58)
[2024-01-30] MEDS: DUONEB NEB SCH (12:12)
[2024-01-30] MEDS: VEKLURY 100 MG in SODIUM CHLORIDE 100ML 100 ML IV SCH (13:30)
[2024-01-30] MEDS: FLORASTOR PO SCH (20:28)
[2024-01-31 05:58] LABS: EOSINOPHILS % (AUTO) 0.1 % (0.0-7.0); HEMATOCRIT 33.5 % (37.0-47.0); HEMOGLOBIN 10.4 g/dl (12.0-16.0); IMMATURE GRANULOCYTE # (AUTO) 0.1 (0.0-1.0); IMMATURE GRANULOCYTE % (AUTO) 0.6 % (0.0-5.0); LYMPHOCYTES # (AUTO) 1.1 K/uL (0.60-3.4); LYMPHOCYTES % (AUTO) 11.2 (10.0-50.0); MEAN CORPUSCULAR HEMOGLOBIN 28.3 pg (27.0-31.0); MEAN CORPUSCULAR VOLUME 91.3 fl (81.0-99.0); MONOCYTES # (AUTO) 0.7 K/uL (0.4-2.0); MONOCYTES % (AUTO) 6.5 (0-10); NEUTROPHILS # (AUTO) 8.2 K/ul (2.0-6.9); NEUTROPHILS % (AUTO) 81.6 % (42.2-75.2); PLATELET COUNT 206 10^3/uL (140-440); RDW COEFFICIENT OF VARIATION 14.7 % (11.6-14.8); RED BLOOD COUNT 3.67 10^6/ul (4.20-5.40); WHITE BLOOD COUNT 10.01 K/ul (4.6-10.2)
[2024-01-31 06:08] LABS: PROTHROMBIN TIME 14.2 SEC (9.3-11.0)
[2024-01-31 06:55] LABS: ALANINE AMINOTRANSFERASE 93.7 U/L (0-35); ALBUMIN 3.3 g/dL (3.5-5.0); ALKALINE PHOSPHATASE 106.3 U/L (53-141); ASPARTATE AMINO TRANSFERASE 173.8 U/L (14-36); BILIRUBIN,TOTAL 0.22 mg/dL (0.2-1.3); BLOOD UREA NITROGEN 28.8 mg/dL (7-17); CALCIUM 8.45 mg/dL (8.4-10.2); CARBON DIOXIDE 22.9 mmol/L (22-30.0); CHLORIDE 107.1 mmol/L (98-107); CREATININE 0.86 mg/dL (0.60-1.30); GLUCOSE 128.7 mg/dL (74-106); POTASSIUM 3.75 mmol/L (3.5-5.1); SODIUM 138.7 mmol/L (134.5-145); TOTAL PROTEIN 6.32 g/dL (6.3-8.2)
--- NOTE | 2024-01-31 10:32 | PCM.PROG ---
Date/Time Seen Date Seen by Provider: 01/31/24 Time Seen by Provider: 09:00 Provider Provider: [facility] Chief Complaint Chief Complaint: PNEUMONIA; COPD; COVID Subjective Subjective: Reports fatigue but feeling some better today. Breathing improved. Still on RA. Objective Appearance: Positive No Apparent Distress, Alert and Oriented x3, Ill-Appearing, Thin and Cachectic Chest/Lungs: Positive Symmetrical With Equal Breath Sounds, Rales and Rhonci Heart: Positive RRR and Pulses Normal GI/: Positive Soft, Nontender, Bowel Sounds Normal and No Distention Musculoskeletal: Positive Not Examined Neurological: Positive Sensation Intact, Motor intact, Alert and Oriented Vital Signs Vital Signs: Vital Signs: Last 24 Hours 01/30/24 11:05 01/30/24 13:00 01/30/24 14:00 Temperature Temperature Source Pulse Rate 72 Respiratory Rate 21 H Blood Pressure 115/69 Blood Pressure Mean 84 Blood Pressure Location Left Arm Blood Pressure Position Sitting O2 Sat by Pulse Oximetry 97 Oxygen Delivery Method Room Air Height 4 ft 9 in Weight 24.494 kg Telemetry Type Bedside Monitor Telemetry Monitoring Continues Telemetry Heart Rate 95 Telemetry SPO2 EKG OR Interval 0.16 EKG QRS Interval 0.07 Telemetry Strip Reading SR with PVC 01/30/24 14:00 01/30/24 17:57 01/30/24 19:00 Temperature 98 F Temperature Source Oral Pulse Rate 80 Respiratory Rate 18 Blood Pressure Blood Pressure Mean Blood Pressure Location Blood Pressure Position O2 Sat by Pulse Oximetry 98 96 Oxygen Delivery Method Room Air Room Air Height Weight Telemetry Type Bedside Monitor Telemetry Monitoring Continues Telemetry Heart Rate 72 Telemetry SPO2 95 EKG OR Interval 0.14 EKG QRS Interval 0.03 L Telemetry Strip Reading SR 01/30/24 19:45 01/30/24 19:59 01/30/24 22:00 Temperature 97.9 F Temperature Source Temporal Artery Scan Pulse Rate 72 Respiratory Rate 20 21 H Blood Pressure 115/69 Blood Pressure Mean 84 Blood Pressure Location Left Arm Blood Pressure Position Sitting O2 Sat by Pulse Oximetry 96 96 Oxygen Delivery Method Room Air Room Air Room Air Height Weight Telemetry Type Telemetry Monitoring Telemetry Heart Rate Telemetry SPO2 EKG OR Interval EKG QRS Interval Telemetry Strip Reading 01/31/24 01:00 01/31/24 01:56 01/31/24 05:20 Temperature 97.7 F Temperature Source Oral Pulse Rate 82 71 Respiratory Rate 16 17 Blood Pressure 148/80 H 155/77 H Blood Pressure Mean 102 103 Blood Pressure Location Left Arm Left Arm Blood Pressure Position Supine Supine O2 Sat by Pulse Oximetry 96 98 Oxygen Delivery Method Room Air Room Air Height Weight Telemetry Type Bedside Monitor Telemetry Monitoring Continues Telemetry Heart Rate 77 Telemetry SPO2 95 EKG OR Interval 0.15 EKG QRS Interval 0.06 Telemetry Strip Reading SR 01/31/24 06:00 01/31/24 10:00 Temperature 98.1 F Temperature Source Temporal Artery Scan Pulse Rate 72 Respiratory Rate 21 H Blood Pressure 151/88 H Blood Pressure Mean 109 Blood Pressure Location Left Arm Blood Pressure Position Sitting O2 Sat by Pulse Oximetry 97 97 Oxygen Delivery Method Room Air Room Air Height Weight Telemetry Type Telemetry Monitoring Telemetry Heart Rate Telemetry SPO2 EKG OR Interval EKG QRS Interval Telemetry Strip Reading Lab Results Lab Results: Lab Results: Last 24 Hours 01/31/24 05:49 WBC 10.01 RBC 3.67 L Hgb 10.4 L Hct 33.5 L MCV 91.3 MCH 28.3 MCHC 31.0 L RDW Coeff of Felipe 14.7 Plt Count 206 Immature Gran % (Auto) 0.6 Neut % (Auto) 81.6 H Lymph % (Auto) 11.2 [place] % (Auto) 6.5 Eos % (Auto) 0.1 Baso % (Auto) 0.0 Neut # (Auto) 8.2 H Lymph # (Auto) 1.1 [place] # (Auto) 0.7 Eos # (Auto) 0.0 Baso # (Auto) 0.0 Immature Gran # (Auto) 0.1 PT 14.2 H INR 1.40 Sodium 138.7 Potassium 3.75 Chloride 107.1 H Carbon Dioxide 22.9 Anion Gap 12.45 BUN 28.8 H Creatinine 0.86 Estimated GFR (MDRD) 64.00 BUN/Creatinine Ratio 33.48 Glucose 128.7 H Calcium 8.45 Total Bilirubin 0.22 AST 173.8 H D ALT 93.7 H D Alkaline Phosphatase 106.3 D Total Protein 6.32 Albumin 3.30 L Globulin 3.02 Albumin/Globulin Ratio 1.09 Additional Comments Additional Comments: I have independently reviewed and interpreted the labs/EKGs/imaging ordered during this hospital stay. I have reviewed outside records that are available in our EMR that pertain to medical stay including imaging/notes/labs from previous visits. Active Medications Active Medications: Medications Generic Name Dose Route Start Last Admin Trade Name Freq PRN Reason Stop Dose Admin Acetaminophen 650 mg 01/29/24 13:12 01/30/24 02:21 Acetaminophen 325 Mg Tablet PO 650 mg Q4H PRN Administration Mild Pain Hydrocodone Bitart/Acetaminophen 1 tab 01/29/24 13:14 01/31/24 05:24 Hydrocodone Bit/Acetaminophen 5/325 Mg Tablet PO 1 tab TID PRN Administration Pain Albuterol Sulfate 2.5 mg 01/29/24 13:12 Albuterol Sulfate 0.083% Vial.Neb NEB RTQ4H PRN Wheezing Albuterol/Ipratropium 3 ml 01/30/24 12:00 01/31/24 05:57 Ipratropium/Albuterol Vial.Neb NEB 3 ml RTQ6H ANDREAS Administration Budesonide/Formoterol Fumarate 2 puff 01/29/24 21:00 01/31/24 09:43 Budesonide/Formoterol Fumarate 160/4.5 Mcg Inhaler IH 2 puff BID ANDREAS Administration Carvedilol 12.5 mg 01/29/24 17:00 01/31/24 09:27 Carvedilol 12.5 Mg Tablet PO 12.5 mg BIDWM2 ANDREAS Administration Dexamethasone Sodium Phosphate 6 mg 01/30/24 09:00 01/31/24 09:21 Dexamethasone Sod Phos 10 Mg/Ml Inj IVP 6 mg DAILY ANDREAS Administration Enoxaparin Sodium 30 mg 01/30/24 09:00 01/31/24 09:41 Enoxaparin Sodium 30 Mg/0.3 Ml Syr SUBCUT 30 mg DAILY ANDREAS Administration Guaifenesin 600 mg 01/29/24 21:00 01/31/24 09:19 Guaifenesin 600 Mg Tablet.Er PO 600 mg BID ANDREAS Administration CEFTRIAXONE/D5W 1 GM PREMIX 1 gm in 50 mls @ 75 mls/hr 01/30/24 09:00 01/31/24 09:22 Rocephin 1 Gm/50 Ml D5w IV 02/02/24 08:59 75 mls/hr DAILY ANDREAS Administration Azithromycin 500 mg/ Sodium 250 mls @ 250 mls/hr 01/30/24 08:00 01/30/24 11:05 Chloride IV 02/02/24 07:59 Not Given DAILY ANDREAS Remdesivir 100 mg/ Sodium 100 mls @ 200 mls/hr 01/30/24 12:00 01/30/24 13:30 Chloride IV 02/02/24 12:29 200 mls/hr 1200 ANDREAS Administration Loperamide HCl 2 mg 01/30/24 10:58 Loperamide Hcl 2 Mg Tablet PO AFTER LOOSE STOOLS PRN Diarrhea Megestrol Acetate 400 mg 01/29/24 21:00 01/31/24 09:18 Megestrol Acetate 400 Mg/10 Ml Ud Cup PO 400 mg BID ANDREAS Administration Metoclopramide HCl 10 mg 01/30/24 09:00 01/31/24 09:20 Metoclopramide Hcl 10 Mg Tablet PO 10 mg DAILY ANDREAS Administration Saccharomyces Boulardii 250 mg 01/30/24 21:00 01/31/24 09:20 Saccharomyces Boulardii 250 Mg Capsule PO 250 mg BID ANDREAS Administration Sodium Chloride 1 syr 01/31/24 13:00 0.9% Sodium Chloride 10 Ml Disp.Syrin IVF Q8HR ANDREAS Plan Plan: 1. Acute Hypoxic Respiratory Failure in setting of COVID-19 Pneumonia - Resolved, on RA, nebs, steroids 2. CAP - likely viral due to covid-19, treating to prevent bacterial progression due to PSI-IV with rocephin and azith, steroids, nebs 3. Covid-19 - remdesivir loading dose and then daily, steroids, nebs 4. COPD - chronic, not on home O2, continue home inhaler 5. Hypertension - chronic, continue home medications 6. Failure to Thrive - start on Megace due to lack of appetite and severe weight loss of 30+ lbs over the past 6-8 months DVT Prophylaxis: Lovenox Patient is unable to come in for remdesivir outpatient. Due to comorbidities, patient will need at least 3 days of medication. Review Statement Review Statement: I have personally discussed and reviewed the patient's visit/currently labs/imaging/decision making with Dr. Wade, my supervising attending. Greater that 50 minutes spent with patient, 50% of the time spent with this patient was devoted to counseling and coordination of care.
[2024-02-01 05:28] VITALS: TEMP 98.5
[2024-02-01 06:22] LABS: BASOPHILS % (AUTO) 0.1 % (0.0-3.0); EOSINOPHILS % (AUTO) 0.3 % (0.0-7.0); HEMATOCRIT 34.9 % (37.0-47.0); HEMOGLOBIN 10.8 g/dl (12.0-16.0); IMMATURE GRANULOCYTE # (AUTO) 0.1 (0.0-1.0); IMMATURE GRANULOCYTE % (AUTO) 1.1 % (0.0-5.0); MEAN CORPUSCULAR HEMOGLOBIN 28.6 pg (27.0-31.0); MEAN CORPUSCULAR HGB CONC 30.9 (31.8-35.4); MEAN CORPUSCULAR VOLUME 92.6 fl (81.0-99.0); MONOCYTES # (AUTO) 0.5 K/uL (0.4-2.0); MONOCYTES % (AUTO) 6.4 (0-10); NEUTROPHILS # (AUTO) 6.3 K/ul (2.0-6.9); NEUTROPHILS % (AUTO) 79.1 % (42.2-75.2); PLATELET COUNT 241 10^3/uL (140-440); RDW COEFFICIENT OF VARIATION 15.2 % (11.6-14.8); RED BLOOD COUNT 3.77 10^6/ul (4.20-5.40); WHITE BLOOD COUNT 7.99 K/ul (4.6-10.2)
[2024-02-01 06:43] LABS: ALANINE AMINOTRANSFERASE 57.2 U/L (0-35); ALBUMIN 3.13 g/dL (3.5-5.0); ALKALINE PHOSPHATASE 101.9 U/L (53-141); ASPARTATE AMINO TRANSFERASE 53.4 U/L (14-36); BILIRUBIN,TOTAL 0.18 mg/dL (0.2-1.3); BLOOD UREA NITROGEN 31.6 mg/dL (7-17); CALCIUM 8.55 mg/dL (8.4-10.2); CHLORIDE 107.3 mmol/L (98-107); CREATININE 0.88 mg/dL (0.60-1.30); POTASSIUM 4.04 mmol/L (3.5-5.1); SODIUM 138.3 mmol/L (134.5-145); TOTAL PROTEIN 6.14 g/dL (6.3-8.2)
[2024-02-01 06:45] LABS: PROTHROMBIN TIME 15.2 SEC (9.3-11.0)
[2024-02-01] MEDS: ROCEPHIN 1 GM/50 ML D5W 1 GM/50 ML BAG IV SCH (08:41)
--- NOTE | 2024-02-01 10:49 | DCSUM ---
Admission Date Admission Date: 01/29/24 Discharge Date Discharge Date: 02/01/24 Admission Diagnosis Admission Diagnosis: 1. Acute Hypoxic Respiratory Failure in setting of COVID-19 Pneumonia 2. CAP 3. Covid-19 4. COPD 5. Hypertension 6. Failure to Thrive Discharge Diagnosis Discharge Diagnosis: 1. Acute Hypoxic Respiratory Failure in setting of COVID-19 Pneumonia - wean oxygen as tolerated, nebs, steroids 2. CAP - likely viral due to covid-19, treating to prevent bacterial progression due to PSI-IV with rocephin and azith, steroids, nebs 3. Covid-19 - remdesivir loading dose and then daily, steroids, nebs 4. COPD - chronic, not on home O2, continue home inhaler 5. Hypertension - chronic, continue home medications 6. Failure to Thrive - start on Megace due to lack of appetite and severe weight loss Hospital Provider Hospital Provider: DIANDRA LANZA, [facility] Physician Primary Care Physician: SIMONE TEIXEIRA MD Summary of History and Physical Summary of History and Physical: 73 yo female with pmh of COPD, lung cancer, hypertension, and GERD presented to the ER with generalized not feeling well. Patient states she has felt weak and more short of breath than normal over the past 2-3 days. Ex- that she lives with is at home sick as well but unsure what with. Patient was at the [facility] for abd/pelv CT due to unexplained weight loss and decided she needed to be seen. She was found to be Covid-19 positive and pneumonia noted to the R lower lobe. PO2 on VBG found to be 24. Requiring 2L of oxygen at this time. Admitted to med/surg observation. Hospital Course Subjective: During course of stay, patient was able to be weaned off continuous oxygen at rest. 3 step pulse oximetry completed prior to discharge and patient O2 sat dropped to 84% on ambulation. Requires 3L during ambulation. Treated for covid-19 with course of remdesivir, steroids, and nebs. Pneumonia treated with azith and rocephin. Sent home with rest of course Keflex bid x 3 days. It was noted that patient has had significant weight loss of 30+ lbs in a 8-[address] abd pelv done by PCP office and no abdominal process noted. Started on megace during stay for appetite stimulation and patient reports has been very effective. Patient feeling better today and agreeable to go home at this time. No changes to previous medications. Follow-up with PCP next week and pulmonology as scheduled. Appearance: Pleasant, No Apparent Distress and Ill-appearing HEENT: MMM and Supple CVS: No Murmur Abdomen: Soft, Non-Tender and No Distention Respiratory: No Dyspnea Extremities: No Edema Vital Signs: Most Recent Vital Signs Temperature 98.5 F 02/01/24 05:27 Temperature Source Oral 02/01/24 05:27 Temperature Source Infrared 01/29/24 08:07 Pulse Rate 87 02/01/24 09:58 Respiratory Rate 21 H 02/01/24 09:58 Blood Pressure 151/84 H 02/01/24 09:58 Blood Pressure Mean 106 02/01/24 09:58 Blood Pressure Left Arm 135/107 01/29/24 13:00 Blood Pressure Location Left Arm 02/01/24 09:58 Blood Pressure Position Sitting 02/01/24 09:58 O2 Sat by Pulse Oximetry 99 02/01/24 09:58 Oxygen Delivery Method Room Air 02/01/24 09:58 Oxygen Flow Rate 1 01/29/24 14:42 Height 4 ft 9 in 01/30/24 11:05 Weight 24.494 kg 01/30/24 11:05 Telemetry Type Remote Telemetry 02/01/24 07:00 Telemetry Monitoring Continues 02/01/24 07:00 Irregular Telemetry Rate (Approximate) 70-80 BPM 01/30/24 07:00 Telemetry Heart Rate 70 02/01/24 07:00 Telemetry SPO2 97 02/01/24 01:00 EKG CA Interval 0.16 02/01/24 07:00 EKG QRS Interval 0.06 02/01/24 07:00 Telemetry Strip Reading sr 02/01/24 07:00 Imaging: EXAM: CHEST CTA WITH CONTRAST (PULMONARY ARTERY) FINDINGS: Lines, Tubes, Devices: None. Pulmonary Embolism: - Diagnostic quality: Adequate. - Central(Main/Lobar/Interlobar): No embolus. - Peripheral (Segmental/Subsegmental): No embolus. - Right ventricle/Left ventricle ratio (normal <0.9): Normal. Lung Parenchyma and Airways: Operative changes of right upper lobectomy are again seen. There is peribronchial wall thickening and opacification of several right lower lobe bronchioles. The right middle lobe bronchus is opacified. Severe emphysematous changes are again seen. Right lower lobe patchy nodular consolidation is identified and increased compared to the prior CT. There is a lateral inferior right lung pulmonary nodule measuring 7 x 7 mm, previously measuring 6 x 6 mm on 12/12/2023. A left lower lobe superior segment irregular density is identified measuring 2.2 x 1.5 cm on axial image 32, similar to the prior exam. This finding extends to the left hilum, similar to the prior exam. Left hilar focal soft tissue is identified measuring approximately 1.3 x 2.0 cm on axial image 42. This is not well visualized on the prior noncontrast exam dated 12/12/2023, but is not seen on 01/30/2023 CT. Pleural Space: No definite pleural effusion. There is minimal posterior right lung pleural thickening. No pneumothorax. Thoracic Inlet, Mediastinum, and [place]: Thyroid gland is normal in appearance. No mediastinal adenopathy. Left hilar soft tissue density measuring 1.3 x 2.0 cm, new compared to 01/30/2023 CT. Heart, Vessels, and Pericardium: Heart size is normal. There is a small pericardial effusion, similar to 12/12/2023. Bones and Soft Tissues: Severe compression deformity of T6 and T12 again seen with mild retropulsion of T12. Chest wall soft tissues are within normal limits. Upper Abdomen: Atherosclerotic plaque of the aorta and its branches is noted. IMPRESSION: No evidence of pulmonary embolism. Opacification of the right middle lobe bronchus and multiple right lower lobe bronchioles suggesting mucous plugging. Increased right lower lobe patchy consolidation suggesting pneumonia. Recommend follow-up to resolution given the nodular appearance. Left lower lobe superior segment density, grossly stable compared to 12/12/2023 but increased compared to 01/30/2023. This could represent post-treatment change although a neoplastic etiology cannot be excluded. Focal left hilar soft tissue, not as well seen on 12/12/2023 due to lack of IV contrast but new compared to 01/30/2023. This nonspecific but concerning for malignancy. Inferior lateral right lower lobe pulmonary nodule, minimally increased compared to 12/12/2023. A neoplastic etiology cannot be excluded. Emphysema. Atherosclerosis including coronary arteries. Status post right upper lobectomy. EXAM: CT ABDOMEN AND PELVIS WITH AND WITHOUT CONTRAST FINDINGS: Visualized portions of the lower chest included in this examination of the abdomen and pelvis suggest emphysema. Mild tree in bud nodularity and peribronchovascular nodular consolidation and ground glass of the right lower lobe and to a lesser extent the right middle lobe, stable. 6 mm subpleural nodule along the right major fissure inferolaterally, stable since March 2023. No visible liver mass. No biliary tree dilatation. The gallbladder is present. Gallstones can not be excluded by CT. The pancreas, spleen, and adrenal glands have a normal appearance. Several nonobstructing stones of both kidneys, again noted. The kidneys enhance symmetrically. Mild to moderate cortical scarring of both kidneys, again noted. No ureteral stones or hydronephrosis. Hysterect prudence, again noted. No visible adnexal mass. Evaluation of the bowel is limited because of a paucity of abdominal fat. No obvious abnormality of the bowel. Resolution of the previously seen large amount of fecal material in the rectum. Interval development of cachexia. No free air or free fluid. No enlarged lymph nodes are identified. Bone window images show diffuse osteopenia. No lytic or sclerotic bone lesions are identified. Stable chronic moderate to severe T11 superior endplate compression fracture. Stable retropulsion, resulting in mild to moderate spinal canal stenosis. IMPRESSION: 1. No evidence of malignancy in the abdomen or pelvis. 2. No acute findings in the abdomen or pelvis. 3. Interval development of cachexia. 4. Bilateral nonobstructing nephrolithiasis, again noted. No ureteral stones or hydronephrosis. 5. Stable infectious bronchiolitis and pneumonia on the right. Consider bacterial, mycobacterial, and fungal etiologies. Also consider aspiration. Lab Results Last 24 Hours: 02/01/24 06:16 WBC 7.99 RBC 3.77 L Hgb 10.8 L Hct 34.9 L MCV 92.6 MCH 28.6 MCHC 30.9 L RDW Coeff of Felipe 15.2 H Plt Count 241 Immature Gran % (Auto) 1.1 Neut % (Auto) 79.1 H Lymph % (Auto) 13.0 Winn % (Auto) 6.4 Eos % (Auto) 0.3 Baso % (Auto) 0.1 Neut # (Auto) 6.3 Lymph # (Auto) 1.0 Winn # (Auto) 0.5 Eos # (Auto) 0.0 Baso # (Auto) 0.0 Immature Gran # (Auto) 0.1 PT 15.2 H INR 1.49 Sodium 138.3 Potassium 4.04 Chloride 107.3 H Carbon Dioxide 23.0 Anion Gap 12.04 BUN 31.6 H Creatinine 0.88 Estimated GFR (MDRD) 63.00 BUN/Creatinine Ratio 35.90 Glucose 127.0 H Calcium 8.55 Total Bilirubin 0.18 L AST 53.4 H D ALT 57.2 H D Alkaline Phosphatase 101.9 Total Protein 6.14 L Albumin 3.13 L Globulin 3.01 Albumin/Globulin Ratio 1.03 Discharge Instructions Discharge Planning: Discharge Planning > 40 minutes If patient is discharged with left ventricular systolic dysfunction: NA Discharged with a beta bonnie? [] If no, why not? [] Discharged with an daria/arb? [] If no, why not? [] Diagnosis: Covid-19, Pneumonia, COPD, Lung cancer Diet: Regular diet Activity: as tolerated Follow-up with PCP next week. Medications: Keflex 500 mg twice a day for 3 days (Antibiotic for pneumonia) New Medication: megestrol 20 mg 3 times a day (Appetite stimulant) Discharge Medications: Medications at Discharge (Home Meds & RX) budesonide-formoterol HFA 160 mcg-4.5 mcg/actuation aerosol inhaler (Symbicort) 2 puff inhalation BID 10/05/19 carvedilol 12.5 mg tablet 12.5 mg PO 2XD #60 tabs 01/28/24 albuterol sulfate 90 mcg/actuation aerosol inhaler 2 puff inhalation Q6H PRN shortness of breath or wheezing 01/29/24 guaifenesin 600 mg tablet, extended release 12 hr (Mucus Relief ER) 600 mg PO BID 01/29/24 hydrocodone 5 mg-acetaminophen 325 mg tablet 1 tab PO TID PRN pain #90 tabs 01/29/24 metoclopramide HCl 10 mg tablet 10 mg PO ONCE 01/29/24 Discharge Plan Discharge Discharge Orders: Discharge Patient (ONCE); Ordered 02/01/24 Ordered By: ASHLEY WELLER Activity Restrictions/Additional Instructions: Diagnosis: Covid-19, Pneumonia, COPD, Lung cancer Diet: Regular diet Activity: as tolerated Follow-up with PCP next week. Medications: Keflex 500 mg twice a day for 3 days (Antibiotic for pneumonia) New Medication: megestrol 20 mg 3 times a day (Appetite stimulant) Instructions: Community Acquired Pneumonia (GEN), Chronic Lung Disease and Infection Prevention (GEN), COVID-19 (Coronavirus Disease 2019) (GEN) Patient Disposition: HOME WITH FAMILY CARE Prescriptions: New cephalexin 500 mg capsule 500 mg PO BID 3 Days Qty: 6 0RF megestrol 20 mg tablet 20 mg PO TID 30 Days Qty: 90 0RF Continued carvedilol 12.5 mg tablet 12.5 mg PO 2XD Qty: 60 2RF hydrocodone-acetaminophen 5-325 mg tablet 1 tab PO TID PRN (Reason: pain) Qty: 90 0RF budesonide-formoterol [Symbicort] 160-4.5 mcg/actuation Hfa Aerosol Inhaler 2 puff INHALATION BID metoclopramide HCl 10 mg tablet 10 mg PO ONCE guaifenesin [Mucus Relief ER] 600 mg tablet extended release 12hr 600 mg PO BID albuterol sulfate 90 mcg/actuation HFA aerosol inhaler 2 puff inhalation Q6H PRN (Reason: shortness of breath or wheezing) Did you review [place] LOGISTICS ADMINISTRATOR for ALL controlled substances?: No Discussed opioids are addictive and Narcan is available by prescription or from pharmacy.: No Condition: Stable Referrals: SIMONE TEIXEIRA MD [Primary Care Provider] - 02/14/24 10:20 am
[2024-02-01 14:25] VITALS: BP 165/98; PULSE 79; RESP 19
== END 2024-02-01 14:35 | disposition home or self-care (01) | DRG 177 ==
LOC: ED 08:06 → SCU 08:06
PROVIDERS: ADMIT Hospitalist; ATTEND Nurse Practitioner Family
DX: U07.1 COVID-19; R62.7 Adult failure to thrive; K21.9 Gastro-esophageal reflux disease without esophagitis; J44.1 Chronic obstructive pulmonary disease with (acute) exacerbation; Z85.118 Personal history of other malignant neoplasm of bronchus and lung; J12.82 Pneumonia due to coronavirus disease 2019; F17.210 Nicotine dependence, cigarettes, uncomplicated; J20.8 Acute bronchitis due to other specified organisms; J96.01 Acute respiratory failure with hypoxia; I10 Essential (primary) hypertension

== ENCOUNTER 2024-02-29 17:40 | Observation (INO) ==
--- NOTE | 2024-02-29 17:51 | ED.PDOC ---
General ED Provider: Dr. EM HEATON MD Chief Complaint: Shortness of Air Stated Complaint: Patient is a 73-year-old female that reported to the emergency department for shortness of breath. Patient was brought in by EMS and they stated that the patient was found to have an O2 sat below 90% at home. Patient has a history of lung cancer and COPD and continues to smoke cigarettes daily. Patient has home O2 and uses it intermittently. Patient stated that she has had this increase shortness of breath for the past couple weeks. Patient also states she has a history of hypertension and is taking her medicines. EMS reported the patient having an elevated blood pressure of 185/120. Patient also complained of a productive cough with her increased shortness of breath. Patient stated that her current COPD medications are not helping her. Patient states that she has not been around any other sick contacts. Patient states that nothing makes her symptoms worse or better. Patient also complained of generalized weakness. Patient denies any nausea, vomiting, chest pain, dizziness, syncope, loss consciousness, or any other acute symptoms not currently mentioned in HPI. Patient's current vital signs are heart rate 98, O2 sat 99% on 2 L nasal cannula, and blood pressure of 185/120. Patient's GCS is 15. Time Seen by Provider: 02/29/24 17:44 Mode of Arrival: Ambulance Information Source: Patient and EMT Exam Limitations: No limitations Primary Care Provider: SIMONE TEIXEIRA MD Nursing and Triage Documentation Reviewed and Agree: Yes Does Patient Take Opioids?: No Is Patient Opioid Naive?: No What is Opioid Naive?: *Opioid Naive implies the patient is not already taking opioids or not chronically receiving opioids on a daily basis. *PRN dosing is not "usually" associated with tolerance. *Patients are at higher risk of over-sedation and aspiration. Is Patient Opioid Tolerant?: No What is Opioid Tolerant?: *Opioid Tolerance implies less than the expected response to an opioid. *Acquired tolerance is defined by the patient taking 60mg of oral morphine daily (or equianalgesic dose of another opioid) for 1 week or more. *Often associated with chronic pain. *May take more than usual dose to achieve desired pain control. Review of Systems Review Of Systems Constitutional: Reports Weakness Eyes: Reports No symptoms Ears, Nose, Mouth, Throat: Reports No symptoms Respiratory: Reports Cough and Shortness of Breath Cardiac: Reports No symptoms GI: Reports No symptoms : Reports No symptoms Musculoskeletal: Reports No symptoms Skin: Reports No symptoms Neurological: Reports No symptoms Endocrine: Reports No symptoms Hematologic/Lymphatic: Reports No symptoms All Other Systems: Reviewed and Negative [facility] Medical History Tobacco abuse (12/10/13) Z72.0 - Tobacco use (ICD-10) Shingles (01/20/14) B02.9 - Zoster without complications (ICD-10) Lung cancer (08/27/14) C34.90 - Malignant neoplasm of unspecified part of unspecified bronchus or lung (ICD-10) Lesion of lung (12/10/13) R91.1 - Solitary pulmonary nodule (ICD-10) Chronic bronchitis J42 - Unspecified chronic bronchitis (ICD-10) History of pleurisy Z87.09 - Personal history of other diseases of the respiratory system (ICD- 10) Recurrent pneumonia J18.9 - Pneumonia, unspecified organism (ICD-10) Family History Mother COPD (chronic obstructive pulmonary disease) FATHER Cancer Social History Smoking and tobacco status: Current every day smoker Tobacco type: cigarettes Tobacco: How many years used: 60 Quit status: not considering quitting Alcohol intake: never Substance use type: does not use Special miquel needs: No Agree to transfusion: Yes Adopted: No Caregiver/support person: No Foster care: No Household members: other Housing: house Marital status: D Lives independently: Yes Number of children: 7 service: No custodial: No Current occupational status: retired History of recent travel: No Do you think of yourself as: straight/heterosexual Current gender identity: female Seatbelt use: always Drives intoxicated or rides with intoxicated transit mixer driver: No Water heater temperature set < 120 degrees: Yes Working smoke detector in home: Yes Fire extinguisher in home: Yes Carbon monoxide detector in home: Yes Surgical History S/p bilateral carpal tunnel release Z98.890 - Other specified postprocedural states (ICD-10) History of lung surgery RIGHT LOBEctomy/CANCER 2016 NO CHEMO OR RADIATION Z98.890 - Other specified postprocedural states (ICD-10) Status post tonsillectomy Z90.89 - Acquired absence of other organs (ICD-10) Status post hysterectomy Z90.710 - Acquired absence of both cervix and uterus (ICD-10) Status post tonsillectomy and adenoidectomy Z90.89 - Acquired absence of other organs (ICD-10) Female Reproductive History Menstrual Hx Hysterectomy: Yes Hx Tubal Ligation: No Physical Exam Physical Exam Appearance: Reports Thin and Cachectic Ill-appearing: Mild Pain Distress: None Eyes: Reports KAREN, EOMI and Conjunctiva clear ENT: Reports Ears normal, Nose normal and Oropharynx normal Neck: Supple Respiratory: Reports Airway patent, Breath sounds clear, Breath sounds equal and Breath sounds diminished (Diminished breath sounds at the bases with rhonchi and wheezes. There is no tachypnea. there is no intercostal retractions. there is no stridor noted.) Cardiovascular: Reports RRR, Pulses normal, No rub and No murmur GI/: Reports Soft, Nontender, No masses and Bowel sounds normal Musculoskeletal: Reports Normal strength, ROM intact and No edema Skin: Reports Warm, Dry and Normal color Neurological: Reports Sensation intact, Motor intact, Reflexes intact and Cranial nerves intact Psychiatric: Reports Affect appropriate and Mood appropriate Course Course Orders, Labs, Meds: Orders Category Date Time Status ABG DRAW REQUEST Stat CARDIO 02/29/24 17:53 Ordered EKG-(ED ONLY) Stat CARDIO 02/29/24 17:44 Ordered NEBULIZER TREATMENT Stat CARDIO 02/29/24 17:45 Ordered ED APPLY O2 .ONCE EMERGENCY 02/29/24 17:44 Active ED INSURANCE CASE MANAGER APPLIED .ONCE EMERGENCY 02/29/24 17:44 Active ABG COOX Stat LAB 02/29/24 17:53 Ordered CBC W/ AUTO DIFF Stat LAB 02/29/24 17:44 Ordered COMPREHENSIVE METABOLIC PANEL Stat LAB 02/29/24 17:44 Ordered FLU A/B MOLECULAR Stat LAB 02/29/24 18:06 Ordered LACTIC ACID Stat LAB 02/29/24 17:44 Ordered MAGNESIUM Stat LAB 02/29/24 17:44 Ordered SARS COV-2 RNA RAPID PAT Stat LAB 02/29/24 18:06 Ordered TROPONIN I Stat LAB 02/29/24 17:44 Ordered Ipratropium/Albuterol Neb [Duoneb] Meds 02/29/24 17:44 Discontinued 3 ml NEB ONCE STA Labetalol HCl [Trandate] Meds 02/29/24 17:51 Discontinued 20 mg IVP ONCE ONE Methylprednisolone Sod Succ/Pf [Solu-Medrol 125 mg] Meds 02/29/24 17:44 Discontinued 125 mg IVP ONCE ONE CHEST, 1V AP ONLY Stat RADS 02/29/24 17:44 Ordered Medications Discontinued Medications Generic Name Dose Route Start Last Admin Trade Name Sophia PRN Reason Stop Dose Admin Albuterol/Ipratropium 3 ml 02/29/24 17:44 02/29/24 17:53 Ipratropium/Albuterol Vial.Neb NEB 02/29/24 17:45 3 ml ONCE STA Administration Labetalol HCl 20 mg 02/29/24 17:51 02/29/24 17:54 Labetalol Hcl 20 Mg/4 Ml Disp.Syrin IVP 02/29/24 17:52 20 mg ONCE ONE Administration Methylprednisolone Sodium Succinate 125 mg 02/29/24 17:44 02/29/24 17:54 Methylprednisolone Sod Succ/Pf 125 Mg/2 Ml Vial IVP 02/29/24 17:45 125 mg ONCE ONE Administration Vital Signs: Temp Pulse Resp BP Pulse Ox O2 Flow Rate 02/29/24 17:52 2 02/29/24 17:41 98 F 99 24 H 185/120 H 97 Discharge Plan Discharge Patient Disposition: PLACED OBSERVATION Discharge Problem: Asthma exacerbation with COPD (chronic obstructive pulmonary disease), Acute hypoxemic respiratory failure, Hypertensive crisis, History of lung cancer, Chronic anemia Did you review [place] CROP NUTRITION SCIENTIST for ALL controlled substances?: Not Applicable ED Provider: EM HEATON Condition: Stable Physician Progress Note: Patient is a 73-year-old female that reported to the emergency department for shortness of breath. Patient was brought in by EMS and they stated that the patient was found to have an O2 sat below 90% at home. Patient has a history of lung cancer and COPD and continues to smoke cigarettes daily. Patient has home O2 and uses it intermittently. Patient stated that she has had this increase shortness of breath for the past couple weeks. Patient also states she has a history of hypertension and is taking her medicines. EMS reported the patient having an elevated blood pressure of 185/120. Patient also complained of a productive cough with her increased shortness of breath. Patient stated that her current COPD medications are not helping her. Patient states that she has not been around any other sick contacts. Patient states that nothing makes her symptoms worse or better. Patient also complained of generalized weakness. Patient denies any nausea, vomiting, chest pain, dizziness, syncope, loss consciousness, or any other acute symptoms not currently mentioned in HPI. Patient's current vital signs are heart rate 98, O2 sat 99% on 2 L nasal cannula, and blood pressure of 185/120. Patient's GCS is 15. -Will order chest x-ray, EKG, and baseline labs. -Will order IV methylprednisolone 125 mg and DuoNeb treatment. -Will continue the patient on 2 L nasal cannula to keep her patient's oxygen above 94%. -Will order an ABG on room air. -Will give the patient IV labetalol 20 mg once for blood pressure of 185/120. -Patient's blood pressure has come down to 172/105. -Patient's EKG shows normal sinus rhythm with possible left atrial enlargement. Ventricular rate [address] elevations noted. This was interpreted by the ER physician. -Chest x-ray showed right lower lobe pneumonia. COPD. This was interpreted by the ER physician. -Will give IV Zosyn 3.375 g and IV Vanco 1 g for CAP. -([id number]) Spoke to the hospitalist at [facility], Dhruv Peter NP, about the patient's diagnosis of acute exacerbation of COPD and acute hypoxemic respiratory failure and community-acquired pneumonia. I discussed the current medications that have been given and treatment modalities. Discussed the patient's vital signs. She has agreed to admit the patient for observation on telemetry.
[2024-02-29] MEDS: DUONEB NEB STA (17:53)
[2024-02-29] MEDS: SOLU-MEDROL 125 MG IVP ONE (17:54)
[2024-02-29] MEDS: TRANDATE IVP ONE (17:54)
[2024-02-29 18:17] LABS: BASOPHILS % (AUTO) 0.2 % (0.0-3.0); EOSINOPHILS # (AUTO) 0.1 K/ul (0.0-0.7); EOSINOPHILS % (AUTO) 0.9 % (0.0-7.0); HEMATOCRIT 33.5 % (37.0-47.0); HEMOGLOBIN 10.1 g/dl (12.0-16.0); IMMATURE GRANULOCYTE # (AUTO) 0.1 (0.0-1.0); IMMATURE GRANULOCYTE % (AUTO) 0.9 % (0.0-5.0); LYMPHOCYTES # (AUTO) 2.1 K/uL (0.60-3.4); LYMPHOCYTES % (AUTO) 25.2 (10.0-50.0); MEAN CORPUSCULAR HEMOGLOBIN 28.4 pg (27.0-31.0); MEAN CORPUSCULAR HGB CONC 30.1 (31.8-35.4); MEAN CORPUSCULAR VOLUME 94.1 fl (81.0-99.0); MONOCYTES # (AUTO) 0.8 K/uL (0.4-2.0); MONOCYTES % (AUTO) 9.2 (0-10); NEUTROPHILS # (AUTO) 5.2 K/ul (2.0-6.9); NEUTROPHILS % (AUTO) 63.6 % (42.2-75.2); PLATELET COUNT 364 10^3/uL (140-440); RDW COEFFICIENT OF VARIATION 14.7 % (11.6-14.8); RED BLOOD COUNT 3.56 10^6/ul (4.20-5.40); WHITE BLOOD COUNT 8.12 K/ul (4.6-10.2)
[2024-02-29] MEDS ORDERED: VANCOMYCIN 1 GRAM/200 ML PREMIX 1 GM/200 ML BAG IV ONE (18:25)
[2024-02-29 18:36] LABS: ALANINE AMINOTRANSFERASE 10.1 U/L (0-35); ALBUMIN 3.51 g/dL (3.5-5.0); ALKALINE PHOSPHATASE 70.7 U/L (53-141); ASPARTATE AMINO TRANSFERASE 23.8 U/L (14-36); BILIRUBIN,TOTAL 0.31 mg/dL (0.2-1.3); BLOOD UREA NITROGEN 16.6 mg/dL (7-17); CALCIUM 8.71 mg/dL (8.4-10.2); CHLORIDE 108.4 mmol/L (98-107); CREATININE 0.77 mg/dL (0.60-1.30); GLUCOSE 101.4 mg/dL (74-106); MAGNESIUM 2.21 mg/dL (1.6-2.3); POTASSIUM 3.69 mmol/L (3.5-5.1); SODIUM 141.1 mmol/L (134.5-145); TOTAL PROTEIN 6.69 g/dL (6.3-8.2)
[2024-02-29] MEDS: ZOSYN 3.375 GM 3.375 GM in SODIUM CHLORIDE 100ML 100 ML IV ONE (18:36)
[2024-02-29 18:48] LABS: TROPONIN I < 0.012 ng/ml (0.0000-0.120)
[2024-02-29 18:50] LABS: MOLECULAR FLU A NEGATIVE BY NAAT (NEGATIVE); MOLECULAR FLU B NEGATIVE BY NAAT (NEGATIVE); SARS COV-2 RNA RAPID NAAT NEGATIVE (NEGATIVE)
--- NOTE | 2024-02-29 18:59 | DI ---
EXAM: CHEST ONE-VIEW HISTORY: Shortness of breath COMPARISON: AP chest from 01/29/2024 FINDINGS: A small right pleural effusion is detected with subjacent infiltrates. There are stable n odular opacity in the right lung base. There is elevation of the left hilum with prominence. No juan nge. There are posterior changes in the right upper lobe. There are decreased bronchovascular darby ngs in the lungs. The lungs are hyperinflated. The cardiomediastinal silhouette is normal. The pulm onary vasculature is normal. No pneumothoraces. IMPRESSION: 1. Small right pleural effusion with subjacent atelectasis and/or infiltrate. 2. Stable nodular opacities in the right lung base. 3. Emphysema. 4. Postsurgical changes in the right lung. .
[2024-02-29] MEDS ORDERED: ALBUTEROL 0.083% NEB NEB PRN (19:10)
[2024-02-29 20:20] VITALS: BMI 13.3
[2024-02-29] MEDS: LEVAQUIN 750 MG/150 ML D5W 750 MG/150 ML BAG IV SCH (21:01)
[2024-02-29] MEDS: DUONEB NEB SCH (23:13)
[2024-02-29] MEDS: MELATONIN PO PRN (23:34)
[2024-03-01] MEDS: TYLENOL PO PRN (04:32)
[2024-03-01 05:19] LABS: BASOPHILS % (AUTO) 0.3 % (0.0-3.0); HEMATOCRIT 35.2 % (37.0-47.0); HEMOGLOBIN 10.4 g/dl (12.0-16.0); IMMATURE GRANULOCYTE % (AUTO) 0.5 % (0.0-5.0); LYMPHOCYTES # (AUTO) 0.6 K/uL (0.60-3.4); MEAN CORPUSCULAR HEMOGLOBIN 28.4 pg (27.0-31.0); MEAN CORPUSCULAR HGB CONC 29.5 (31.8-35.4); MEAN CORPUSCULAR VOLUME 96.2 fl (81.0-99.0); MONOCYTES # (AUTO) 0.1 K/uL (0.4-2.0); NEUTROPHILS # (AUTO) 3.3 K/ul (2.0-6.9); NEUTROPHILS % (AUTO) 83.2 % (42.2-75.2); PLATELET COUNT 331 10^3/uL (140-440); RDW COEFFICIENT OF VARIATION 14.8 % (11.6-14.8); RED BLOOD COUNT 3.66 10^6/ul (4.20-5.40); WHITE BLOOD COUNT 3.94 K/ul (4.6-10.2)
[2024-03-01 05:30] LABS: ALANINE AMINOTRANSFERASE 16.4 U/L (0-35); ALBUMIN 3.7 g/dL (3.5-5.0); ALKALINE PHOSPHATASE 75.5 U/L (53-141); ASPARTATE AMINO TRANSFERASE 28.3 U/L (14-36); BILIRUBIN,TOTAL 0.27 mg/dL (0.2-1.3); BLOOD UREA NITROGEN 21.7 mg/dL (7-17); CALCIUM 8.83 mg/dL (8.4-10.2); CARBON DIOXIDE 25.2 mmol/L (22-30.0); CHLORIDE 106.8 mmol/L (98-107); CREATININE 0.95 mg/dL (0.60-1.30); GLUCOSE 167.3 mg/dL (74-106); POTASSIUM 4.13 mmol/L (3.5-5.1); SODIUM 141.7 mmol/L (134.5-145); TOTAL PROTEIN 6.95 g/dL (6.3-8.2)
--- NOTE | 2024-03-01 09:53 | PCM ---
Date of Service Date Seen by Provider: 03/01/24 Time Seen by Provider: 08:00 Admit Day/Time Admission Date: 02/29/24 Reason for Admission Chief Complaint: COPD EXACERBATION,ACUTE EMIC RESP FAILURE CAD Hospital Provider Hospital Provider[facility] Primary Care Physician: SIMONE TEIXEIRA MD History of Present Illness History of Present Illness: 73 yo female presented to the ER with complaints of shortness of breath. States she has been feeling bad over the past 3 days. Reports worsening cough without production. Denies fever, chills, or other symptoms. Found to have R sided pneu monia. Was admitted approx 1 month ago and treated for pneumonia. On home oxygen at 2L baseline. Admitted to med/surg observation. Case Discussed With Case Discussed With: Patient's case was discussed with the ER Physicians, Dr. Roberts. [facility] Medical History Tobacco abuse (12/10/13) Z72.0 - Tobacco use (ICD-10) Shingles (01/20/14) B02.9 - Zoster without complications (ICD-10) Lung cancer (08/27/14) C34.90 - Malignant neoplasm of unspecified part of unspecified bronchus or lung (ICD-10) Lesion of lung (12/10/13) R91.1 - Solitary pulmonary nodule (ICD-10) Chronic bronchitis J42 - Unspecified chronic bronchitis (ICD-10) History of pleurisy Z87.09 - Personal history of other diseases of the respiratory system (ICD- 10) Recurrent pneumonia J18.9 - Pneumonia, unspecified organism (ICD-10) Surgical History S/p bilateral carpal tunnel release Z98.890 - Other specified postprocedural states (ICD-10) History of lung surgery RIGHT LOBEctomy/CANCER 2016 NO CHEMO OR RADIATION Z98.890 - Other specified postprocedural states (ICD-10) Status post tonsillectomy Z90.89 - Acquired absence of other organs (ICD-10) Status post hysterectomy Z90.710 - Acquired absence of both cervix and uterus (ICD-10) Status post tonsillectomy and adenoidectomy Z90.89 - Acquired absence of other organs (ICD-10) Family History Mother COPD (chronic obstructive pulmonary disease) FATHER Cancer Social History Smoking and tobacco status: Current every day smoker Tobacco type: cigarettes Tobacco: How many years used: 60 Quit status: not considering quitting Alcohol intake: never Substance use type: does not use Special miquel needs: No Agree to transfusion: Yes Adopted: No Caregiver/support person: No Foster care: No Household members: other Housing: house Marital status: D Lives independently: Yes Number of children: 7 service: No half-way: No Current occupational status: retired History of recent travel: No Do you think of yourself as: straight/heterosexual Current gender identity: female Seatbelt use: always Drives intoxicated or rides with intoxicated local company truck driver: No Current diet type/program: regular Water heater temperature set < 120 degrees: Yes Working smoke detector in home: Yes Fire extinguisher in home: Yes Carbon monoxide detector in home: Yes Allergies Allergies Allergy/AdvReac Type Severity Reaction Status Date / Time tiotropium AdvReac Unknown Verified 02/29/24 18:06 [From Spiriva with HandiHaler] Current Medications Home Medications budesonide-formoterol HFA 160 mcg-4.5 mcg/actuation aerosol inhaler (Symbicort) 2 puff inhalation BID 10/05/19 [History Confirmed 02/29/24 Last Taken 01/28/24 17:00 2 puff] carvedilol 12.5 mg tablet 12.5 mg PO 2XD #60 tabs 01/28/24 [Rx Confirmed Last Taken 01/28/24 17:00 12.5 mg] albuterol sulfate 90 mcg/actuation aerosol inhaler 2 puff inhalation Q6H PRN shortness of breath or wheezing 01/29/24 [History Confirmed 02/29/24 Last Taken 01/28/24 21:00 2 puff] guaifenesin 600 mg tablet, extended release 12 hr (Mucus Relief ER) 600 mg PO BID 01/29/24 [History Confirmed 02/29/24 Last Taken 01/28/24 17:00 600 mg] hydrocodone 5 mg-acetaminophen 325 mg tablet 1 tab PO TID PRN pain #90 tabs 01/29/24 [Rx Confirmed 02/29/24 Last Taken 01/28/24 21:00 1 tab] Home Acetaminophen (Acetaminophen 325 Mg Tablet) 650 mg PO Q4H PRN PRN Reason: Mild Pain Last Admin: 03/01/24 04:32 Dose: 650 mg Hydrocodone Bitart/Acetaminophen (Hydrocodone Bit/Acetaminophen 7.5/325 Mg Tablet) 1 tab PO TID PRN PRN Reason: Pain Albuterol Sulfate (Albuterol Sulfate 0.083% Vial.Neb) 2.5 mg NEB RTQ4H PRN PRN Reason: Wheezing Albuterol/Ipratropium (Ipratropium/Albuterol Vial.Neb) 3 ml NEB RTQ6H ANDREAS Last Admin: 03/01/24 05:00 Dose: 3 ml Budesonide/Formoterol Fumarate (Budesonide/Formoterol Fumarate 160/4.5 Mcg Inhaler) 2 puff IH BID ANDREAS Carvedilol (Carvedilol 12.5 Mg Tablet) 12.5 mg PO BIDWM2 ANDREAS Levofloxacin/Dextrose (Levaquin 750 Mg/150 Ml D5w) 750 mg in 150 mls @ 100 mls/hr IV Q48H ANDREAS Stop: 03/05/24 20:59 Discontinued Medications Albuterol/Ipratropium (Ipratropium/Albuterol Vial.Neb) 3 ml NEB ONCE STA Stop: 02/29/24 17:45 Last Admin: 02/29/24 17:53 Dose: 3 ml Piperacillin Sod/Tazobactam (Sod 3.375 gm/ Sodium Chloride) 100 mls @ 200 mls/hr IV ONCE ONE Stop: 02/29/24 18:54 Last Admin: 02/29/24 18:36 Dose: 200 mls/hr Levofloxacin/Dextrose (Levaquin 750 Mg/150 Ml D5w) 750 mg in 150 mls @ 100 mls/hr IV Q24H ANDREAS Stop: 03/03/24 21:59 Last Admin: 02/29/24 21:01 Dose: 100 mls/hr Labetalol HCl (Labetalol Hcl 20 Mg/4 Ml Disp.Syrin) 20 mg IVP ONCE ONE Stop: 02/29/24 17:52 Last Admin: 02/29/24 17:54 Dose: 20 mg Melatonin (Melatonin 3 Mg Tablet) 6 mg PO BEDTIME PRN PRN Reason: Insomnia Last Admin: 02/29/24 23:34 Dose: 6 mg Methylprednisolone Sodium Succinate (Methylprednisolone Sod Succ/Pf 125 Mg/2 Ml Vial) 125 mg IVP ONCE ONE Stop: 02/29/24 17:45 Last Admin: 02/29/24 17:54 Dose: 125 mg Opioid Naive vs. Tolerant Does Patient Take Opioids?: Yes Is Patient Opioid Naive?: No What is Opioid Naive?: *Opioid Naive implies the patient is not already taking opioids or not chronically receiving opioids on a daily basis. *PRN dosing is not "usually" associated with tolerance. *Patients are at higher risk of over-sedation and aspiration. Is Patient Opioid Tolerant?: No What is Opioid Tolerant?: *Opioid Tolerance implies less than the expected response to an opioid. *Acquired tolerance is defined by the patient taking 60mg of oral morphine daily (or equianalgesic dose of another opioid) for 1 week or more. *Often associated with chronic pain. *May take more than usual dose to achieve desired pain control. Review of Systems Constitutional: Reports Weakness Head: Reports Normocephalic Eyes: Reports No symptoms Ears: Reports No symptoms Nose: Reports No symptoms Mouth: Reports No symptoms Throat: Reports No symptoms Cardiovascular: Reports No symptoms Respiratory: Reports Cough and Shortness of air Gastrointestinal: Reports No symptoms Genitourinary: Reports No Symptoms Musculoskeletal: Reports No symptoms Endocrine: Reports No symptoms Hematology: Reports No symptoms Immunology: Reports No symptoms Neurological: Reports No symptoms Psychiatric: Reports No symptoms Physical examination Most Recent Vital Signs: Most Recent Vital Signs Temperature 97.8 F 03/01/24 05:18 Temperature Source Temporal Artery Scan 03/01/24 05:18 Temperature Source Oral 02/29/24 17:41 Pulse Rate 86 03/01/24 05:18 Respiratory Rate 20 03/01/24 05:18 Blood Pressure 125/80 03/01/24 05:18 Blood Pressure Mean 95 03/01/24 05:18 Blood Pressure Left Arm 169/96 02/29/24 20:05 Blood Pressure Location Left Arm 03/01/24 05:18 Blood Pressure Position Sitting 03/01/24 05:18 O2 Sat by Pulse Oximetry 100 03/01/24 05:18 Oxygen Delivery Method Nasal Cannula 03/01/24 09:00 Oxygen Flow Rate 2 03/01/24 05:18 Height 4 ft 9 in 02/29/24 20:05 Weight 27.9 kg 02/29/24 20:05 Telemetry Type Remote Telemetry 03/01/24 07:00 Telemetry Monitoring Continues 03/01/24 07:00 Telemetry Heart Rate 64 03/01/24 07:00 Telemetry SPO2 100 03/01/24 07:00 EKG AL Interval 0.14 03/01/24 07:00 EKG QRS Interval 0.06 03/01/24 07:00 Telemetry Strip Reading SR 03/01/24 07:00 Appearance: Positive No Apparent Distress, Alert and Oriented x3, Ill-Appearing, Thin and Cachectic Skin: Positive Warm and Good Turgor HEENT: Positive Normocephalic and PERRLA Neck: Positive Supple and Midline Trachea Chest/Lungs: Positive Symmetrical With Equal Breath Sounds and Rhonci (R lung) Heart: Positive RRR and Pulses Normal GI/: Positive Soft, Nontender, Bowel Sounds Normal and No Distention Musculoskeletal: Positive Not Examined Extremities: Positive Intact Peripheral Pulses, Stable Joints Without Laxity and Good ROM in All Joints Neurological: Positive Sensation Intact, Motor intact, Alert, Oriented and Muscle Strength 5/5 in Upper and Lower Extremities Bilaterally Labs This Visit Labs This Visit: Labs This Visit 02/29/24 02/29/24 02/29/24 18:06 18:07 Unknown WBC 8.12 RBC 3.56 L Hgb 10.1 L Hct 33.5 L MCV 94.1 MCH 28.4 MCHC 30.1 L RDW Coeff of Felipe 14.7 Plt Count 364 Immature Gran % (Auto) 0.9 Neut % (Auto) 63.6 Lymph % (Auto) 25.2 [place] % (Auto) 9.2 Eos % (Auto) 0.9 Baso % (Auto) 0.2 Neut # (Auto) 5.2 Lymph # (Auto) 2.1 [place] # (Auto) 0.8 Eos # (Auto) 0.1 Baso # (Auto) 0.0 Immature Gran # (Auto) 0.1 Sodium 141.1 Potassium 3.69 Chloride 108.4 H Carbon Dioxide 22.0 Anion Gap 14.39 BUN 16.6 Creatinine 0.77 Estimated GFR (MDRD) 73.00 BUN/Creatinine Ratio 21.55 Glucose 101.4 Calcium 8.71 Magnesium 2.21 Total Bilirubin 0.31 AST 23.8 ALT 10.1 Alkaline Phosphatase 70.7 Troponin I < 0.012 Total Protein 6.69 Albumin 3.51 Globulin 3.18 Albumin/Globulin Ratio 1.10 Procalcitonin < 0.05 Influ A Molecular Assay Negative by naat Influ B Molecular Assay Negative by naat SARS CoV-2 RNA Rapid PAT Negative 03/01/24 05:12 WBC 3.94 L RBC 3.66 L Hgb 10.4 L Hct 35.2 L MCV 96.2 MCH 28.4 MCHC 29.5 L RDW Coeff of Felipe 14.8 Plt Count 331 Immature Gran % (Auto) 0.5 Neut % (Auto) 83.2 H Lymph % (Auto) 14.0 [place] % (Auto) 2.0 Eos % (Auto) 0.0 Baso % (Auto) 0.3 Neut # (Auto) 3.3 Lymph # (Auto) 0.6 [place] # (Auto) 0.1 L Eos # (Auto) 0.0 Baso # (Auto) 0.0 Immature Gran # (Auto) 0.0 Sodium 141.7 Potassium 4.13 Chloride 106.8 Carbon Dioxide 25.2 Anion Gap 13.83 BUN 21.7 H Creatinine 0.95 Estimated GFR (MDRD) 57.00 BUN/Creatinine Ratio 22.84 Glucose 167.3 H D Calcium 8.83 Magnesium Total Bilirubin 0.27 AST 28.3 ALT 16.4 Alkaline Phosphatase 75.5 Troponin I Total Protein 6.95 Albumin 3.70 Globulin 3.25 Albumin/Globulin Ratio 1.13 Procalcitonin Influ A Molecular Assay Influ B Molecular Assay SARS CoV-2 RNA Rapid PAT Imaging Imaging: EXAM: CHEST ONE-VIEW HISTORY: Shortness of breath COMPARISON: AP chest from 01/29/2024 FINDINGS: A small right pleural effusion is detected with subjacent infiltrates. There are stable nodular opacity in the right lung base. There is elevation of the left hilum with prominence. No change. There are posterior changes in the right upper lobe. There are decreased bronchovascular markings in the lungs. The lungs are hyperinflated. The cardiomediastinal silhouette is normal. The pulmonary vasculature is normal. No pneumothoraces. IMPRESSION: 1. Small right pleural effusion with subjacent atelectasis and/or infiltrate. 2. Stable nodular opacities in the right lung base. 3. Emphysema. 4. Postsurgical changes in the right lung. Review Statement Review Statement: I have independently reviewed and interpreted the labs/EKGs/imaging that were ordered by the ER provider. I have reviewed all outside records that are available currently in our EMR including imaging/notes/labs from previous visits. Plan Plan: 1. Right sided Pneumonia - levaquin Q48H, culture sputum, MRSA, legionella, strep pneumo ordered 2. COPD exacerbation - duoneb Q6H, continue home inhaler 3. Hypertension - chronic, continue home medications 4. Lung Cancer - norco for pain - reports not providing relief, increasing dosage to 7.5/325 DVT Prophylaxis: Ambulation Time Spent: Greater than 80 minutes spent with patient, 50% of the time spent with this patient was devoted to counseling and coordination of care. [facility] Plannin minutes spent discussing advance care planning. Smoking Cessation: 3-10 minutes spent discussing smoking cessation. Disposition: Admit to: Med/Surg Observation DNR Discussed Plan of Care with Dr. Teixeira. Medications Medication Orders: Medications Ordered Category Date Time Status Acetaminophen [Tylenol] Meds 02/29/24 19:10 Active 650 mg PO Q4H PRN Albuterol Sulfate 0.083% Neb [Albuterol 0.083% Neb] Meds 02/29/24 19:10 Active 2.5 mg NEB RTQ4H PRN Ipratropium/Albuterol Neb [Duoneb] Meds 03/01/24 00:00 Active 3 ml NEB RTQ6H Levofloxacin/D5w [Levaquin 750 mg/150 ml D5w] Meds 03/02/24 21:00 Active 750 mg in 150 ml IV Q48H Melatonin Meds 02/29/24 23:08 Active 6 mg PO BEDTIME PRN
[2024-03-01] MEDS: SYMBICORT 160-4.5 MCG INHALER IH SCH (10:34)
[2024-03-01] MEDS: NORCO 7.5-325 PO PRN (16:17)
[2024-03-01] MEDS: COREG PO SCH (16:17)
[2024-03-01] MEDS: ROBITUSSIN DM SYRUP PO PRN (16:17)
[2024-03-01] MEDS: TESSALON PERLES PO PRN (17:05)
[2024-03-02 05:37] LABS: EOSINOPHILS % (AUTO) 0.1 % (0.0-7.0); HEMATOCRIT 32.1 % (37.0-47.0); HEMOGLOBIN 9.4 g/dl (12.0-16.0); IMMATURE GRANULOCYTE # (AUTO) 0.1 (0.0-1.0); IMMATURE GRANULOCYTE % (AUTO) 0.6 % (0.0-5.0); LYMPHOCYTES # (AUTO) 1.6 K/uL (0.60-3.4); LYMPHOCYTES % (AUTO) 19.8 (10.0-50.0); MEAN CORPUSCULAR HEMOGLOBIN 28.4 pg (27.0-31.0); MEAN CORPUSCULAR HGB CONC 29.3 (31.8-35.4); MONOCYTES # (AUTO) 0.6 K/uL (0.4-2.0); MONOCYTES % (AUTO) 8.1 (0-10); NEUTROPHILS # (AUTO) 5.6 K/ul (2.0-6.9); NEUTROPHILS % (AUTO) 71.4 % (42.2-75.2); PLATELET COUNT 288 10^3/uL (140-440); RED BLOOD COUNT 3.31 10^6/ul (4.20-5.40); WHITE BLOOD COUNT 7.86 K/ul (4.6-10.2)
[2024-03-02 05:50] LABS: ALANINE AMINOTRANSFERASE 12.7 U/L (0-35); ALBUMIN 3.13 g/dL (3.5-5.0); ALKALINE PHOSPHATASE 62.6 U/L (53-141); ASPARTATE AMINO TRANSFERASE 22.1 U/L (14-36); BILIRUBIN,TOTAL 0.13 mg/dL (0.2-1.3); CALCIUM 8.56 mg/dL (8.4-10.2); CHLORIDE 108.7 mmol/L (98-107); GLUCOSE 121.7 mg/dL (74-106); POTASSIUM 4.07 mmol/L (3.5-5.1); SODIUM 142.6 mmol/L (134.5-145); TOTAL PROTEIN 5.99 g/dL (6.3-8.2)
[2024-03-02] MEDS: SOLU-MEDROL 40 MG IVP SCH (09:42)
--- NOTE | 2024-03-02 09:55 | PCM.PROG ---
Date/Time Seen Date Seen by Provider: 03/02/24 Time Seen by Provider: 09:00 Provider Provider: SEBASTIAN TEIXEIRA MD, [facility] Chief Complaint Chief Complaint: COPD EXACERBATION,ACUTE EMIC RESP FAILURE CAD Subjective Subjective: Not feeling any better today. Reports feeling burning in her lungs. Coughing without sputum production. Objective Appearance: Positive No Apparent Distress, Alert and Oriented x3, Ill-Appearing, Thin and Cachectic Chest/Lungs: Positive Symmetrical With Equal Breath Sounds and Rhonci (R, diminished air movement) Heart: Positive RRR and Pulses Normal GI/: Positive Soft, Nontender, Bowel Sounds Normal and No Distention Musculoskeletal: Positive Not Examined Neurological: Positive Sensation Intact, Motor intact, Alert and Oriented Vital Signs Vital Signs: Vital Signs: Last 24 Hours 03/01/24 10:00 03/01/24 10:00 03/01/24 10:00 Temperature 97.8 F Temperature Source Temporal Artery Scan Pulse Rate 65 Respiratory Rate 14 Blood Pressure 167/88 H Blood Pressure Mean 114 Blood Pressure Location Left Arm Blood Pressure Position Sitting O2 Sat by Pulse Oximetry 100 98 Oxygen Delivery Method Nasal Cannula Nasal Cannula Nasal Cannula Oxygen Flow Rate 2.5 2 Telemetry Type Telemetry Monitoring Telemetry Heart Rate Telemetry SPO2 EKG MO Interval EKG QRS Interval Telemetry Strip Reading 03/01/24 10:55 03/01/24 12:00 03/01/24 13:00 Temperature Temperature Source Pulse Rate Respiratory Rate Blood Pressure Blood Pressure Mean Blood Pressure Location Blood Pressure Position O2 Sat by Pulse Oximetry Oxygen Delivery Method Nasal Cannula Nasal Cannula Nasal Cannula Oxygen Flow Rate Telemetry Type Telemetry Monitoring Telemetry Heart Rate Telemetry SPO2 EKG MO Interval EKG QRS Interval Telemetry Strip Reading 03/01/24 13:00 03/01/24 14:00 03/01/24 14:00 Temperature 98.4 F Temperature Source Temporal Artery Scan Pulse Rate 86 Respiratory Rate 16 Blood Pressure 123/70 Blood Pressure Mean 87 Blood Pressure Location Left Arm Blood Pressure Position O2 Sat by Pulse Oximetry 100 Oxygen Delivery Method Nasal Cannula Nasal Cannula Oxygen Flow Rate 2 Telemetry Type Remote Telemetry Telemetry Monitoring Continues Telemetry Heart Rate 74 Telemetry SPO2 100 EKG MO Interval 0.17 EKG QRS Interval 0.09 Telemetry Strip Reading sr 03/01/24 14:00 03/01/24 15:00 03/01/24 16:00 Temperature Temperature Source Pulse Rate Respiratory Rate Blood Pressure Blood Pressure Mean Blood Pressure Location Blood Pressure Position O2 Sat by Pulse Oximetry Oxygen Delivery Method Nasal Cannula Nasal Cannula Nasal Cannula Oxygen Flow Rate 1 Telemetry Type Telemetry Monitoring Telemetry Heart Rate Telemetry SPO2 EKG MO Interval EKG QRS Interval Telemetry Strip Reading 03/01/24 16:36 03/01/24 18:00 03/01/24 18:00 Temperature 97.7 F Temperature Source Oral Pulse Rate 69 Respiratory Rate 18 Blood Pressure 146/118 H Blood Pressure Mean 127 Blood Pressure Location Left Arm Blood Pressure Position O2 Sat by Pulse Oximetry 99 Oxygen Delivery Method Nasal Cannula Nasal Cannula Nasal Cannula Oxygen Flow Rate 1 Telemetry Type Telemetry Monitoring Telemetry Heart Rate Telemetry SPO2 EKG MO Interval EKG QRS Interval Telemetry Strip Reading 03/01/24 19:00 03/01/24 19:00 03/01/24 20:00 Temperature Temperature Source Pulse Rate Respiratory Rate Blood Pressure Blood Pressure Mean Blood Pressure Location Blood Pressure Position O2 Sat by Pulse Oximetry Oxygen Delivery Method Nasal Cannula Nasal Cannula Oxygen Flow Rate Telemetry Type Remote Telemetry Telemetry Monitoring Continues Telemetry Heart Rate 71 Telemetry SPO2 99 EKG MO Interval 0.17 EKG QRS Interval 0.08 Telemetry Strip Reading sinus rhythm 03/01/24 20:00 03/01/24 20:00 03/01/24 21:00 Temperature Temperature Source Pulse Rate Respiratory Rate 18 Blood Pressure Blood Pressure Mean Blood Pressure Location Blood Pressure Position O2 Sat by Pulse Oximetry 99 Oxygen Delivery Method Nasal Cannula Nasal Cannula Nasal Cannula Oxygen Flow Rate 1 2 Telemetry Type Telemetry Monitoring Telemetry Heart Rate Telemetry SPO2 EKG MO Interval EKG QRS Interval Telemetry Strip Reading 03/01/24 21:13 03/01/24 22:00 03/01/24 23:00 Temperature 97.5 F L Temperature Source Temporal Artery Scan Pulse Rate 87 Respiratory Rate 16 Blood Pressure 125/82 Blood Pressure Mean 96 Blood Pressure Location Left Arm Blood Pressure Position Supine O2 Sat by Pulse Oximetry 98 Oxygen Delivery Method Nasal Cannula Nasal Cannula Nasal Cannula Oxygen Flow Rate 1 Telemetry Type Telemetry Monitoring Telemetry Heart Rate Telemetry SPO2 EKG MO Interval EKG QRS Interval Telemetry Strip Reading 03/02/24 00:00 03/02/24 00:30 03/02/24 01:00 Temperature Temperature Source Pulse Rate Respiratory Rate Blood Pressure Blood Pressure Mean Blood Pressure Location Blood Pressure Position O2 Sat by Pulse Oximetry Oxygen Delivery Method Nasal Cannula Nasal Cannula Oxygen Flow Rate Telemetry Type Remote Telemetry Telemetry Monitoring Continues Telemetry Heart Rate 82 Telemetry SPO2 100 EKG MO Interval 0.14 EKG QRS Interval 0.06 Telemetry Strip Reading SR 03/02/24 01:44 03/02/24 02:00 03/02/24 02:55 Temperature Temperature Source Pulse Rate 96 Respiratory Rate 18 Blood Pressure Blood Pressure Mean Blood Pressure Location Blood Pressure Position O2 Sat by Pulse Oximetry 99 Oxygen Delivery Method Nasal Cannula Nasal Cannula Nasal Cannula Oxygen Flow Rate 1 Telemetry Type Telemetry Monitoring Telemetry Heart Rate Telemetry SPO2 EKG MO Interval EKG QRS Interval Telemetry Strip Reading 03/02/24 04:00 03/02/24 05:00 03/02/24 05:25 Temperature Temperature Source Pulse Rate Respiratory Rate Blood Pressure Blood Pressure Mean Blood Pressure Location Blood Pressure Position O2 Sat by Pulse Oximetry 98 Oxygen Delivery Method Nasal Cannula Nasal Cannula Nasal Cannula Oxygen Flow Rate 2 Telemetry Type Telemetry Monitoring Telemetry Heart Rate Telemetry SPO2 EKG MO Interval EKG QRS Interval Telemetry Strip Reading 03/02/24 05:31 03/02/24 05:35 03/02/24 06:58 Temperature 97.4 F L Temperature Source Temporal Artery Scan Pulse Rate 81 Respiratory Rate 18 Blood Pressure 153/85 H Blood Pressure Mean 107 Blood Pressure Location Left Arm Blood Pressure Position Supine O2 Sat by Pulse Oximetry 99 Oxygen Delivery Method Nasal Cannula Nasal Cannula Nasal Cannula Oxygen Flow Rate 1 Telemetry Type Telemetry Monitoring Telemetry Heart Rate Telemetry SPO2 EKG MO Interval EKG QRS Interval Telemetry Strip Reading 03/02/24 07:00 03/02/24 08:00 03/02/24 09:00 Temperature Temperature Source Pulse Rate Respiratory Rate Blood Pressure Blood Pressure Mean Blood Pressure Location Blood Pressure Position O2 Sat by Pulse Oximetry Oxygen Delivery Method Nasal Cannula Nasal Cannula Oxygen Flow Rate Telemetry Type Remote Telemetry Telemetry Monitoring Continues Telemetry Heart Rate 95 Telemetry SPO2 100 EKG MO Interval 0.14 EKG QRS Interval 0.06 Telemetry Strip Reading SR Lab Results Lab Results: Lab Results: Last 24 Hours 03/02/24 05:25 WBC 7.86 RBC 3.31 L Hgb 9.4 L Hct 32.1 L MCV 97.0 MCH 28.4 MCHC 29.3 L RDW Coeff of Felipe 15.0 H Plt Count 288 Immature Gran % (Auto) 0.6 Neut % (Auto) 71.4 Lymph % (Auto) 19.8 [place] % (Auto) 8.1 Eos % (Auto) 0.1 Baso % (Auto) 0.0 Neut # (Auto) 5.6 Lymph # (Auto) 1.6 [place] # (Auto) 0.6 Eos # (Auto) 0.0 Baso # (Auto) 0.0 Immature Gran # (Auto) 0.1 Sodium 142.6 Potassium 4.07 Chloride 108.7 H Carbon Dioxide 29.0 Anion Gap 8.97 BUN 24.0 H Creatinine 1.00 Estimated GFR (MDRD) 54.00 BUN/Creatinine Ratio 24.00 Glucose 121.7 H Calcium 8.56 Total Bilirubin 0.13 L AST 22.1 ALT 12.7 Alkaline Phosphatase 62.6 Total Protein 5.99 L Albumin 3.13 L Globulin 2.86 Albumin/Globulin Ratio 1.09 Additional Comments Additional Comments: I have independently reviewed and interpreted the labs/EKGs/imaging ordered during this hospital stay. I have reviewed outside records that are available in our EMR that pertain to medical stay including imaging/notes/labs from previous visits. Active Medications Active Medications: Medications Generic Name Dose Route Start Last Admin Trade Name Freq PRN Reason Stop Dose Admin Acetaminophen 650 mg 02/29/24 19:10 03/01/24 10:41 Acetaminophen 325 Mg Tablet PO 650 mg Q4H PRN Administration Mild Pain Hydrocodone Bitart/Acetaminophen 1 tab 03/01/24 10:01 03/02/24 00:14 Hydrocodone Bit/Acetaminophen 7.5/325 Mg Tablet PO 1 tab TID PRN Administration Pain Albuterol Sulfate 2.5 mg 02/29/24 19:10 Albuterol Sulfate 0.083% Vial.Neb NEB RTQ4H PRN Wheezing Albuterol/Ipratropium 3 ml 03/01/24 00:00 03/02/24 05:09 Ipratropium/Albuterol Vial.Neb NEB 3 ml RTQ6H ANDREAS Administration Azithromycin 500 mg 03/02/24 10:00 Azithromycin 250 Mg Tablet PO 03/04/24 11:00 DAILY ANDREAS Benzonatate 200 mg 03/01/24 16:27 03/01/24 17:05 Benzonatate 100 Mg Capsule PO 200 mg TID PRN Administration Cough Budesonide/Formoterol Fumarate 2 puff 03/01/24 10:00 03/02/24 09:17 Budesonide/Formoterol Fumarate 160/4.5 Mcg Inhaler IH 2 puff BID ANDREAS Administration Carvedilol 12.5 mg 03/01/24 17:00 03/02/24 09:17 Carvedilol 12.5 Mg Tablet PO 12.5 mg BIDWM2 ANDREAS Administration Guaifenesin/Dextromethorphan 5 ml 03/01/24 16:01 Guaifenesin/Dextromethorphan 200/20 Mg/10 Ml Cup PO Q4H PRN Cough CEFTRIAXONE/D5W 1 GM PREMIX 1 gm in 50 mls @ 100 mls/hr 03/02/24 10:00 Rocephin 1 Gm/50 Ml D5w IV 03/05/24 09:59 DAILY ANDREAS Methylprednisolone Sodium Succinate 40 mg 03/02/24 09:30 03/02/24 09:42 Methylprednisolone Sod Succ/Pf 40 Mg/Ml Vial IVP 40 mg Q8HR ANDREAS Administration Plan Plan: 1. Right sided Pneumonia - switching from levaquin to rocephin and azith due to kidney function, MRSA negative, culture sputum, legionella and strep pneumo ordered 2. COPD exacerbation - duoneb Q4H, continue home inhaler 3. Hypertension - chronic, continue home medications 4. Lung Cancer - norco for pain - reports not providing relief, increasing dosage to 7.5/325 DVT Prophylaxis: Ambulation Review Statement Review Statement: I have personally discussed and reviewed the patient's visit/currently labs/imaging/decision making with Dr. Teixeira, my supervising attending. Greater that 50 minutes spent with patient, 50% of the time spent with this patient was devoted to counseling and coordination of care.
[2024-03-02] MEDS: ROCEPHIN 1 GM/50 ML D5W 1 GM/50 ML BAG IV SCH (10:07)
[2024-03-02] MEDS: ZITHROMAX PO SCH (11:01)
[2024-03-02] MEDS: DUONEB NEB SCH (13:24)
[2024-03-02] MEDS: DULCOLAX PO PRN (14:06)
[2024-03-02] MEDS: ZOFRAN 4 MG/2 ML IVP PRN (14:14)
[2024-03-02] MEDS ORDERED: LEVAQUIN 750 MG/150 ML D5W 750 MG/150 ML BAG IV SCH (21:00)
[2024-03-03 06:05] LABS: BASOPHILS % (AUTO) 0.2 % (0.0-3.0); EOSINOPHILS % (AUTO) 0.2 % (0.0-7.0); HEMATOCRIT 31.1 % (37.0-47.0); HEMOGLOBIN 9.1 g/dl (12.0-16.0); IMMATURE GRANULOCYTE % (AUTO) 0.6 % (0.0-5.0); LYMPHOCYTES # (AUTO) 0.9 K/uL (0.60-3.4); LYMPHOCYTES % (AUTO) 13.3 (10.0-50.0); MEAN CORPUSCULAR HEMOGLOBIN 28.9 pg (27.0-31.0); MEAN CORPUSCULAR HGB CONC 29.3 (31.8-35.4); MEAN CORPUSCULAR VOLUME 98.7 fl (81.0-99.0); MONOCYTES # (AUTO) 0.2 K/uL (0.4-2.0); MONOCYTES % (AUTO) 2.4 (0-10); NEUTROPHILS # (AUTO) 5.3 K/ul (2.0-6.9); NEUTROPHILS % (AUTO) 83.3 % (42.2-75.2); PLATELET COUNT 288 10^3/uL (140-440); RDW COEFFICIENT OF VARIATION 14.9 % (11.6-14.8); RED BLOOD COUNT 3.15 10^6/ul (4.20-5.40); WHITE BLOOD COUNT 6.37 K/ul (4.6-10.2)
[2024-03-03 06:28] LABS: ALANINE AMINOTRANSFERASE 16.3 U/L (0-35); ALBUMIN 3.17 g/dL (3.5-5.0); ALKALINE PHOSPHATASE 67.9 U/L (53-141); ASPARTATE AMINO TRANSFERASE 21.7 U/L (14-36); BILIRUBIN,TOTAL 0.17 mg/dL (0.2-1.3); BLOOD UREA NITROGEN 25.9 mg/dL (7-17); CALCIUM 8.39 mg/dL (8.4-10.2); CARBON DIOXIDE 29.3 mmol/L (22-30.0); CHLORIDE 107.4 mmol/L (98-107); CREATININE 0.9 mg/dL (0.60-1.30); GLUCOSE 174.8 mg/dL (74-106); POTASSIUM 4.33 mmol/L (3.5-5.1); SODIUM 141.1 mmol/L (134.5-145); TOTAL PROTEIN 6.02 g/dL (6.3-8.2)
--- NOTE | 2024-03-03 12:42 | PCM.PROG ---
Date/Time Seen Date Seen by Provider: 03/03/24 Time Seen by Provider: 08:40 Provider Provider: MEI AYALA PA-C, [facility] ([facility] Chief Complaint Chief Complaint: COPD EXACERBATION,ACUTE EMIC RESP FAILURE CAD Subjective Subjective: Patient states she cannot go home today, doesn't feel well enough, feels she was discharged too early last time as well. States she's too weak to return home. She hasn't had a BM in a week. Objective Appearance: Positive No Apparent Distress, Alert and Oriented x3, Ill-Appearing, Thin and Cachectic Chest/Lungs: Positive Symmetrical With Equal Breath Sounds and Wheezes (mild, exp, [place] ) Heart: Positive RRR and Pulses Normal GI/: Positive Soft, Nontender, Bowel Sounds Normal and No Distention Musculoskeletal: Positive Not Examined Neurological: Positive Sensation Intact, Motor intact, Alert, Oriented and Other (+generalized weakness ) Vital Signs Vital Signs: Vital Signs: Last 24 Hours 03/02/24 13:00 03/02/24 13:00 03/02/24 14:00 Temperature Temperature Source Pulse Rate Pulse Rate [Apical] Respiratory Rate Blood Pressure Blood Pressure Mean Blood Pressure Location Blood Pressure Position O2 Sat by Pulse Oximetry Oxygen Delivery Method Room Air Room Air Oxygen Flow Rate Height Weight Telemetry Type Remote Telemetry Telemetry Monitoring Continues Telemetry Heart Rate 105 H Telemetry SPO2 99 EKG OK Interval 0.24 H EKG QRS Interval 0.08 EKG QT Interval Telemetry Strip Reading ST 03/02/24 14:00 03/02/24 14:00 03/02/24 15:00 Temperature 97.9 F Temperature Source Temporal Artery Scan Pulse Rate 100 Pulse Rate [Apical] Respiratory Rate 18 Blood Pressure 109/65 Blood Pressure Mean 79 Blood Pressure Location Left Arm Blood Pressure Position O2 Sat by Pulse Oximetry 99 Oxygen Delivery Method Nasal Cannula Nasal Cannula Nasal Cannula Oxygen Flow Rate 2 1 Height Weight Telemetry Type Telemetry Monitoring Telemetry Heart Rate Telemetry SPO2 EKG OK Interval EKG QRS Interval EKG QT Interval Telemetry Strip Reading 03/02/24 16:00 03/02/24 16:53 03/02/24 18:00 Temperature Temperature Source Pulse Rate Pulse Rate [Apical] Respiratory Rate Blood Pressure Blood Pressure Mean Blood Pressure Location Blood Pressure Position O2 Sat by Pulse Oximetry Oxygen Delivery Method Nasal Cannula Nasal Cannula Nasal Cannula Oxygen Flow Rate Height Weight Telemetry Type Telemetry Monitoring Telemetry Heart Rate Telemetry SPO2 EKG OK Interval EKG QRS Interval EKG QT Interval Telemetry Strip Reading 03/02/24 18:00 03/02/24 19:00 03/02/24 19:00 Temperature 98.1 F Temperature Source Temporal Artery Scan Pulse Rate 90 Pulse Rate [Apical] Respiratory Rate 18 Blood Pressure 130/68 Blood Pressure Mean 88 Blood Pressure Location Right Arm Blood Pressure Position O2 Sat by Pulse Oximetry 100 Oxygen Delivery Method Nasal Cannula Nasal Cannula Oxygen Flow Rate 2 Height Weight Telemetry Type Remote Telemetry Telemetry Monitoring Continues Telemetry Heart Rate 92 Telemetry SPO2 100 EKG OK Interval 0.13 EKG QRS Interval 0.06 EKG QT Interval Telemetry Strip Reading SR 03/02/24 20:00 03/02/24 20:00 03/02/24 20:00 Temperature Temperature Source Pulse Rate Pulse Rate [Apical] Respiratory Rate 18 Blood Pressure Blood Pressure Mean Blood Pressure Location Blood Pressure Position O2 Sat by Pulse Oximetry 98 Oxygen Delivery Method Nasal Cannula Nasal Cannula Nasal Cannula Oxygen Flow Rate 1 2 Height Weight Telemetry Type Telemetry Monitoring Telemetry Heart Rate Telemetry SPO2 EKG OK Interval EKG QRS Interval EKG QT Interval Telemetry Strip Reading 03/02/24 20:54 03/02/24 21:00 03/02/24 22:00 Temperature 97.5 F L Temperature Source Temporal Artery Scan Pulse Rate 87 Pulse Rate [Apical] Respiratory Rate 18 Blood Pressure 146/84 H Blood Pressure Mean 104 Blood Pressure Location Left Arm Blood Pressure Position Supine O2 Sat by Pulse Oximetry 100 Oxygen Delivery Method Nasal Cannula Nasal Cannula Nasal Cannula Oxygen Flow Rate 2 Height Weight Telemetry Type Telemetry Monitoring Telemetry Heart Rate Telemetry SPO2 EKG OK Interval EKG QRS Interval EKG QT Interval Telemetry Strip Reading 03/02/24 23:00 03/03/24 00:00 03/03/24 01:00 Temperature Temperature Source Pulse Rate Pulse Rate [Apical] Respiratory Rate Blood Pressure Blood Pressure Mean Blood Pressure Location Blood Pressure Position O2 Sat by Pulse Oximetry Oxygen Delivery Method Nasal Cannula Nasal Cannula Oxygen Flow Rate Height Weight Telemetry Type Remote Telemetry Telemetry Monitoring Continues Telemetry Heart Rate 76 Telemetry SPO2 100 EKG OK Interval EKG QRS Interval 0.14 H EKG QT Interval 0.08 L Telemetry Strip Reading SINUS RHYTHM 03/03/24 01:00 03/03/24 02:00 03/03/24 02:53 Temperature Temperature Source Pulse Rate Pulse Rate [Apical] Respiratory Rate Blood Pressure Blood Pressure Mean Blood Pressure Location Blood Pressure Position O2 Sat by Pulse Oximetry Oxygen Delivery Method Nasal Cannula Nasal Cannula Nasal Cannula Oxygen Flow Rate Height Weight Telemetry Type Telemetry Monitoring Telemetry Heart Rate Telemetry SPO2 EKG OK Interval EKG QRS Interval EKG QT Interval Telemetry Strip Reading 03/03/24 04:00 03/03/24 05:00 03/03/24 05:00 Temperature 98.4 F Temperature Source Temporal Artery Scan Pulse Rate 80 Pulse Rate [Apical] Respiratory Rate 18 Blood Pressure 155/86 H Blood Pressure Mean 109 Blood Pressure Location Left Arm Blood Pressure Position Supine O2 Sat by Pulse Oximetry 100 Oxygen Delivery Method Nasal Cannula Nasal Cannula Nasal Cannula Oxygen Flow Rate 2 Height Weight Telemetry Type Telemetry Monitoring Telemetry Heart Rate Telemetry SPO2 EKG OK Interval EKG QRS Interval EKG QT Interval Telemetry Strip Reading 03/03/24 05:11 03/03/24 06:00 03/03/24 07:00 Temperature Temperature Source Pulse Rate Pulse Rate [Apical] Respiratory Rate Blood Pressure Blood Pressure Mean Blood Pressure Location Blood Pressure Position O2 Sat by Pulse Oximetry 96 Oxygen Delivery Method Nasal Cannula Nasal Cannula Oxygen Flow Rate 2 Height Weight Telemetry Type Remote Telemetry Telemetry Monitoring Continues Telemetry Heart Rate 58 L Telemetry SPO2 EKG OK Interval 0.12 EKG QRS Interval 0.06 EKG QT Interval Telemetry Strip Reading sb 03/03/24 07:00 03/03/24 08:00 03/03/24 08:00 Temperature Temperature Source Pulse Rate Pulse Rate [Apical] 100 Respiratory Rate 18 Blood Pressure Blood Pressure Mean Blood Pressure Location Blood Pressure Position O2 Sat by Pulse Oximetry Oxygen Delivery Method Nasal Cannula Nasal Cannula Nasal Cannula Oxygen Flow Rate 1 Height Weight Telemetry Type Telemetry Monitoring Telemetry Heart Rate Telemetry SPO2 EKG OK Interval EKG QRS Interval EKG QT Interval Telemetry Strip Reading 03/03/24 09:00 03/03/24 09:39 03/03/24 10:00 Temperature 98.6 F Temperature Source Temporal Artery Scan Pulse Rate 95 Pulse Rate [Apical] Respiratory Rate 15 Blood Pressure 139/70 Blood Pressure Mean 93 Blood Pressure Location Left Arm Blood Pressure Position Supine O2 Sat by Pulse Oximetry 99 Oxygen Delivery Method Nasal Cannula Nasal Cannula Oxygen Flow Rate 1 Height 4 ft 9 in Weight 27.9 kg Telemetry Type Telemetry Monitoring Telemetry Heart Rate Telemetry SPO2 EKG OK Interval EKG QRS Interval EKG QT Interval Telemetry Strip Reading 03/03/24 10:00 03/03/24 10:00 03/03/24 11:00 Temperature Temperature Source Pulse Rate Pulse Rate [Apical] Respiratory Rate Blood Pressure Blood Pressure Mean Blood Pressure Location Blood Pressure Position O2 Sat by Pulse Oximetry Oxygen Delivery Method Nasal Cannula Nasal Cannula Nasal Cannula Oxygen Flow Rate 2 Height Weight Telemetry Type Telemetry Monitoring Telemetry Heart Rate Telemetry SPO2 EKG OK Interval EKG QRS Interval EKG QT Interval Telemetry Strip Reading 03/03/24 12:00 Temperature Temperature Source Pulse Rate Pulse Rate [Apical] Respiratory Rate Blood Pressure Blood Pressure Mean Blood Pressure Location Blood Pressure Position O2 Sat by Pulse Oximetry Oxygen Delivery Method Nasal Cannula Oxygen Flow Rate Height Weight Telemetry Type Telemetry Monitoring Telemetry Heart Rate Telemetry SPO2 EKG OK Interval EKG QRS Interval EKG QT Interval Telemetry Strip Reading Lab Results Lab Results: Lab Results: Last 24 Hours 03/03/24 02/29/24 05:31 19:00 WBC 6.37 RBC 3.15 L Hgb 9.1 L Hct 31.1 L MCV 98.7 MCH 28.9 MCHC 29.3 L RDW Coeff of Felipe 14.9 H Plt Count 288 Immature Gran % (Auto) 0.6 Neut % (Auto) 83.3 H Lymph % (Auto) 13.3 [place] % (Auto) 2.4 Eos % (Auto) 0.2 Baso % (Auto) 0.2 Neut # (Auto) 5.3 Lymph # (Auto) 0.9 [place] # (Auto) 0.2 L Eos # (Auto) 0.0 Baso # (Auto) 0.0 Immature Gran # (Auto) 0.0 Sodium 141.1 Potassium 4.33 Chloride 107.4 H Carbon Dioxide 29.3 Anion Gap 8.73 BUN 25.9 H Creatinine 0.90 Estimated GFR (MDRD) 61.00 BUN/Creatinine Ratio 28.77 Glucose 174.8 H Calcium 8.39 L Total Bilirubin 0.17 L AST 21.7 ALT 16.3 Alkaline Phosphatase 67.9 Total Protein 6.02 L Albumin 3.17 L Globulin 2.85 Albumin/Globulin Ratio 1.11 Procalcitonin < 0.05 Additional Comments Additional Comments: I have independently reviewed and interpreted the labs/EKGs/imaging ordered during this hospital stay. I have reviewed outside records that are available in our EMR that pertain to medical stay including imaging/notes/labs from previous visits. Active Medications Active Medications: Medications Generic Name Dose Route Start Last Admin Trade Name Freq PRN Reason Stop Dose Admin Acetaminophen 650 mg 02/29/24 19:10 03/03/24 07:29 Acetaminophen 325 Mg Tablet PO 650 mg Q4H PRN Administration Mild Pain Hydrocodone Bitart/Acetaminophen 1 tab 03/01/24 10:01 03/03/24 05:10 Hydrocodone Bit/Acetaminophen 7.5/325 Mg Tablet PO 1 tab TID PRN Administration Pain Albuterol Sulfate 2.5 mg 02/29/24 19:10 Albuterol Sulfate 0.083% Vial.Neb NEB RTQ4H PRN Wheezing Albuterol/Ipratropium 3 ml 03/02/24 11:00 03/03/24 10:50 Ipratropium/Albuterol Vial.Neb NEB 3 ml RTQ4H ANDREAS Administration Azithromycin 500 mg 03/02/24 10:00 03/03/24 08:35 Azithromycin 250 Mg Tablet PO 03/04/24 11:00 500 mg DAILY ANDREAS Administration Benzonatate 200 mg 03/01/24 16:27 03/03/24 05:10 Benzonatate 100 Mg Capsule PO 200 mg TID PRN Administration Cough Bisacodyl 5 mg 03/02/24 13:47 03/03/24 11:03 Bisacodyl 5 Mg Tablet.Dr PO 5 mg DAILY PRN Administration Constipation Budesonide/Formoterol Fumarate 2 puff 03/01/24 10:00 03/03/24 08:36 Budesonide/Formoterol Fumarate 160/4.5 Mcg Inhaler IH 2 puff BID ANDREAS Administration Carvedilol 12.5 mg 03/01/24 17:00 03/03/24 08:34 Carvedilol 12.5 Mg Tablet PO 12.5 mg BIDWM2 ANDREAS Administration Guaifenesin/Dextromethorphan 5 ml 03/01/24 16:01 Guaifenesin/Dextromethorphan 200/20 Mg/10 Ml Cup PO Q4H PRN Cough CEFTRIAXONE/D5W 1 GM PREMIX 1 gm in 50 mls @ 100 mls/hr 03/02/24 10:00 03/03/24 08:37 Rocephin 1 Gm/50 Ml D5w IV 03/05/24 09:59 100 mls/hr DAILY ANDREAS Administration Methylprednisolone Sodium Succinate 40 mg 03/02/24 09:30 03/03/24 12:16 Methylprednisolone Sod Succ/Pf 40 Mg/Ml Vial IVP 40 mg Q8HR ANDREAS Administration Ondansetron HCl 4 mg 03/02/24 13:59 03/03/24 11:04 Ondansetron Hcl/Pf 4 Mg/2 Ml Sdv IVP 4 mg Q6H PRN Administration Nausea / Vomiting Sodium Chloride 1 syr 03/03/24 05:00 03/03/24 12:17 0.9% Sodium Chloride 10 Ml Disp.Syrin IVF 1 syr Q8HR ANDREAS Administration Plan Plan: 1. Right sided Pneumonia, community acquired - Cont rocephin and azith due to kidney function, MRSA negative, culture sputum, legionella and strep pneumo ordered 2. Acute COPD exacerbation - duoneb Q4H, continue home inhaler, plan as above, solumedrol 3. Acute hypoxic resp failure - Has home O2 but doesn't usually wear it. Discussed she likely needs to start wearing it all the time. 4. Hypertension - chronic, continue home medications 5. Hx of Lung Cancer - norco for pain - reports not providing relief, increasing dosage to 7.5/325 6. Constipation - Miralax, colace, and dulcolax ordered DVT Prophylaxis: Lovenox Review Statement Review Statement: I have personally discussed and reviewed the patient's visit/currently labs/imaging/decision making with Dr. Wade, my supervising attending. Greater that 50 minutes spent with patient, 50% of the time spent with this patient was devoted to counseling and coordination of care.
[2024-03-03] MEDS: LOVENOX SUBCUT SCH (13:29)
[2024-03-03] MEDS: MIRALAX PO SCH (13:29)
[2024-03-03] MEDS: COLACE PO SCH (13:29)
[2024-03-04 06:16] LABS: HEMATOCRIT 30.2 % (37.0-47.0); HEMOGLOBIN 8.9 g/dl (12.0-16.0); IMMATURE GRANULOCYTE # (AUTO) 0.1 (0.0-1.0); IMMATURE GRANULOCYTE % (AUTO) 0.8 % (0.0-5.0); LYMPHOCYTES # (AUTO) 0.6 K/uL (0.60-3.4); LYMPHOCYTES % (AUTO) 6.3 (10.0-50.0); MEAN CORPUSCULAR HGB CONC 29.5 (31.8-35.4); MEAN CORPUSCULAR VOLUME 98.4 fl (81.0-99.0); MONOCYTES # (AUTO) 0.3 K/uL (0.4-2.0); MONOCYTES % (AUTO) 3.3 (0-10); NEUTROPHILS # (AUTO) 7.8 K/ul (2.0-6.9); NEUTROPHILS % (AUTO) 89.6 % (42.2-75.2); PLATELET COUNT 274 10^3/uL (140-440); RDW COEFFICIENT OF VARIATION 15.2 % (11.6-14.8); RED BLOOD COUNT 3.07 10^6/ul (4.20-5.40); WHITE BLOOD COUNT 8.69 K/ul (4.6-10.2)
[2024-03-04 06:26] LABS: ALANINE AMINOTRANSFERASE 21.3 U/L (0-35); ALBUMIN 3.1 g/dL (3.5-5.0); ALKALINE PHOSPHATASE 55.8 U/L (53-141); ASPARTATE AMINO TRANSFERASE 47.3 U/L (14-36); BILIRUBIN,TOTAL 0.16 mg/dL (0.2-1.3); BLOOD UREA NITROGEN 28.2 mg/dL (7-17); CALCIUM 8.56 mg/dL (8.4-10.2); CARBON DIOXIDE 30.3 mmol/L (22-30.0); CHLORIDE 106.3 mmol/L (98-107); CREATININE 0.9 mg/dL (0.60-1.30); GLUCOSE 129.2 mg/dL (74-106); POTASSIUM 4.58 mmol/L (3.5-5.1); SODIUM 140.4 mmol/L (134.5-145); TOTAL PROTEIN 5.89 g/dL (6.3-8.2)
[2024-03-04 10:18] VITALS: BP 172/98; PULSE 94; RESP 16; TEMP 97.6
--- NOTE | 2024-03-04 12:08 | DCSUM ---
Admission Date Admission Date: 02/29/24 Discharge Date Discharge Date: 03/04/24 Admission Diagnosis Admission Diagnosis: 1. Right sided Pneumonia, community acquired 2. Acute COPD exacerbation 3. Acute hypoxic resp failure Discharge Diagnosis Discharge Diagnosis: 1. Right sided Pneumonia, community acquired 2. Acute COPD exacerbation 3. Acute hypoxic resp failure 4. Hypertension 5. Hx of Lung Cancer 6. Constipation - resolved Hospital Provider Hospital Provider: MEI AYALA PA-C, [facility] [place] Primary Care Physician Primary Care Physician: SIMONE TEIXEIRA MD Summary of History and Physical Summary of History and Physical: 73 yo female presented to the ER with complaints of shortness of breath. States she has been feeling bad over the past 3 days. Reports worsening cough without production. Denies fever, chills, or other symptoms. Found to have R sided pneumonia. Was admitted approx 1 month ago and treated for pneumonia. On home oxygen at 2L baseline. Admitted to med/surg observation. Hospital Course Subjective: Patient was initially treated with Levaquin but then transition to Rocephin and azithromycin due to renal function. She is also started on Solu-Medrol. She has been requiring 2 L. She has home O2 but admits that she does not wear it very often. She also has nebulizer and inhalers at home. Discharge was delayed as patient did not feel ready to be discharged. She felt too weak and overall not feeling well. She felt she was discharged too early last time. She has been otherwise stable, labs stable, vital stable. She appears to be at her baseline as far as her breathing. We discussed that at her age and with her comorbidities it could take her time to recover. We also discussed her CTA findings from last month that she states she is aware of. She states she follows with Dr. Haro, chief service observer in [place] and is awaiting to meet with him to discuss a plan regarding some areas of concern with her lungs. She is aware that if it is cancerous she does not want to undergo chemo. She states that hospice has been recommended to her but she does not want to do that at this time. She initially asked for some more resources and so case management talked her about [place] and other resources available to her, but then she states she does not want anyone in her home. Encouraged her to follow-up closely with her PCP. In meantime we will finish antibiotics with Augmentin and azithromycin. Patient has home O2, encouraged her to wear 2L. Appearance: Pleasant, No Apparent Distress and Alert HEENT: MMM and Supple CVS: Other (RRR) Abdomen: Soft, Non-Tender and No Distention Respiratory: No Accessory Muscle Use Extremities: No Edema Additional Findings: Thin, frail Vital Signs: Most Recent Vital Signs Temperature 97.6 F 03/04/24 10:00 Temperature Source Temporal Artery Scan 03/04/24 10:00 Temperature Source Oral 02/29/24 17:41 Pulse Rate 94 03/04/24 10:00 Respiratory Rate 16 03/04/24 10:00 Blood Pressure 172/98 H 03/04/24 10:00 Blood Pressure Mean 122 03/04/24 10:00 Blood Pressure Left Arm 169/96 02/29/24 20:05 Blood Pressure Location Left Arm 03/04/24 10:00 Blood Pressure Position Supine 03/04/24 10:00 O2 Sat by Pulse Oximetry 95 03/04/24 10:00 Oxygen Delivery Method Room Air 03/04/24 10:00 Oxygen Flow Rate 1 03/03/24 21:55 Height 4 ft 9 in 03/03/24 09:39 Weight 27.9 kg 03/03/24 09:39 Telemetry Type Remote Telemetry 03/04/24 07:00 Telemetry Monitoring Continues 03/04/24 07:00 Telemetry Heart Rate 80 03/04/24 07:00 Telemetry SPO2 97 03/04/24 07:00 EKG SD Interval 0.16 03/04/24 07:00 EKG QRS Interval 0.08 03/04/24 07:00 EKG QT Interval 0.08 L 03/03/24 01:00 Telemetry Strip Reading SR w/ PVC's. 03/04/24 07:00 Imaging: EXAM: CHEST ONE-VIEW HISTORY: Shortness of breath COMPARISON: AP chest from 01/29/2024 FINDINGS: A small right pleural effusion is detected with subjacent infiltrates. There are stable nodular opacity in the right lung base. There is elevation of the left hilum with prominence. No change. There are posterior changes in the right upper lobe. There are decreased bronchovascular markings in the lungs. The lungs are hyperinflated. The cardiomediastinal silhouette is normal. The pulmonary vasculature is normal. No pneumothoraces. IMPRESSION: 1. Small right pleural effusion with subjacent atelectasis and/or infiltrate. 2. Stable nodular opacities in the right lung base. 3. Emphysema. 4. Postsurgical changes in the right lung. Lab Results Last 24 Hours: 03/04/24 03/04/24 06:10 06:05 WBC 8.69 RBC 3.07 L Hgb 8.9 L Hct 30.2 L MCV 98.4 MCH 29.0 MCHC 29.5 L RDW Coeff of Felipe 15.2 H Plt Count 274 Immature Gran % (Auto) 0.8 Neut % (Auto) 89.6 H Lymph % (Auto) 6.3 L [place] % (Auto) 3.3 Eos % (Auto) 0.0 Baso % (Auto) 0.0 Neut # (Auto) 7.8 H Lymph # (Auto) 0.6 [place] # (Auto) 0.3 L Eos # (Auto) 0.0 Baso # (Auto) 0.0 Immature Gran # (Auto) 0.1 Sodium 140.4 Potassium 4.58 Chloride 106.3 Carbon Dioxide 30.3 H Anion Gap 8.38 BUN 28.2 H Creatinine 0.90 Estimated GFR (MDRD) 61.00 BUN/Creatinine Ratio 31.33 Glucose 129.2 H Calcium 8.56 Total Bilirubin 0.16 L AST 47.3 H D ALT 21.3 Alkaline Phosphatase 55.8 Total Protein 5.89 L Albumin 3.10 L Globulin 2.79 Albumin/Globulin Ratio 1.11 Discharge Instructions Discharge Planning: Discharge Planning > [address] Reid teixeira. Discharge Medications: Medications at Discharge (Home Meds & RX) Discharge Plan Discharge Discharge Orders: Discharge Patient (ONCE); Ordered 03/04/24 Ordered By: MEI AYALA Activity Restrictions/Additional Instructions: DISCHARGE TO HOME DX: PNA, ACUTE COPD EXACERBATION PHARMACY: [facility] ANTIBIOTICS, STEROIDS, AND COUGH MEDICINE PRESCRIBED F/U WITH PCP AND PULMONOLOGY WEAR HOME O2 AT 2L Instructions: COPD (Chronic Obstructive Pulmonary Disease) (DC), Pneumonia (DC) Care Plan Goals: Problem: Impaired Respiratory Status Goal: Exhibit optimal respiratory function Instructions: Activities as tolerated Apply oxygen as ordered Elevate head of bed Notify MD of increased congestion Problem: Constipation Goal: Achieve optimal elimination pattern Instructions: Monitor frequency/type of bowel movement Adherence to bowel elimination regime Take laxative/enema as ordered Patient Disposition: HOME SELF-CARE Prescriptions: New benzonatate 100 mg Capsule 100 mg PO TID PRN (Reason: cough) Qty: 30 0RF azithromycin 500 mg tablet 500 mg PO DAILY 2 Days Qty: 2 0RF Rx Instructions: START ON 03/05 amoxicillin-pot clavulanate [Augmentin] 500-125 mg tablet 1 tab PO BID 2 Days Qty: 4 0RF Rx Instructions: STARTING 03/05 prednisone 20 mg tablet 20 mg PO BID 2 Days Qty: 4 0RF Rx Instructions: start 03/05 Continued carvedilol 12.5 mg tablet 12.5 mg PO 2XD Qty: 60 2RF hydrocodone-acetaminophen 5-325 mg tablet 1 tab PO TID PRN (Reason: pain) Qty: 90 0RF budesonide-formoterol [Symbicort] 160-4.5 mcg/actuation Hfa Aerosol Inhaler 2 puff INHALATION BID albuterol sulfate 90 mcg/actuation HFA aerosol inhaler 2 puff inhalation Q6H PRN (Reason: shortness of breath or wheezing) Discontinued guaifenesin [Mucus Relief ER] 600 mg tablet extended release 12hr 600 mg PO BID Did you review [place] [employer] AND MEDIA for ALL controlled substances?: Not Applicable Discussed opioids are addictive and Narcan is available by prescription or from pharmacy.: No Condition: Stable Referrals: SIMONE TEIXEIRA MD [Primary Care Provider] - 03/11/24 10:40 am
== END 2024-03-04 14:23 | disposition home or self-care (01) ==
LOC: MEDSURG B 17:40 → ED 17:40 → MEDSURG B 19:58
PROVIDERS: ADMIT Hospitalist; ATTEND Physician Assistant
DX: Z99.81 Dependence on supplemental oxygen; K59.00 Constipation, unspecified; C34.90 Malignant neoplasm of unspecified part of unspecified bronchus or lung; Z79.899 Other long term (current) drug therapy; F17.210 Nicotine dependence, cigarettes, uncomplicated; Z51.81 Encounter for therapeutic drug level monitoring; J18.9 Pneumonia, unspecified organism; J96.01 Acute respiratory failure with hypoxia; J44.0 Chronic obstructive pulmonary disease with (acute) lower respiratory infection; Z20.822 Contact with and (suspected) exposure to COVID-19; I10 Essential (primary) hypertension; D64.9 Anemia, unspecified; J44.1 Chronic obstructive pulmonary disease with (acute) exacerbation; I16.9 Hypertensive crisis, unspecified